=== PATIENT | male | born 1945 | race Caucasian/White ===

== ENCOUNTER 2016-06-18 14:37 | Outpatient (CLI) | payer MEDICARE | END 2016-06-18 14:38 | disposition home or self-care (01) | DX: R53.83 Other fatigue (principal); C85.90 Non-Hodgkin lymphoma, unspecified, unspecified site ==

== ENCOUNTER 2016-08-04 11:46 | Outpatient (CLI) | payer MEDICARE ==
[2016-08-04] MEDS ORDERED: IOPAMIDOL-300 100 ML VIAL IVP ONE (13:13)
[2016-08-04] MEDS ORDERED: IOPAMIDOL-300 50 ML VIAL PO ONE (13:13)
== END 2016-08-04 11:47 | disposition home or self-care (01) ==
DX: C83.30 Diffuse large B-cell lymphoma, unspecified site (principal)
CPT/HCPCS: 36415; 71260; 74177; 82565; Q9967

== ENCOUNTER 2016-09-02 07:02 | Outpatient (CLI) | payer MEDICARE | END 2016-09-02 07:03 | disposition home or self-care (01) | DX: E55.9 Vitamin D deficiency, unspecified (principal); R97.20 Elevated prostate specific antigen [PSA]; E78.9 Disorder of lipoprotein metabolism, unspecified; E11.9 Type 2 diabetes mellitus without complications ==

== ENCOUNTER 2016-09-19 07:58 | Emergency (ER) | payer MEDICARE ==
[2016-09-19] MEDS ORDERED: SODIUM CHLORIDE 0.9% 1,000 ML IV ONE ×2 (09:02→09:59)
--- NOTE | 2016-09-19 09:06 | ED Physician Documentation ---
PD HPI CHEST PAIN - Stated complaint Stated Complaint: CHEST PAIN - Chief complaint Chief Complaint: Cardiac - History obtained from History obtained from: Patient - History of Present Illness Timing - onset: Enter time (1800), Last night Timing - onset during: Rest Timing - duration: Hours Timing - details: Gradual onset, Now resolved Quality: Pressure, Aching, Sharp Location: Substernal, Left chest Radiation: No: Jaw, Neck, Back, Abdominal, Left upper extremity, Right upper extremity Improved by: Rest Associated symptoms: Shortness of air, Nausea, Feeling faint / dizzy, General Weakness. No: Diaphoresis, Vomiting, Palpitations, Cough Similar symptoms before: Diagnosis (atypical chest pain) Recently seen: Clinic (The patient has had a recent recurrenc of his lymphoma.) - Additional information Additional information: 71 y/o male was feeling his usual and was well yesterday when he did his usual work out in the GYM and ran about 2 miles. He had no symptoms while working out. He began to have syptoms at about 6pm last night and he has chest pain dizziness, light headedness and nausea. He has had similar chest pain about every 2 months. Today his symptoms of fatigue and lightheadedness are more pronounced than usual. He does not have any specific hydration regimen. Review of Systems Constitutional: reports: Myalgias, Fatigue. denies: Fever, Chills Eyes: denies: Decreased vision Ears: denies: Ear pain Nose: denies: Rhinorrhea / runny nose, Congestion Throat: denies: Oral lesions / sores, Sore throat Cardiac: reports: Chest pain / pressure. denies: Palpitations, Pedal edema, Calf pain Respiratory: reports: Dyspnea. denies: Cough GI: reports: Nausea. denies: Abdominal Pain, Vomiting, Constipation, Diarrhea : denies: Dysuria, Frequency PD PAST MEDICAL HISTORY - Past Medical History Past Medical History: Yes Cardiovascular: Hypertension Respiratory: None Neuro: None Endocrine/Autoimmune: None GI: Hepatitis : None HEENT: None Psych: None Musculoskeletal: None Derm: None - Past Surgical History Past Surgical History: Yes General: Cholecystectomy, Appendectomy HEENT: Tonsil/Adenoidectomy - Present Medications Home Medications: Ambulatory Orders Medication Instructions Recorded Confirmed Atenolol 25 mg PO DAILY 01/09/13 09/19/16 hydroCHLOROthiazide [Hydrodiuril] 25 mg PO DAILY 01/09/13 09/19/16 - Allergies Allergies/Adverse Reactions: Allergies Allergy/AdvReac Type Severity Reaction Status Date / Time azithromycin [From Zithromax] Allergy Intermediate Rash Verified 11/16/15 22:08 sulfamethoxazole AdvReac Intermediate Emesis Verified 11/16/15 22:08 [From Bactrim] trimethoprim [From Bactrim] AdvReac Intermediate Emesis Verified 11/16/15 22:08 hydrocodone AdvReac Nausea Verified 11/16/15 22:08 - Social History Does the pt smoke?: No Smoking Status: Never smoker Does the pt drink ETOH?: No Does the pt have substance abuse?: No - Immunizations Immunizations are current?: Yes - POLST Patient has POLST: No PD ED PE NORMAL - Vitals Vital signs reviewed: Yes (hypertensive) - General General: Alert and oriented X 3, No acute distress, Well developed/nourished - HEENT HEENT: Atraumatic, PERRL, EOMI - Neck Neck: Supple, no meningeal sign - Cardiac Cardiac: RRR, No murmur - Respiratory Respiratory: No respiratory distress, Clear bilaterally - Abdomen Abdomen: Soft, Non tender - Back Back: No CVA TTP, No spinal TTP - Derm Derm: Normal color, Warm and dry, No rash - Extremities Extremities: No deformity, No edema - Neuro Neuro: No motor deficit, No sensory deficit - Psych Psych: Normal mood, Normal affect Results - Vitals Vitals: Vital Signs - 24 hr 09/19/16 09/19/16 09/19/16 08:02 09:06 10:23 Temperature 36.5 C Heart Rate 67 58 L 51 L Respiratory 18 Rate Blood Pressure 161/99 H 128/80 O2 Saturation 98 99 98 09/19/16 11:49 Temperature 36.6 C Heart Rate 61 Respiratory 16 Rate Blood Pressure 133/63 H O2 Saturation 98 Oxygen O2 Source Room air - EKG (time done) 0805 Rate: Rate (enter#) (68) [place]: LAD Compare to prior EKG: Unchanged from prior EKG (01-15-15) Computer interpretation: Agree with computer - Labs Labs: Laboratory Tests 09/19/16 09/19/16 09/19/16 08:10 08:10 08:10 WBC 5.8 RBC 4.89 Hgb 15.3 Hct 43.5 MCV 89.0 MCH 31.4 H MCHC 35.2 RDW 13.0 Plt Count 197 MPV 8.1 Neut # 3.4 Lymph # 1.6 [place] # 0.5 Eos # 0.2 Baso # 0.0 Absolute Nucleated RBC 0.00 Nucleated RBCs 0.0 Sodium 136 Potassium 3.8 Chloride 99 L Carbon Dioxide 28 Anion Gap 9.0 BUN 11 Creatinine 0.6 Estimated GFR (MDRD) 133 Glucose 147 H Calcium 9.7 Total Bilirubin 1.0 AST 20 ALT 17 Alkaline Phosphatase 41 L Troponin I < 0.04 Total Protein 7.2 Albumin 4.6 Globulin 2.6 Albumin/Globulin Ratio 1.8 Lipase 29 Urine Color Urine Clarity Urine pH Ur Specific [place] Urine Protein Urine Glucose (UA) Urine Ketones Urine Occult Blood Urine Nitrite Urine Bilirubin Urine Urobilinogen Ur Leukocyte Esterase Ur Microscopic Review Urine Culture Comments 09/19/16 09:10 WBC RBC Hgb Hct MCV MCH MCHC RDW Plt Count MPV Neut # Lymph # [place] # Eos # Baso # Absolute Nucleated RBC Nucleated RBCs Sodium Potassium Chloride Carbon Dioxide Anion Gap BUN Creatinine Estimated GFR (MDRD) Glucose Calcium Total Bilirubin AST ALT Alkaline Phosphatase Troponin I Total Protein Albumin Globulin Albumin/Globulin Ratio Lipase Urine Color YELLOW Urine Clarity CLEAR Urine pH 6.5 Ur Specific [place] <=1.005 Urine Protein NEGATIVE Urine Glucose (UA) NEGATIVE Urine Ketones NEGATIVE Urine Occult Blood NEGATIVE Urine Nitrite NEGATIVE Urine Bilirubin NEGATIVE Urine Urobilinogen 0.2 (NORMAL) Ur Leukocyte Esterase NEGATIVE Ur Microscopic Review NOT INDICATED Urine Culture Comments NOT INDICATED - Rads (name of study) two-view chest Radiology: Prelim report reviewed (Impression: 1. No evidence for acute cardiopulmonary process by chest radiograph.), EMP read indepedently, See rad report Procedures - IVC sono (time) 0900 Bedside IVC sono: IVC measures (cm) (0.89), IVC collapsed c insp (cm) (complete) , Dehydration (about 2 liters down.) PD MEDICAL DECISION MAKING - ED course Complexity details: reviewed old records, reviewed results, re-evaluated patient , considered differential, d/w patient ED course: 71 y/o male with episodic chest pain is dizzy, lightheaded and nauseated with this and he is found to be dehydrated on interrogation of the IVC. He is administered saline with marked improvement in symptoms. Departure - Departure Disposition: 01 Home, Self Care Clinical Impression: Dehydration Condition: Stable Instructions: ED Dehydration Follow-Up: Aki Zaidi MD [Primary Care Provider] - Discharge Date/Time: 09/19/16 11:49
[2016-09-19 09:16] LABS: BASOPHILS % (AUTO) 0.6 %; EOSINOPHILS # (AUTO) 0.2 10^3/uL (0.0-0.7); EOSINOPHILS % (AUTO) 2.7 %; HCT - HEMATOCRIT 43.5 % (42.0-52.0); HGB - HEMOGLOBIN 15.3 g/dL (14.0-18.0); LYMPHOCYTES # (AUTO) 1.6 10^3/uL (1.5-3.5); LYMPHOCYTES % (AUTO) 28.6 %; MEAN CORPUSCULAR HEMOGLOBIN 31.4 pg (27.0-31.0); MEAN CORPUSCULAR HGB CONC 35.2 g/dL (32.0-36.0); MEAN PLATELET VOLUME 8.1 fL (7.4-11.4); MONOCYTES # (AUTO) 0.5 10^3/uL (0.0-1.0); MONOCYTES % (AUTO) 8.5 %; NEUTROPHILS # (AUTO) 3.4 10^3/uL (1.5-6.6); NEUTROPHILS % (AUTO) 59.6 %; RED BLOOD COUNT 4.89 10^6/uL (4.70-6.10); UNCORRECTED WHITE BLOOD COUNT 5.8 x10^3/uL; WHITE BLOOD COUNT 5.8 x10^3/uL (4.8-10.8)
[2016-09-19 09:26] LABS: ALBUMIN/GLOBULIN RATIO 1.8 (1.0-2.2); CALCIUM 9.7 mg/dL (8.5-10.3); CREATININE 0.6 mg/dL (0.6-1.2); POTASSIUM 3.8 mmol/L (3.5-5.0); TOTAL PROTEIN 7.2 g/dL (6.7-8.2)
[2016-09-19 09:27] LABS: BILIRUBIN,URINE NEGATIVE (NEGATIVE); PH,URINE 6.5 PH (5.0-7.5)
[2016-09-19 09:28] LABS: UA CHARGE (STRIP ONLY) YES; UR CULTURE IF IND NOT INDICATED
--- NOTE | 2016-09-19 09:43 | XRAY Preliminary Report ---
Exam: XR Chest 2 View PA/LAT IMPRESSION: 1. No evidence for acute cardiopulmonary process by chest radiograph. [facility] SITE ID: [id number]
--- NOTE | 2016-09-19 09:46 | XRAY Report ---
EXAM: CHEST RADIOGRAPHY EXAM DATE: 09/19/2016 09:23 AM. CLINICAL HISTORY: Chest pain. COMPARISON: 11/28/2013. TECHNIQUE: 2 views. FINDINGS: Lungs/Pleura: Linear basilar opacities likely reflect atelectasis. No other consolidation. No evidenc e for pleural effusions or pneumothorax. Mediastinum: Stable heart size and mediastinum. The thoracic aorta is tortuous. Other: Multilevel degenerative disk disease seen in the thoracic spine. IMPRESSION: 1. No evidence for acute cardiopulmonary process by chest radiograph. [facility] Referring Provider Line: [phone] SITE ID: [id number]
[2016-09-19 11:53] VITALS: BP 133/63
== END 2016-09-19 11:49 | disposition home or self-care (01) ==
LOC: ED 07:58
DX: E86.0 Dehydration (principal); R07.89 Other chest pain; I10 Essential (primary) hypertension
CPT/HCPCS: 36415; 71020; 80053; 81001; 81003; 83690; 84484; 85025; 87086; 93005; 93010; 96360; 99284

== ENCOUNTER 2016-10-20 10:36 | Outpatient (CLI) | payer MEDICARE ==
[2016-10-20 18:28] LABS: BASOPHILS % (AUTO) 0.5 %; EOSINOPHILS # (AUTO) 0.1 10^3/uL (0.0-0.7); EOSINOPHILS % (AUTO) 1.3 %; HCT - HEMATOCRIT 45.5 % (42.0-52.0); HGB - HEMOGLOBIN 15.3 g/dL (14.0-18.0); LYMPHOCYTES # (AUTO) 1.5 10^3/uL (1.5-3.5); LYMPHOCYTES % (AUTO) 19.5 %; MEAN CORPUSCULAR HEMOGLOBIN 30.9 pg (27.0-31.0); MEAN CORPUSCULAR HGB CONC 33.7 g/dL (32.0-36.0); MEAN CORPUSCULAR VOLUME 91.7 fL (80.0-94.0); MONOCYTES # (AUTO) 0.7 10^3/uL (0.0-1.0); MONOCYTES % (AUTO) 8.5 %; NEUTROPHILS # (AUTO) 5.4 10^3/uL (1.5-6.6); NEUTROPHILS % (AUTO) 70.2 %; NUCLEATED RED BLOOD CELLS AUTO 0.2 /100WBC; RED BLOOD COUNT 4.96 10^6/uL (4.70-6.10); RED CELL DISTRIBUTION WIDTH 13.1 % (12.0-15.0); UNCORRECTED WHITE BLOOD COUNT 7.7 x10^3/uL; WHITE BLOOD COUNT 7.7 x10^3/uL (4.8-10.8)
[2016-10-20 18:49] LABS: ALBUMIN/GLOBULIN RATIO 1.6 (1.0-2.2); BILIRUBIN,TOTAL 0.8 mg/dL (0.2-1.0); CALCIUM 9.7 mg/dL (8.5-10.3); CREATININE 0.7 mg/dL (0.6-1.2); POTASSIUM 4.6 mmol/L (3.5-5.0); TOTAL PROTEIN 7.1 g/dL (6.7-8.2)
== END 2016-10-20 10:37 | disposition home or self-care (01) ==
LOC: LAB.F 10:36
PROVIDERS: ATTEND Family Medicine
DX: R42 Dizziness and giddiness (principal); R07.9 Chest pain, unspecified; R53.83 Other fatigue
CPT/HCPCS: 36415; 80053; 85025

== ENCOUNTER 2016-11-06 13:42 | Outpatient (CLI) | payer MEDICARE ==
[2016-11-06] MEDS ORDERED: IOPAMIDOL-300 50 ML VIAL PO ONE (15:36)
[2016-11-06] MEDS ORDERED: IOPAMIDOL-300 100 ML VIAL IVP ONE (15:36)
--- NOTE | 2016-11-06 18:31 | CT Report ---
EXAM: CT ABDOMEN AND PELVIS EXAM DATE: 11/06/2016 03:44 p.m. CLINICAL HISTORY: Recurrent diffuse large B-cell lymphoma. COMPARISONS: 08/04/2016. TECHNIQUE: Routine helical CT imaging was performed through the abdomen and pelvis. IV contrast: 100 mL of Isovue-300. Enteric contrast: Yes. Reconstructions: Coronal and sagittal. In accordance with CT protocol optimization, one or more of the following dose reduction techniques w ere utilized for this exam: automated exposure control, adjustment of mA and/or KV based on patient s ize, or use of iterative reconstructive technique. FINDINGS: Lung Bases: Unremarkable. Liver: Normal. No masses. Gallbladder/Bile Ducts: Cholecystectomy. No ductal dilatation. Spleen: Normal. Pancreas: Normal. Adrenal Glands: Normal. Kidneys: Normal. No masses or hydronephrosis. Peritoneal Cavity/Bowel: Mild diverticulosis. No free fluid, free air or adenopathy. No masses or acu te inflammatory process. Nonvisualized appendix. Pelvic Organs: Prostate and bladder are unremarkable. Vasculature: No aortic aneurysm. Mild atherosclerotic calcification. Bones: S-shaped scoliosis with multilevel degenerative disk disease again noted, worst at L2-L3 and L 4-L5. Other: Small fat-containing inguinal hernias, right greater than left. IMPRESSION: No mass or adenopathy, or other acute abnormality of the abdomen and pelvis. [facility] Referring Provider Line: [phone] SITE ID: [id number]
--- NOTE | 2016-11-06 18:31 | CT Report ---
EXAM: CT CHEST EXAM DATE: 11/06/2016 03:44 PM. CLINICAL HISTORY: Recurrent diffuse large B-cell lymphoma. COMPARISONS: 08/04/2016. TECHNIQUE: Routine helical CT imaging was performed through the chest. IV contrast: 100 mL of Isovue- 300. Reconstructions: Coronal and sagittal. In accordance with CT protocol optimization, one or more of the following dose reduction techniques w ere utilized for this exam: automated exposure control, adjustment of mA and/or KV based on patient s ize, or use of iterative reconstructive technique. FINDINGS: Lungs/Pleura: No nodules, bronchial thickening, consolidation, or edema. Pulmonary vasculature is nor mal. No pericardial or pleural effusion. No pneumothorax. Mediastinum: Ectatic ascending aorta noted. No adenopathy or masses. No cardiomegaly. Bones: Unremarkable. Visualized Abdomen: Unremarkable. Other: Interval removal of a superficial right axillary lymph node with a smaller deeper 1.2 cm right axillary lymph node. IMPRESSION: Interval removal of a superficial right axillary lymph node, with deeper right axillary l ymph node smaller in size. No new mass or adenopathy. [facility] Referring Provider Line: [phone] SITE ID: [id number]
== END 2016-11-06 13:43 | disposition home or self-care (01) ==
LOC: DI 13:42
PROVIDERS: ATTEND Internal Medicine Hematology & Oncology
DX: C83.30 Diffuse large B-cell lymphoma, unspecified site (principal)
CPT/HCPCS: 71260; 74177; Q9967

== ENCOUNTER 2016-12-30 10:54 | Outpatient (CLI) | payer MEDICARE ==
[2016-12-30 11:30] LABS: ALBUMIN/GLOBULIN RATIO 1.6 (1.0-2.2); CALCIUM 9.7 mg/dL (8.5-10.3); CREATININE 0.8 mg/dL (0.6-1.2); POTASSIUM 4.5 mmol/L (3.5-5.0); TOTAL PROTEIN 7.5 g/dL (6.7-8.2)
[2016-12-30] MEDS ORDERED: IOPAMIDOL-300 100 ML VIAL IVP ONE (13:50)
--- NOTE | 2016-12-30 16:41 | CT Report ---
CT OF THE CHEST WITH CONTRAST: 12/30/2016 CLINICAL HISTORY: A 71-year-old male, followup lymphoma. TECHNIQUE: Axial images were obtained from the domes of the diaphragms through the pubic symphysis following 80 mL of Isovue and axial and coronal reformations performed. COMPARISON: 11/06/2016. FINDINGS: The lungs are symmetrically aerated and clear. No pulmonary nodules, bronchial wall thickening, consolidation or edema noted. The heart and great vessels are stable. There is no pericardial effusion. The ectatic ascending aorta is again identified. There is no hilar or mediastinal adenopathy. Multilevel degenerative changes are again noted. The pattern is stable when compared to the prior study. No lytic or blastic destructive lesions. The visualized upper abdomen is unchanged. Surgical change is again identified in the right axillary distribution secondary to mark resection. A few shotty level 3 axillary lymph nodes are again identified. These are stable in size and configuration when compared to the prior study. The maximal short axis diameter is 8 mm. A hiatal hernia is again identified. IMPRESSION: 1. STABLE EXAMINATION. NO NEW ADENOPATHY. 2. POSTSURGICAL CHANGES IN THE RIGHT AXILLA. STABLE SHOTTY LEVEL 3 LYMPH NODES. 3. CLEAR LUNGS. NO INFILTRATES. In accordance with CT protocol optimization, one or more of the following dose reduction techniques were utilized for this exam: automated exposure control, adjustment of mA and/or KV based on patient size, or use of iterative reconstructive technique. JOB #: [id number] EXT JOB #: [id number] [facility]
== END 2016-12-30 10:55 | disposition home or self-care (01) ==
LOC: LAB 10:54
PROVIDERS: ATTEND Family Medicine
DX: Z08 Encounter for follow-up examination after completed treatment for malignant neoplasm (principal); Z85.72 Personal history of non-Hodgkin lymphomas
CPT/HCPCS: 36415; 71260; 80053; Q9967

== ENCOUNTER 2017-03-29 16:17 | Outpatient (CLI) | payer MEDICARE ==
[2017-03-30 11:50] LABS: BASOPHILS # (AUTO) 0.1 10^3/uL (0.0-0.1); BASOPHILS % (AUTO) 1.1 %; EOSINOPHILS # (AUTO) 0.1 10^3/uL (0.0-0.7); EOSINOPHILS % (AUTO) 2.1 %; HCT - HEMATOCRIT 44.6 % (42.0-52.0); HGB - HEMOGLOBIN 14.8 g/dL (14.0-18.0); LYMPHOCYTES # (AUTO) 1.9 10^3/uL (1.5-3.5); LYMPHOCYTES % (AUTO) 28.2 %; MEAN CORPUSCULAR HEMOGLOBIN 30.6 pg (27.0-31.0); MEAN CORPUSCULAR HGB CONC 33.2 g/dL (32.0-36.0); MEAN PLATELET VOLUME 8.2 fL (7.4-11.4); MONOCYTES # (AUTO) 0.4 10^3/uL (0.0-1.0); MONOCYTES % (AUTO) 6.6 %; NEUTROPHILS # (AUTO) 4.1 10^3/uL (1.5-6.6); NUCLEATED RED BLOOD CELLS AUTO 0.2 /100WBC; RED BLOOD COUNT 4.85 10^6/uL (4.70-6.10); RED CELL DISTRIBUTION WIDTH 13.3 % (12.0-15.0); UNCORRECTED WHITE BLOOD COUNT 6.7 x10^3/uL; WHITE BLOOD COUNT 6.7 x10^3/uL (4.8-10.8)
[2017-03-30 11:56] LABS: ALBUMIN/GLOBULIN RATIO 1.8 (1.0-2.2); BILIRUBIN,TOTAL 0.5 mg/dL (0.2-1.0); CALCIUM 9.4 mg/dL (8.5-10.3); CREATININE 0.7 mg/dL (0.6-1.2); POTASSIUM 4.3 mmol/L (3.5-5.0); TOTAL PROTEIN 6.9 g/dL (6.7-8.2)
== END 2017-03-29 16:18 | disposition home or self-care (01) ==
LOC: LAB.F 16:17
PROVIDERS: ATTEND Nurse Practitioner Family
DX: R53.81 Other malaise (principal)
CPT/HCPCS: 36415; 80053; 85025

== ENCOUNTER 2017-04-05 12:46 | Outpatient (CLI) | payer MEDICARE ==
[2017-04-05 18:48] LABS: BUN - BLOOD UREA NITROGEN 13 mg/dL (6-20); CALCIUM 9.5 mg/dL (8.5-10.3); CARBON DIOXIDE - CO2 26 mmol/L (21-32); CHLORIDE 103 mmol/L (101-111); CREATININE 0.7 mg/dL (0.6-1.2); GFR - MDRD 111 (>89); GLUCOSE 93 mg/dL (70-100); POTASSIUM 4.2 mmol/L (3.5-5.0); SODIUM 137 mmol/L (135-145)
== END 2017-04-05 12:47 | disposition home or self-care (01) ==
LOC: LAB.S 12:46
PROVIDERS: ATTEND Family Medicine
DX: C85.90 Non-Hodgkin lymphoma, unspecified, unspecified site (principal); R53.81 Other malaise
CPT/HCPCS: 36415; 80048; 84443

== ENCOUNTER 2017-05-27 11:04 | Outpatient (CLI) | payer MEDICARE, OTHER ==
--- NOTE | 2017-05-27 19:59 | Ultrasound Report ---
DATE OF SERVICE: 05/27/2017 ULTRASOUND NECK SOFT TISSUES: 05/27/2017 CLINICAL INDICATION: History of lymphoma, new palpable abnormality. TECHNIQUE: Real-time scanning was performed with sales representative door to door static images obtained. Ultrasound of the neck soft tissues was performed. In the left submandibular space, lymphadenopathy is seen, with the largest node measuring 2.1 x 1.4 x 1.3 cm. In addition, there is left anterior triangle adenopathy, with the largest anterior triangle lymph node measuring 2.2 x 1.4 x 0.8 cm. No right-sided adenopathy is identified. IMPRESSION: Left anterior triangle and submandibular adenopathy, suspicious for recurrence. TD: 05/27/2017 20:57
== END 2017-05-27 11:05 | disposition home or self-care (01) ==
LOC: DI 11:04
PROVIDERS: ATTEND Internal Medicine Hematology & Oncology
DX: C83.30 Diffuse large B-cell lymphoma, unspecified site (principal)
CPT/HCPCS: 76536

== ENCOUNTER 2017-08-03 11:36 | Outpatient (CLI) | payer MEDICARE, OTHER ==
[2017-08-03] MEDS ORDERED: IOPAMIDOL-300 50 ML VIAL ONE (12:12)
[2017-08-03] MEDS ORDERED: IOPAMIDOL-300 100 ML VIAL ONE (12:12)
[2017-08-03 12:26] LABS: CREATININE 0.6 mg/dL (0.6-1.2)
[2017-08-03] MEDS ORDERED: IOPAMIDOL-300 50 ML VIAL PO ONE (13:28)
[2017-08-03] MEDS ORDERED: IOPAMIDOL-300 100 ML VIAL IVP ONE (13:28)
--- NOTE | 2017-08-03 15:08 | CT Report ---
CT CHEST WITH CONTRAST: 08/03/2017 CLINICAL INDICATION: B-cell lymphoma. COMPARISON: 04/27/2017. TECHNIQUE: Axial CT images of the chest were obtained with 100 mL Isovue 300 intravenously. FINDINGS: The heart and great vessels demonstrate mild atherosclerotic calcification. No hilar or mediastinal lymphadenopathy is present. The lungs are clear. No effusion or pneumothorax is present. Osseous structures demonstrate degenerative changes. IMPRESSION: NO EVIDENCE OF ADENOPATHY. NO SIGNIFICANT INTERVAL CHANGE. CT DOSE REDUCTION STATEMENT In accordance with CT protocol optimization, one or more of the following dose reduction techniques were utilized for this exam: automated exposure control, adjustment of mA and/or KV based on patient size, or use of iterative reconstructive technique. TD: 08/03/2017 15:06
--- NOTE | 2017-08-03 15:11 | CT Report ---
CT ABDOMEN AND PELVIS WITH CONTRAST: 08/03/2017 CLINICAL INDICATION: B-cell lymphoma. COMPARISON: 04/27/2017. TECHNIQUE: Axial CT images of the abdomen and pelvis were obtained with 100 mL Isovue 300 intravenously as well as oral contrast. FINDINGS: ABDOMEN: The liver, spleen, pancreas and adrenal glands are unremarkable. The kidneys demonstrate small cortical cysts. No solid renal lesion or hydronephrosis is present. The patient is status post cholecystectomy. No bowel dilatation, free gas, or free fluid is present. No abdominal adenopathy is appreciated. PELVIS: Sigmoid diverticulosis is present, without CT evidence of diverticulitis. No pelvic adenopathy or free fluid is present. Osseous structures demonstrate degenerative changes. IMPRESSION: NO EVIDENCE OF ADENOPATHY. INCIDENTAL RENAL CYSTS. CT DOSE REDUCTION STATEMENT In accordance with CT protocol optimization, one or more of the following dose reduction techniques were utilized for this exam: automated exposure control, adjustment of mA and/or KV based on patient size, or use of iterative reconstructive technique. TD: 08/03/2017 15:10
== END 2017-08-03 11:37 | disposition home or self-care (01) ==
LOC: DI 11:36
PROVIDERS: ATTEND Internal Medicine Hematology & Oncology
DX: C83.30 Diffuse large B-cell lymphoma, unspecified site (principal)
CPT/HCPCS: 36415; 71260; 74177; 82565; Q9967

== ENCOUNTER 2017-08-31 07:28 | Outpatient (CLI) | payer MEDICARE, OTHER ==
[2017-08-31 12:38] LABS: BUN - BLOOD UREA NITROGEN 10 mg/dL (6-20); CALCIUM 9.3 mg/dL (8.5-10.3); CARBON DIOXIDE - CO2 29 mmol/L (21-32); CHLORIDE 102 mmol/L (101-111); CHOL/HDL RATIO 4.2 (<5.0); CHOLESTEROL 121 mg/dL; CREATININE 0.6 mg/dL (0.6-1.2); GFR - MDRD 133 (>89); GLUCOSE 105 mg/dL (70-100); HDL CHOLESTEROL 29 mg/dL; LDL CHOLESTEROL,CALCULATED 68 mg/dL; LDL/HDL RATIO 2.3 (<3.6); SODIUM 137 mmol/L (135-145); VLDL CHOLESTEROL 24 mg/dL
[2017-08-31 12:43] LABS: PSA FREE 0.38 ng/mL (0.16-2.81)
[2017-08-31 12:44] LABS: PSA TOTAL 1.29 ng/mL (0.000-2.000)
[2017-08-31 12:52] LABS: HB2 TOTAL 16.8 g/dL; HEMOGLOBIN A1C 0.7 g/dL
== END 2017-08-31 07:29 | disposition home or self-care (01) ==
LOC: LAB.F 07:28
PROVIDERS: ATTEND Family Medicine
DX: E11.9 Type 2 diabetes mellitus without complications (principal); I10 Essential (primary) hypertension; E78.9 Disorder of lipoprotein metabolism, unspecified; R97.20 Elevated prostate specific antigen [PSA]
CPT/HCPCS: 36415; 80048; 80061; 83036; 83721; 84154

== ENCOUNTER 2017-10-19 09:30 | Outpatient (CLI) | payer MEDICARE, OTHER | END 2017-10-19 09:31 | disposition home or self-care (01) | LOC: LAB.R 09:30 | PROVIDERS: ATTEND Nurse Practitioner Family | DX: B35.1 Tinea unguium (principal) | CPT/HCPCS: 87070; 87077; 87181; 87205 ==

== ENCOUNTER 2017-12-29 11:17 | Outpatient (CLI) | payer MEDICARE, OTHER ==
[2017-12-29 17:59] LABS: BASOPHILS % (AUTO) 0.5 %; EOSINOPHILS # (AUTO) 0.1 10^3/uL (0.0-0.7); EOSINOPHILS % (AUTO) 1.3 %; HGB - HEMOGLOBIN 14.7 g/dL (14.0-18.0); LYMPHOCYTES # (AUTO) 1.3 10^3/uL (1.5-3.5); LYMPHOCYTES % (AUTO) 20.4 %; MEAN CORPUSCULAR HEMOGLOBIN 30.6 pg (27.0-31.0); MEAN CORPUSCULAR HGB CONC 33.6 g/dL (32.0-36.0); MEAN CORPUSCULAR VOLUME 91.1 fL (80.0-94.0); MEAN PLATELET VOLUME 7.8 fL (7.4-11.4); MONOCYTES # (AUTO) 0.7 10^3/uL (0.0-1.0); MONOCYTES % (AUTO) 10.6 %; NEUTROPHILS # (AUTO) 4.4 10^3/uL (1.5-6.6); NEUTROPHILS % (AUTO) 67.2 %; PLT - PLATELET COUNT 253 10^3/uL (130-450); RED CELL DISTRIBUTION WIDTH 13.4 % (12.0-15.0); WHITE BLOOD COUNT 6.6 x10^3/uL (4.8-10.8)
[2017-12-29 18:15] LABS: ALBUMIN 4.3 g/dL (3.2-5.5); ALBUMIN/GLOBULIN RATIO 1.5 (1.0-2.2); BILIRUBIN,TOTAL 0.6 mg/dL (0.2-1.0); CALCIUM 9.5 mg/dL (8.5-10.3); CREATININE 0.8 mg/dL (0.6-1.2); TOTAL PROTEIN 7.2 g/dL (6.7-8.2)
[2017-12-29 18:49] LABS: HB2 TOTAL 15.7 g/dL; HEMOGLOBIN A1C 0.6 g/dL; HEMOGLOBIN A1C % 5.6 % (4.6-6.2)
== END 2017-12-29 11:18 | disposition home or self-care (01) ==
LOC: LAB.F 11:17
PROVIDERS: ATTEND Nurse Practitioner Family
DX: R63.4 Abnormal weight loss (principal); E11.9 Type 2 diabetes mellitus without complications; R10.13 Epigastric pain; Z85.72 Personal history of non-Hodgkin lymphomas
CPT/HCPCS: 36415; 80053; 83036; 85025

== ENCOUNTER 2017-12-31 11:41 | Outpatient (CLI) | payer MEDICARE, OTHER ==
[2017-12-31] MEDS ORDERED: IOPAMIDOL-300 50 ML VIAL ONE (11:57)
[2017-12-31] MEDS ORDERED: IOPAMIDOL-300 100 ML VIAL ONE (11:58)
[2017-12-31] MEDS ORDERED: IOPAMIDOL-300 50 ML VIAL PO ONE (12:41)
[2017-12-31] MEDS ORDERED: IOPAMIDOL-300 100 ML VIAL IVP ONE (13:05)
--- NOTE | 2017-12-31 14:30 | CT Report ---
Procedure Date: 12/31/2017 Accession Number: [id number] / [id number] Procedure: CT - Chest W/ CPT Code: FULL RESULT: EXAM: CT CHEST EXAM DATE: 12/31/2017 01:22 PM. CLINICAL HISTORY: LYMPHOMA, UNINTENTIONAL WEIGHT LOSS, ABD PAIN. COMPARISONS: CHEST W/ 04/27/2017 12:55 AM. TECHNIQUE: Routine helical CT imaging was performed through the chest. IV contrast: 100 cc Isovue-300. Reconstructions: Coronal and sagittal. In accordance with CT protocol optimization, one or more of the following dose reduction techniques were utilized for this exam: automated exposure control, adjustment of mA and/or KV based on patient size, or use of iterative reconstructive technique. FINDINGS: Lungs/Pleura: No nodules, bronchial thickening, consolidation, or edema. Pulmonary vasculature is normal. No pericardial or pleural effusion. No pneumothorax. Mediastinum: There are no enlarged axillary or supraclavicular lymph nodes. There are mildly enlarged mediastinal lymph nodes. Examples include mid right paratracheal 1.2 x 1.1 cm image 23 series 2, low right paratracheal 1.5 x 1.3 cm image 24, and right hilar 1.2 x 0.9 cm image 25. This lymph node enlargement is new since the previous examination. Heart size is within normal limits. There is thoracic aortic tortuosity. There is reflux of contrast into the IVC which may reflect right heart dysfunction. Bones: Unremarkable. Visualized Abdomen: Findings are detailed separately. Other: None. IMPRESSION: 1. Interval development of enlarged mediastinal and right hilar lymph nodes as above. 2. No acute pulmonary process. 3. Normal heart size. There is reflux of contrast into the IVC, which may reflect right heart dysfunction. 4. Findings within the abdomen and pelvis are detailed separately. [facility] ADDENDUM: 12/31/17 14:43 Left paraspinous/periaortic findings at the T10 level are detailed on accompanying abdomen and pelvis CT.
--- NOTE | 2017-12-31 14:43 | CT Report ---
Procedure Date: 12/31/2017 Accession Number: [id number] / [id number] Procedure: CT - Abdomen/Pelvis W/ CPT Code: FULL RESULT: EXAM: CT ABDOMEN AND PELVIS EXAM DATE: 12/31/2017 01:22 PM. CLINICAL HISTORY: LYMPHOMA, UNINTENTIONAL WEIGHT LOSS, ABD PAIN. COMPARISONS: ABDOMEN/PELVIS W/ 08/03/2017. TECHNIQUE: Routine helical CT imaging was performed through the abdomen and pelvis. IV contrast: ISOVUE 300 100mL. Enteric contrast: Positive. Reconstructions: Coronal and sagittal. In accordance with CT protocol optimization, one or more of the following dose reduction techniques were utilized for this exam: automated exposure control, adjustment of mA and/or KV based on patient size, or use of iterative reconstructive technique. FINDINGS: Lung Bases: Findings are detailed separately. Liver: The gallbladder is surgically absent. No significant bile duct dilatation. Gallbladder/Bile Ducts: Unremarkable. Spleen: Normal. Pancreas: Normal. Adrenal Glands: Normal. Kidneys: Normal. No masses or hydronephrosis. Peritoneal Cavity/Bowel: No dilated or thick-walled bowel is seen. No intraperitoneal free air or free fluid. No enlarged mesenteric or retroperitoneal lymph nodes. The appendix is well visualized and normal. Pelvic Organs: Normal. The bladder and visualized pelvic organs are within normal limits. Vasculature: No aneurysms or other significant abnormality. Bones: No significant abnormality. Other: At the left margin of the T10-T11 level, there are soft tissue densities which likely represent enlarged lymph nodes. Index examples include 1.4 x 1.2 cm periaortic image 14 series 4, and 1.9 x 1.1 cm paraspinous image 14. IMPRESSION: 1. There are areas of soft tissue density within the left periaortic/paraspinous region at the T10-T11 level. These are suspicious for mildly enlarged lymph nodes. These are new since the previous examination. 2. Solid abdominal organs demonstrate no acute abnormalities. 3. No acute gastrointestinal tract findings. There are no enlarged mesenteric or retroperitoneal lymph nodes. 4. Findings within the chest are detailed separately. [facility]
== END 2017-12-31 11:42 | disposition home or self-care (01) ==
LOC: DI 11:41
PROVIDERS: ATTEND Nurse Practitioner Family
DX: C85.90 Non-Hodgkin lymphoma, unspecified, unspecified site (principal); R63.4 Abnormal weight loss; R10.13 Epigastric pain; R59.0 Localized enlarged lymph nodes
CPT/HCPCS: 71260; 74177; Q9967

== ENCOUNTER 2018-02-13 10:25 | Emergency (ER) | payer MEDICARE, OTHER ==
[2018-02-13 11:30] LABS: BILIRUBIN,URINE NEGATIVE (NEGATIVE); GLUCOSE, URINE (UA) NEGATIVE (NEGATIVE); KETONES,URINE (UA) NEGATIVE (NEGATIVE); LEUKOCYTE ESTERASE, URINE NEGATIVE (NEGATIVE); NITRITE,URINE NEGATIVE (NEGATIVE); OCCULT BLOOD,URINE NEGATIVE (NEGATIVE); PROTEIN,URINE NEGATIVE (NEGATIVE); UROBILINOGEN,URINE 0.2 (NORMAL) E.U./dL (NORMAL)
[2018-02-13 11:31] LABS: CLARITY,URINE CLEAR (CLEAR)
[2018-02-13 11:51] LABS: BASOPHILS % (AUTO) 0.6 %; EOSINOPHILS # (AUTO) 0.1 10^3/uL (0.0-0.7); EOSINOPHILS % (AUTO) 0.9 %; HGB - HEMOGLOBIN 14.6 g/dL (14.0-18.0); LYMPHOCYTES % (AUTO) 16.8 %; MEAN CORPUSCULAR HEMOGLOBIN 30.6 pg (27.0-31.0); MEAN CORPUSCULAR HGB CONC 34.4 g/dL (32.0-36.0); MEAN CORPUSCULAR VOLUME 88.9 fL (80.0-94.0); MEAN PLATELET VOLUME 6.9 fL (7.4-11.4); MONOCYTES # (AUTO) 0.8 10^3/uL (0.0-1.0); MONOCYTES % (AUTO) 13.6 %; NEUTROPHILS # (AUTO) 4.3 10^3/uL (1.5-6.6); NEUTROPHILS % (AUTO) 68.1 %; PLT - PLATELET COUNT 208 10^3/uL (130-450); RED BLOOD COUNT 4.76 10^6/uL (4.70-6.10); RED CELL DISTRIBUTION WIDTH 13.2 % (12.0-15.0); WHITE BLOOD COUNT 6.2 x10^3/uL (4.8-10.8)
[2018-02-13 12:04] LABS: ALBUMIN 4.2 g/dL (3.2-5.5); ALBUMIN/GLOBULIN RATIO 1.4 (1.0-2.2); BILIRUBIN,TOTAL 1.2 mg/dL (0.2-1.0); CALCIUM 9.4 mg/dL (8.5-10.3); CREATININE 0.7 mg/dL (0.6-1.2); TOTAL PROTEIN 7.2 g/dL (6.7-8.2)
--- NOTE | 2018-02-13 12:25 | ED Physician Documentation ---
PD HPI ABD PAIN - Stated complaint Stated Complaint: FEVER/ABD AND LT FOOT PX - Chief complaint Chief Complaint: Abd Pain - History obtained from History obtained from: Patient - History of Present Illness Timing - onset: Other (This is a 72-year-old gentleman with history of lymphoma, status post remote chemotherapy and being monitored now. Has an upcoming PET scan in a week or 2. For the last couple of days he has had low-grade fevers which was 102 overnight last night associated with fatigue. Very mild productive cough. He complains of abdominal pain but says the abdominal pain is routine for him, he always has migrating abdominal pain related to the lymphoma and there is nothing worse about it. He also noted mild left posterior ankle pain overnight but denies redness swelling or difficulty walking or injury there.) Review of Systems Constitutional: reports: Fever, Chills, Fatigue. denies: Sweats Nose: denies: Rhinorrhea / runny nose, Congestion Throat: denies: Sore throat Respiratory: reports: Cough. denies: Dyspnea GI: reports: Abdominal Pain. denies: Nausea, Vomiting, Constipation, Diarrhea PD PAST MEDICAL HISTORY - Past Medical History Past Medical History: Yes Cardiovascular: Hypertension Respiratory: None Endocrine/Autoimmune: None GI: Hepatitis : None HEENT: None Psych: None Musculoskeletal: None Derm: None Other Past Medical History: non-hodgkins lymphoma, hepatitis in remission - Past Surgical History Past Surgical History: Yes General: Cholecystectomy, Appendectomy HEENT: Tonsil/Adenoidectomy - Present Medications Home Medications: Ambulatory Orders Medication Instructions Recorded Confirmed Atenolol 50 mg PO DAILY 01/09/13 09/19/16 - Allergies Allergies/Adverse Reactions: Allergies Allergy/AdvReac Type Severity Reaction Status Date / Time azithromycin [From Zithromax] Allergy Intermediate Rash Verified 02/13/18 10:44 sulfamethoxazole AdvReac Intermediate Emesis Verified 02/13/18 10:44 [From Bactrim] trimethoprim [From Bactrim] AdvReac Intermediate Emesis Verified 02/13/18 10:44 hydrocodone AdvReac Nausea Verified 02/13/18 10:44 - Social History Does the pt smoke?: No Smoking Status: Never smoker Does the pt drink ETOH?: No Does the pt have substance abuse?: No - Immunizations Immunizations are current?: Yes - POLST Patient has POLST: No PD ED PE NORMAL - Vitals Vital signs reviewed: Yes - General General: Alert and oriented X 3, No acute distress - HEENT HEENT: PERRL, EOMI, Ears normal, Pharynx benign - Neck Neck: Supple, no meningeal sign, No bony TTP - Cardiac Cardiac: RRR, No murmur - Respiratory Respiratory: No respiratory distress, Clear bilaterally - Abdomen Abdomen: Normal bowel sounds, Soft, Non tender - Back Back: No CVA TTP, No spinal TTP - Derm Derm: Normal color, Warm and dry - Extremities Extremities: No edema, No calf tenderness / cord, Other (Left ankle is nontender without cellulitis or limited range of motion) - Neuro Neuro: Alert and oriented X 3, Normal speech Results - Vitals Vitals: Vital Signs - 24 hr 02/13/18 02/13/18 02/13/18 10:39 11:11 12:37 Temperature 36.6 C 36.7 C Heart Rate 73 64 56 L Respiratory 18 14 18 Rate Blood Pressure 138/93 H 145/88 H 131/76 H O2 Saturation 98 97 97 Oxygen O2 Source Room air - Labs Labs: Laboratory Tests 02/13/18 02/13/18 02/13/18 11:15 11:39 11:39 WBC 6.2 RBC 4.76 Hgb 14.6 Hct 42.3 MCV 88.9 MCH 30.6 MCHC 34.4 RDW 13.2 Plt Count 208 MPV 6.9 L Neut # (Auto) 4.3 Lymph # (Auto) 1.0 L [place] # (Auto) 0.8 Eos # (Auto) 0.1 Baso # (Auto) 0.0 Absolute Nucleated RBC 0.01 Nucleated RBC % 0.1 Sodium 135 Potassium 4.6 Chloride 97 L Carbon Dioxide 29 Anion Gap 9.0 BUN 12 Creatinine 0.7 Estimated GFR (MDRD) 111 Glucose 110 H Lactic Acid Calcium 9.4 Total Bilirubin 1.2 H AST 17 ALT 16 Alkaline Phosphatase 54 Total Protein 7.2 Albumin 4.2 Globulin 3.0 Albumin/Globulin Ratio 1.4 Lipase 35 Urine Color YELLOW Urine Clarity CLEAR Urine pH 6.0 Ur Specific [place] 1.015 Urine Protein NEGATIVE Urine Glucose (UA) NEGATIVE Urine Ketones NEGATIVE Urine Occult Blood NEGATIVE Urine Nitrite NEGATIVE Urine Bilirubin NEGATIVE Urine Urobilinogen 0.2 (NORMAL) Ur Leukocyte Esterase NEGATIVE Ur Microscopic Review NOT INDICATED Urine Culture Comments NOT INDICATED 02/13/18 11:39 WBC RBC Hgb Hct MCV MCH MCHC RDW Plt Count MPV Neut # (Auto) Lymph # (Auto) Wallace # (Auto) Eos # (Auto) Baso # (Auto) Absolute Nucleated RBC Nucleated RBC % Sodium Potassium Chloride Carbon Dioxide Anion Gap BUN Creatinine Estimated GFR (MDRD) Glucose Lactic Acid 0.7 Calcium Total Bilirubin AST ALT Alkaline Phosphatase Total Protein Albumin Globulin Albumin/Globulin Ratio Lipase Urine Color Urine Clarity Urine pH Ur Specific [place] Urine Protein Urine Glucose (UA) Urine Ketones Urine Occult Blood Urine Nitrite Urine Bilirubin Urine Urobilinogen Ur Leukocyte Esterase Ur Microscopic Review Urine Culture Comments - Rads (name of study) 2v chest Radiology: EMP read contemporaneously (unremarkable) PD MEDICAL DECISION MAKING - ED course ED course: 72-year-old gentleman with conservatively managed lymphoma presents with fever and nonspecific symptoms at home, also some cough. His labs are reassuring. We discussed potentially a CT scan of his abdomen today, but he feels like his belly pain is no different than any other day and wants watchful waiting on this given the normal white count and lack of fever here. I did want to do a chest x-ray and he agrees with this. - Sepsis Event Vital Signs: Vital Signs - 24 hr 02/13/18 02/13/18 02/13/18 10:39 11:11 12:37 Temperature 36.6 C 36.7 C Heart Rate 73 64 56 L Respiratory 18 14 18 Rate Blood Pressure 138/93 H 145/88 H 131/76 H O2 Saturation 98 97 97 Oxygen O2 Source Room air Departure - Departure Disposition: 01 Home, Self Care Clinical Impression: History of lymphoma, Cough Fever Qualifiers: Fever type: due to other condition Qualified Code(s): R50.81 - Fever presenting with conditions classified elsewhere Condition: Good Record reviewed to determine appropriate education?: Yes Instructions: ED Fever Unconf Cause Comments: Return if any of your symptoms worsen or if new symptoms occur. Follow-up with your doctor as scheduled for PET scan. Your blood pressure was elevated today on check into the emergency department. This does not mean that you have hypertension, it is a common phenomenon to come to the emergency department and have elevated blood pressure. I recommend that you see your primary care physician within the week to have it rechecked when you are feeling better.
--- NOTE | 2018-02-13 13:19 | XRAY Report ---
Reason: cough Procedure Date: 02/13/2018 Accession Number: [id number] / [id number] Procedure: XR - Chest 2 View X-Ray CPT Code: 80281 FULL RESULT: EXAM: CHEST RADIOGRAPHY EXAM DATE: 02/13/2018 12:40 PM. CLINICAL HISTORY: Cough. COMPARISON: CT 12/31/2017. TECHNIQUE: 2 views. FINDINGS: Lungs/Pleura: No focal lung consolidation. No pleural effusion. No pneumothorax. Mediastinum: Cardiac silhouette size appears unremarkable. Mild tortuosity of the thoracic aorta. Other: Surgical clips in the right axillary region. Surgical clips also noted in the upper abdomen. IMPRESSION: No focal lung consolidation or pleural effusions. RADIA
[2018-02-13 13:33] VITALS: BP 123/82
== END 2018-02-13 13:33 | disposition home or self-care (01) ==
LOC: ED 10:25
DX: R50.81 Fever presenting with conditions classified elsewhere (principal); R05 Cough; Z85.72 Personal history of non-Hodgkin lymphomas; I10 Essential (primary) hypertension
CPT/HCPCS: 36415; 71046; 80053; 81001; 81003; 83605; 83690; 85025; 87040; 87086; 99283

== ENCOUNTER 2018-05-29 14:59 | Emergency (ER) | payer MEDICARE, OTHER ==
[2018-05-29] MEDS ORDERED: METOCLOPRAMIDE 10 MG/2 ML VIAL IVP STA (15:35)
[2018-05-29] MEDS ORDERED: SODIUM CHLORIDE 0.9% 1,000 ML IV ONE (15:35)
--- NOTE | 2018-05-29 15:37 | ED Physician Documentation ---
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 He was recently diagnosed with a recurrence and was admitted to [facility] for 5 days and released 2 days ago for initiation of chemotherapy. Since discharge he has been having a lot of problems with nausea and vomiting despite taking Zofran and Compazine. He is having trouble keeping medications down. He also notes that it has been about 6 days since his last bowel movement and feels bloated. He denies fevers, chills, shortness of breath, or chest pain. No pedal edema.) Review of Systems Ten Systems: 10 systems reviewed and negative Constitutional: reports: Fatigue. denies: Fever, Chills Cardiac: denies: Chest pain / pressure, Palpitations Respiratory: denies: Dyspnea, Cough GI: reports: Abdominal Pain, Nausea, Vomiting, Constipation. denies: Diarrhea, Hematemesis, Bloody / black stool PD PAST MEDICAL HISTORY - Past Medical History Cardiovascular: Hypertension Respiratory: None Endocrine/Autoimmune: None GI: Hepatitis : None HEENT: None Psych: None Musculoskeletal: None Derm: None Other Past Medical History: lymphoma - Past Surgical History Past Surgical History: Yes General: Cholecystectomy, Appendectomy HEENT: Tonsil/Adenoidectomy - Present Medications Home Medications: Ambulatory Orders Medication Instructions Recorded Confirmed Atenolol 50 mg PO DAILY 01/09/13 05/11/18 Metoclopramide [Reglan] 10 mg PO Q6H PRN #20 tablet 05/29/18 - Allergies Allergies/Adverse Reactions: Allergies Allergy/AdvReac Type Severity Reaction Status Date / Time azithromycin [From Zithromax] Allergy Intermediate Rash Verified 05/29/18 15:26 sulfamethoxazole AdvReac Intermediate Emesis Verified 05/29/18 15:26 [From Bactrim] trimethoprim [From Bactrim] AdvReac Intermediate Emesis Verified 05/29/18 15:26 hydrocodone AdvReac Nausea Verified 05/29/18 15:26 - Social History Does the pt smoke?: No Smoking Status: Never smoker Does the pt drink ETOH?: No Does the pt have substance abuse?: No - Family History Family history: reports: Non contributory - Immunizations Immunizations are current?: Yes - POLST Patient has POLST: No PD ED PE NORMAL - Vitals Vital signs reviewed: Yes - General General: Alert and oriented X 3, No acute distress - HEENT HEENT: PERRL, EOMI - Neck Neck: Supple, no meningeal sign, No bony TTP - Cardiac Cardiac: RRR, No murmur - Respiratory Respiratory: No respiratory distress, Clear bilaterally - Abdomen Abdomen: Non distended, Other (Soft with absent bowel tones but no significant tenderness.) - Back Back: No CVA TTP, No spinal TTP - Derm Derm: Normal color, Warm and dry - Extremities Extremities: No edema, No calf tenderness / cord - Neuro Neuro: Alert and oriented X 3, Normal speech Results - Vitals Vitals: Vital Signs - 24 hr 05/29/18 15:20 Temperature 36.3 C L Heart Rate 70 Respiratory 16 Rate Blood Pressure 125/73 O2 Saturation 98 Oxygen O2 Source Room air - Labs Labs: Laboratory Tests 05/29/18 05/29/18 05/29/18 16:10 16:10 16:10 WBC 29.8 H RBC 4.45 L Hgb 13.4 L Hct 40.2 L MCV 90.2 MCH 30.0 MCHC 33.2 RDW 13.1 Plt Count 162 MPV 7.7 Neut # (Auto) 28.7 H Lymph # (Auto) 0.9 L [place] # (Auto) 0.2 Eos # (Auto) 0.0 Baso # (Auto) 0.1 Absolute Nucleated RBC 0.01 Band Neuts % (Manual) 5 Abnorm Lymph % (Manual) Not Reportable Nucleated RBC % 0.0 Neutrophils # (Manual) Not Reportable Lymphocytes # (Manual) Not Reportable Monocytes # (Manual) Not Reportable Eosinophils # (Manual) Not Reportable Basophils # (Manual) Not Reportable Differential Comment MANUAL=AUTO DIFF Manual Slide Review Indicated Platelet Estimate NORMAL (130-450,000) Platelet Morphology NORMAL APPEARANCE RBC Morph Micro Appear NORMAL APPEARANCE PT 13.6 H INR 1.2 Sodium 132 L Potassium 3.7 Chloride 99 L Carbon Dioxide 27 Anion Gap 6.0 BUN 21 H Creatinine 0.7 Estimated GFR (MDRD) 111 Glucose 108 H Calcium 9.1 Total Bilirubin 1.6 H AST 74 H ALT 150 H Alkaline Phosphatase 51 Total Protein 6.7 Albumin 3.9 Globulin 2.8 Albumin/Globulin Ratio 1.4 Lipase 36 - Rads (name of study) CT A/P Radiology: EMP read contemporaneously (Diverticulosis, status post cholecystectomy. Scoliosis and a fat-containing right inguinal hernia. No bowel obstruction.) PD MEDICAL DECISION MAKING - ED course ED course: 72-year-old gentleman presents with post chemotherapy nausea and vomiting but some symptoms and signs concerning for bowel obstruction so a CT was done without evidence of same. He was administered IV fluids and antiemetics and passed an oral challenge. Departure - Departure Disposition: 01 Home, Self Care Clinical Impression: Abdominal pain Qualifiers: Abdominal location: generalized Qualified Code(s): R10.84 - Generalized abdominal pain Vomiting Qualifiers: Vomiting type: unspecified Vomiting Intractability: non-intractable Nausea presence: with nausea Qualified Code(s): R11.2 - Nausea with vomiting, unspecified Condition: Good Record reviewed to determine appropriate education?: Yes Instructions: Nausea Vomit Control Prescriptions: Metoclopramide [Reglan] 10 mg PO Q6H PRN #20 tablet PRN Reason: nausea or headache Comments: Call your doctor to arrange a follow-up appointment, make the next available appointment. In the interim, return anytime if worse or if new symptoms develop.
[2018-05-29] MEDS ORDERED: IOVERSOL 320 100 ML VIAL IVP ONE ×2 (15:42→17:36)
[2018-05-29] MEDS ORDERED: IOVERSOL 320 50 ML VIAL ONE (15:43)
[2018-05-29 16:21] LABS: LYMPHOCYTES # (AUTO) 0.9 10^3/uL (1.5-3.5); MONOCYTES # (AUTO) 0.2 10^3/uL (0.0-1.0)
[2018-05-29 16:23] LABS: BASOPHILS # (AUTO) 0.1 10^3/uL (0.0-0.1); BASOPHILS % (AUTO) 0.3 %; EOSINOPHILS % (AUTO) 0.1 %; HGB - HEMOGLOBIN 13.4 g/dL (14.0-18.0); LYMPHOCYTES % (AUTO) 2.9 %; MEAN CORPUSCULAR HGB CONC 33.2 g/dL (32.0-36.0); MEAN CORPUSCULAR VOLUME 90.2 fL (80.0-94.0); MEAN PLATELET VOLUME 7.7 fL (7.4-11.4); MONOCYTES % (AUTO) 0.5 %; NEUTROPHILS # (AUTO) 28.7 10^3/uL (1.5-6.6); NEUTROPHILS % (AUTO) 96.2 %; PLT - PLATELET COUNT 162 10^3/uL (130-450); RED BLOOD COUNT 4.45 10^6/uL (4.70-6.10); RED CELL DISTRIBUTION WIDTH 13.1 % (12.0-15.0); WHITE BLOOD COUNT 29.8 x10^3/uL (4.8-10.8)
[2018-05-29 16:29] LABS: INR 1.2 (0.8-1.2); PT - PROTHROMBIN TIME 13.6 secs (9.9-12.6)
[2018-05-29 16:34] LABS: ALBUMIN 3.9 g/dL (3.2-5.5); ALBUMIN/GLOBULIN RATIO 1.4 (1.0-2.2); BILIRUBIN,TOTAL 1.6 mg/dL (0.2-1.0); CALCIUM 9.1 mg/dL (8.5-10.3); CREATININE 0.7 mg/dL (0.6-1.2); TOTAL PROTEIN 6.7 g/dL (6.7-8.2)
[2018-05-29 16:54] LABS: DIFFERENTIAL COMMENT MANUAL=AUTO DIFF; PLATELET ESTIMATE, MANUAL NORMAL (130-450,000) (NORMAL); PLATELET MORPHOLOGY NORMAL APPEARANCE (NORMAL); RBC MORPHOLOGY (MULTIPLE) NORMAL APPEARANCE (NORMAL)
[2018-05-29 17:04] LABS: BAND NEUTROPHILS % (MANUAL) 5 %
--- NOTE | 2018-05-29 18:27 | CT Report ---
Reason: IV and PO if able, N/V, ?SBO, Known Bcell lymphoma Procedure Date: 05/29/2018 Accession Number: [id number] / [id number] Procedure: CT - Abdomen/Pelvis W/ CPT Code: FULL RESULT: EXAM: CT ABDOMEN AND PELVIS EXAM DATE: 05/29/2018 05:24 PM. CLINICAL HISTORY: Nausea and vomiting. History of B-cell lymphoma. Concern for small bowel obstruction. COMPARISONS: ABDOMEN/PELVIS W/ 12/31/2017 1:05 PM. TECHNIQUE: Routine helical CT imaging was performed through the abdomen and pelvis. IV contrast: 100 cc of Optiray 320. Enteric contrast: Yes. Reconstructions: Coronal and sagittal. In accordance with CT protocol optimization, one or more of the following dose reduction techniques were utilized for this exam: automated exposure control, adjustment of mA and/or KV based on patient size, or use of iterative reconstructive technique. FINDINGS: Lung Bases: Unremarkable. Liver: Normal. No masses. Gallbladder/Bile Ducts: Cholecystectomy. No dilated ducts. Spleen: Normal. Pancreas: Normal. Adrenal Glands: Normal. Kidneys: Normal. No masses or hydronephrosis. Peritoneal Cavity/Bowel: Moderate diverticulosis. No free fluid, free air or adenopathy. No masses or acute inflammatory process. Nonvisualized appendix. Pelvic Organs: Normal. The bladder and visualized pelvic organs are within normal limits. Vasculature: No aortic enlargement. Mild atherosclerotic calcification. Bones: S-shaped scoliosis. Multilevel degenerative disk disease, worst on the left at L2-L3. Other: Fat-containing right inguinal hernia and small umbilical hernia. Previously noted left retrocrural lymph node at the lung base is no longer visible. IMPRESSION: 1. Moderate diverticulosis without diverticulitis or other acute bowel abnormality. 2. Cholecystectomy, with no dilated ducts. 3. S-shaped scoliosis with multilevel degenerative disk disease similar to prior exam. 4. Fat-containing right inguinal hernia and small umbilical hernia. RADIA
[2018-05-29] MEDS ORDERED: ONDANSETRON 4 MG/2 ML VIAL IVP STA (18:37)
[2018-05-29 19:03] VITALS: BP 115/73
== END 2018-05-29 19:09 | disposition home or self-care (01) ==
LOC: ED 14:59
DX: R10.84 Generalized abdominal pain (principal); R11.2 Nausea with vomiting, unspecified; T45.1X5A Adverse effect of antineoplastic and immunosuppressive drugs, initial encounter; K59.00 Constipation, unspecified; C85.10 Unspecified B-cell lymphoma, unspecified site; K40.90 Unilateral inguinal hernia, without obstruction or gangrene, not specified as recurrent; K42.9 Umbilical hernia without obstruction or gangrene; K57.90 Diverticulosis of intestine, part unspecified, without perforation or abscess without bleeding; I10 Essential (primary) hypertension
CPT/HCPCS: 36415; 74177; 80053; 83690; 85025; 85610; 96361; 96374; 96375; 99283; 99284; J2765; Q9967

== ENCOUNTER 2018-06-06 18:49 | Emergency (ER) | payer MEDICARE, OTHER ==
[2018-06-06] MEDS ORDERED: SODIUM CHLORIDE 0.9% 1,000 ML IV ONE ×2 (20:07→21:28)
[2018-06-06] MEDS ORDERED: ACETAMINOPHEN 500 MG TABLET PO STA (20:07)
--- NOTE | 2018-06-06 20:10 | XRAY Report ---
Reason: cp Procedure Date: 06/06/2018 Accession Number: [id number] / [id number] Procedure: XR - Chest 1 View X-Ray CPT Code: 66655 FULL RESULT: EXAM: CHEST RADIOGRAPHY EXAM DATE: 06/06/2018 07:24 PM. CLINICAL HISTORY: Cp. COMPARISON: 02/13/2018. TECHNIQUE: 1 view. FINDINGS: Lungs/Pleura: No focal opacities evident. No pleural effusion. No pneumothorax. Mediastinum: Heart size is normal. Tortuous and mildly dilated aorta, as before. Other: Left PICC terminates in the distal superior vena cava. IMPRESSION: No acute findings. RADIA
[2018-06-06] MEDS ORDERED: IBUPROFEN 600 MG TABLET PO STA (20:15)
[2018-06-06] MEDS ORDERED: PROMETHAZINE INJ 25 MG in SODIUM CHLORIDE 0.9% 50 ML IV STA (20:16)
[2018-06-06] MEDS ORDERED: MORPHINE 2 MG/ML CARPUJECT IVP STA (20:16)
--- NOTE | 2018-06-06 20:17 | ED Physician Documentation ---
History of Present Illness - Stated complaint Stated Complaint: CHEST PX/SOA/FEVER - Chief complaint Chief Complaint: Cardiac - Additonal information Additional information: 72-year-old male who currently is undergoing chemotherapy for lymphoma, the patient last had chemo on May 24. Tonight the patient reports having a fever and was directed to the emergency department. While in route to the emergency department the patient was coughing and developed some chest pain. Presently, the patient denies any chest pain. The patient denies difficulty breathing. The patient denies abdominal pain, dysuria, diarrhea or vomiting. No new skin lesions. Symptoms are described as moderate. No other associated symptoms Review of Systems Constitutional: reports: Fever, Chills Eyes: denies: Decreased vision Ears: denies: Ear pain Nose: denies: Rhinorrhea / runny nose, Congestion Throat: denies: Sore throat Cardiac: reports: Chest pain / pressure Respiratory: reports: Cough GI: denies: Vomiting, Diarrhea : denies: Dysuria Skin: denies: Rash Musculoskeletal: denies: Neck pain Neurologic: denies: Generalized weakness Immunocompromised: reports: Chemotherapy PD PAST MEDICAL HISTORY - Past Medical History Cardiovascular: Hypertension Respiratory: None Endocrine/Autoimmune: None GI: GERD, Hepatitis : None HEENT: None Psych: None Musculoskeletal: None Derm: None Other Past Medical History: non-hodkins lymphoma. - Past Surgical History Past Surgical History: Yes General: Cholecystectomy, Appendectomy HEENT: Tonsil/Adenoidectomy - Present Medications Home Medications: Ambulatory Orders Medication Instructions Recorded Confirmed Atenolol 50 mg PO DAILY 01/09/13 06/01/18 Metoclopramide [Reglan] 10 mg PO Q6H PRN #20 tablet 05/29/18 06/01/18 Acyclovir 800 mg PO DAILY 06/01/18 06/01/18 Aspirin 06/06/18 Cholecalciferol (Vitamin D3) 06/06/18 [Vitamin D3] Cyanocobalamin (Vitamin B-12) 06/06/18 [B-12] LORazepam [Ativan] 06/06/18 Levofloxacin [Levaquin] 06/06/18 Multivitamin [Multiple Vitamins] 06/06/18 Nicotine Polacrilex [Nicotine Gum] 06/06/18 Ondansetron Odt [Zofran Odt] 06/06/18 Polyethylene Glycol 3350 [Miralax] 06/06/18 Prochlorperazine Maleate 06/06/18 Sennosides [Senna] 06/06/18 diphenhydrAMINE [Benadryl] 06/06/18 oxyCODONE [Roxicodone] 06/06/18 - Allergies Allergies/Adverse Reactions: Allergies Allergy/AdvReac Type Severity Reaction Status Date / Time azithromycin [From Zithromax] Allergy Intermediate Rash Verified 06/06/18 19:36 sulfamethoxazole AdvReac Intermediate Emesis Verified 06/06/18 19:36 [From Bactrim] trimethoprim [From Bactrim] AdvReac Intermediate Emesis Verified 06/06/18 19:36 hydrocodone AdvReac Nausea Verified 06/06/18 19:36 - Social History Does the pt smoke?: No Smoking Status: Former smoker Does the pt drink ETOH?: No Does the pt have substance abuse?: No - Immunizations Immunizations are current?: Yes - POLST Patient has POLST: No PD ED PE NORMAL - General General: Alert and oriented X 3, No acute distress - HEENT HEENT: Atraumatic, PERRL, EOMI, Ears normal - Neck Neck: Supple, no meningeal sign - Cardiac Cardiac: RRR, Strong equal pulses - Respiratory Respiratory: No respiratory distress, Clear bilaterally - Abdomen Abdomen: Soft, Non tender, Non distended - Derm Derm: Normal color - Extremities Extremities: No deformity, Normal ROM s pain, No edema - Neuro Neuro: Alert and oriented X 3, Normal speech - Psych Psych: Normal mood Results - Vitals Vitals: Vital Signs - 24 hr 06/06/18 06/06/18 06/06/18 18:51 19:33 19:36 Temperature 38.0 C H 39.1 C H 37.7 C H Heart Rate 90 82 Respiratory 16 22 Rate Blood Pressure 138/79 H 136/72 H O2 Saturation 95 94 06/06/18 06/06/18 06/06/18 21:37 22:43 23:20 Temperature 37.0 C Heart Rate 72 71 75 Respiratory 22 22 16 Rate Blood Pressure 120/73 115/67 109/68 O2 Saturation 5 L 92 96 06/07/18 01:02 Temperature Heart Rate 67 Respiratory 16 Rate Blood Pressure 110/71 O2 Saturation 93 Oxygen O2 Source Room air - Labs Labs: Laboratory Tests 06/06/18 06/06/18 06/06/18 19:20 20:22 20:44 WBC 12.5 H RBC 3.81 L Hgb 11.5 L Hct 34.2 L MCV 89.6 MCH 30.2 MCHC 33.7 RDW 12.9 Plt Count 51 L MPV 7.3 L Neut # (Auto) Not Reportable Lymph # (Auto) Not Reportable [place] # (Auto) Not Reportable Eos # (Auto) Not Reportable Baso # (Auto) Not Reportable Absolute Nucleated RBC Not Reportable Total Counted 100 Band Neuts % (Manual) 16 H Abnorm Lymph % (Manual) 0 Metamyelocytes % 1 H Myelocytes % 3 H Promyelocytes % 1 H Nucleated RBC % Not Reportable Neutrophils # (Manual) 10.6 H Lymphocytes # (Manual) 0.8 L Monocytes # (Manual) 0.5 Eosinophils # (Manual) 0.0 Basophils # (Manual) 0.0 Differential Comment MANUAL DIFFERENTIAL Manual Slide Review Indicated Platelet Estimate DECREASED (<130,000) Platelet Morphology NORMAL APPEARANCE RBC Morph Micro Appear NORMAL APPEARANCE Sodium Potassium Chloride Carbon Dioxide Anion Gap BUN Creatinine Estimated GFR (MDRD) Glucose Lactic Acid Calcium Total Bilirubin AST ALT Alkaline Phosphatase Troponin I Total Protein Albumin Globulin Albumin/Globulin Ratio Lipase Urine Color YELLOW Urine Clarity CLEAR Urine pH 7.0 Ur Specific [place] 1.025 Urine Protein NEGATIVE Urine Glucose (UA) NEGATIVE Urine Ketones TRACE Urine Occult Blood NEGATIVE Urine Nitrite NEGATIVE Urine Bilirubin NEGATIVE Urine Urobilinogen 0.2 (NORMAL) Ur Leukocyte Esterase NEGATIVE Ur Microscopic Review NOT INDICATED Urine Culture Comments NOT INDICATED Influenza A (Rapid) Negative Influenza B (Rapid) Negative 06/06/18 06/06/18 06/06/18 20:44 20:44 20:44 WBC RBC Hgb Hct MCV MCH MCHC RDW Plt Count MPV Neut # (Auto) Lymph # (Auto) [place] # (Auto) Eos # (Auto) Baso # (Auto) Absolute Nucleated RBC Total Counted Band Neuts % (Manual) Abnorm Lymph % (Manual) Metamyelocytes % Myelocytes % Promyelocytes % Nucleated RBC % Neutrophils # (Manual) Lymphocytes # (Manual) Monocytes # (Manual) Eosinophils # (Manual) Basophils # (Manual) Differential Comment Manual Slide Review Platelet Estimate Platelet Morphology RBC Morph Micro Appear Sodium 133 L Potassium 4.0 Chloride 99 L Carbon Dioxide 26 Anion Gap 8.0 BUN 8 Creatinine 0.6 Estimated GFR (MDRD) 133 Glucose 138 H Lactic Acid 1.0 Calcium 8.5 Total Bilirubin 0.3 AST 20 ALT 29 Alkaline Phosphatase 62 Troponin I < 0.04 Total Protein 6.1 L Albumin 3.6 Globulin 2.5 Albumin/Globulin Ratio 1.4 Lipase 27 Urine Color Urine Clarity Urine pH Ur Specific [place] Urine Protein Urine Glucose (UA) Urine Ketones Urine Occult Blood Urine Nitrite Urine Bilirubin Urine Urobilinogen Ur Leukocyte Esterase Ur Microscopic Review Urine Culture Comments Influenza A (Rapid) Influenza B (Rapid) 06/06/18 22:49 WBC RBC Hgb Hct MCV MCH MCHC RDW Plt Count MPV Neut # (Auto) Lymph # (Auto) [place] # (Auto) Eos # (Auto) Baso # (Auto) Absolute Nucleated RBC Total Counted Band Neuts % (Manual) Abnorm Lymph % (Manual) Metamyelocytes % Myelocytes % Promyelocytes % Nucleated RBC % Neutrophils # (Manual) Lymphocytes # (Manual) Monocytes # (Manual) Eosinophils # (Manual) Basophils # (Manual) Differential Comment Manual Slide Review Platelet Estimate Platelet Morphology RBC Morph Micro Appear Sodium Potassium Chloride Carbon Dioxide Anion Gap BUN Creatinine Estimated GFR (MDRD) Glucose Lactic Acid Calcium Total Bilirubin AST ALT Alkaline Phosphatase Troponin I < 0.04 Total Protein Albumin Globulin Albumin/Globulin Ratio Lipase Urine Color Urine Clarity Urine pH Ur Specific [place] Urine Protein Urine Glucose (UA) Urine Ketones Urine Occult Blood Urine Nitrite Urine Bilirubin Urine Urobilinogen Ur Leukocyte Esterase Ur Microscopic Review Urine Culture Comments Influenza A (Rapid) Influenza B (Rapid) - Rads (name of study) CTA chest Radiology: Final report received, See rad report PD MEDICAL DECISION MAKING - ED course ED course: I discussed the case with the on-call oncologist at the [facility] who is on-call for the patient's primary oncologist Dr. Arshad. The patient's presentation and lab work were discussed. Since there is no evidence of neutropenia and there is no identifiable source of infection he does not recommend admission to the hospital at this point. Also, since the patient is already on acyclovir and Levaquin he does not recommend adding adding any new antibiotics. He recommends follow-up in clinic. On reevaluation the patient is resting comfortably, the patient's symptoms are under much better improvement. Currently, the patient appears appropriate for discharge and ongoing outpatient management. I discussed with him the findings and plan and he understands and agrees. I discussed warning signs and recommended returning for any worsening or any concerns Departure - Departure Disposition: 01 Home, Self Care Clinical Impression: Febrile illness, acute Chest pain Qualifiers: Chest pain type: unspecified Qualified Code(s): R07.9 - Chest pain, unspecified Condition: Good Instructions: ED Fever Unconf Cause, ED Fever Control Ch, ED Fever Control, ED Chest Pain [facility] Follow-Up: Mansi Randall ARNP [Primary Care Provider] - Within 1 week Comments: Please call your oncologist office tomorrow so they can follow-up on you and arrange for an urgent follow-up visit Please return to the emergency department immediately for any worsening or any concerns Discharge Date/Time: 06/07/18 01:06
[2018-06-06 20:37] LABS: BILIRUBIN,URINE NEGATIVE (NEGATIVE); GLUCOSE, URINE (UA) NEGATIVE (NEGATIVE); KETONES,URINE (UA) TRACE mg/dL (NEGATIVE); LEUKOCYTE ESTERASE, URINE NEGATIVE (NEGATIVE); NITRITE,URINE NEGATIVE (NEGATIVE); OCCULT BLOOD,URINE NEGATIVE (NEGATIVE); PROTEIN,URINE NEGATIVE (NEGATIVE); UROBILINOGEN,URINE 0.2 (NORMAL) E.U./dL (NORMAL)
[2018-06-06 20:40] LABS: CLARITY,URINE CLEAR (CLEAR)
[2018-06-06 20:50] LABS: BASOPHILS % (AUTO) 0.4 %; EOSINOPHILS % (AUTO) 0.2 %; HGB - HEMOGLOBIN 11.5 g/dL (14.0-18.0); LYMPHOCYTES % (AUTO) 7.1 %; MEAN CORPUSCULAR HEMOGLOBIN 30.2 pg (27.0-31.0); MEAN CORPUSCULAR HGB CONC 33.7 g/dL (32.0-36.0); MEAN CORPUSCULAR VOLUME 89.6 fL (80.0-94.0); MEAN PLATELET VOLUME 7.3 fL (7.4-11.4); MONOCYTES % (AUTO) 6.1 %; NEUTROPHILS % (AUTO) 86.2 %; PLT - PLATELET COUNT 51 10^3/uL (130-450); RED BLOOD COUNT 3.81 10^6/uL (4.70-6.10); RED CELL DISTRIBUTION WIDTH 12.9 % (12.0-15.0); WHITE BLOOD COUNT 12.5 x10^3/uL (4.8-10.8)
[2018-06-06 20:59] LABS: ABNORMAL LYMPHS % (MANUAL) 0 %
[2018-06-06 21:09] LABS: ALBUMIN 3.6 g/dL (3.2-5.5); ALBUMIN/GLOBULIN RATIO 1.4 (1.0-2.2); BILIRUBIN,TOTAL 0.3 mg/dL (0.2-1.0); CALCIUM 8.5 mg/dL (8.5-10.3); CREATININE 0.6 mg/dL (0.6-1.2); TOTAL PROTEIN 6.1 g/dL (6.7-8.2)
[2018-06-06 21:29] LABS: BAND NEUTROPHILS % (MANUAL) 16 %; LYMPHOCYTES # (MANUAL) 0.8 10^3/uL (1.5-3.5); LYMPHOCYTES % (MANUAL) 6 %; METAMYELOCYTES % (MANUAL) 1 %; MONOCYTES # (MANUAL) 0.5 10^3/uL (0.0-1.0); MYELOCYTES % (MANUAL) 3 %; NEUTROPHILS # (MANUAL) 10.6 10^3/uL (1.5-6.6); NEUTROPHILS % (MANUAL) 69 %; PROMYELOCYTES % (MANUAL) 1 %
[2018-06-06] MEDS ORDERED: IOVERSOL 320 100 ML VIAL IVP ONE ×2 (21:37→22:19)
[2018-06-06 21:48] LABS: DIFFERENTIAL COMMENT MANUAL DIFFERENTIAL; PLATELET ESTIMATE, MANUAL DECREASED (<130,000) (NORMAL); PLATELET MORPHOLOGY NORMAL APPEARANCE (NORMAL); RBC MORPHOLOGY (MULTIPLE) NORMAL APPEARANCE (NORMAL)
--- NOTE | 2018-06-06 22:55 | CT Report ---
Reason: chest pain, active cancer Procedure Date: 06/06/2018 Accession Number: [id number] / [id number] Procedure: CT - Chest Angio (PE) CPT Code: FULL RESULT: EXAM: CT ANGIOGRAM CHEST EXAM DATE: 06/06/2018 10:22 PM. CLINICAL HISTORY: Chest pain, active cancer. COMPARISON: CHEST W/ 12/31/2017 1:05 PM. TECHNIQUE: Routine helical imaging was performed through the chest in the pulmonary arterial phase. IV Contrast: 80ml optiray 320. Reconstructions: Coronal 3-D MIP reconstructions.Sagittal and coronal. In accordance with CT protocol optimization, one or more of the following dose reduction techniques were utilized for this exam: automated exposure control, adjustment of mA and/or KV based on patient size, or use of iterative reconstructive technique. FINDINGS: Pulmonary Arteries: Diagnostic quality: Adequate through the segmental arteries. No evidence for acute or chronic pulmonary emboli. No evidence of right heart strain. Lungs/Pleura: Mild bibasilar atelectasis. No yolanda alveolar consolidation seen. No pleural effusion. No pneumothorax. Mediastinum: Heart size is normal. Mild coronary artery calcifications. Mediastinal adenopathy is improved compared with the prior exam, possibly representing response to treatment. Thoracic Aorta: Mild aortic atherosclerosis. Ascending aorta measures 4.2 cm. No aortic dissection seen. Upper Abdomen: Unremarkable. Other: Scoliosis and degenerative changes in the spine. IMPRESSION: 1. No pulmonary emboli seen. 2. Improved mediastinal adenopathy. 3. Ectatic ascending aorta. No aortic dissection seen. RADIA
[2018-06-06] MEDS ORDERED: cefTRIAXone 1 GM in SODIUM CHLORIDE 0.9% MINIBAG 100 ML IV STA (23:32)
[2018-06-07 01:02] VITALS: BP 110/71
== END 2018-06-07 01:06 | disposition home or self-care (01) ==
LOC: ED 18:49
DX: R50.9 Fever, unspecified (principal); R07.9 Chest pain, unspecified; I44.60 Unspecified fascicular block; I10 Essential (primary) hypertension; C85.90 Non-Hodgkin lymphoma, unspecified, unspecified site; Z79.82 Long term (current) use of aspirin; Z87.891 Personal history of nicotine dependence
CPT/HCPCS: 36415; 71045; 71275; 80053; 81003; 83605; 83690; 84484; 85025; 87040; 87086; 87275; 87276; 93005; 96361; 96365; 96375; 99283; 99284; Q9967; 81001

== ENCOUNTER 2018-06-09 10:28 | Outpatient (CLI) | payer MEDICARE, OTHER ==
--- NOTE | 2018-06-09 14:54 | XRAY Report ---
Reason: PAIN IN LEFT FOOT Procedure Date: 06/09/2018 Accession Number: [id number] / [id number] Procedure: XR - Foot 3 View LT CPT Code: FULL RESULT: EXAM: LEFT FOOT RADIOGRAPHY EXAM DATE: 06/09/2018 10:50 AM. CLINICAL HISTORY: Pain in left foot. COMPARISON: X-ray foot complete minimum 3 views 03/01/2007 8:50 AM. TECHNIQUE: 3 views. FINDINGS: Bones: There are fractures of the base of the second, third and likely the fourth metatarsals with questionable widening of the interval between the first and second metatarsal concerning for Lisfranc injury. Joints: For Lisfranc complex, see above. No other subluxations. Soft Tissues: Normal. No soft tissue swelling. IMPRESSION: Base metatarsal fractures with possible Lisfranc injury. RADIA The call report notification system was initiated by Dr. Walker Gross at 02:34 PM hrs on 06/09/2018. ADDENDUM: 06/09/18 14:57 The above findings of fractures with possible Lisfranc injury were discussed with Gretta Byrd MA to Daniela Fly by Dr. Walker Gross at 02:57 PM hrs on 06/09/2018.
== END 2018-06-09 10:29 | disposition home or self-care (01) ==
LOC: DI 10:28
PROVIDERS: ATTEND Nurse Practitioner Family
DX: S92.322A Displaced fracture of second metatarsal bone, left foot, initial encounter for closed fracture (principal); S92.332A Displaced fracture of third metatarsal bone, left foot, initial encounter for closed fracture

== ENCOUNTER 2018-06-09 11:21 | Emergency (ER) | payer MEDICARE, OTHER ==
--- NOTE | 2018-06-09 12:20 | ED Physician Documentation ---
PD HPI ABD PAIN - Stated complaint Stated Complaint: FEVER/AB PX - Chief complaint Chief Complaint: Fever - History obtained from History obtained from: Patient - History of Present Illness Timing - onset: How many days ago (2) Timing - details: Gradual onset, Still present (he had had some soft stool and mucous after chemo, general malaise. He noted onset of some mid abd cramping pains yesterday and this persisted to today and has fever to 101 associated with it. He talked with the [facility], who directed him to get evaluated.) Quality: Cramping, Aching Location: Periumbilical Radiation: No: Lower back, Left flank, Right flank Improved by: Laying still. No: Eating Worsened by: Moving, Palpation. No: Eating, Breathing Associated symptoms: Fever, Nausea, Diarrhea (loose without blood. Some mucous at times.). No: Vomiting, Constipation Similar symptoms before: Has not had sx before Recently seen: Clinic (had chemo for nonhodkings lymphoma 2 weeks ago and was doing okay, with some malaise, weakness, some nausea and soft stool.) Review of Systems Constitutional: reports: Fever, Chills, Myalgias Nose: denies: Rhinorrhea / runny nose, Congestion Throat: denies: Sore throat Cardiac: denies: Chest pain / pressure Respiratory: denies: Cough GI: reports: Abdominal Pain, Diarrhea (some mucous and soft stool several days after the chemo.). denies: Nausea, Vomiting : denies: Dysuria, Frequency Skin: denies: Rash, Lesions PD PAST MEDICAL HISTORY - Past Medical History Past Medical History: Yes Cardiovascular: Hypertension Respiratory: None Neuro: None Endocrine/Autoimmune: None GI: GERD, Hepatitis : None HEENT: None Psych: None Musculoskeletal: None Derm: None Other Past Medical History: non hodgkins lymphoma - Past Surgical History Past Surgical History: Yes General: Cholecystectomy, Appendectomy HEENT: Tonsil/Adenoidectomy - Present Medications Home Medications: Ambulatory Orders Medication Instructions Recorded Confirmed Atenolol 50 mg PO DAILY 01/09/13 06/09/18 Metoclopramide [Reglan] 10 mg PO Q6H PRN #20 tablet 05/29/18 06/09/18 Acyclovir 800 mg PO DAILY 06/01/18 06/09/18 Aspirin 81 mg PO DAILY 06/06/18 06/09/18 Cholecalciferol (Vitamin D3) 1 tab PO DAILY 06/06/18 06/09/18 [Vitamin D3] Cyanocobalamin (Vitamin B-12) 1 drops PO DAILY 06/06/18 06/09/18 [B-12] LORazepam [Ativan] 1 mg PO DAILY 06/06/18 06/09/18 Multivitamin [Multiple Vitamins] 1 tab PO DAILY 06/06/18 06/09/18 Nicotine Polacrilex [Nicotine Gum] 2 mg PO DAILY 06/06/18 06/09/18 Ondansetron Odt [Zofran Odt] 4 mg PO PRN PRN 06/06/18 06/09/18 diphenhydrAMINE [Benadryl] 25 mg pe PO DAILY 06/06/18 06/09/18 oxyCODONE [Roxicodone] 5 mg PO PRN PRN 06/06/18 06/09/18 Cephalexin [Keflex] 500 mg PO TID #21 capsule 06/09/18 Docusate Sodium 100 mg PO DAILY #15 capsule 06/09/18 Metronidazole [Flagyl] 500 mg PO BID #14 tablet 06/09/18 Naproxen 375 mg PO BID #20 tablet 06/09/18 - Allergies Allergies/Adverse Reactions: Allergies Allergy/AdvReac Type Severity Reaction Status Date / Time azithromycin [From Zithromax] Allergy Intermediate Rash Verified 06/06/18 19:36 sulfamethoxazole AdvReac Intermediate Emesis Verified 06/06/18 19:36 [From Bactrim] trimethoprim [From Bactrim] AdvReac Intermediate Emesis Verified 06/06/18 19:36 hydrocodone AdvReac Nausea Verified 06/09/18 11:26 - Social History Does the pt smoke?: No Smoking Status: Never smoker Does the pt drink ETOH?: Yes ETOH Use: Wine, Beer Does the pt have substance abuse?: No - Immunizations Immunizations are current?: Yes - POLST Patient has POLST: No PD ED PE NORMAL - Vitals Vital signs reviewed: Yes - General General: Alert and oriented X 3, No acute distress, Well developed/nourished - HEENT HEENT: Moist mucous membranes, Pharynx benign - Neck Neck: Supple, no meningeal sign, No adenopathy - Cardiac Cardiac: RRR, No murmur - Respiratory Respiratory: Clear bilaterally - Abdomen Abdomen: Normal bowel sounds, Soft, Non distended, No organomegaly, Other (tender mid abdomen without percussion nor rebound tenderness. No distension. ) - Male Male : Deferred - Rectal Rectal: Deferred - Back Back: No CVA TTP - Derm Derm: Normal color - Extremities Extremities: No deformity, No tenderness to palpate, Normal ROM s pain, No edema, No calf tenderness / cord, Other (left PICC line site without redness, tenderness nor drainage. ) - Neuro Neuro: Alert and oriented X 3, No motor deficit, Normal speech Results - Vitals Vitals: Vital Signs - 24 hr 06/09/18 06/09/18 06/09/18 11:24 14:32 14:55 Temperature 37.4 C 37.1 C 36.7 C Heart Rate 73 60 62 Respiratory 14 16 16 Rate Blood Pressure 140/91 H 130/80 126/81 H O2 Saturation 99 100 99 06/09/18 16:28 Temperature 36.4 C L Heart Rate 63 Respiratory 14 Rate Blood Pressure 128/87 H O2 Saturation 98 Oxygen O2 Source Room air - Labs Labs: Laboratory Tests 06/09/18 06/09/18 06/09/18 12:46 12:46 12:46 WBC 11.3 H RBC 3.86 L Hgb 11.7 L Hct 33.5 L MCV 86.8 MCH 30.3 MCHC 34.9 RDW 13.0 Plt Count 121 L MPV 7.3 L Neut # (Auto) Not Reportable Lymph # (Auto) Not Reportable [place] # (Auto) Not Reportable Eos # (Auto) Not Reportable Baso # (Auto) Not Reportable Absolute Nucleated RBC Not Reportable Total Counted 100 Band Neuts % (Manual) 7 Reactive Lymphs % (Man) 1 Abnorm Lymph % (Manual) 0 Metamyelocytes % 1 H Nucleated RBC % Not Reportable Neutrophils # (Manual) 9.0 H Lymphocytes # (Manual) 1.1 L Monocytes # (Manual) 1.0 Eosinophils # (Manual) 0.0 Basophils # (Manual) 0.0 Differential Comment MANUAL DIFFERENTIAL WBC Morphology 1+ TOXIC GRANULATION Sodium 135 Potassium 3.9 Chloride 101 Carbon Dioxide 26 Anion Gap 8.0 BUN 8 Creatinine 0.7 Estimated GFR (MDRD) 111 Glucose 111 H Lactic Acid 0.8 Calcium 8.7 Total Bilirubin 0.3 AST 19 ALT 23 Alkaline Phosphatase 64 Total Protein 6.3 L Albumin 3.5 Globulin 2.8 Albumin/Globulin Ratio 1.3 Lipase 31 Urine Color Urine Clarity Urine pH Ur Specific [place] Urine Protein Urine Glucose (UA) Urine Ketones Urine Occult Blood Urine Nitrite Urine Bilirubin Urine Urobilinogen Ur Leukocyte Esterase Ur Microscopic Review Urine Culture Comments 06/09/18 13:16 WBC RBC Hgb Hct MCV MCH MCHC RDW Plt Count MPV Neut # (Auto) Lymph # (Auto) [place] # (Auto) Eos # (Auto) Baso # (Auto) Absolute Nucleated RBC Total Counted Band Neuts % (Manual) Reactive Lymphs % (Man) Abnorm Lymph % (Manual) Metamyelocytes % Nucleated RBC % Neutrophils # (Manual) Lymphocytes # (Manual) Monocytes # (Manual) Eosinophils # (Manual) Basophils # (Manual) Differential Comment WBC Morphology Sodium Potassium Chloride Carbon Dioxide Anion Gap BUN Creatinine Estimated GFR (MDRD) Glucose Lactic Acid Calcium Total Bilirubin AST ALT Alkaline Phosphatase Total Protein Albumin Globulin Albumin/Globulin Ratio Lipase Urine Color YELLOW Urine Clarity CLEAR Urine pH 6.0 Ur Specific [place] 1.020 Urine Protein NEGATIVE Urine Glucose (UA) NEGATIVE Urine Ketones NEGATIVE Urine Occult Blood NEGATIVE Urine Nitrite NEGATIVE Urine Bilirubin NEGATIVE Urine Urobilinogen 0.2 (NORMAL) Ur Leukocyte Esterase NEGATIVE Ur Microscopic Review NOT INDICATED Urine Culture Comments NOT INDICATED - Rads (name of study) abd CT Radiology: Prelim report reviewed (segment of inflammed intestine c/w enteritis. No perforation nor abscess. Smaller localized area, so did not feel that it was ischemic distribution. ), EMP read contemporaneously, See rad report PD MEDICAL DECISION MAKING - ED course Complexity details: reviewed results, re-evaluated patient ([email or web address] okay with meds. ), considered differential (WBC is good, and has nonperitoneal abd exam, CT showing enteritis without abscess/perforation. I talked with his Oncologist at [facility], [facility], who felt he could be treated outpatient with abx for presumed now infectious enteritis, given the fever and some abd pain. ), d/w patient Departure - Departure Disposition: 01 Home, Self Care Clinical Impression: Enteritis, Status post chemotherapy Abdominal pain Qualifiers: Abdominal location: generalized Qualified Code(s): R10.84 - Generalized abdominal pain Condition: Stable Record reviewed to determine appropriate education?: Yes Follow-Up: Mansi Randall ARNP [Primary Care Provider] - Prescriptions: Cephalexin [Keflex] 500 mg PO TID #21 capsule Docusate Sodium 100 mg PO DAILY #15 capsule Metronidazole [Flagyl] 500 mg PO BID #14 tablet Naproxen 375 mg PO BID #20 tablet Comments: Drink lots of fluids and stay well-hydrated. I talked with the oncologist at [facility] and he would like us to prescribe you some antibiotics for the intestinal wall infection along with some anti-inflammatories and pain medicine if needed. Be sure to have soft stool bowel movements and use a stool softener if needed. Recheck with them next week and return sooner if worsening. Discharge Date/Time: 06/09/18 16:30
[2018-06-09] MEDS ORDERED: SODIUM CHLORIDE 0.9% 1,000 ML IV ONE (12:59)
[2018-06-09 13:03] LABS: BASOPHILS % (AUTO) 0.5 %; EOSINOPHILS % (AUTO) 0.2 %; HGB - HEMOGLOBIN 11.7 g/dL (14.0-18.0); LYMPHOCYTES % (AUTO) 9.7 %; MEAN CORPUSCULAR HEMOGLOBIN 30.3 pg (27.0-31.0); MEAN CORPUSCULAR HGB CONC 34.9 g/dL (32.0-36.0); MEAN CORPUSCULAR VOLUME 86.8 fL (80.0-94.0); MEAN PLATELET VOLUME 7.3 fL (7.4-11.4); MONOCYTES % (AUTO) 9.9 %; NEUTROPHILS % (AUTO) 79.7 %; PLT - PLATELET COUNT 121 10^3/uL (130-450); RED BLOOD COUNT 3.86 10^6/uL (4.70-6.10); WHITE BLOOD COUNT 11.3 x10^3/uL (4.8-10.8)
[2018-06-09 13:04] LABS: ABNORMAL LYMPHS % (MANUAL) 0 %
[2018-06-09 13:26] LABS: BAND NEUTROPHILS % (MANUAL) 7 %; LYMPHOCYTES # (MANUAL) 1.1 10^3/uL (1.5-3.5); LYMPHOCYTES % (MANUAL) 9 %; METAMYELOCYTES % (MANUAL) 1 %; NEUTROPHILS % (MANUAL) 73 %
[2018-06-09 13:28] LABS: DIFFERENTIAL COMMENT MANUAL DIFFERENTIAL
[2018-06-09] MEDS ORDERED: IOVERSOL 320 100 ML VIAL IVP ONE ×2 (13:28→13:42)
[2018-06-09 13:33] LABS: BILIRUBIN,URINE NEGATIVE (NEGATIVE); GLUCOSE, URINE (UA) NEGATIVE (NEGATIVE); KETONES,URINE (UA) NEGATIVE (NEGATIVE); LEUKOCYTE ESTERASE, URINE NEGATIVE (NEGATIVE); NITRITE,URINE NEGATIVE (NEGATIVE); OCCULT BLOOD,URINE NEGATIVE (NEGATIVE); PROTEIN,URINE NEGATIVE (NEGATIVE); UROBILINOGEN,URINE 0.2 (NORMAL) E.U./dL (NORMAL)
[2018-06-09 13:42] LABS: CLARITY,URINE CLEAR (CLEAR)
--- NOTE | 2018-06-09 14:11 | CT Report ---
Reason: diffuse abd pain and fevers for 2-3 days Procedure Date: 06/09/2018 Accession Number: [id number] / [id number] Procedure: CT - Abdomen/Pelvis W/ CPT Code: FULL RESULT: EXAM: CT ABDOMEN AND PELVIS EXAM DATE: 06/09/2018 01:41 PM. CLINICAL HISTORY: Diffuse abdominal pain and fevers for 2-3 days. COMPARISONS: Abdomen/pelvis with 05/29/2018 5:24 PM. TECHNIQUE: Routine helical CT imaging was performed through the abdomen and pelvis. IV contrast: Optiray-320 90 mL. Enteric contrast: No. Reconstructions: Coronal and sagittal. In accordance with CT protocol optimization, one or more of the following dose reduction techniques were utilized for this exam: automated exposure control, adjustment of mA and/or KV based on patient size, or use of iterative reconstructive technique. FINDINGS: Lung Bases: Unremarkable. Liver: Normal. No masses. Gallbladder/Bile Ducts: Status post cholecystectomy. Spleen: Normal. Pancreas: Normal. Adrenal Glands: Normal. Kidneys: Left renal hypodensity is too small to characterize. No obstruction or calculi. Peritoneal Cavity/Bowel: There is sigmoid colon diverticulosis without diverticulitis. In the left lower quadrant is a loop of small bowel which demonstrates surrounding fat stranding and engorgement of the mesentery with mucosal hyperenhancement and wall thickening. No free air or abscess. No small bowel obstruction. Pelvic Organs: Normal. The bladder and visualized pelvic organs are within normal limits. Vasculature: No aneurysms or other significant abnormality. Bones: No significant abnormality. Other: None. IMPRESSION: Focal inflammation and wall thickening of a small bowel loop in the left lower quadrant. These findings are most compatible with enteritis. RADIA The call report notification system was initiated by Dr. Walker Gross at 02:09 PM hrs on 06/09/2018. The above findings of likely enteritis were discussed with Vinayak Delgado by Dr. Walker Gross at 02:11 PM hrs on 06/09/2018.
[2018-06-09 14:24] LABS: ALBUMIN 3.5 g/dL (3.2-5.5); ALBUMIN/GLOBULIN RATIO 1.3 (1.0-2.2); BILIRUBIN,TOTAL 0.3 mg/dL (0.2-1.0); CREATININE 0.7 mg/dL (0.6-1.2); TOTAL PROTEIN 6.3 g/dL (6.7-8.2)
[2018-06-09] MEDS ORDERED: AMPICILLIN/SULBACTAM 1.5 GM in SODIUM CHLORIDE 0.9% MINIBAG 100 ML IV STA (14:28)
[2018-06-09 14:54] LABS: CALCIUM 8.7 mg/dL (8.5-10.3)
[2018-06-09] MEDS ORDERED: metroNIDAZOLE 250 MG TABLET PO STA (15:26)
[2018-06-09 16:30] VITALS: BP 128/87
== END 2018-06-09 16:30 | disposition home or self-care (01) ==
LOC: ED 11:21
DX: K52.9 Noninfective gastroenteritis and colitis, unspecified (principal); R10.84 Generalized abdominal pain; I10 Essential (primary) hypertension; C85.90 Non-Hodgkin lymphoma, unspecified, unspecified site; Z92.21 Personal history of antineoplastic chemotherapy
CPT/HCPCS: 36415; 74177; 80053; 81003; 83605; 83690; 85025; 87040; 96361; 96365; 99283; A9270; Q9967; 81001; 87086

== ENCOUNTER 2018-06-11 12:26 | Emergency (ER) | payer MEDICARE, OTHER ==
[2018-06-11] MEDS ORDERED: SODIUM CHLORIDE 0.9% 1,000 ML IV ONE (13:03)
[2018-06-11] MEDS ORDERED: cefTRIAXone 1 GM in SODIUM CHLORIDE 0.9% MINIBAG 100 ML IV STA (13:03)
--- NOTE | 2018-06-11 13:05 | ED Physician Documentation ---
PD HPI URI - Stated complaint Stated Complaint: FEVER - Chief complaint Chief Complaint: Fever - History obtained from History obtained from: Patient - History of Present Illness Timing - onset: Yesterday Timing duration: Days (1) Timing details: Gradual onset, Still present Associated symptoms: Fever, Nasal congestion, Dry cough Improves by: Rest, Medication Worsened by: Activity Similar symptoms before: Diagnosis (pneumonia) Recently seen: Emergency Dept, Admitted - Additional information Additional information: 72-year-old male who is recently undergone induction for B-cell lymphoma he is about 2 weeks out from his last chemo and he has developed fever and he has been placed onto 2 different antibiotics. He was seen in the emergency department for enteritis and started on Flagyl and is also been started on some Keflex. Despite this last night he seemed to get a worsening of his cough and today has a fever up to 102 and he was asked by his oncologist to come back to the emergency department for evaluation. He notes that the largest change overnight has been a worsening of his cough. Review of Systems Constitutional: reports: Fever, Chills, Myalgias, Fatigue Eyes: denies: Decreased vision Ears: denies: Ear pain Nose: reports: Rhinorrhea / runny nose, Congestion Throat: denies: Sore throat Cardiac: denies: Chest pain / pressure, Palpitations Respiratory: reports: Dyspnea, Cough, Wheezing GI: reports: Nausea. denies: Abdominal Pain, Vomiting : denies: Dysuria, Frequency Skin: denies: Rash Musculoskeletal: denies: Neck pain, Back pain, Extremity pain Neurologic: denies: Generalized weakness, Focal weakness, Numbness PD PAST MEDICAL HISTORY - Past Medical History Past Medical History: Yes Cardiovascular: Hypertension Respiratory: None Neuro: None Endocrine/Autoimmune: None GI: GERD, Hepatitis : None HEENT: None Psych: None Musculoskeletal: None Derm: None - Past Surgical History Past Surgical History: Yes General: Cholecystectomy, Appendectomy HEENT: Tonsil/Adenoidectomy - Present Medications Home Medications: Ambulatory Orders Medication Instructions Recorded Confirmed Atenolol 50 mg PO DAILY 01/09/13 06/11/18 Metoclopramide [Reglan] 10 mg PO Q6H PRN #20 tablet 05/29/18 06/11/18 Acyclovir 800 mg PO DAILY 06/01/18 06/11/18 Aspirin 81 mg PO DAILY 06/06/18 06/11/18 Cholecalciferol (Vitamin D3) 1 tab PO DAILY 06/06/18 06/11/18 [Vitamin D3] Cyanocobalamin (Vitamin B-12) 1 drops PO DAILY 06/06/18 06/11/18 [B-12] LORazepam [Ativan] 1 mg PO DAILY 06/06/18 06/11/18 Multivitamin [Multiple Vitamins] 1 tab PO DAILY 06/06/18 06/11/18 Nicotine Polacrilex [Nicotine Gum] 2 mg PO DAILY 06/06/18 06/11/18 Ondansetron Odt [Zofran Odt] 4 mg PO PRN PRN 06/06/18 06/11/18 diphenhydrAMINE [Benadryl] 25 mg pe PO DAILY 06/06/18 06/11/18 oxyCODONE [Roxicodone] 5 mg PO PRN PRN 06/06/18 06/11/18 Cephalexin [Keflex] 500 mg PO TID #21 capsule 06/09/18 06/11/18 Docusate Sodium 100 mg PO DAILY #15 capsule 06/09/18 06/11/18 Metronidazole [Flagyl] 500 mg PO BID #14 tablet 06/09/18 06/11/18 Naproxen 375 mg PO BID #20 tablet 06/09/18 06/11/18 Cefdinir 300 mg PO BID #14 capsule 06/11/18 - Allergies Allergies/Adverse Reactions: Allergies Allergy/AdvReac Type Severity Reaction Status Date / Time azithromycin [From Zithromax] Allergy Intermediate Rash Verified 06/11/18 12:39 sulfamethoxazole AdvReac Intermediate Emesis Verified 06/11/18 12:39 [From Bactrim] trimethoprim [From Bactrim] AdvReac Intermediate Emesis Verified 06/11/18 12:39 hydrocodone AdvReac Nausea Verified 06/11/18 12:39 - Social History Does the pt smoke?: No Smoking Status: Never smoker Does the pt drink ETOH?: Yes Does the pt have substance abuse?: No - Immunizations Immunizations are current?: Yes - POLST Patient has POLST: No PD ED PE NORMAL - Vitals Vital signs reviewed: Yes (febrile mild ) - General General: Alert and oriented X 3, No acute distress, Well developed/nourished - HEENT HEENT: Atraumatic, PERRL, EOMI, Other (The right TM is mildly inflamed along the umbo the left is much more involved with erythema and distortion of the landmarks. Mucous membranes are dry. ) - Neck Neck: Supple, no meningeal sign, No bony TTP - Cardiac Cardiac: RRR, No murmur - Respiratory Respiratory: No respiratory distress, Clear bilaterally - Abdomen Abdomen: Soft, Non tender - Back Back: No CVA TTP, No spinal TTP - Derm Derm: Normal color, Warm and dry, No rash - Extremities Extremities: No deformity, No edema - Neuro Neuro: Alert and oriented X 3, mail messenger 2-12 intact, No motor deficit, No sensory deficit, Normal speech Eye Opening: Spontaneous Motor: Obeys Commands Verbal: Oriented GCS Score: 15 - Psych Psych: Normal mood, Normal affect Results - Vitals Vitals: Vital Signs - 24 hr 06/11/18 06/11/18 06/11/18 12:35 12:39 13:00 Temperature 37.7 C H 38.1 C H Heart Rate 89 88 98 Respiratory 16 16 20 Rate Blood Pressure 120/68 127/72 127/72 O2 Saturation 97 94 99 06/11/18 13:43 Temperature Heart Rate 79 Respiratory 18 Rate Blood Pressure 115/64 O2 Saturation 93 Oxygen O2 Source Room air - Labs Labs: Laboratory Tests 06/11/18 06/11/18 06/11/18 13:10 13:10 13:10 WBC 13.4 H RBC 3.57 L Hgb 10.9 L Hct 31.2 L MCV 87.2 MCH 30.5 MCHC 35.0 RDW 12.6 Plt Count 272 MPV 7.2 L Neut # (Auto) 12.2 H Lymph # (Auto) 0.3 L [place] # (Auto) 0.9 Eos # (Auto) 0.0 Baso # (Auto) 0.0 Absolute Nucleated RBC 0.01 Nucleated RBC % 0.1 Manual Slide Review Indicated Platelet Estimate NORMAL (130-450,000) Platelet Morphology NORMAL APPEARANCE RBC Morph Micro Appear NORMAL APPEARANCE Sodium 134 L Potassium 4.0 Chloride 101 Carbon Dioxide 24 Anion Gap 9.0 BUN 8 Creatinine 0.7 Estimated GFR (MDRD) 111 Glucose 118 H Lactic Acid Calcium 8.6 Total Bilirubin 0.3 AST 23 ALT 22 Alkaline Phosphatase 55 Troponin I 0.06 Total Protein 6.4 L Albumin 3.6 Globulin 2.8 Albumin/Globulin Ratio 1.3 Lipase 35 Urine Color Urine Clarity Urine pH Ur Specific [place] Urine Protein Urine Glucose (UA) Urine Ketones Urine Occult Blood Urine Nitrite Urine Bilirubin Urine Urobilinogen Ur Leukocyte Esterase Urine RBC Urine WBC Ur Squamous Epith Cells Urine Bacteria Urine Mucus Ur Microscopic Review Urine Culture Comments 06/11/18 06/11/18 13:10 14:10 WBC RBC Hgb Hct MCV MCH MCHC RDW Plt Count MPV Neut # (Auto) Lymph # (Auto) [place] # (Auto) Eos # (Auto) Baso # (Auto) Absolute Nucleated RBC Nucleated RBC % Manual Slide Review Platelet Estimate Platelet Morphology RBC Morph Micro Appear Sodium Potassium Chloride Carbon Dioxide Anion Gap BUN Creatinine Estimated GFR (MDRD) Glucose Lactic Acid 1.5 Calcium Total Bilirubin AST ALT Alkaline Phosphatase Troponin I Total Protein Albumin Globulin Albumin/Globulin Ratio Lipase Urine Color DARK YELLOW Urine Clarity CLEAR Urine pH 6.5 Ur Specific [place] 1.020 Urine Protein TRACE Urine Glucose (UA) NEGATIVE Urine Ketones NEGATIVE Urine Occult Blood NEGATIVE Urine Nitrite NEGATIVE Urine Bilirubin NEGATIVE Urine Urobilinogen 0.2 (NORMAL) Ur Leukocyte Esterase Urine RBC None Seen Urine WBC 4-5 Ur Squamous Epith Cells NONE SEEN Urine Bacteria Rare Urine Mucus Few Strands Ur Microscopic Review INDICATED Urine Culture Comments NOT INDICATED PD MEDICAL DECISION MAKING - ED course Complexity details: reviewed old records, reviewed results, re-evaluated patient, considered differential, d/w patient ED course: 72-year-old male undergoing treatment for B-cell lymphoma and worsening cough and on examination has bilateral otitis. He is administered intravenous Rocephin as well as a liter of saline and routine blood work is obtained. He is also given dexamethasone 10 mg IV. Patient has marked improvement in his overall symptoms and we will substitute Cefinidir for the Keflex. Departure - Departure Disposition: Home, Self Care Clinical Impression: Dehydration Otitis media Qualifiers: Otitis media type: suppurative Chronicity: acute Laterality: bilateral Recurrence: not specified as recurrent Spontaneous tympanic membrane rupture: without spontaneous rupture Qualified Code(s): H66.003 - Acute suppurative otitis media without spontaneous rupture of ear drum, bilateral Condition: Stable Instructions: ED Otitis Media Acute Adult Follow-Up: Mansi Randall ARNP [Primary Care Provider] - Prescriptions: Cefdinir 300 mg PO BID #14 capsule Comments: Today we found middle ear infection in both ears on examination. You are given a injection of Rocephin today and this should be good for 24 hours. You will need to start another antibiotic tomorrow. Stop taking the cephalexin and start taking the Cefdinir.
[2018-06-11] MEDS ORDERED: DEXAMETHASONE 10 MG/ML VIAL IVP STA (13:07)
[2018-06-11] MEDS ORDERED: ACETAMINOPHEN 325 MG TABLET PO STA (13:15)
[2018-06-11 13:46] LABS: BASOPHILS % (AUTO) 0.2 %; EOSINOPHILS % (AUTO) 0.1 %; HGB - HEMOGLOBIN 10.9 g/dL (14.0-18.0); LYMPHOCYTES # (AUTO) 0.3 10^3/uL (1.5-3.5); LYMPHOCYTES % (AUTO) 2.5 %; MEAN CORPUSCULAR HEMOGLOBIN 30.5 pg (27.0-31.0); MEAN CORPUSCULAR VOLUME 87.2 fL (80.0-94.0); MEAN PLATELET VOLUME 7.2 fL (7.4-11.4); MONOCYTES # (AUTO) 0.9 10^3/uL (0.0-1.0); MONOCYTES % (AUTO) 6.6 %; NEUTROPHILS # (AUTO) 12.2 10^3/uL (1.5-6.6); NEUTROPHILS % (AUTO) 90.6 %; PLT - PLATELET COUNT 272 10^3/uL (130-450); RED BLOOD COUNT 3.57 10^6/uL (4.70-6.10); RED CELL DISTRIBUTION WIDTH 12.6 % (12.0-15.0); WHITE BLOOD COUNT 13.4 x10^3/uL (4.8-10.8)
[2018-06-11 13:52] LABS: ALBUMIN 3.6 g/dL (3.2-5.5); ALBUMIN/GLOBULIN RATIO 1.3 (1.0-2.2); BILIRUBIN,TOTAL 0.3 mg/dL (0.2-1.0); CALCIUM 8.6 mg/dL (8.5-10.3); CREATININE 0.7 mg/dL (0.6-1.2); TOTAL PROTEIN 6.4 g/dL (6.7-8.2)
[2018-06-11 14:07] LABS: PLATELET ESTIMATE, MANUAL NORMAL (130-450,000) (NORMAL); PLATELET MORPHOLOGY NORMAL APPEARANCE (NORMAL); RBC MORPHOLOGY (MULTIPLE) NORMAL APPEARANCE (NORMAL)
--- NOTE | 2018-06-11 14:19 | XRAY Report ---
Reason: chest pain Procedure Date: 06/11/2018 Accession Number: [id number] / [id number] Procedure: XR - Chest 1 View X-Ray CPT Code: 74664 FULL RESULT: EXAM: CHEST RADIOGRAPHY EXAM DATE: 06/11/2018 01:41 PM. CLINICAL HISTORY: Chest pain. COMPARISON: CHEST 1 VIEW 06/06/2018 7:14 PM. TECHNIQUE: 1 view. FINDINGS: The heart is not enlarged. There is a PICC again noted. The position is similar to the previous study with the tip overlying the superior vena cava right atrial junction. There is no focal infiltrate, pleural effusion or pneumothorax seen. Surgical clips are noted in the right axilla. There is atherosclerosis of the aorta. IMPRESSION: No significant change when compared to the previous study. [facility]
[2018-06-11 14:31] LABS: GLUCOSE, URINE (UA) NEGATIVE (NEGATIVE); KETONES,URINE (UA) NEGATIVE (NEGATIVE); NITRITE,URINE NEGATIVE (NEGATIVE); OCCULT BLOOD,URINE NEGATIVE (NEGATIVE); PH,URINE 6.5 PH (5.0-7.5); PROTEIN,URINE TRACE mg/dL (NEGATIVE); UROBILINOGEN,URINE 0.2 (NORMAL) E.U./dL (NORMAL)
[2018-06-11 14:33] LABS: BILIRUBIN,URINE NEGATIVE (NEGATIVE); CLARITY,URINE CLEAR (CLEAR); ICTOTEST,URINE NEGATIVE
[2018-06-11 14:39] LABS: BACTERIA,URINE Rare /HPF (None Seen); MUCUS,URINE Few Strands; RBC,URINE None Seen /HPF (0-5); SQUAMOUS EPITHELIAL CELL,UR NONE SEEN (<= Few)
[2018-06-11 14:54] VITALS: BP 112/59
== END 2018-06-11 15:03 | disposition home or self-care (01) ==
LOC: ED 12:26
DX: E86.0 Dehydration (principal); H66.003 Acute suppurative otitis media without spontaneous rupture of ear drum, bilateral; C85.10 Unspecified B-cell lymphoma, unspecified site; I10 Essential (primary) hypertension; Z92.21 Personal history of antineoplastic chemotherapy
CPT/HCPCS: 36415; 71045; 80053; 81001; 83605; 83690; 84484; 85025; 87040; 96365; 96375; 99283; A9270; 81003; 87086

== ENCOUNTER 2018-07-03 08:58 | Emergency (ER) | payer MEDICARE, OTHER ==
--- NOTE | 2018-07-03 09:55 | ED Physician Documentation ---
History of Present Illness - Stated complaint Stated Complaint: MALE - Chief complaint Chief Complaint: Abd Pain - History obtained from History obtained from: Patient - History of Present Illness Timing: How many days ago (5) - Additonal information Additional information: 73-year-old male who is undergoing treatment for non-Hodgkin's lymphoma has developed a painful hemorrhoid and he is developed back pain. He feels the pain is in the right flank area and he is concerned about the possibility of a kidney infection. He is wondering if the back pain is associated with the hemorrhoid. Review of Systems Constitutional: reports: Fever Eyes: denies: Decreased vision Ears: denies: Ear pain Nose: denies: Rhinorrhea / runny nose, Congestion Throat: denies: Sore throat Cardiac: denies: Chest pain / pressure, Palpitations Respiratory: denies: Dyspnea, Cough GI: reports: Other (hemorrhoid). denies: Abdominal Pain, Nausea, Vomiting, Constipation, Diarrhea : denies: Dysuria, Frequency Skin: denies: Rash Musculoskeletal: reports: Back pain. denies: Neck pain, Extremity pain Neurologic: denies: Generalized weakness, Focal weakness, Numbness PD PAST MEDICAL HISTORY - Past Medical History Cardiovascular: Hypertension Respiratory: None Neuro: None Endocrine/Autoimmune: None GI: GERD, Hepatitis : None HEENT: None Psych: None Musculoskeletal: None Derm: None - Past Surgical History Past Surgical History: Yes General: Cholecystectomy, Appendectomy HEENT: Tonsil/Adenoidectomy - Present Medications Home Medications: Ambulatory Orders Medication Instructions Recorded Confirmed Atenolol 50 mg PO DAILY 01/09/13 06/11/18 Metoclopramide [Reglan] 10 mg PO Q6H PRN #20 tablet 05/29/18 06/11/18 Acyclovir 800 mg PO DAILY 06/01/18 06/11/18 Aspirin 81 mg PO DAILY 06/06/18 06/11/18 Cholecalciferol (Vitamin D3) 1 tab PO DAILY 06/06/18 06/11/18 [Vitamin D3] Cyanocobalamin (Vitamin B-12) 1 drops PO DAILY 06/06/18 06/11/18 [B-12] LORazepam [Ativan] 1 mg PO DAILY 06/06/18 06/11/18 Multivitamin [Multiple Vitamins] 1 tab PO DAILY 06/06/18 06/11/18 Nicotine Polacrilex [Nicotine Gum] 2 mg PO DAILY 06/06/18 06/11/18 Ondansetron Odt [Zofran Odt] 4 mg PO PRN PRN 06/06/18 06/11/18 diphenhydrAMINE [Benadryl] 25 mg pe PO DAILY 06/06/18 06/11/18 oxyCODONE [Roxicodone] 5 mg PO PRN PRN 06/06/18 06/11/18 Cephalexin [Keflex] 500 mg PO TID #21 capsule 06/09/18 06/11/18 Docusate Sodium 100 mg PO DAILY #15 capsule 06/09/18 06/11/18 Metronidazole [Flagyl] 500 mg PO BID #14 tablet 06/09/18 06/11/18 Naproxen 375 mg PO BID #20 tablet 06/09/18 06/11/18 Cefdinir 300 mg PO BID #14 capsule 06/11/18 - Allergies Allergies/Adverse Reactions: Allergies Allergy/AdvReac Type Severity Reaction Status Date / Time azithromycin [From Zithromax] Allergy Intermediate Rash Verified 07/03/18 09:12 sulfamethoxazole AdvReac Intermediate Emesis Verified 07/03/18 09:12 [From Bactrim] trimethoprim [From Bactrim] AdvReac Intermediate Emesis Verified 07/03/18 09:12 hydrocodone AdvReac Nausea Verified 07/03/18 09:12 - Social History Does the pt smoke?: No Smoking Status: Never smoker Does the pt drink ETOH?: Yes Does the pt have substance abuse?: No - Immunizations Immunizations are current?: Yes - POLST Patient has POLST: No PD ED PE NORMAL - Vitals Vital signs reviewed: Yes (febrile low grade and hypertensive ) - General General: Alert and oriented X 3, No acute distress, Well developed/nourished - HEENT HEENT: Atraumatic, PERRL, EOMI - Neck Neck: Supple, no meningeal sign - Respiratory Respiratory: No respiratory distress - Rectal Rectal: Other (There is a thrombosed hemorrhoid at 8 o'clock that is firm and tender and does not reduce. He indicates it has been present about one week. ) - Back Back: No CVA TTP, No spinal TTP, Other (There is tenderness to the lower lumbar paraspinous muscles on the right side. There is tenderness near the kidney on the right side. ) - Derm Derm: Normal color, Warm and dry, No rash - Extremities Extremities: No deformity, No edema - Neuro Neuro: Alert and oriented X 3, No motor deficit, No sensory deficit, Normal speech Eye Opening: Spontaneous Motor: Obeys Commands Verbal: Oriented GCS Score: 15 - Psych Psych: Normal mood, Normal affect Results - Vitals Vitals: Vital Signs - 24 hr 07/03/18 07/03/18 07/03/18 09:10 10:09 12:05 Temperature 38.1 C H 37.9 C H 37.1 C Heart Rate 82 72 67 Respiratory 18 18 16 Rate Blood Pressure 143/87 H 141/83 H 135/79 H O2 Saturation 96 96 98 Oxygen O2 Source Room air - Labs Labs: Laboratory Tests 07/03/18 07/03/18 07/03/18 10:00 10:41 10:41 WBC 28.1 H RBC 3.79 L Hgb 11.7 L Hct 34.0 L MCV 89.7 MCH 30.8 MCHC 34.3 RDW 14.9 Plt Count 128 L MPV 7.1 L Neut # (Auto) 24.0 H Lymph # (Auto) 1.2 L [place] # (Auto) 2.5 H Eos # (Auto) 0.3 Baso # (Auto) 0.1 Absolute Nucleated RBC 0.01 Nucleated RBC % 0.0 Manual Slide Review Indicated Platelet Estimate NORMAL (130-450,000) Platelet Morphology NORMAL APPEARANCE RBC Morph Micro Appear NORMAL APPEARANCE Sodium 133 L Potassium 4.1 Chloride 99 L Carbon Dioxide 27 Anion Gap 7.0 BUN 7 Creatinine 0.5 L Estimated GFR (MDRD) 163 Glucose 110 H Lactic Acid Calcium 9.1 Total Bilirubin 0.6 AST 27 ALT 28 Alkaline Phosphatase 108 Total Protein 6.5 L Albumin 3.8 Globulin 2.7 Albumin/Globulin Ratio 1.4 Lipase 41 Urine Color YELLOW Urine Clarity CLEAR Urine pH 6.5 Ur Specific [place] 1.020 Urine Protein NEGATIVE Urine Glucose (UA) NEGATIVE Urine Ketones NEGATIVE Urine Occult Blood NEGATIVE Urine Nitrite NEGATIVE Urine Bilirubin NEGATIVE Urine Urobilinogen 0.2 (NORMAL) Ur Leukocyte Esterase NEGATIVE Ur Microscopic Review NOT INDICATED Urine Culture Comments NOT INDICATED 07/03/18 13:13 WBC RBC Hgb Hct MCV MCH MCHC RDW Plt Count MPV Neut # (Auto) Lymph # (Auto) [place] # (Auto) Eos # (Auto) Baso # (Auto) Absolute Nucleated RBC Nucleated RBC % Manual Slide Review Platelet Estimate Platelet Morphology RBC Morph Micro Appear Sodium Potassium Chloride Carbon Dioxide Anion Gap BUN Creatinine Estimated GFR (MDRD) Glucose Lactic Acid 0.7 Calcium Total Bilirubin AST ALT Alkaline Phosphatase Total Protein Albumin Globulin Albumin/Globulin Ratio Lipase Urine Color Urine Clarity Urine pH Ur Specific [place] Urine Protein Urine Glucose (UA) Urine Ketones Urine Occult Blood Urine Nitrite Urine Bilirubin Urine Urobilinogen Ur Leukocyte Esterase Ur Microscopic Review Urine Culture Comments - Rads (name of study) 2 veiw chest Radiology: Prelim report reviewed (Impression: 1. No acute pulmonary process), EMP read indepedently, See rad report Procedures - IVC sono (time) 3236 Bedside IVC sono: IVC measures (cm) (0.87), Dehydration (est 1 liter deficit) PD MEDICAL DECISION MAKING - ED course Complexity details: reviewed results, re-evaluated patient, considered d ifferential, d/w patient, d/w information security consultant (The information systems specialist PA at [facility] is consulted in the case by telephone and she reviews his care noting that his white blood cell count was elevated at 34,000 when he was seen last Wednesday. She recommends conservative treatment and allowing the patient to return home.) ED course: 73-year-old male undergoing treatment for non-Hodgkin's lymphoma has 2 problems today one is a thrombosed hemorrhoid and this thrombosed hemorrhoid has been present for 1 week. I discussed with the patient incision and drainage of this being a futile effort at this time and of instructed him to use hydrocortisone and manual reduction for treatment. I did evaluate the patient's right kidney with bedside ultrasound and found that it appeared the tenderness is from the paraspinous lumbar muscles and a urine is processed.The urine is unremarkable the blood work however demonstrates a markedly elevated white blood cell count. Chest x-ray is without evidence of infiltrate or effusion. The patient does not appear ill and does not feel ill. He does have some muscle spasm, he is dehydrated, and we have provided hydration. His fever has defervesced. I am concerned with his markedly elevated white blood cell count and I consulted the [facility] who have recommended conservative treatment. He has had similar counts recently and today's is actually lower than his most recent count. The patient is relived to find this and requests a copy of his labs [facility]. Departure - Departure Disposition: 01 Home, Self Care Clinical Impression: Dehydration, Hemorrhoids, external, thrombosed, Lumbar paraspinal muscle spasm Condition: Stable Instructions: ED Spasm Back No Trauma, ED Dehydration, ED Hemorrhoids Follow-Up: Mansi Randall ARNP [Primary Care Provider] -
[2018-07-03 10:07] LABS: BILIRUBIN,URINE NEGATIVE (NEGATIVE); GLUCOSE, URINE (UA) NEGATIVE (NEGATIVE); KETONES,URINE (UA) NEGATIVE (NEGATIVE); LEUKOCYTE ESTERASE, URINE NEGATIVE (NEGATIVE); NITRITE,URINE NEGATIVE (NEGATIVE); OCCULT BLOOD,URINE NEGATIVE (NEGATIVE); PH,URINE 6.5 PH (5.0-7.5); PROTEIN,URINE NEGATIVE (NEGATIVE); UROBILINOGEN,URINE 0.2 (NORMAL) E.U./dL (NORMAL)
[2018-07-03 10:11] LABS: CLARITY,URINE CLEAR (CLEAR)
[2018-07-03] MEDS ORDERED: DEXAMETHASONE 10 MG/ML VIAL IVP STA (10:33)
[2018-07-03] MEDS ORDERED: SODIUM CHLORIDE 0.9% 1,000 ML IV ONE (10:33)
[2018-07-03 10:45] LABS: BASOPHILS # (AUTO) 0.1 10^3/uL (0.0-0.1); BASOPHILS % (AUTO) 0.2 %; EOSINOPHILS # (AUTO) 0.3 10^3/uL (0.0-0.7); HGB - HEMOGLOBIN 11.7 g/dL (14.0-18.0); LYMPHOCYTES # (AUTO) 1.2 10^3/uL (1.5-3.5); LYMPHOCYTES % (AUTO) 4.4 %; MEAN CORPUSCULAR HEMOGLOBIN 30.8 pg (27.0-31.0); MEAN CORPUSCULAR HGB CONC 34.3 g/dL (32.0-36.0); MEAN CORPUSCULAR VOLUME 89.7 fL (80.0-94.0); MEAN PLATELET VOLUME 7.1 fL (7.4-11.4); MONOCYTES # (AUTO) 2.5 10^3/uL (0.0-1.0); NEUTROPHILS % (AUTO) 85.4 %; PLT - PLATELET COUNT 128 10^3/uL (130-450); RED BLOOD COUNT 3.79 10^6/uL (4.70-6.10); RED CELL DISTRIBUTION WIDTH 14.9 % (12.0-15.0); WHITE BLOOD COUNT 28.1 x10^3/uL (4.8-10.8)
[2018-07-03 11:07] LABS: ALBUMIN 3.8 g/dL (3.2-5.5); ALBUMIN/GLOBULIN RATIO 1.4 (1.0-2.2); BILIRUBIN,TOTAL 0.6 mg/dL (0.2-1.0); CALCIUM 9.1 mg/dL (8.5-10.3); CREATININE 0.5 mg/dL (0.6-1.2); TOTAL PROTEIN 6.5 g/dL (6.7-8.2)
[2018-07-03 11:13] LABS: PLATELET ESTIMATE, MANUAL NORMAL (130-450,000) (NORMAL); PLATELET MORPHOLOGY NORMAL APPEARANCE (NORMAL); RBC MORPHOLOGY (MULTIPLE) NORMAL APPEARANCE (NORMAL)
--- NOTE | 2018-07-03 11:55 | XRAY Report ---
Reason: fever elevated WBC Procedure Date: 07/03/2018 Accession Number: [id number] / [id number] Procedure: XR - Chest 2 View X-Ray CPT Code: 97593 FULL RESULT: EXAM: CHEST RADIOGRAPHY EXAM DATE: 07/03/2018 11:33 AM. CLINICAL HISTORY: Fever elevated WBC. COMPARISON: CHEST 1 VIEW 06/11/2018 1:28 PM. TECHNIQUE: 2 views. FINDINGS: Lungs/Pleura: Lungs are clear. No effusions or pneumothorax. Mediastinum: Stable cardiomediastinal silhouette. Other: Clips are noted in the right upper quadrant of the abdomen. Left-sided PICC terminates in the lower SVC. Right axillary surgical clips are noted. IMPRESSION: 1. No acute pulmonary process. [facility]
[2018-07-03 13:58] VITALS: BP 128/84
== END 2018-07-03 14:01 | disposition home or self-care (01) ==
LOC: ED 08:58
DX: K64.5 Perianal venous thrombosis (principal); M62.830 Muscle spasm of back; D72.829 Elevated white blood cell count, unspecified; E86.0 Dehydration; C85.90 Non-Hodgkin lymphoma, unspecified, unspecified site; I10 Essential (primary) hypertension; Z79.82 Long term (current) use of aspirin
CPT/HCPCS: 36415; 71046; 80053; 81001; 81003; 83605; 83690; 85025; 87040; 87086; 96361; 96374; 99283; 99284

== ENCOUNTER 2018-07-06 10:04 | Outpatient (CLI) | payer MEDICARE, OTHER ==
[2018-07-06 18:14] LABS: BASOPHILS % (AUTO) 0.3 %; EOSINOPHILS # (AUTO) 0.1 10^3/uL (0.0-0.7); EOSINOPHILS % (AUTO) 0.8 %; HGB - HEMOGLOBIN 12.4 g/dL (14.0-18.0); MEAN CORPUSCULAR HEMOGLOBIN 30.8 pg (27.0-31.0); MEAN CORPUSCULAR HGB CONC 32.9 g/dL (32.0-36.0); MEAN CORPUSCULAR VOLUME 93.8 fL (80.0-94.0); MEAN PLATELET VOLUME 7.9 fL (7.4-11.4); MONOCYTES # (AUTO) 1.1 10^3/uL (0.0-1.0); MONOCYTES % (AUTO) 7.6 %; NEUTROPHILS % (AUTO) 84.3 %; PLT - PLATELET COUNT 120 10^3/uL (130-450); RED BLOOD COUNT 4.04 10^6/uL (4.70-6.10); RED CELL DISTRIBUTION WIDTH 16.2 % (12.0-15.0); WHITE BLOOD COUNT 14.2 x10^3/uL (4.8-10.8)
[2018-07-06 18:51] LABS: ALBUMIN 3.9 g/dL (3.2-5.5); BILIRUBIN,DIRECT 0.1 mg/dL (0.1-0.5); BILIRUBIN,TOTAL 0.5 mg/dL (0.2-1.0); TOTAL PROTEIN 6.8 g/dL (6.7-8.2)
[2018-07-07 12:13] LABS: ALBUMIN 3.8 g/dL (3.2-5.5); ALBUMIN/GLOBULIN RATIO 1.2 (1.0-2.2); BILIRUBIN,TOTAL 0.7 mg/dL (0.2-1.0); CALCIUM 9.4 mg/dL (8.5-10.3); CREATININE 0.5 mg/dL (0.6-1.2); PHOSPHORUS 3.3 mg/dL (2.5-4.6)
[2018-07-07 13:19] LABS: MAGNESIUM 2.3 mg/dL (1.7-2.8)
== END 2018-07-06 10:05 | disposition home or self-care (01) ==
LOC: LAB.F 10:04
PROVIDERS: ATTEND Physician Assistant Medical
DX: C83.30 Diffuse large B-cell lymphoma, unspecified site (principal)
CPT/HCPCS: 36415; 80053; 80069; 80076; 83735; 84100; 85025

== ENCOUNTER 2018-07-27 12:10 | Outpatient (CLI) | payer MEDICARE, OTHER ==
[2018-07-27] MEDS ORDERED: GADOBUTROL 10 MMOL/10 ML VIAL ONE (12:20)
[2018-07-27] MEDS ORDERED: GADOBUTROL 10 MMOL/10 ML VIAL IVP ONE (12:57)
--- NOTE | 2018-07-28 11:18 | MRI Report ---
Reason: PAIN IN LEFT FOOT Procedure Date: 07/27/2018 Accession Number: [id number] / [id number] Procedure: MRI - Foot LT W/WO CPT Code: FULL RESULT: EXAM: LEFT MIDFOOT MRI WITHOUT AND WITH CONTRAST EXAM DATE: 07/27/2018 01:32 PM. CLINICAL HISTORY: pain in left foot. COMPARISON: Radiographs 07/07/2018 and 06/09/2018. TECHNIQUE: Multiplanar, multisequence T1-weighted and fluid-sensitive sequences of the midfoot before and after administration of intravenous contrast. IV contrast: . Other: None. FINDINGS: Bones: Moderate to severe bone marrow edema and cystic changes with enhancement at the tarsometatarsal joints, most prominent at the second, likely degenerative. No gross fracture or bone lesion visualized. Articular Cartilage: Full-thickness cartilage loss and mechanical wear at the second tarsometatarsal joint. Deep partial thickness loss at the remaining tarsometatarsal joints. Shallow partial thickness loss first metatarsophalangeal joint. Ligaments: Mild edema in the intact interosseous and plantar bands of the Lisfranc ligament. Dorsal band normal in morphology. Mild edema also present at the intertarsal and intermetatarsal ligaments at the medial to central aspects tarsometatarsal joints, likely reactive. The visualized collateral ligaments are intact. Tendons: The flexor and extensor tendons are unremarkable. Musculature: Mild fatty atrophy throughout the musculature. No gross edema or enhancement. Other: No large joint effusion. Small ganglia partially visualized in the sinus tarsi and plantar medial aspect anterior facet subtalar joint. Visualized portion of the tarsal tunnel unremarkable. Minimal bursitis in the first, second, and third metatarsal interspaces. Subcutaneous soft tissues unremarkable. IMPRESSION: 1. Moderate to severe degenerative changes at the tarsometatarsal joints, most prominent at the second. 2. Mild reactive edema versus sprains at the ligamentous structures at the tarsometatarsal joints including the interosseous and plantar bands Lisfranc ligament. 3. Mild fatty atrophy in the musculature. A component of this may be neurogenic. 4. Small ganglion in the sinus tarsi. [facility] MUSCULOSKELETAL RADIOLOGY SECTION
== END 2018-07-27 12:11 | disposition home or self-care (01) ==
LOC: DI 12:10
PROVIDERS: ATTEND Orthopaedic Surgery
DX: M19.072 Primary osteoarthritis, left ankle and foot (principal); M62.572 Muscle wasting and atrophy, not elsewhere classified, left ankle and foot; M67.472 Ganglion, left ankle and foot; R93.7 Abnormal findings on diagnostic imaging of other parts of musculoskeletal system

== ENCOUNTER 2018-08-11 12:00 | Emergency (ER) | payer MEDICARE, OTHER ==
--- NOTE | 2018-08-11 13:38 | ED Physician Documentation ---
PD HPI SKIN - Stated complaint Stated Complaint: RIGH SIDE HEAD SPOTS - Chief complaint Chief Complaint: Wound - History obtained from History obtained from: Patient - History of Present Illness Timing - onset: How many weeks ago (1) Timing - duration: Weeks (1) Timing - details: Gradual onset Location: Scalp (Initially had a few small red spots on his scalp on the right side. These decreased after slight bit of clear fluid came out. Other ones then developed on both sides of the scalp and a couple on his face. There was one on the neck. He denies any fever or chills.), Face, Neck Quality / character: Painful. No: Itchy Associated symptoms: No: Fever, N/V/D Similar symptoms before: Has not had sx before Review of Systems Constitutional: denies: Fever, Chills, Myalgias Nose: denies: Rhinorrhea / runny nose, Congestion Throat: denies: Sore throat Respiratory: denies: Cough GI: denies: Nausea, Vomiting PD PAST MEDICAL HISTORY - Past Medical History Cardiovascular: Hypertension Respiratory: None Neuro: None Endocrine/Autoimmune: None GI: GERD, Hepatitis : None HEENT: None Psych: None Musculoskeletal: None Derm: None - Past Surgical History Past Surgical History: Yes General: Cholecystectomy, Appendectomy HEENT: Tonsil/Adenoidectomy - Present Medications Home Medications: Ambulatory Orders Medication Instructions Recorded Confirmed Atenolol 50 mg PO DAILY 01/09/13 06/11/18 Metoclopramide [Reglan] 10 mg PO Q6H PRN #20 tablet 05/29/18 06/11/18 Acyclovir 800 mg PO DAILY 06/01/18 06/11/18 Aspirin 81 mg PO DAILY 06/06/18 06/11/18 Cholecalciferol (Vitamin D3) 1 tab PO DAILY 06/06/18 06/11/18 [Vitamin D3] Cyanocobalamin (Vitamin B-12) 1 drops PO DAILY 06/06/18 06/11/18 [B-12] LORazepam [Ativan] 1 mg PO DAILY 06/06/18 06/11/18 Multivitamin [Multiple Vitamins] 1 tab PO DAILY 06/06/18 06/11/18 Nicotine Polacrilex [Nicotine Gum] 2 mg PO DAILY 06/06/18 06/11/18 Ondansetron Odt [Zofran Odt] 4 mg PO PRN PRN 06/06/18 06/11/18 diphenhydrAMINE [Benadryl] 25 mg pe PO DAILY 06/06/18 06/11/18 oxyCODONE [Roxicodone] 5 mg PO PRN PRN 06/06/18 06/11/18 Cephalexin [Keflex] 500 mg PO TID #21 capsule 06/09/18 06/11/18 Docusate Sodium 100 mg PO DAILY #15 capsule 06/09/18 06/11/18 Metronidazole [Flagyl] 500 mg PO BID #14 tablet 06/09/18 06/11/18 Naproxen 375 mg PO BID #20 tablet 06/09/18 06/11/18 Cefdinir 300 mg PO BID #14 capsule 06/11/18 Chlorhexidine Gluconate [Hibiclens] 15 ml TP DAILY #236 ml 08/11/18 Doxycycline Hyclate 100 mg PO BID #20 capsule 08/11/18 Mupirocin 1 applic TP TID #15 g 08/11/18 - Allergies Allergies/Adverse Reactions: Allergies Allergy/AdvReac Type Severity Reaction Status Date / Time azithromycin [From Zithromax] Allergy Intermediate Rash Verified 08/11/18 12:08 sulfamethoxazole AdvReac Intermediate Emesis Verified 08/11/18 12:08 [From Bactrim] trimethoprim [From Bactrim] AdvReac Intermediate Emesis Verified 08/11/18 12:08 hydrocodone AdvReac Nausea Verified 08/11/18 12:08 - Social History Does the pt smoke?: No Smoking Status: Never smoker Does the pt drink ETOH?: Yes Does the pt have substance abuse?: No - Immunizations Immunizations are current?: Yes - POLST Patient has POLST: No PD ED PE NORMAL - Vitals Vital signs reviewed: Yes - General General: Alert and oriented X 3, No acute distress, Well developed/nourished - HEENT HEENT: Ears normal, Moist mucous membranes, Pharynx benign - Neck Neck: Supple, no meningeal sign, No adenopathy - Cardiac Cardiac: RRR, No murmur - Respiratory Respiratory: Clear bilaterally, Other (chestwall with IV broviac type. No redness nor discharge around that site. ) - Derm Derm: Normal color, Warm and dry, Other (scalp (has brushcut hair) with discrete, slightly tender, red bumps without vesicle appearance on both sides, more to the right. Couple of spots left cheek of face. Small one on left neck. No clustering. ) Results - Vitals Vitals: Vital Signs - 24 hr 08/11/18 08/11/18 12:05 14:28 Temperature 36.5 C 36.6 C Heart Rate 64 62 Respiratory 18 16 Rate Blood Pressure 156/88 H 148/88 H O2 Saturation 100 100 Oxygen O2 Source Room air PD MEDICAL DECISION MAKING - ED course Complexity details: considered differential (They are not obvious pustules but are small local tender red bumps. The distribution in the scalp and some on the face and neck on both sides does not suggest shingles and it does not have that appearance. He would not be a correct distribution for scabies or other infestations. I will presume a folliculitis and presumably staph.), d/w patient Departure - Departure Disposition: 01 Home, Self Care Clinical Impression: Erythematous papules of skin Condition: Stable Record reviewed to determine appropriate education?: Yes Instructions: ED Staph Infec Abx Tx Only Follow-Up: Mansi Randall ARNP [Primary Care Provider] - Prescriptions: Chlorhexidine Gluconate [Hibiclens] 15 ml TP DAILY #236 ml Doxycycline Hyclate 100 mg PO BID #20 capsule Mupirocin 1 applic TP TID #15 g Comments: Regular showers and cleansing. Use mupirocin topical antibiotic for the existing sores. Doxycycline oral antibiotic as directed for presumed staph folliculitis. Use the chlorhexidine antiseptic wash head to toe in the shower daily for the next week or so. Recheck if not improving over the next several days. Discharge Date/Time: 08/11/18 14:28
[2018-08-11] MEDS ORDERED: MUPIROCIN 2% OINT 1 GM TOP STA (14:13)
[2018-08-11] MEDS ORDERED: DOXYCYCLINE 100 MG TABLET PO STA (14:13)
[2018-08-11 14:29] VITALS: BP 148/88
== END 2018-08-11 14:28 | disposition home or self-care (01) ==
LOC: ED 12:00
DX: R23.8 Other skin changes (principal); I10 Essential (primary) hypertension
CPT/HCPCS: 99283

== ENCOUNTER 2018-09-17 01:13 | Emergency (ER) | payer MEDICARE, OTHER ==
[2018-09-17] MEDS ORDERED: KETOROLAC 30 MG/ML VIAL IVP STA (01:45)
[2018-09-17] MEDS ORDERED: cefTRIAXone 1 GM in SODIUM CHLORIDE 0.9% MINIBAG 100 ML IV STA (01:45)
--- NOTE | 2018-09-17 01:48 | ED Physician Documentation ---
History of Present Illness - Stated complaint Stated Complaint: L WRIST/ARM PX - Chief complaint Chief Complaint: Ext Problem - History obtained from History obtained from: Patient - History of Present Illness Timing: How many days ago (2) - Additonal information Additional information: 73-year-old male who is undergoing treatment for non-Hodgkin's lymphoma has recently had a stem cell harvest done and he has had extensive chemotherapy. He is now developed some redness and tenderness and swelling to the left wrist and forearm. He has had cellulitis in this area previously and he is concerned about infection. He is not running a fever. He does know that his uric acid has recently been elevated and he has been told that the gout is not usually a side effect of the treatment he is undergoing. Review of Systems Constitutional: reports: Fatigue. denies: Fever, Chills Eyes: denies: Decreased vision Ears: denies: Ear pain Nose: denies: Rhinorrhea / runny nose, Congestion Throat: denies: Sore throat Cardiac: denies: Chest pain / pressure, Palpitations Respiratory: denies: Dyspnea, Cough GI: denies: Abdominal Pain, Nausea, Vomiting : denies: Dysuria Musculoskeletal: reports: Extremity pain, Joint pain, Extremity swelling. 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 - Past Surgical History Past Surgical History: Yes General: Cholecystectomy, Appendectomy HEENT: Tonsil/Adenoidectomy - Present Medications Home Medications: Ambulatory Orders Medication Instructions Recorded Confirmed Atenolol 50 mg PO DAILY 01/09/13 06/11/18 Metoclopramide [Reglan] 10 mg PO Q6H PRN #20 tablet 05/29/18 06/11/18 Acyclovir 800 mg PO DAILY 06/01/18 06/11/18 Aspirin 81 mg PO DAILY 06/06/18 06/11/18 Cholecalciferol (Vitamin D3) 1 tab PO DAILY 06/06/18 06/11/18 [Vitamin D3] Cyanocobalamin (Vitamin B-12) 1 drops PO DAILY 06/06/18 06/11/18 [B-12] LORazepam [Ativan] 1 mg PO DAILY 06/06/18 06/11/18 Multivitamin [Multiple Vitamins] 1 tab PO DAILY 06/06/18 06/11/18 Nicotine Polacrilex [Nicotine Gum] 2 mg PO DAILY 06/06/18 06/11/18 Ondansetron Odt [Zofran Odt] 4 mg PO PRN PRN 06/06/18 06/11/18 diphenhydrAMINE [Benadryl] 25 mg pe PO DAILY 06/06/18 06/11/18 oxyCODONE [Roxicodone] 5 mg PO PRN PRN 06/06/18 06/11/18 Cephalexin [Keflex] 500 mg PO TID #21 capsule 06/09/18 06/11/18 Docusate Sodium 100 mg PO DAILY #15 capsule 06/09/18 06/11/18 Metronidazole [Flagyl] 500 mg PO BID #14 tablet 06/09/18 06/11/18 Naproxen 375 mg PO BID #20 tablet 06/09/18 06/11/18 Cefdinir 300 mg PO BID #14 capsule 06/11/18 Chlorhexidine Gluconate [Hibiclens] 15 ml TP DAILY #236 ml 08/11/18 Doxycycline Hyclate 100 mg PO BID #20 capsule 08/11/18 Mupirocin 1 applic TP TID #15 g 08/11/18 Cefdinir 300 mg PO BID #20 capsule 09/17/18 Oxycodone HCl/Acetaminophen 1 - 2 each PO Q6H PRN #14 tablet 09/17/18 [Percocet 5-325 mg Tablet] - Allergies Allergies/Adverse Reactions: Allergies Allergy/AdvReac Type Severity Reaction Status Date / Time azithromycin [From Zithromax] Allergy Intermediate Rash Verified 09/17/18 01:24 sulfamethoxazole AdvReac Intermediate Emesis Verified 09/17/18 01:24 [From Bactrim] trimethoprim [From Bactrim] AdvReac Intermediate Emesis Verified 09/17/18 01:24 hydrocodone AdvReac Nausea Verified 09/17/18 01:24 - Social History Does the pt smoke?: No Smoking Status: Never smoker Does the pt drink ETOH?: Yes Does the pt have substance abuse?: No - Immunizations Immunizations are current?: Yes - POLST Patient has POLST: No PD ED PE NORMAL - Vitals Vital signs reviewed: Yes (hyertensive ) - General General: Alert and oriented X 3, No acute distress, Well developed/nourished - HEENT HEENT: Atraumatic, PERRL, EOMI - Respiratory Respiratory: No respiratory distress - Derm Derm: Normal color, Warm and dry, No rash - Extremities Extremities: No deformity, Other (There is swelling and point tenderness to the left wrist over the distal radius with blanching erythema. 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, No motor deficit, No sensory deficit, Normal speech Eye Opening: Spontaneous Motor: Obeys Commands Verbal: Oriented GCS Score: 15 - Psych Psych: Normal mood, Normal affect Results - Vitals Vitals: Vital Signs - 24 hr 09/17/18 09/17/18 09/17/18 01:21 02:15 02:58 Temperature 36.7 C Heart Rate 88 72 73 Respiratory 18 17 17 Rate Blood Pressure 147/92 H 142/86 H O2 Saturation 95 95 97 Oxygen O2 Source Room air - Labs Labs: Laboratory Tests 09/17/18 09/17/18 09/17/18 02:00 02:00 02:00 WBC 32.9 H RBC 3.95 L Hgb 12.4 L Hct 37.9 L MCV 96.0 H MCH 31.4 H MCHC 32.7 RDW 14.4 Plt Count 52 L MPV 6.8 L Neut # (Auto) 30.8 H Lymph # (Auto) 0.5 L [place] # (Auto) 1.4 H Eos # (Auto) 0.1 Baso # (Auto) 0.2 H Absolute Nucleated RBC 0.02 Band Neuts % (Manual) Not Reportable Abnorm Lymph % (Manual) Not Reportable Nucleated RBC % 0.1 Neutrophils # (Manual) Not Reportable Lymphocytes # (Manual) Not Reportable Monocytes # (Manual) Not Reportable Eosinophils # (Manual) Not Reportable Basophils # (Manual) Not Reportable Platelet Estimate DECREASED (<130,000) RBC Morph Micro Appear NORMAL APPEARANCE Sodium 138 Potassium 3.4 L Chloride 100 L Carbon Dioxide 29 Anion Gap 9.0 BUN 10 Creatinine 0.6 Estimated GFR (MDRD) 132 Glucose 136 H Lactic Acid 0.9 Calcium 9.1 Total Bilirubin 0.6 AST 25 ALT 16 Alkaline Phosphatase 205 H Total Protein 6.2 L Albumin 3.7 Globulin 2.5 Albumin/Globulin Ratio 1.5 Lipase 37 PD MEDICAL DECISION MAKING - ED course Complexity details: reviewed old records, reviewed results, re-evaluated patient, considered differential, d/w patient ED course: 73-year-old male undergoing treatment for non-Hodgkin's lymphoma has developed pain and swelling in the left hand which looks like cellulitis and may be gout. He is treated for cellulitis with intravenous Rocephin his lactate is 0.9 he does have a markedly elevated white blood cell count and he indicates that his blood counts have been high and "all over the place "in the past week with treatment administered at [facility]. He will need some pain control and has follow- up at [facility]. Departure - Departure Disposition: 01 Home, Self Care Clinical Impression: Cellulitis Qualifiers: Site of cellulitis: extremity Site of cellulitis of extremity: upper extremity Laterality: left Qualified Code(s): L03.114 - Cellulitis of left upper limb Condition: Stable Instructions: ED Infec Skin Cellulitis, Access [facility] Follow-Up: Mansi Randall ARNP [Primary Care Provider] - Prescriptions: Cefdinir 300 mg PO BID #20 capsule Oxycodone HCl/Acetaminophen [Percocet 5-325 mg Tablet] 1 - 2 each PO Q6H PRN #14 tablet PRN Reason: pain
[2018-09-17 02:18] LABS: ALBUMIN 3.7 g/dL (3.2-5.5); ALBUMIN/GLOBULIN RATIO 1.5 (1.0-2.2); BILIRUBIN,TOTAL 0.6 mg/dL (0.2-1.0); CALCIUM 9.1 mg/dL (8.5-10.3); CREATININE 0.6 mg/dL (0.6-1.2); TOTAL PROTEIN 6.2 g/dL (6.7-8.2)
[2018-09-17 02:25] LABS: BASOPHILS # (AUTO) 0.2 10^3/uL (0.0-0.1); BASOPHILS % (AUTO) 0.5 %; EOSINOPHILS # (AUTO) 0.1 10^3/uL (0.0-0.7); EOSINOPHILS % (AUTO) 0.2 %; HGB - HEMOGLOBIN 12.4 g/dL (14.0-18.0); LYMPHOCYTES # (AUTO) 0.5 10^3/uL (1.5-3.5); LYMPHOCYTES % (AUTO) 1.5 %; MEAN CORPUSCULAR HEMOGLOBIN 31.4 pg (27.0-31.0); MEAN CORPUSCULAR HGB CONC 32.7 g/dL (32.0-36.0); MEAN PLATELET VOLUME 6.8 fL (7.4-11.4); MONOCYTES # (AUTO) 1.4 10^3/uL (0.0-1.0); MONOCYTES % (AUTO) 4.2 %; NEUTROPHILS % (AUTO) 93.6 %; PLT - PLATELET COUNT 52 10^3/uL (130-450); RED BLOOD COUNT 3.95 10^6/uL (4.70-6.10); RED CELL DISTRIBUTION WIDTH 14.4 % (12.0-15.0); WHITE BLOOD COUNT 32.9 x10^3/uL (4.8-10.8)
[2018-09-17] MEDS ORDERED: oxyCODONE/ACET 5/325 Prepack 4 PO STA (02:53)
[2018-09-17 02:55] LABS: PLATELET ESTIMATE, MANUAL DECREASED (<130,000) (NORMAL); RBC MORPHOLOGY (MULTIPLE) NORMAL APPEARANCE (NORMAL)
[2018-09-17 02:56] LABS: NEUTROPHILS # (AUTO) 30.8 10^3/uL (1.5-6.6)
[2018-09-17 03:34] VITALS: BP 135/85
== END 2018-09-17 03:41 | disposition home or self-care (01) ==
LOC: ED 01:13
DX: L03.114 Cellulitis of left upper limb (principal); C85.90 Non-Hodgkin lymphoma, unspecified, unspecified site; D89.9 Disorder involving the immune mechanism, unspecified; I10 Essential (primary) hypertension; Z79.899 Other long term (current) drug therapy
CPT/HCPCS: 36415; 80053; 83605; 83690; 85025; 87040; 96365; 96375; 99283; 99284

== ENCOUNTER 2018-11-15 10:00 | Outpatient (CLI) | payer MEDICARE, OTHER ==
[2018-11-15 18:11] LABS: BASOPHILS % (AUTO) 0.6 %; EOSINOPHILS # (AUTO) 0.1 10^3/uL (0.0-0.7); EOSINOPHILS % (AUTO) 1.8 %; HGB - HEMOGLOBIN 12.5 g/dL (14.0-18.0); LYMPHOCYTES % (AUTO) 28.2 %; MEAN CORPUSCULAR HEMOGLOBIN 32.6 pg (27.0-31.0); MEAN CORPUSCULAR HGB CONC 32.7 g/dL (32.0-36.0); MEAN CORPUSCULAR VOLUME 99.5 fL (80.0-94.0); MEAN PLATELET VOLUME 9.7 fL (7.4-11.4); MONOCYTES # (AUTO) 1.2 10^3/uL (0.0-1.0); MONOCYTES % (AUTO) 16.4 %; NEUTROPHILS # (AUTO) 3.7 10^3/uL (1.5-6.6); NEUTROPHILS % (AUTO) 52.7 %; PLT - PLATELET COUNT 184 10^3/uL (130-450); RED BLOOD COUNT 3.84 10^6/uL (4.70-6.10); RED CELL DISTRIBUTION WIDTH 17.4 % (12.0-15.0)
[2018-11-15 18:27] LABS: ALBUMIN 4.1 g/dL (3.2-5.5); ALBUMIN/GLOBULIN RATIO 1.5 (1.0-2.2); BILIRUBIN,TOTAL 0.5 mg/dL (0.2-1.0); CALCIUM 9.6 mg/dL (8.5-10.3); CREATININE 0.6 mg/dL (0.6-1.2); MAGNESIUM 2.1 mg/dL (1.7-2.8); TOTAL PROTEIN 6.9 g/dL (6.7-8.2)
[2018-11-18 04:42] LABS: CMV DNA QN RT PCR <200 IU/mL; SOURCE SERUM
== END 2018-11-15 10:01 | disposition home or self-care (01) ==
LOC: LAB.S 10:00
PROVIDERS: ATTEND Internal Medicine Hematology & Oncology
DX: C83.30 Diffuse large B-cell lymphoma, unspecified site (principal)
CPT/HCPCS: 36415; 80053; 83615; 83735; 84100; 85025; 87497

== ENCOUNTER 2018-11-22 10:40 | Emergency (ER) | payer MEDICARE, OTHER ==
[2018-11-22] MEDS ORDERED: fentaNYL 100 MCG/2 ML VIAL IVP STA (11:33)
--- NOTE | 2018-11-22 11:35 | ED Physician Documentation ---
PD HPI ABD PAIN - Stated complaint Stated Complaint: ABD PX - Chief complaint Chief Complaint: Abd Pain - History obtained from History obtained from: Patient - History of Present Illness Timing - onset: How many days ago (5) Timing - duration: Days (5) Timing - details: Gradual onset, Still present Quality: Aching, Pain Location: RLQ Radiation: Other (none) Improved by: Other (nothing) Worsened by: Palpation Associated symptoms: No: Fever, Nausea, Vomiting, Hematemesis, Diarrhea, Constipation, Melena, Hematochezia, Dysuria, Hematuria, Chest pain, Dizzy, Near syncope / syncope, Testicular pain Similar symptoms before: Has not had sx before Recently seen: Other (Patient with hx of Non hodgkin's lymphoma, finished chemo 2 months ago and had a bone marrow transplant.) - Treatment prior to arrival Treatment prior to arrival: none - Additional information Additional information: Pt has hx of Nonhodgkin's lymphoma, just finished chemo a couple of months ago and is s/p bone marrow transplant a few months ago. Review of Systems Ten Systems: 10 systems reviewed and negative Constitutional: denies: Fever, Chills Throat: reports: Reviewed and negative Cardiac: reports: Reviewed and negative Respiratory: reports: Reviewed and negative GI: reports: Abdominal Pain. denies: Abdominal Swelling, Nausea, Vomiting, Constipation, Diarrhea, Hematemesis, Bloody / black stool : reports: Reviewed and negative Skin: reports: Reviewed and negative Musculoskeletal: reports: Reviewed and negative Neurologic: reports: Reviewed and negative Immunocompromised: reports: Transplant (hx of bone marrow transplant) PD PAST MEDICAL HISTORY - Past Medical History Cardiovascular: Hypertension Respiratory: None Neuro: None Endocrine/Autoimmune: Other GI: GERD, Hepatitis : None HEENT: None Psych: None Musculoskeletal: None Derm: None - Past Surgical History Past Surgical History: Yes General: Cholecystectomy, Appendectomy HEENT: Tonsil/Adenoidectomy - Present Medications Home Medications: Ambulatory Orders Medication Instructions Recorded Confirmed RX: Atenolol 50 mg PO DAILY 01/09/13 06/11/18 Metoclopramide [Reglan] 10 mg PO Q6H PRN #20 tablet 05/29/18 06/11/18 RX: Acyclovir 800 mg PO DAILY 06/01/18 06/11/18 Nicotine Polacrilex [Nicotine Gum] 2 mg PO DAILY 06/06/18 06/11/18 RX: Aspirin 81 mg PO DAILY 06/06/18 06/11/18 RX: Cholecalciferol (Vitamin D3) 1 tab PO DAILY 06/06/18 06/11/18 [Vitamin D3] RX: Cyanocobalamin (Vitamin B-12) 1 drops PO DAILY 06/06/18 06/11/18 [B-12] RX: LORazepam [Ativan] 1 mg PO DAILY 06/06/18 06/11/18 RX: Multivitamin [Multiple 1 tab PO DAILY 06/06/18 06/11/18 Vitamins] RX: Ondansetron Odt [Zofran Odt] 4 mg PO PRN PRN 06/06/18 06/11/18 RX: oxyCODONE [Roxicodone] 5 mg PO PRN PRN 06/06/18 06/11/18 diphenhydrAMINE [Benadryl] 25 mg pe PO DAILY 06/06/18 06/11/18 Cephalexin [Keflex] 500 mg PO TID #21 capsule 06/09/18 06/11/18 Metronidazole [Flagyl] 500 mg PO BID #14 tablet 06/09/18 06/11/18 RX: Docusate Sodium 100 mg PO DAILY #15 capsule 06/09/18 06/11/18 RX: Naproxen 375 mg PO BID #20 tablet 06/09/18 06/11/18 RX: Cefdinir 300 mg PO BID #14 capsule 06/11/18 Chlorhexidine Gluconate [Hibiclens] 15 ml TP DAILY #236 ml 08/11/18 RX: Doxycycline Hyclate 100 mg PO BID #20 capsule 08/11/18 RX: Mupirocin 1 applic TP TID #15 g 08/11/18 Oxycodone HCl/Acetaminophen 1 - 2 each PO Q6H PRN #14 tablet 09/17/18 [Percocet 5-325 mg Tablet] RX: Cefdinir 300 mg PO BID #20 capsule 09/17/18 Ondansetron Odt [Zofran] 4 mg TL Q6H PRN #10 tablet 11/22/18 Oxycodone HCl/Acetaminophen 1 each PO Q4HR PRN #14 tablet 11/22/18 [Oxycodone-Acetaminophen 5-325] - Allergies Allergies/Adverse Reactions: Allergies Allergy/AdvReac Type Severity Reaction Status Date / Time azithromycin [From Zithromax] AdvReac Rash Verified 11/22/18 10:57 hydrocodone AdvReac Nausea Verified 11/22/18 10:57 - Social History Does the pt smoke?: No Smoking Status: Never smoker Does the pt drink ETOH?: Yes Does the pt have substance abuse?: No - Immunizations Immunizations are current?: Yes - POLST Patient has POLST: No PD ED PE NORMAL - General General: Alert and oriented X 3, No acute distress, Well developed/nourished - HEENT HEENT: Atraumatic, Moist mucous membranes, Pharynx benign - Neck Neck: Supple, no meningeal sign, No JVD - Cardiac Cardiac: RRR - Respiratory Respiratory: No respiratory distress - Abdomen Abdomen: Soft, Non distended, Other (mild diffuse tenderness, no guarding or rebound ) - Male Male : Deferred - Rectal Rectal: Deferred - Derm Derm: Normal color, Warm and dry, No rash, Other (no pallor ) - Extremities Extremities: No deformity, No edema - Neuro Neuro: Alert and oriented X 3 Eye Opening: Spontaneous Motor: Obeys Commands Verbal: Oriented GCS Score: 15 - Psych Psych: Normal mood, Normal affect Results - Vitals Vitals: Vital Signs - 24 hr 11/22/18 11/22/18 11/22/18 10:52 11:00 11:30 Temperature 37.1 C Heart Rate 91 87 81 Respiratory 14 17 14 Rate Blood Pressure 123/83 H 139/87 H 135/89 H O2 Saturation 98 98 98 11/22/18 11/22/18 11/22/18 12:00 12:40 14:35 Temperature Heart Rate 76 68 70 Respiratory 13 12 25 H Rate Blood Pressure 143/87 H 128/80 121/74 O2 Saturation 98 99 97 Oxygen O2 Source Room air stable vitals - Labs Labs: Laboratory Tests 11/22/18 11/22/18 11/22/18 11:30 11:30 11:30 WBC 6.8 RBC 3.75 L Hgb 12.4 L Hct 35.8 L MCV 95.5 H MCH 33.1 H MCHC 34.6 RDW 16.2 H Plt Count 160 MPV 8.7 Neut # (Auto) 3.9 Lymph # (Auto) 1.7 [place] # (Auto) 1.0 Eos # (Auto) 0.1 Baso # (Auto) 0.0 Absolute Nucleated RBC 0.00 Nucleated RBC % 0.0 Sodium 137 Potassium 4.3 Chloride 104 Carbon Dioxide 23 Anion Gap 10.0 BUN 12 Creatinine 0.6 Estimated GFR (MDRD) 132 Glucose 134 H Lactic Acid Calcium 9.1 Total Bilirubin 0.5 AST 24 ALT 22 Alkaline Phosphatase 47 Troponin I < 0.04 Total Protein 6.7 Albumin 4.0 Globulin 2.7 Albumin/Globulin Ratio 1.5 Lipase 36 Urine Color Urine Clarity Urine pH Ur Specific [place] Urine Protein Urine Glucose (UA) Urine Ketones Urine Occult Blood Urine Nitrite Urine Bilirubin Urine Urobilinogen Ur Leukocyte Esterase Ur Microscopic Review Urine Culture Comments 11/22/18 11/22/18 11:30 11:30 WBC RBC Hgb Hct MCV MCH MCHC RDW Plt Count MPV Neut # (Auto) Lymph # (Auto) [place] # (Auto) Eos # (Auto) Baso # (Auto) Absolute Nucleated RBC Nucleated RBC % Sodium Potassium Chloride Carbon Dioxide Anion Gap BUN Creatinine Estimated GFR (MDRD) Glucose Lactic Acid 1.5 Calcium Total Bilirubin AST ALT Alkaline Phosphatase Troponin I Total Protein Albumin Globulin Albumin/Globulin Ratio Lipase Urine Color YELLOW Urine Clarity CLEAR Urine pH 6.0 Ur Specific [place] <=1.005 Urine Protein NEGATIVE Urine Glucose (UA) NEGATIVE Urine Ketones NEGATIVE Urine Occult Blood NEGATIVE Urine Nitrite NEGATIVE Urine Bilirubin NEGATIVE Urine Urobilinogen 0.2 (NORMAL) Ur Leukocyte Esterase NEGATIVE Ur Microscopic Review NOT INDICATED Urine Culture Comments NOT INDICATED no leukocytosis or neutropenia. normal UA, normal electrolytes and renal function, normal lfts, neg troponin - Rads (name of study) CT abd/pelvis Radiology: Final report received (ascending colitis without abscess or complication ) PD MEDICAL DECISION MAKING - ED course Complexity details: reviewed results, re-evaluated patient, considered different ial, d/w patient ED course: ddx- pancreatitis, hepatitis, gastritis, colitis, diverticulitis, UTI, mass 73 y/o M w/hx of Non hodgkin's lymphoma s/p bone marrow transplant and chemo now with abdominal pain, mainly upper abdominal pain for a few days, no fever, mild nausea, no diarrhea. Pt with normal labs here but given hx of immunocompromise obtained CT abd/pelvis which shows ascending colitis. Pt has had this once before. He denies hx of IBD though I discussed with him that he should follow up and discuss a future colonoscopy given that he has a hx of recurrence. Do not feel antibiotics are indicated given no fever, no signs of bacterial infection. Also discussed his care with his Oncologist, Ernie Arshad who agrees with plan to discharge with analgesics prn and outpt f/u Pt given return precautions if fever, worsening pain or new concerning symptoms. Departure - Departure Disposition: 01 Home, Self Care Clinical Impression: Colitis Condition: Stable Record reviewed to determine appropriate education?: Yes Follow-Up: Laura Baig PA-C [Primary Care Provider] - Prescriptions: Oxycodone HCl/Acetaminophen [Oxycodone-Acetaminophen 5-325] 1 each PO Q4HR PRN #14 tablet PRN Reason: Pain Ondansetron Odt [Zofran] 4 mg TL Q6H PRN #10 tablet PRN Reason: Nausea / Vomiting Comments: Your CT scan result show colitis (inflammation of your colon). You should manage this with pain medications, nausea medicine as needed and follow up with your regular doctor. Return to the ED as needed if worsening pain, vomiting or fever. Discharge Date/Time: 11/22/18 15:10
[2018-11-22 11:41] LABS: BASOPHILS % (AUTO) 0.4 %; EOSINOPHILS # (AUTO) 0.1 10^3/uL (0.0-0.7); EOSINOPHILS % (AUTO) 2.1 %; HGB - HEMOGLOBIN 12.4 g/dL (14.0-18.0); LYMPHOCYTES # (AUTO) 1.7 10^3/uL (1.5-3.5); LYMPHOCYTES % (AUTO) 25.3 %; MEAN CORPUSCULAR HEMOGLOBIN 33.1 pg (27.0-31.0); MEAN CORPUSCULAR HGB CONC 34.6 g/dL (32.0-36.0); MEAN CORPUSCULAR VOLUME 95.5 fL (80.0-94.0); MEAN PLATELET VOLUME 8.7 fL (7.4-11.4); MONOCYTES % (AUTO) 14.7 %; NEUTROPHILS # (AUTO) 3.9 10^3/uL (1.5-6.6); NEUTROPHILS % (AUTO) 57.1 %; PLT - PLATELET COUNT 160 10^3/uL (130-450); RED BLOOD COUNT 3.75 10^6/uL (4.70-6.10); RED CELL DISTRIBUTION WIDTH 16.2 % (12.0-15.0); WHITE BLOOD COUNT 6.8 x10^3/uL (4.8-10.8)
[2018-11-22 11:54] LABS: ALBUMIN/GLOBULIN RATIO 1.5 (1.0-2.2); BILIRUBIN,TOTAL 0.5 mg/dL (0.2-1.0); CALCIUM 9.1 mg/dL (8.5-10.3); CREATININE 0.6 mg/dL (0.6-1.2); TOTAL PROTEIN 6.7 g/dL (6.7-8.2)
[2018-11-22 11:57] LABS: BILIRUBIN,URINE NEGATIVE (NEGATIVE); CLARITY,URINE CLEAR (CLEAR); GLUCOSE, URINE (UA) NEGATIVE (NEGATIVE); KETONES,URINE (UA) NEGATIVE (NEGATIVE); LEUKOCYTE ESTERASE, URINE NEGATIVE (NEGATIVE); NITRITE,URINE NEGATIVE (NEGATIVE); OCCULT BLOOD,URINE NEGATIVE (NEGATIVE); PROTEIN,URINE NEGATIVE (NEGATIVE); UROBILINOGEN,URINE 0.2 (NORMAL) E.U./dL (NORMAL)
[2018-11-22] MEDS ORDERED: IOVERSOL 320 100 ML VIAL IVP ONE ×2 (12:53→16:12)
[2018-11-22 14:35] VITALS: BP 121/74
--- NOTE | 2018-11-22 14:38 | CT Report ---
Reason: RLQ pain, hx of appendectomy Procedure Date: 11/22/2018 Accession Number: [id number] / [id number] Procedure: CT - Abdomen/Pelvis W CPT Code: FULL RESULT: EXAM: CT ABDOMEN AND PELVIS WITH CONTRAST. EXAM DATE: 11/22/2018 01:10 PM. CLINICAL HISTORY: Right lower quadrant pain, history of appendectomy. COMPARISONS: ABDOMEN/PELVIS W/ 06/09/2018 1:35 PM. TECHNIQUE: Routine helical CT imaging was performed through the abdomen and pelvis. IV contrast: OPTI-320 100 mL. Enteric contrast: No. Reconstructions: Coronal and sagittal. In accordance with CT protocol optimization, one or more of the following dose reduction techniques were utilized for this exam: automated exposure control, adjustment of mA and/or KV based on patient size, or use of iterative reconstructive technique. FINDINGS: Lung Bases: Dependent changes, evaluation limited by motion. Liver: Normal. No masses. Gallbladder/Bile Ducts: Patient status post cholecystectomy. Spleen: Normal. Pancreas: Normal. Adrenal Glands: Normal. Kidneys: Normal. No masses or hydronephrosis. Peritoneal Cavity/Bowel: The ascending colon beginning at the cecum demonstrates wall thickening, mucosal hyperenhancement and pericolonic fat stranding in segmental fashion. There is no bowel obstruction. There is no lymphadenopathy by size criteria. There is no free fluid or free air. Pelvic Organs: Normal. The bladder and visualized pelvic organs are within normal limits. Vasculature: No aneurysms or other significant abnormality. Bones: Dextroconvex scoliosis with no aggressive osseous lesions detected. Other: None. IMPRESSION: Ascending colitis. Given recent presentation of inflamed left upper quadrant small bowel loops, consider inflammatory bowel disease. [facility]
== END 2018-11-22 15:10 | disposition home or self-care (01) ==
LOC: ED 10:40
DX: K52.89 Other specified noninfective gastroenteritis and colitis (principal); I10 Essential (primary) hypertension; Z85.72 Personal history of non-Hodgkin lymphomas; Z94.81 Bone marrow transplant status; Z79.82 Long term (current) use of aspirin
CPT/HCPCS: 36415; 74177; 80053; 81003; 83605; 83690; 84484; 85025; 96374; 99283; 99285; Q9967; 81001; 87086

== ENCOUNTER 2018-11-29 10:01 | Outpatient (CLI) | payer MEDICARE, OTHER ==
[2018-11-29 17:37] LABS: BASOPHILS % (AUTO) 0.5 %; EOSINOPHILS # (AUTO) 0.1 10^3/uL (0.0-0.7); EOSINOPHILS % (AUTO) 1.5 %; HGB - HEMOGLOBIN 12.6 g/dL (14.0-18.0); LYMPHOCYTES # (AUTO) 1.9 10^3/uL (1.5-3.5); LYMPHOCYTES % (AUTO) 24.3 %; MEAN CORPUSCULAR HEMOGLOBIN 32.7 pg (27.0-31.0); MEAN CORPUSCULAR HGB CONC 32.6 g/dL (32.0-36.0); MEAN CORPUSCULAR VOLUME 100.5 fL (80.0-94.0); MEAN PLATELET VOLUME 8.9 fL (7.4-11.4); NEUTROPHILS # (AUTO) 4.9 10^3/uL (1.5-6.6); NEUTROPHILS % (AUTO) 61.4 %; PLT - PLATELET COUNT 164 10^3/uL (130-450); RED BLOOD COUNT 3.85 10^6/uL (4.70-6.10); RED CELL DISTRIBUTION WIDTH 17.5 % (12.0-15.0)
[2018-11-29 18:00] LABS: ALBUMIN 4.3 g/dL (3.2-5.5); ALBUMIN/GLOBULIN RATIO 1.7 (1.0-2.2); BILIRUBIN,TOTAL 0.5 mg/dL (0.2-1.0); CALCIUM 9.4 mg/dL (8.5-10.3); CREATININE 0.6 mg/dL (0.6-1.2); PHOSPHORUS 2.5 mg/dL (2.5-4.6); TOTAL PROTEIN 6.9 g/dL (6.7-8.2)
[2018-12-01 17:32] LABS: CMV DNA QN RT PCR <200 IU/mL; SOURCE PLASMA
== END 2018-11-29 10:02 | disposition home or self-care (01) ==
LOC: LAB.S 10:01
PROVIDERS: ATTEND Internal Medicine Hematology & Oncology
DX: C83.30 Diffuse large B-cell lymphoma, unspecified site (principal)
CPT/HCPCS: 36415; 80053; 83615; 83735; 84100; 85025; 87497

== ENCOUNTER 2018-12-02 06:56 | Outpatient (CLI) | payer MEDICARE, OTHER ==
[2018-12-02 10:45] LABS: CHOL/HDL RATIO 4.6 (<5.0); CHOLESTEROL 130 mg/dL; HDL CHOLESTEROL 28 mg/dL; LDL CHOLESTEROL,CALCULATED 58 mg/dL; LDL/HDL RATIO 2.1 (<3.6); VLDL CHOLESTEROL 44 mg/dL
== END 2018-12-02 06:57 | disposition home or self-care (01) ==
LOC: LAB.S 06:56
PROVIDERS: ATTEND Physician Assistant Medical
DX: E78.5 Hyperlipidemia, unspecified (principal)
CPT/HCPCS: 36415; 80061; 83721

== ENCOUNTER 2018-12-31 08:26 | Emergency (ER) | payer MEDICARE, OTHER ==
[2018-12-31 08:36] VITALS: BP 110/72
--- NOTE | 2018-12-31 09:00 | ED Physician Documentation ---
PD HPI ABD PAIN - Stated complaint Stated Complaint: STOMACH PAIN, FEVER - Chief complaint Chief Complaint: Abd Pain - History obtained from History obtained from: Patient - History of Present Illness Timing - onset: Today Timing - duration: Hours (2) Timing - details: Abrupt onset Pain level max: 5 Pain level now: 2 Quality: Cramping, Aching Location: All over / everywhere Radiation: No: Chest, , Lower back, Left flank, Left shoulder, Right flank, Right shoulder, Upper back Improved by: Other (nothing) Worsened by: Other (nothing) Associated symptoms: Fever (100.7), Nausea. No: Vomiting, Hematemesis, Diarrhea, Constipation, Melena, Hematochezia, Dysuria, Hematuria, Chest pain Recently seen: Not recently seen - Additional information Additional information: states feels like enteritis he has had in the past. 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 Patient has a history of non-Hodgkin's lymphoma. Treated at [facility] with Dr. Ernie Arshad Review of Systems Ten Systems: 10 systems reviewed and negative Constitutional: denies: Chills Ears: denies: Ear pain Nose: denies: Rhinorrhea / runny nose, Congestion Throat: denies: Sore throat Respiratory: denies: Cough GI: denies: Nausea, Vomiting, Diarrhea : denies: Dysuria Skin: denies: Rash Musculoskeletal: denies: Neck pain, Back pain Neurologic: denies: Headache PD PAST MEDICAL HISTORY - Past Medical History Cardiovascular: Hypertension Respiratory: None Neuro: None Endocrine/Autoimmune: Other GI: GERD, Hepatitis : None HEENT: None Psych: None Musculoskeletal: None Derm: None - Past Surgical History Past Surgical History: Yes General: Cholecystectomy, Appendectomy HEENT: Tonsil/Adenoidectomy - Present Medications Home Medications: Ambulatory Orders Medication Instructions Recorded Confirmed Atenolol 50 mg PO DAILY 01/09/13 06/11/18 Metoclopramide [Reglan] 10 mg PO Q6H PRN #20 tablet 05/29/18 06/11/18 Acyclovir 800 mg PO DAILY 06/01/18 06/11/18 Aspirin 81 mg PO DAILY 06/06/18 06/11/18 Cholecalciferol (Vitamin D3) 1 tab PO DAILY 06/06/18 06/11/18 [Vitamin D3] Cyanocobalamin (Vitamin B-12) 1 drops PO DAILY 06/06/18 06/11/18 [B-12] LORazepam [Ativan] 1 mg PO DAILY 06/06/18 06/11/18 Multivitamin [Multiple Vitamins] 1 tab PO DAILY 06/06/18 06/11/18 Nicotine Polacrilex [Nicotine Gum] 2 mg PO DAILY 06/06/18 06/11/18 Ondansetron Odt [Zofran Odt] 4 mg PO PRN PRN 06/06/18 06/11/18 diphenhydrAMINE [Benadryl] 25 mg pe PO DAILY 06/06/18 06/11/18 oxyCODONE [Roxicodone] 5 mg PO PRN PRN 06/06/18 06/11/18 Cephalexin [Keflex] 500 mg PO TID #21 capsule 06/09/18 06/11/18 Docusate Sodium 100 mg PO DAILY #15 capsule 06/09/18 06/11/18 Metronidazole [Flagyl] 500 mg PO BID #14 tablet 06/09/18 06/11/18 Naproxen 375 mg PO BID #20 tablet 06/09/18 06/11/18 Cefdinir 300 mg PO BID #14 capsule 06/11/18 Chlorhexidine Gluconate [Hibiclens] 15 ml TP DAILY #236 ml 08/11/18 Doxycycline Hyclate 100 mg PO BID #20 capsule 08/11/18 Mupirocin 1 applic TP TID #15 g 08/11/18 Cefdinir 300 mg PO BID #20 capsule 09/17/18 Oxycodone HCl/Acetaminophen 1 - 2 each PO Q6H PRN #14 tablet 09/17/18 [Percocet 5-325 mg Tablet] Ondansetron Odt [Zofran] 4 mg TL Q6H PRN #10 tablet 11/22/18 Oxycodone HCl/Acetaminophen 1 each PO Q4HR PRN #14 tablet 11/22/18 [Oxycodone-Acetaminophen 5-325] - Allergies Allergies/Adverse Reactions: Allergies Allergy/AdvReac Type Severity Reaction Status Date / Time azithromycin [From Zithromax] AdvReac Rash Verified 12/31/18 08:36 hydrocodone AdvReac Nausea Verified 12/31/18 08:36 - Social History Does the pt smoke?: No Smoking Status: Never smoker Does the pt drink ETOH?: Yes Does the pt have substance abuse?: No - Immunizations Immunizations are current?: Yes - POLST Patient has POLST: No PD ED PE NORMAL - Vitals Vital signs reviewed: Yes - General General: Alert and oriented X 3, No acute distress - HEENT HEENT: PERRL, Ears normal, Moist mucous membranes, Pharynx benign - Neck Neck: Supple, no meningeal sign - Cardiac Cardiac: RRR - Respiratory Respiratory: No respiratory distress, Clear bilaterally - Abdomen Abdomen: Soft, Non tender, Non distended - Back Back: No CVA TTP, No spinal TTP - Derm Derm: Warm and dry - Extremities Extremities: No edema, No calf tenderness / cord - Neuro Neuro: Alert and oriented X 3 - Psych Psych: Normal mood, Normal affect Results - Vitals Vitals: Vital Signs - 24 hr 12/31/18 08:33 Temperature 37.1 C Heart Rate 97 Respiratory 16 Rate Blood Pressure 110/72 O2 Saturation 98 Oxygen O2 Source Room air - Labs Labs: Laboratory Tests 12/31/18 12/31/18 12/31/18 08:56 08:56 08:56 WBC 8.3 RBC 3.83 L Hgb 12.5 L Hct 37.8 L MCV 98.7 H MCH 32.6 H MCHC 33.1 RDW 13.7 Plt Count 149 MPV 8.2 Neut # (Auto) 5.9 Lymph # (Auto) 1.4 L [place] # (Auto) 0.9 Eos # (Auto) 0.0 Baso # (Auto) 0.0 Absolute Nucleated RBC 0.00 Nucleated RBC % 0.0 Sodium 137 Potassium 4.3 Chloride 102 Carbon Dioxide 25 Anion Gap 10.0 BUN 11 Creatinine 0.7 Estimated GFR (MDRD) 111 Glucose 118 H Lactic Acid 1.0 Calcium 9.0 Total Bilirubin 0.8 AST 20 ALT 19 Alkaline Phosphatase 50 Total Protein 6.8 Albumin 4.1 Globulin 2.7 Albumin/Globulin Ratio 1.5 Lipase 28 Urine Color Urine Clarity Urine pH Ur Specific [place] Urine Protein Urine Glucose (UA) Urine Ketones Urine Occult Blood Urine Nitrite Urine Bilirubin Urine Urobilinogen Ur Leukocyte Esterase Ur Microscopic Review Urine Culture Comments 12/31/18 09:47 WBC RBC Hgb Hct MCV MCH MCHC RDW Plt Count MPV Neut # (Auto) Lymph # (Auto) [place] # (Auto) Eos # (Auto) Baso # (Auto) Absolute Nucleated RBC Nucleated RBC % Sodium Potassium Chloride Carbon Dioxide Anion Gap BUN Creatinine Estimated GFR (MDRD) Glucose Lactic Acid Calcium Total Bilirubin AST ALT Alkaline Phosphatase Total Protein Albumin Globulin Albumin/Globulin Ratio Lipase Urine Color YELLOW Urine Clarity CLEAR Urine pH 6.0 Ur Specific [place] <=1.005 Urine Protein NEGATIVE Urine Glucose (UA) NEGATIVE Urine Ketones NEGATIVE Urine Occult Blood NEGATIVE Urine Nitrite NEGATIVE Urine Bilirubin NEGATIVE Urine Urobilinogen 0.2 (NORMAL) Ur Leukocyte Esterase NEGATIVE Ur Microscopic Review NOT INDICATED Urine Culture Comments NOT INDICATED - Rads (name of study) cxr Radiology: Prelim report reviewed, EMP read contemporaneously, See rad report (No acute disease) PD MEDICAL DECISION MAKING - ED course Complexity details: reviewed results, re-evaluated patient, considered differential, d/w patient, d/w travel service consultant ED course: 73-year-old male presents to the emergency department with a fever this morning as well as abdominal pain. This resolved prior to arrival. Normal blood work here. Abdomen is soft, nontender nondistended on serial exam. Tolerating p.o. without difficulty. Patient states that he "feels normal". Discussed the case with [facility] and they will follow-up with him this week. Patient counseled regarding signs and symptoms for which I believe and urgent re-evaluation would be necessary. Patient with good understanding of and agreement to plan and is comfortable going home at this time This document was made in part using voice recognition software. While efforts are made to proofread this document, sound alike and grammatical errors may occur. Departure - Departure Disposition: 01 Home, Self Care Clinical Impression: Abdominal pain Qualifiers: Abdominal location: unspecified location Qualified Code(s): R10.9 - Unspecified abdominal pain Condition: Good Instructions: ED Abdominal Pain Unkn Cause Follow-Up: Ernie Arshad MD [Physician No Access] - Laura Baig PA-C [Primary Care Provider] - Within 1 week Comments: The cause of your symptoms is unclear today. Return if you worsen. Follow-up with your doctor for further care. I did speak with [facility] today regarding your care. Discharge Date/Time: 12/31/18 10:54
[2018-12-31 09:10] LABS: BASOPHILS % (AUTO) 0.2 %; EOSINOPHILS % (AUTO) 0.2 %; HGB - HEMOGLOBIN 12.5 g/dL (14.0-18.0); LYMPHOCYTES # (AUTO) 1.4 10^3/uL (1.5-3.5); MEAN CORPUSCULAR HEMOGLOBIN 32.6 pg (27.0-31.0); MEAN CORPUSCULAR HGB CONC 33.1 g/dL (32.0-36.0); MEAN CORPUSCULAR VOLUME 98.7 fL (80.0-94.0); MEAN PLATELET VOLUME 8.2 fL (7.4-11.4); MONOCYTES # (AUTO) 0.9 10^3/uL (0.0-1.0); MONOCYTES % (AUTO) 10.3 %; NEUTROPHILS # (AUTO) 5.9 10^3/uL (1.5-6.6); NEUTROPHILS % (AUTO) 71.1 %; PLT - PLATELET COUNT 149 10^3/uL (130-450); RED BLOOD COUNT 3.83 10^6/uL (4.70-6.10); RED CELL DISTRIBUTION WIDTH 13.7 % (12.0-15.0); WHITE BLOOD COUNT 8.3 x10^3/uL (4.8-10.8)
[2018-12-31 09:24] LABS: ALBUMIN 4.1 g/dL (3.2-5.5); ALBUMIN/GLOBULIN RATIO 1.5 (1.0-2.2); BILIRUBIN,TOTAL 0.8 mg/dL (0.2-1.0); CREATININE 0.7 mg/dL (0.6-1.2); TOTAL PROTEIN 6.8 g/dL (6.7-8.2)
--- NOTE | 2018-12-31 09:41 | XRAY Report ---
Reason: fever Procedure Date: 12/31/2018 Accession Number: [id number] / [id number] Procedure: XR - Chest 2 View X-Ray CPT Code: 19470 FULL RESULT: EXAM: CHEST RADIOGRAPHY, 2 VIEWS EXAM DATE: 12/31/2018 09:21 AM. CLINICAL HISTORY: 73-year-old male with low-grade fever. Finished chemotherapy 11 weeks ago. COMPARISON: CHEST 2 VIEW 07/03/2018 11:26 AM. CHEST 2 VIEW 02/13/2018 12:35 PM. TECHNIQUE: Upright PA and lateral views. FINDINGS: Lungs/Pleura: No focal opacities evident. No pleural effusion. No pneumothorax. Normal volumes. Mediastinum: Heart size normal with mild aortic tortuosity, as previous. No adenopathy or vascular congestion. Other: Trachea is midline. Osseous structures are unremarkable. Surgical clips right axilla, as previously. IMPRESSION: Stable chest. No pneumonia, CHF or other demonstrated cause for low-grade fever. RADIA
[2018-12-31 10:04] LABS: BILIRUBIN,URINE NEGATIVE (NEGATIVE); GLUCOSE, URINE (UA) NEGATIVE (NEGATIVE); KETONES,URINE (UA) NEGATIVE (NEGATIVE); LEUKOCYTE ESTERASE, URINE NEGATIVE (NEGATIVE); NITRITE,URINE NEGATIVE (NEGATIVE); OCCULT BLOOD,URINE NEGATIVE (NEGATIVE); PROTEIN,URINE NEGATIVE (NEGATIVE); UROBILINOGEN,URINE 0.2 (NORMAL) E.U./dL (NORMAL)
[2018-12-31 10:05] LABS: CLARITY,URINE CLEAR (CLEAR)
== END 2018-12-31 10:54 | disposition home or self-care (01) ==
LOC: ED 08:26
DX: R10.9 Unspecified abdominal pain (principal); I10 Essential (primary) hypertension; Z85.72 Personal history of non-Hodgkin lymphomas
CPT/HCPCS: 36415; 71046; 80053; 81001; 81003; 83605; 83690; 85025; 87040; 87086; 99283; 99284

== ENCOUNTER 2019-04-12 10:52 | Emergency (ER) | payer MEDICARE, OTHER ==
[2019-04-12 11:21] LABS: BASOPHILS % (AUTO) 0.3 %; EOSINOPHILS % (AUTO) 0.7 %; HGB - HEMOGLOBIN 13.9 g/dL (14.0-18.0); LYMPHOCYTES # (AUTO) 1.9 10^3/uL (1.5-3.5); LYMPHOCYTES % (AUTO) 31.8 %; MEAN CORPUSCULAR HEMOGLOBIN 32.1 pg (27.0-31.0); MEAN CORPUSCULAR HGB CONC 33.8 g/dL (32.0-36.0); MEAN CORPUSCULAR VOLUME 94.9 fL (80.0-94.0); MEAN PLATELET VOLUME 8.5 fL (7.4-11.4); MONOCYTES # (AUTO) 0.6 10^3/uL (0.0-1.0); MONOCYTES % (AUTO) 9.7 %; NEUTROPHILS # (AUTO) 3.3 10^3/uL (1.5-6.6); PLT - PLATELET COUNT 167 10^3/uL (130-450); RED BLOOD COUNT 4.33 10^6/uL (4.70-6.10); RED CELL DISTRIBUTION WIDTH 13.9 % (12.0-15.0); WHITE BLOOD COUNT 5.9 x10^3/uL (4.8-10.8)
[2019-04-12 11:43] LABS: ALBUMIN 4.6 g/dL (3.2-5.5); ALBUMIN/GLOBULIN RATIO 1.8 (1.0-2.2); BILIRUBIN,TOTAL 0.8 mg/dL (0.2-1.0); CALCIUM 9.6 mg/dL (8.5-10.3); CREATININE 0.7 mg/dL (0.6-1.2); TOTAL PROTEIN 7.1 g/dL (6.7-8.2)
--- NOTE | 2019-04-12 11:57 | XRAY Report ---
Reason: chest pain Procedure Date: 04/12/2019 Accession Number: [id number] / [id number] Procedure: XR - Chest 1 View X-Ray CPT Code: 70181 Final Report FULL RESULT: EXAM: CHEST RADIOGRAPHY EXAM DATE: 04/12/2019 11:33 AM. CLINICAL HISTORY: Chest pain. COMPARISON: CHEST 2 VIEW 12/31/2018 9:03 AM. TECHNIQUE: 1 view. FINDINGS: Lungs/Pleura: No focal opacities evident. No pleural effusion. No pneumothorax. Mediastinum: Within exam limitations, the cardiomediastinal contour is normal. Other: Surgical clips right axilla. IMPRESSION: No acute consolidations identified. RADIA
--- NOTE | 2019-04-12 12:52 | ED Physician Documentation ---
PD HPI CHEST PAIN - Stated complaint Stated Complaint: CHEST PX - Chief complaint Chief Complaint: Cardiac - History obtained from History obtained from: Patient - History of Present Illness Timing - onset: Last night Timing - onset during: Rest Timing - duration: Days (1) Timing - details: Gradual onset, Now resolved, Constant Pain level max: 3 Pain level now: 1 Quality: Aching Location: Substernal Radiation: No: Jaw, Neck, Back, Abdominal, Left upper extremity, Right upper extremity Improved by: Other (drinking water) Worsened by: Eating (pizza last nigth) Associated symptoms: No: Shortness of air, Diaphoresis, Nausea, Vomiting, Feeling faint / dizzy, General Weakness, Palpitations, Cough Similar symptoms before: Has not had sx before Recently seen: Not recently seen Review of Systems Constitutional: denies: Fever, Chills Cardiac: denies: Chest pain / pressure Respiratory: denies: Cough GI: denies: Vomiting, Diarrhea Skin: denies: Rash Musculoskeletal: denies: Neck pain, Back pain Neurologic: denies: Headache PD PAST MEDICAL HISTORY - Past Medical History Past Medical History: Yes Cardiovascular: Hypertension Respiratory: None Neuro: None Endocrine/Autoimmune: Other GI: GERD, Hepatitis : None HEENT: None Psych: None Musculoskeletal: None Derm: None - Past Surgical History Past Surgical History: Yes General: Cholecystectomy, Appendectomy, EGD HEENT: Tonsil/Adenoidectomy - Present Medications Home Medications: Ambulatory Orders Medication Instructions Recorded Confirmed Atenolol 50 mg PO DAILY 01/09/13 06/11/18 Metoclopramide [Reglan] 10 mg PO Q6H PRN #20 tablet 05/29/18 06/11/18 Acyclovir 800 mg PO DAILY 06/01/18 06/11/18 Aspirin 81 mg PO DAILY 06/06/18 06/11/18 Cholecalciferol (Vitamin D3) 1 tab PO DAILY 06/06/18 06/11/18 [Vitamin D3] Cyanocobalamin (Vitamin B-12) 1 drops PO DAILY 06/06/18 06/11/18 [B-12] LORazepam [Ativan] 1 mg PO DAILY 06/06/18 06/11/18 Multivitamin [Multiple Vitamins] 1 tab PO DAILY 06/06/18 06/11/18 Nicotine Polacrilex [Nicotine Gum] 2 mg PO DAILY 06/06/18 06/11/18 Ondansetron Odt [Zofran Odt] 4 mg PO PRN PRN 06/06/18 06/11/18 diphenhydrAMINE [Benadryl] 25 mg pe PO DAILY 06/06/18 06/11/18 oxyCODONE [Roxicodone] 5 mg PO PRN PRN 06/06/18 06/11/18 Cephalexin [Keflex] 500 mg PO TID #21 capsule 06/09/18 06/11/18 Docusate Sodium 100 mg PO DAILY #15 capsule 06/09/18 06/11/18 Metronidazole [Flagyl] 500 mg PO BID #14 tablet 06/09/18 06/11/18 Naproxen 375 mg PO BID #20 tablet 06/09/18 06/11/18 Cefdinir 300 mg PO BID #14 capsule 06/11/18 Chlorhexidine Gluconate [Hibiclens] 15 ml TP DAILY #236 ml 08/11/18 Doxycycline Hyclate 100 mg PO BID #20 capsule 08/11/18 Mupirocin 1 applic TP TID #15 g 08/11/18 Cefdinir 300 mg PO BID #20 capsule 09/17/18 Oxycodone HCl/Acetaminophen 1 - 2 each PO Q6H PRN #14 tablet 09/17/18 [Percocet 5-325 mg Tablet] Ondansetron Odt [Zofran] 4 mg TL Q6H PRN #10 tablet 11/22/18 Oxycodone HCl/Acetaminophen 1 each PO Q4HR PRN #14 tablet 11/22/18 [Oxycodone-Acetaminophen 5-325] - Allergies Allergies/Adverse Reactions: Allergies Allergy/AdvReac Type Severity Reaction Status Date / Time azithromycin [From Zithromax] AdvReac Rash Verified 04/12/19 10:58 hydrocodone AdvReac Nausea Verified 04/12/19 10:58 - Social History Does the pt smoke?: No Smoking Status: Never smoker Does the pt drink ETOH?: Yes Does the pt have substance abuse?: No - Immunizations Immunizations are current?: Yes - POLST Patient has POLST: No PD ED PE NORMAL - Vitals Vital signs reviewed: Yes - General General: Alert and oriented X 3, No acute distress, Well developed/nourished - HEENT HEENT: PERRL, Moist mucous membranes - Neck Neck: Supple, no meningeal sign - Cardiac Cardiac: RRR, Strong equal pulses - Respiratory Respiratory: No respiratory distress, Clear bilaterally - Abdomen Abdomen: Soft, Non tender, Non distended - Derm Derm: Warm and dry - Extremities Extremities: No edema - Neuro Neuro: Alert and oriented X 3 - Psych Psych: Normal mood, Normal affect Results - Vitals Vitals: Vital Signs - 24 hr 04/12/19 04/12/19 10:56 12:00 Temperature 36.6 C Heart Rate 90 63 Respiratory 18 18 Rate Blood Pressure 142/90 H 121/84 H O2 Saturation 99 93 Oxygen O2 Source Room air - EKG (time done) 1059 Rate: Rate (enter#) (90) Rhythm: NSR [place]: Anterior hemiblock (LAFB) Intervals: Normal LA QRS: Normal Ischemia: Normal ST segments - Labs Labs: Laboratory Tests 04/12/19 04/12/19 04/12/19 11:13 11:13 11:38 WBC 5.9 RBC 4.33 L Hgb 13.9 L Hct 41.1 L MCV 94.9 H MCH 32.1 H MCHC 33.8 RDW 13.9 Plt Count 167 MPV 8.5 Neut # (Auto) 3.3 Lymph # (Auto) 1.9 [place] # (Auto) 0.6 Eos # (Auto) 0.0 Baso # (Auto) 0.0 Absolute Nucleated RBC 0.00 Nucleated RBC % 0.0 Sodium 140 Potassium 4.0 Chloride 102 Carbon Dioxide 29 Anion Gap 9.0 BUN 14 Creatinine 0.7 Estimated GFR (MDRD) 111 Glucose 133 H Calcium 9.6 Total Bilirubin 0.8 AST 23 ALT 21 Alkaline Phosphatase 53 Troponin I High Sens 2.4 Total Protein 7.1 Albumin 4.6 Globulin 2.5 Albumin/Globulin Ratio 1.8 Lipase 35 - Rads (name of study) cxr Radiology: Prelim report reviewed, EMP read contemporaneously, See rad report (no acute disease) PD MEDICAL DECISION MAKING - ED course Complexity details: reviewed results, re-evaluated patient, considered differential (No ST elevation MT, no aortic dissection, no PE, no tension pneumothorax, no aortic aneurysm), d/w patient ED course: 73-year-old male with atypical chest pain. He is very well-appearing, nontoxic. No history of acute coronary syndrome. Symptoms are more consistent with gastroesophageal reflux disease. Negative high-sensitivity troponin. Asymptomatic here. Possibly related to the pizza he ate last night? Patient counseled regarding signs and symptoms for which I believe and urgent re- evaluation would be necessary. Patient with good understanding of and agreement to plan and is comfortable going home at this time This document was made in part using voice recognition software. While efforts are made to proofread this document, sound alike and grammatical errors may occur. Departure - Departure Disposition: 01 Home, Self Care Clinical Impression: Chest pain Qualifiers: Chest pain type: unspecified Qualified Code(s): R07.9 - Chest pain, unspecified Condition: Good Instructions: ED Chest Pain Atypical Unkn Cause Follow-Up: your,doctor in 1 week [Other] Comments: The cause of your symptoms is unclear, but may be related to gastroesophageal reflux disease. Follow-up with your doctor next week for further care including a cardiac stress test. Return if you worsen.
[2019-04-12 12:54] VITALS: BP 116/79
== END 2019-04-12 12:59 | disposition home or self-care (01) ==
LOC: ED 10:52
DX: R07.89 Other chest pain (principal); K21.9 Gastro-esophageal reflux disease without esophagitis; I44.4 Left anterior fascicular block; I10 Essential (primary) hypertension; Z79.82 Long term (current) use of aspirin
CPT/HCPCS: 36415; 71045; 80053; 83690; 84484; 85025; 93005; 99284

== ENCOUNTER 2019-04-30 09:02 | Emergency (ER) | payer MEDICARE, OTHER ==
[2019-04-30 09:31] VITALS: BP 132/87
--- NOTE | 2019-04-30 10:00 | ED Physician Documentation ---
PD HPI OPHTHO - Stated complaint Stated Complaint: LT EYE SWOLLEN - Chief complaint Chief Complaint: Heent - History obtained from History obtained from: Patient - History of Present Illness Timing - onset: Yesterday Timing - duration: Days (1) Timing - details: Gradual onset, Still present Location: Left Quality / character: Burning Associated symptoms: Redness, Swelling. No: Matting, FB sensation, Loss of vision Similar symptoms before: Diagnosis (mariangel-orbital cellulitis) Recently seen: Not recently seen - Additional information Additional information: 73-year-old male with with a history of B cell lymphoma has swelling to the left eyelid beginning yesterday evening has increased swelling today and he has come to the emergency department for evaluation. He has previously had periorbital cellulitis requiring hospitalization. He is not having any trouble with his vision and he is not feeling otherwise ill. Review of Systems Constitutional: denies: Fever Eyes: reports: Irritation. denies: Loss of vision, Decreased vision, Photophobia Ears: denies: Ear pain Nose: denies: Rhinorrhea / runny nose, Congestion Respiratory: denies: Cough GI: denies: Vomiting PD PAST MEDICAL HISTORY - Past Medical History Cardiovascular: Hypertension Respiratory: None Neuro: None Endocrine/Autoimmune: Other GI: GERD, Hepatitis : None HEENT: None Psych: None Musculoskeletal: None Derm: None - Past Surgical History Past Surgical History: Yes General: Cholecystectomy, Appendectomy, EGD HEENT: Tonsil/Adenoidectomy - Present Medications Home Medications: Ambulatory Orders Medication Instructions Recorded Confirmed Atenolol 50 mg PO DAILY 01/09/13 06/11/18 Metoclopramide [Reglan] 10 mg PO Q6H PRN #20 tablet 05/29/18 06/11/18 Acyclovir 800 mg PO DAILY 06/01/18 06/11/18 Aspirin 81 mg PO DAILY 06/06/18 06/11/18 Cholecalciferol (Vitamin D3) 1 tab PO DAILY 06/06/18 06/11/18 [Vitamin D3] Cyanocobalamin (Vitamin B-12) 1 drops PO DAILY 06/06/18 06/11/18 [B-12] LORazepam [Ativan] 1 mg PO DAILY 06/06/18 06/11/18 Multivitamin [Multiple Vitamins] 1 tab PO DAILY 06/06/18 06/11/18 Nicotine Polacrilex [Nicotine Gum] 2 mg PO DAILY 06/06/18 06/11/18 Ondansetron Odt [Zofran Odt] 4 mg PO PRN PRN 06/06/18 06/11/18 diphenhydrAMINE [Benadryl] 25 mg pe PO DAILY 06/06/18 06/11/18 oxyCODONE [Roxicodone] 5 mg PO PRN PRN 06/06/18 06/11/18 Cephalexin [Keflex] 500 mg PO TID #21 capsule 06/09/18 06/11/18 Docusate Sodium 100 mg PO DAILY #15 capsule 06/09/18 06/11/18 Metronidazole [Flagyl] 500 mg PO BID #14 tablet 06/09/18 06/11/18 Naproxen 375 mg PO BID #20 tablet 06/09/18 06/11/18 Cefdinir 300 mg PO BID #14 capsule 06/11/18 Chlorhexidine Gluconate [Hibiclens] 15 ml TP DAILY #236 ml 08/11/18 Doxycycline Hyclate 100 mg PO BID #20 capsule 08/11/18 Mupirocin 1 applic TP TID #15 g 08/11/18 Cefdinir 300 mg PO BID #20 capsule 09/17/18 Oxycodone HCl/Acetaminophen 1 - 2 each PO Q6H PRN #14 tablet 09/17/18 [Percocet 5-325 mg Tablet] Ondansetron Odt [Zofran] 4 mg TL Q6H PRN #10 tablet 11/22/18 Oxycodone HCl/Acetaminophen 1 each PO Q4HR PRN #14 tablet 11/22/18 [Oxycodone-Acetaminophen 5-325] Neomycin/Poly/Dex Ophth Drops 1 drops LEFTEYE QID #1 bottle 04/30/19 [Maxitrol Ophth Drops] - Allergies Allergies/Adverse Reactions: Allergies Allergy/AdvReac Type Severity Reaction Status Date / Time azithromycin [From Zithromax] AdvReac Rash Verified 04/30/19 09:29 hydrocodone AdvReac Nausea Verified 04/30/19 09:29 - Social History Does the pt smoke?: No Smoking Status: Never smoker Does the pt drink ETOH?: Yes Does the pt have substance abuse?: No - Immunizations Immunizations are current?: Yes - POLST Patient has POLST: No PD ED PE NORMAL - Vitals Vital signs reviewed: Yes - General General: Alert and oriented X 3, No acute distress, Well developed/nourished - HEENT HEENT: Atraumatic, PERRL, EOMI, Other (There is swelling and erythema to the right upper lid with presents of a stye in the upper lid laterally. There is minimal swelling and erythema to the lower lid. The eye is without significant scleral injection and there is no distortion to the globe or FB in the conjunctiva. 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 Departure - Departure Disposition: 01 Home, Self Care Clinical Impression: Stye external Qualifiers: Laterality: left Eyelid: upper Qualified Code(s): H00.014 - Hordeolum externum left upper eyelid Condition: Stable Instructions: ED Hordeolum Follow-Up: River Corral MD [Provider Admit Priv/Credential] - Prescriptions: Neomycin/Poly/Dex Ophth Drops [Maxitrol Ophth Drops] 1 drops LEFTEYE QID #1 bottle
== END 2019-04-30 10:20 | disposition home or self-care (01) ==
LOC: ED 09:02
DX: H00.014 Hordeolum externum left upper eyelid (principal); I10 Essential (primary) hypertension; Z79.82 Long term (current) use of aspirin; Z85.72 Personal history of non-Hodgkin lymphomas
CPT/HCPCS: 99282; 99284

== ENCOUNTER 2019-07-16 10:15 | Emergency (ER) | payer MEDICARE, OTHER ==
--- NOTE | 2019-07-16 11:25 | XRAY Report ---
Reason: pleuritic chest pain Procedure Date: 07/16/2019 Accession Number: [id number] / [id number] Procedure: XR - Chest 2 View X-Ray CPT Code: 46398 Final Report FULL RESULT: EXAM: CHEST RADIOGRAPHY EXAM DATE: 07/16/2019 10:56 AM. CLINICAL HISTORY: Pleuritic chest pain. Shortness of breath. COMPARISON: CHEST 1 VIEW 04/12/2019 11:16 AM CHEST 2 VIEW 12/31/2018 9:03 AM CHEST 2 VIEW 07/03/2018 11:26 AM CHEST 1 VIEW 06/11/2018 1:28 PM CHEST ANGIO 06/06/2018 9:59 PM. TECHNIQUE: 2 views. FINDINGS: Lungs/Pleura: Normal volumes. Mild linear scarring in the left lower lung. No focal infiltrate or bronchial wall thickening. No evidence of edema. No pleural effusion or pneumothorax. Mediastinum: Heart size is normal. The aorta is tortuous and contains atherosclerotic calcifications, as before. Other: Surgical clips in the right axilla and right upper quadrant. IMPRESSION: No acute cardiopulmonary abnormality. RADIA
[2019-07-16] MEDS ORDERED: DEXAMETHASONE 10 MG/ML VIAL PO STA (11:26)
[2019-07-16] MEDS ORDERED: CHERRY SYRUP 10 ML UDC PO ONE (11:26)
--- NOTE | 2019-07-16 11:29 | ED Physician Documentation ---
PD HPI URI - Stated complaint Stated Complaint: SOA - Chief complaint Chief Complaint: Cardiac - History obtained from History obtained from: Patient - History of Present Illness Timing - onset: How many days ago (3) Timing duration: Days (3) Timing details: Gradual onset, Still present Associated symptoms: Chest pain. No: Fever, Chills, Sweats, Nasal congestion, Rhinorrhea, Dyspnea Contributing factors: No: Sick contact Improves by: Rest Worsened by: Breathing Similar symptoms before: Has not had sx before Recently seen: Not recently seen - Additional information Additional information: 74-year-old male with a history of B-cell lymphoma has developed pain in the left chest that is worse with inspiration and there is a specific area on his chest that he can push on which will reproduce the pain the patient is having. He denies any specific injury to his chest other than possibly, working out at the gym. Patient has not had diaphoresis or dyspnea associated with this pain. His but otherwise feeling well. Review of Systems Constitutional: denies: Fever, Chills, Myalgias Eyes: denies: Decreased vision Ears: denies: Ear pain Nose: denies: Congestion Throat: denies: Sore throat Cardiac: reports: Chest pain / pressure. denies: Palpitations, Pedal edema, Calf pain Respiratory: denies: Dyspnea, Cough, Wheezing GI: denies: Abdominal Pain, Nausea, Vomiting : denies: Dysuria PD PAST MEDICAL HISTORY - Past Medical History Past Medical History: Yes Cardiovascular: Hypertension Respiratory: None Neuro: None Endocrine/Autoimmune: Other GI: GERD, Hepatitis : None HEENT: None Psych: None Musculoskeletal: None Derm: None Other Past Medical History: Bcell lymphoma - Past Surgical History Past Surgical History: Yes General: Cholecystectomy, Appendectomy, EGD HEENT: Tonsil/Adenoidectomy - Present Medications Home Medications: Ambulatory Orders Medication Instructions Recorded Confirmed atenoloL [Atenolol] 50 mg PO DAILY 01/09/13 06/11/18 Metoclopramide [Reglan] 10 mg PO Q6H PRN #20 tablet 05/29/18 06/11/18 Acyclovir 800 mg PO DAILY 06/01/18 06/11/18 Aspirin 81 mg PO DAILY 06/06/18 06/11/18 Cholecalciferol (Vitamin D3) 1 tab PO DAILY 06/06/18 06/11/18 [Vitamin D3] Cyanocobalamin (Vitamin B-12) 1 drops PO DAILY 06/06/18 06/11/18 [B-12] LORazepam [Ativan] 1 mg PO DAILY 06/06/18 06/11/18 Multivitamin [Multiple Vitamins] 1 tab PO DAILY 06/06/18 06/11/18 Nicotine Polacrilex [Nicotine Gum] 2 mg PO DAILY 06/06/18 06/11/18 Ondansetron Odt [Zofran Odt] 4 mg PO PRN PRN 06/06/18 06/11/18 diphenhydrAMINE [Benadryl] 25 mg pe PO DAILY 06/06/18 06/11/18 oxyCODONE [Roxicodone] 5 mg PO PRN PRN 06/06/18 06/11/18 Cephalexin [Keflex] 500 mg PO TID #21 capsule 06/09/18 06/11/18 Docusate Sodium 100 mg PO DAILY #15 capsule 06/09/18 06/11/18 Metronidazole [Flagyl] 500 mg PO BID #14 tablet 06/09/18 06/11/18 Naproxen 375 mg PO BID #20 tablet 06/09/18 06/11/18 Cefdinir 300 mg PO BID #14 capsule 06/11/18 Chlorhexidine Gluconate [Hibiclens] 15 ml TP DAILY #236 ml 08/11/18 Doxycycline Hyclate 100 mg PO BID #20 capsule 08/11/18 Mupirocin 1 applic TP TID #15 g 08/11/18 Cefdinir 300 mg PO BID #20 capsule 09/17/18 Oxycodone HCl/Acetaminophen 1 - 2 each PO Q6H PRN #14 tablet 09/17/18 [Percocet 5-325 mg Tablet] Ondansetron Odt [Zofran] 4 mg TL Q6H PRN #10 tablet 11/22/18 Oxycodone HCl/Acetaminophen 1 each PO Q4HR PRN #14 tablet 11/22/18 [Oxycodone-Acetaminophen 5-325] Neomycin/Poly/Dex Ophth Drops 1 drops LEFTEYE QID #1 bottle 04/30/19 [Maxitrol Ophth Drops] - Allergies Allergies/Adverse Reactions: Allergies Allergy/AdvReac Type Severity Reaction Status Date / Time azithromycin [From Zithromax] AdvReac Rash Verified 07/16/19 10:24 hydrocodone AdvReac Nausea Verified 07/16/19 10:24 - Social History Does the pt smoke?: No Smoking Status: Never smoker Does the pt drink ETOH?: Yes Does the pt have substance abuse?: No - Immunizations Immunizations are current?: Yes - POLST Patient has POLST: No PD ED PE NORMAL - Vitals Vital signs reviewed: Yes (hypertensive mild) - General General: Alert and oriented X 3, No acute distress, Well developed/nourished - HEENT HEENT: Atraumatic, PERRL, EOMI - Neck Neck: Supple, no meningeal sign - Cardiac Cardiac: RRR, No murmur - Respiratory Respiratory: No respiratory distress, Clear bilaterally, Other (There is a specific area to the left chest wall where palpation will reproduce the pain the patient is experiencing. ) - Abdomen Abdomen: Soft, Non tender - Back Back: No CVA TTP, No spinal TTP - Derm Derm: Normal color, Warm and dry, No rash - Extremities Extremities: No deformity, No edema - Neuro Neuro: Alert and oriented X 3, director of promotions 2-12 intact, No motor deficit, No sensory deficit, Normal speech Eye Opening: Spontaneous Motor: Obeys Commands Verbal: Oriented GCS Score: 15 - Psych Psych: Normal mood, Normal affect Results - Vitals Vitals: Vital Signs - 24 hr 07/16/19 07/16/19 10:24 12:01 Temperature 37.2 C 36.9 C Heart Rate 87 58 L Respiratory 15 16 Rate Blood Pressure 133/85 H 125/81 H O2 Saturation 98 96 Oxygen O2 Source Room air - Labs Labs: Laboratory Tests 07/16/19 07/16/19 07/16/19 11:32 11:32 11:32 WBC 6.2 RBC 4.12 L Hgb 13.5 L Hct 39.3 L MCV 95.4 H MCH 32.8 H MCHC 34.4 RDW 12.6 Plt Count 176 MPV 8.2 Neut # (Auto) 3.8 Lymph # (Auto) 1.4 L Eddy # (Auto) 0.8 Eos # (Auto) 0.2 Baso # (Auto) 0.0 Absolute Nucleated RBC 0.00 Nucleated RBC % 0.0 D-Dimer < 200.0 L Sodium 139 Potassium 4.4 Chloride 102 Carbon Dioxide 27 Anion Gap 10.0 BUN 11 Creatinine 0.7 Estimated GFR (MDRD) 111 Glucose 123 H Calcium 9.3 Total Bilirubin 0.8 AST 19 ALT 15 Alkaline Phosphatase 47 Troponin I High Sens Total Protein 6.6 L Albumin 4.0 Globulin 2.6 Albumin/Globulin Ratio 1.5 Lipase 31 07/16/19 11:32 WBC RBC Hgb Hct MCV MCH MCHC RDW Plt Count MPV Neut # (Auto) Lymph # (Auto) Eddy # (Auto) Eos # (Auto) Baso # (Auto) Absolute Nucleated RBC Nucleated RBC % D-Dimer Sodium Potassium Chloride Carbon Dioxide Anion Gap BUN Creatinine Estimated GFR (MDRD) Glucose Calcium Total Bilirubin AST ALT Alkaline Phosphatase Troponin I High Sens 3.4 Total Protein Albumin Globulin Albumin/Globulin Ratio Lipase - Rads (name of study) chest Radiology: Prelim report reviewed (Impression: No acute cardiopulmonary abnormality.), EMP read indepedently, See rad report PD MEDICAL DECISION MAKING - ED course Complexity details: reviewed old records, reviewed results, re-evaluated patient, considered differential, d/w patient ED course: 74-year-old male with pleuritic chest pain has a negative chest x-ray electrocardiogram and troponin and he is administered dexamethasone 10 mg orally. Departure - Departure Disposition: 01 Home, Self Care Clinical Impression: Pleurisy Condition: Stable Instructions: ED Chest Pain Pleurisy Follow-Up: Your, doctor [Other] Discharge Date/Time: 07/16/19 13:07
[2019-07-16 11:49] LABS: BASOPHILS % (AUTO) 0.6 %; EOSINOPHILS # (AUTO) 0.2 10^3/uL (0.0-0.7); EOSINOPHILS % (AUTO) 2.7 %; HGB - HEMOGLOBIN 13.5 g/dL (14.0-18.0); LYMPHOCYTES # (AUTO) 1.4 10^3/uL (1.5-3.5); LYMPHOCYTES % (AUTO) 21.8 %; MEAN CORPUSCULAR HEMOGLOBIN 32.8 pg (27.0-31.0); MEAN CORPUSCULAR HGB CONC 34.4 g/dL (32.0-36.0); MEAN CORPUSCULAR VOLUME 95.4 fL (80.0-94.0); MEAN PLATELET VOLUME 8.2 fL (7.4-11.4); MONOCYTES # (AUTO) 0.8 10^3/uL (0.0-1.0); MONOCYTES % (AUTO) 13.3 %; NEUTROPHILS # (AUTO) 3.8 10^3/uL (1.5-6.6); NEUTROPHILS % (AUTO) 61.4 %; PLT - PLATELET COUNT 176 10^3/uL (130-450); RED BLOOD COUNT 4.12 10^6/uL (4.70-6.10); RED CELL DISTRIBUTION WIDTH 12.6 % (12.0-15.0); WHITE BLOOD COUNT 6.2 x10^3/uL (4.8-10.8)
[2019-07-16 12:01] LABS: ALBUMIN/GLOBULIN RATIO 1.5 (1.0-2.2); BILIRUBIN,TOTAL 0.8 mg/dL (0.2-1.0); CALCIUM 9.3 mg/dL (8.5-10.3); CREATININE 0.7 mg/dL (0.6-1.2); TOTAL PROTEIN 6.6 g/dL (6.7-8.2)
[2019-07-16 12:02] VITALS: BP 125/81
== END 2019-07-16 13:07 | disposition home or self-care (01) ==
LOC: ED 10:15
DX: R09.1 Pleurisy (principal); I10 Essential (primary) hypertension
CPT/HCPCS: 36415; 71046; 80053; 83690; 84484; 85025; 85379; 99284; A9270

== ENCOUNTER 2019-09-19 07:54 | Outpatient (CLI) | payer MEDICARE, OTHER ==
[2019-09-19] MEDS ORDERED: IOVERSOL 320 50 ML VIAL ONE (08:03)
[2019-09-19] MEDS ORDERED: IOVERSOL 320 100 ML VIAL IVP ONE ×2 (08:03→10:53)
[2019-09-19 08:23] LABS: BASOPHILS % (AUTO) 0.5 %; EOSINOPHILS # (AUTO) 0.1 10^3/uL (0.0-0.7); EOSINOPHILS % (AUTO) 1.4 %; HGB - HEMOGLOBIN 14.5 g/dL (14.0-18.0); LYMPHOCYTES # (AUTO) 2.1 10^3/uL (1.5-3.5); MEAN CORPUSCULAR HEMOGLOBIN 33.1 pg (27.0-31.0); MEAN CORPUSCULAR HGB CONC 34.7 g/dL (32.0-36.0); MEAN CORPUSCULAR VOLUME 95.4 fL (80.0-94.0); MEAN PLATELET VOLUME 8.4 fL (7.4-11.4); MONOCYTES # (AUTO) 0.7 10^3/uL (0.0-1.0); MONOCYTES % (AUTO) 10.9 %; NEUTROPHILS # (AUTO) 3.5 10^3/uL (1.5-6.6); NEUTROPHILS % (AUTO) 54.9 %; PLT - PLATELET COUNT 149 10^3/uL (130-450); RED BLOOD COUNT 4.38 10^6/uL (4.70-6.10); RED CELL DISTRIBUTION WIDTH 13.4 % (12.0-15.0); WHITE BLOOD COUNT 6.4 x10^3/uL (4.8-10.8)
[2019-09-19 08:41] LABS: ALBUMIN 4.5 g/dL (3.2-5.5); ALBUMIN/GLOBULIN RATIO 1.6 (1.0-2.2); ALKALINE PHOSPHATASE 60 IU/L (42-121); ALT ALANINE AMINOTRANSFERASE 20 IU/L (10-60); AST ASPARTATE AMINOTRANSFERASE 20 IU/L (10-42); BILIRUBIN,TOTAL 0.8 mg/dL (0.2-1.0); BUN - BLOOD UREA NITROGEN 11 mg/dL (6-20); CALCIUM 9.4 mg/dL (8.5-10.3); CARBON DIOXIDE - CO2 30 mmol/L (21-32); CHLORIDE 102 mmol/L (101-111); CHOL/HDL RATIO 4.5 (<5.0); CHOLESTEROL 134 mg/dL; CREATININE 0.7 mg/dL (0.6-1.2); GLUCOSE 124 mg/dL (70-100); HDL CHOLESTEROL 30 mg/dL; LDL CHOLESTEROL,CALCULATED 68 mg/dL; LDL/HDL RATIO 2.3 (<3.6); SODIUM 137 mmol/L (135-145); TOTAL PROTEIN 7.4 g/dL (6.7-8.2); VLDL CHOLESTEROL 36 mg/dL
[2019-09-19 08:42] LABS: CRP - C-REACTIVE PROTEIN < 1.0 mg/dL (0-1.0)
--- NOTE | 2019-09-19 10:38 | CT Report ---
Reason: DIFFUSE LARGE B-CELL LYMPHOMA Procedure Date: 09/19/2019 Accession Number: [id number] / [id number] Procedure: CT - SOFT TISSUE NECK W CPT Code: Final Report FULL RESULT: EXAM: CT SOFT TISSUE NECK WITH CONTRAST. EXAM DATE: 09/19/2019 09:15 AM. HISTORY: DIFFUSE LARGE B-CELL LYMPHOMA. COMPARISONS: CHEST ANGIO 06/06/2018 9:59 PM NECK SOFT TISSUE W/ 10/10/2015 1:00 PM NECK SOFT TISSUE W/ 12/29/2013 11:17 AM. TECHNIQUE: Routine soft tissue neck CT protocol with contrast. Reconstructions: Coronal and sagittal. IV contrast: 100 mL OPTIRAY 320. In accordance with CT protocol optimization, one or more of the following dose reduction techniques were utilized for this exam: automated exposure control, adjustment of mA and/or KV based on patient size, or use of iterative reconstructive technique. FINDINGS: Visualized Intracranial Contents: Unremarkable. Orbits: Visualized portions of orbits unremarkable. Sinuses: Visualized paranasal sinuses and mastoid air cells are clear. Oral cavity: The visualized oral cavity is unremarkable. The floor of the mouth is symmetric. Pharynx: Pharyngeal mucosa is unremarkable. The infratemporal fossa, parapharyngeal spaces, and retropharyngeal space are unremarkable. The base of the tongue is symmetric and unremarkable. The airway is patent. Larynx: Larynx and supraglottic airway are patent without mass lesion. Vocal cords are symmetric. The visualized trachea is unremarkable. Parotid and Submandibular Glands: Parotid glands unremarkable. Status post prior resection of left submandibular gland. Right submandibular gland unremarkable. Lymph Nodes: No enlarged lymph nodes are identified in the cervical, supraclavicular, and visualized superior mediastinal regions. Soft tissues: Soft tissues are unremarkable. No mass lesion or abnormal enhancement. Vascular Structures: Retropharyngeal course of right ICA. Otherwise unremarkable. Thyroid Gland: Normal. Lung: The visualized lung apices are clear. Bones: No evidence of acute fracture or malalignment. There are moderate degenerative changes. Other: None. IMPRESSION: 1. No evidence of cervical adenopathy. 2. Status post prior resection of left submandibular gland. RADIA
[2019-09-19] MEDS ORDERED: IOVERSOL 320 50 ML VIAL PO ONE (10:53)
--- NOTE | 2019-09-19 13:43 | CT Report ---
Reason: DIFFUSE LARGE B-CELL LYMPHOMA Procedure Date: 09/19/2019 Accession Number: [id number] / [id number] Procedure: CT - Abdomen/Pelvis W CPT Code: Final Report FULL RESULT: EXAM: CT CHEST, ABDOMEN AND PELVIS EXAM DATE: 09/19/2019 09:15 AM. CLINICAL HISTORY: Diffuse large B-cell lymphoma. COMPARISONS: CHEST ANGIO 06/06/2018 9:59 PM. ABDOMEN/PELVIS W/ 11/22/2018 12:58 PM. ABDOMEN/PELVIS W/ 06/09/2018 1:35 PM. ABDOMEN/PELVIS W/ 05/29/2018 5:24 PM. CHEST W/ 12/31/2017 1:05 PM. CHEST W 09/19/2019 8:58 AM. TECHNIQUE: Routine helical CT imaging was performed through the chest, abdomen, and pelvis. IV contrast: 100 mL of Optiray 320. Enteric contrast: Positive. Reconstructions: Coronal and sagittal. In accordance with CT protocol optimization, one or more of the following dose reduction techniques were utilized for this exam: automated exposure control, adjustment of mA and/or KV based on patient size, or use of iterative reconstructive technique. FINDINGS: Lungs/Pleura: No endobronchial obstruction. Over largely linear confluent opacity in the inferior left upper lobe. Bibasilar scar/atelectasis in both lower lobes. Mild bronchial dilatation. No endobronchial obstruction. No pneumothorax. Mediastinum: Heart size normal. Mild coronary artery calcified plaque. Visualized thyroid gland is unremarkable. No enlarged inferior cervical, axillary, mediastinal or hilar adenopathy. The right paratracheal, subcarinal, and right hilar adenopathy as significantly decreased. Status post right axillary lymph node dissection again seen. Small hiatal hernia. Trace pericardial effusion. No mediastinal hematoma or mediastinal fluid collections. Liver: No hepatic lesions. Patent portal vein. Gallbladder/Bile Ducts: Status post cholecystectomy. No biliary ductal dilatation. Spleen: Normal. Pancreas: Normal. Adrenal Glands: Normal. Kidneys: Lower pole exophytic left renal low attenuation lesion, stable measuring 11 mm. No hydronephrosis. No nephrolithiasis. Peritoneal Cavity/Bowel: Stomach is moderately distended and unremarkable. No small bowel obstruction or small bowel wall thickening. Fatty umbilical hernia. No free air. Small to moderate volume of stool in the colon. Diverticula are seen in the distal colon. No diverticulitis. Thickening of the ascending colon described previously is no longer evident. Appendix is not seen. No pericecal inflammatory changes. No enlarged retroperitoneal or mesenteric lymph nodes. Pelvic Organs: Urinary bladder is mildly distended and unremarkable. Prostate gland is mildly enlarged. Fatty right inguinal hernia. No pelvic adenopathy. No pelvic free fluid. Vasculature: Vascular calcifications. No aneurysm. Bones: Degenerative changes of the thoracic and lumbar spine, degenerative changes of visualized cervical spine. No acute osseous abnormalities. Other: None. IMPRESSION: CT chest: 1. Improved largely resolved paratracheal, subcarinal and right hilar adenopathy compared to 06/06/2018. No new axillary, inferior cervical, mediastinal or hilar lymphadenopathy. 2. New largely linear anterior inferior left upper lobe opacity, focal inflammatory changes versus atelectasis. No dense consolidation. No new parenchymal lesions. 3. No osseous lesions. CT abdomen: 1. No evidence of metastatic disease to the abdomen or pelvis. 2. Colonic diverticulosis. Diverticula. 3. Mild prostate gland enlargement. 4. Resolved thickening ascending colon compared to the CT from 11/22/2018. No new focal abnormality. RADIA
== END 2019-09-19 07:55 | disposition home or self-care (01) ==
LOC: DI 07:54
PROVIDERS: ATTEND Internal Medicine Hematology & Oncology
DX: C83.30 Diffuse large B-cell lymphoma, unspecified site (principal); R91.8 Other nonspecific abnormal finding of lung field; K57.30 Diverticulosis of large intestine without perforation or abscess without bleeding; N40.0 Benign prostatic hyperplasia without lower urinary tract symptoms
CPT/HCPCS: 36415; 70491; 71260; 74177; 80053; 80061; 83615; 85025; 86140; Q9967; 83721

== ENCOUNTER 2019-11-03 09:56 | Outpatient (CLI) | payer MEDICARE, OTHER ==
[2019-11-03 15:02] LABS: BASOPHILS % (AUTO) 0.2 %; EOSINOPHILS % (AUTO) 0.3 %; HGB - HEMOGLOBIN 14.1 g/dL (14.0-18.0); MEAN CORPUSCULAR HGB CONC 34.1 g/dL (32.0-36.0); MEAN CORPUSCULAR VOLUME 96.7 fL (80.0-94.0); MEAN PLATELET VOLUME 9.3 fL (7.4-11.4); MONOCYTES # (AUTO) 0.7 10^3/uL (0.0-1.0); MONOCYTES % (AUTO) 7.9 %; NEUTROPHILS # (AUTO) 6.1 10^3/uL (1.5-6.6); NEUTROPHILS % (AUTO) 69.2 %; PLT - PLATELET COUNT 164 10^3/uL (130-450); RED BLOOD COUNT 4.27 10^6/uL (4.70-6.10); RED CELL DISTRIBUTION WIDTH 12.8 % (12.0-15.0); WHITE BLOOD COUNT 8.9 x10^3/uL (4.8-10.8)
[2019-11-03 15:08] LABS: ALBUMIN 4.3 g/dL (3.2-5.5); ALBUMIN/GLOBULIN RATIO 1.8 (1.0-2.2); CALCIUM 9.1 mg/dL (8.5-10.3); CREATININE 0.7 mg/dL (0.6-1.2); TOTAL PROTEIN 6.7 g/dL (6.7-8.2)
== END 2019-11-03 23:59 | disposition home or self-care (01) ==
LOC: LAB.S 09:56
PROVIDERS: ATTEND Emergency Medicine
DX: R11.2 Nausea with vomiting, unspecified (principal)
CPT/HCPCS: 36415; 80053; 83690; 85025

== ENCOUNTER 2019-11-23 10:42 | Emergency (ER) | payer MEDICARE, OTHER ==
--- NOTE | 2019-11-23 11:48 | XRAY Report ---
PROCEDURE: Knee 4 View RT INDICATIONS: pain/injury TECHNIQUE: 4 views of the right knee(s) were acquired. COMPARISON: None. FINDINGS: Bones: Patient is status post prior fixation of patella with old healed patellar waist fracture. No g ross hardware loosening or failure is seen. Moderate tricompartmental osteoarthritis is seen on the c urrent study. Acute minimally depressed fracture involving lateral tibial plateau is seen with up to 2 mm depression at fracture site. No dislocation. Soft tissues: Large suprapatellar joint effusion is noted suggestive of lipohemarthrosis. Mild anteri or right knee soft tissue swelling is also seen. There is chondrocalcinosis seen in medial and latera l femoral tibial compartment. IMPRESSION: 1. Acute minimally depressed lateral tibial plateau fracture as above. Moderate to large lipohemarthr osis. 2. Old healed patella fracture. Moderate tricompartmental osteoarthritis. Chondrocalcinosis in medial and lateral femoral tibial compartments. Reviewed by: Lemuel Barnes MD on 11/23/2019 11:47 AM PDT Approved by: Lemuel Barnes MD on 11/23/2019 11:47 AM PDT Station ID: [id number]
[2019-11-23] MEDS ORDERED: KETOROLAC 60 MG/2 ML VIAL IM STA (12:03)
[2019-11-23] MEDS ORDERED: HYDROmorphone 1 MG/ML CARPUJECT IM STA (12:03)
--- NOTE | 2019-11-23 12:07 | ED Physician Documentation ---
PD HPI LOWER EXT INJURY - Stated complaint Stated Complaint: RT KNEE INJ - Chief complaint Chief Complaint: Trauma Ext - History obtained from History obtained from: Patient - Additional information Additional information: Patient comes emergency department complaining of right knee pain after going down the steps yesterday and accidentally missing a couple of steps. He states he came down very hard on his right lower extremity, and though he did step down on his foot, he has been having right knee pain ever since. Patient states initially, it was not too bad and he could at least walk on it, but when he woke up today, he relates that his knee was swollen and too painful to bear weight. Patient denies any pain anywhere else. No history of injury to that knee. Review of Systems Ten Systems: 10 systems reviewed and negative Constitutional: reports: Reviewed and negative Eyes: reports: Reviewed and negative Ears: reports: Reviewed and negative Nose: reports: Reviewed and negative Throat: reports: Reviewed and negative Cardiac: reports: Reviewed and negative Respiratory: reports: Reviewed and negative GI: reports: Reviewed and negative : reports: Reviewed and negative Skin: reports: Reviewed and negative Musculoskeletal: reports: Joint pain, Joint swelling Neurologic: reports: Reviewed and negative Psychiatric: reports: Reviewed and negative Endocrine: reports: Reviewed and negative Immunocompromised: reports: Reviewed and negative PD PAST MEDICAL HISTORY - Past Medical History Past Medical History: Yes Cardiovascular: Hypertension Respiratory: None Neuro: None Endocrine/Autoimmune: Other GI: GERD, Hepatitis : None HEENT: None Psych: None Musculoskeletal: None Derm: None - Past Surgical History Past Surgical History: Yes General: Cholecystectomy, Appendectomy, EGD HEENT: Tonsil/Adenoidectomy - Present Medications Home Medications: Ambulatory Orders Medication Instructions Recorded Confirmed atenoloL [Atenolol] 50 mg PO DAILY 01/09/13 06/11/18 Metoclopramide [Reglan] 10 mg PO Q6H PRN #20 tablet 05/29/18 06/11/18 Acyclovir 800 mg PO DAILY 06/01/18 06/11/18 Aspirin 81 mg PO DAILY 06/06/18 06/11/18 Cholecalciferol (Vitamin D3) 1 tab PO DAILY 06/06/18 06/11/18 [Vitamin D3] Cyanocobalamin (Vitamin B-12) 1 drops PO DAILY 06/06/18 06/11/18 [B-12] LORazepam [Ativan] 1 mg PO DAILY 06/06/18 06/11/18 Multivitamin [Multiple Vitamins] 1 tab PO DAILY 06/06/18 06/11/18 Nicotine Polacrilex [Nicotine Gum] 2 mg PO DAILY 06/06/18 06/11/18 Ondansetron Odt [Zofran Odt] 4 mg PO PRN PRN 06/06/18 06/11/18 diphenhydrAMINE [Benadryl] 25 mg pe PO DAILY 06/06/18 06/11/18 oxyCODONE [Roxicodone] 5 mg PO PRN PRN 06/06/18 06/11/18 Cephalexin [Keflex] 500 mg PO TID #21 capsule 06/09/18 06/11/18 Docusate Sodium 100 mg PO DAILY #15 capsule 06/09/18 06/11/18 Naproxen 375 mg PO BID #20 tablet 06/09/18 06/11/18 metroNIDAZOLE [Flagyl] 500 mg PO BID #14 tablet 06/09/18 06/11/18 Cefdinir 300 mg PO BID #14 capsule 06/11/18 Chlorhexidine Gluconate [Hibiclens] 15 ml TP DAILY #236 ml 08/11/18 Doxycycline Hyclate 100 mg PO BID #20 capsule 08/11/18 Mupirocin 1 applic TP TID #15 g 08/11/18 Cefdinir 300 mg PO BID #20 capsule 09/17/18 Oxycodone HCl/Acetaminophen 1 - 2 each PO Q6H PRN #14 tablet 09/17/18 [Percocet 5-325 mg Tablet] Ondansetron Odt [Zofran] 4 mg TL Q6H PRN #10 tablet 11/22/18 Oxycodone HCl/Acetaminophen 1 each PO Q4HR PRN #14 tablet 11/22/18 [Oxycodone-Acetaminophen 5-325] Neomycin/Poly/Dex Ophth Drops 1 drops LEFTEYE QID #1 bottle 04/30/19 [Maxitrol Ophth Drops] Ondansetron Odt [Zofran] 4 mg TL Q6H PRN #10 tablet 11/23/19 Oxycodone HCl/Acetaminophen 1 - 2 each PO Q6H PRN #20 tablet 11/23/19 [Percocet 5-325 mg Tablet] - Allergies Allergies/Adverse Reactions: Allergies Allergy/AdvReac Type Severity Reaction Status Date / Time azithromycin [From Zithromax] AdvReac Rash Verified 11/25/19 10:49 hydrocodone AdvReac Nausea Verified 11/25/19 10:49 - Social History Does the pt smoke?: No Smoking Status: Never smoker Does the pt drink ETOH?: Yes Does the pt have substance abuse?: No - Immunizations Immunizations are current?: Yes - POLST Patient has POLST: No PD ED PE NORMAL - Vitals Vital signs reviewed: Yes - General General: Alert and oriented X 3, No acute distress, Well developed/nourished - HEENT HEENT: Atraumatic, PERRL, EOMI, Moist mucous membranes - Neck Neck: Supple, no meningeal sign - Cardiac Cardiac: RRR, No murmur, Strong equal pulses - Respiratory Respiratory: No respiratory distress, Clear bilaterally - Back Back: No spinal TTP - Derm Derm: Normal color, Warm and dry, No rash - Extremities Extremities: No deformity, Other (Moderate edema and tenderness of the right knee globally. Moderately limited range of motion secondary to swelling and pain.) - Neuro Neuro: Alert and oriented X 3 - Psych Psych: Normal mood, Normal affect Results - Vitals Vitals: Oxygen O2 Source Room air - Rads (name of study) R knee xr Radiology: Final report received, EMP read indepedently, See rad report (Final radiologist impression: Acute minimally depressed lateral tibial plateau fracture; Moderate to large lipohemarthrosis; old healed patellar fracture; osteoarthritis) CT RLE Radiology: Final report received, EMP read indepedently, See rad report (Final radiologist interpretation: Minimally depressed lateral tibial plateau fracture with large lipohemarthrosis. No other acute findings.) Procedures - Splint (location) RLE Splint applied by: Physician, Nurse, Tech Type of splint: Fiberglass, Long leg, Posterior Other: Patient tolerated well, No complications, Neurovascular intact, Crutches provided PD MEDICAL DECISION MAKING - ED course Complexity details: reviewed results, re-evaluated patient, considered differential, d/w patient, d/w securities consultant ED course: The patient was worked up with x-ray series of the knee, followed by a CT scan for further detail on the patient's tibial plateau fracture. After this, I did speak with Dr. Moran, who is on-call for orthopedics. He stated that the patient did not need to have surgery today, but that he would recommend a long posterior mold splint and crutches. He also stated he would like the patient to follow-up in his clinic on Wednesday, as this is . I discussed all this with the patient. The splint was placed. Patient had received pain control in the emergency department already, and was significantly more comfortable. Patient was agreeable to the follow-up plan. We have discussed the usual indications for return. Departure - Departure Disposition: Home, Self Care Clinical Impression: Tibial plateau fracture, right Qualifiers: Encounter type: initial encounter Fracture type: closed Qualified Code(s): S82.141A - Displaced bicondylar fracture of right tibia, initial encounter for closed fracture Condition: Stable Follow-Up: Pelon Moran MD [Provider Admit Priv/Credential] - Prescriptions: Oxycodone HCl/Acetaminophen [Percocet 5-325 mg Tablet] 1 - 2 each PO Q6H PRN #20 tablet PRN Reason: pain Ondansetron Odt [Zofran] 4 mg TL Q6H PRN #10 tablet PRN Reason: Nausea / Vomiting Comments: Your x-ray showed a tibial plateau fracture, and CT scan shows this in greater detail. Your case has been discussed with Dr. good, the on-call orthopedist, and he feels that your tibia will actually heal quite well without surgery. However, he is requested that we put you in a splint to keep the bone from moving out of place. He would like to see you in his clinic on Wednesday to follow-up. Please call their office first thing after you are discharged from the emergency department to set up this appointment, and be sure to tell them that the emergency physician discussed the case with Dr. good, and that he wanted you to be seen on Wednesday. Please take the pain medication as needed and if you have the side effect of nausea, please take the nausea med ication. You should also elevate the leg as much as possible and use ice to help with swelling. Discharge Date/Time: 11/23/19 14:55
--- NOTE | 2019-11-23 13:21 | CT Report ---
PROCEDURE: LOWER EXTREMITY WO - RT INDICATIONS: tibial plateau fx TECHNIQUE: Noncontrast 3 mm axial sections acquired of the right knee, with coronal and sagittal reformats. COMPARISON: Right knee radiograph from the same day. FINDINGS: Image quality: Excellent. Bones: Again noted is oblique fracture through lateral tibial plateau with up to 2 mm depression at fracture site. Old healed fracture involving patella is seen with fixation hardware in place. Moderat e tricompartmental osteoarthritis is seen more prominent in lateral femoral tibial compartment. No ot her fracture or dislocation. No suspicious intraosseous lesion. Soft tissues: There is moderate to large suprapatellar joint effusion with fat fluid level consisten t with lipohemarthrosis. Chondrocalcinosis in medial and lateral femoral tibial compartments are seen . Distal quadriceps tendon and patellar tendon are grossly intact. IMPRESSION: 1. Minimally depressed lateral tibial plateau fracture as described above with large lipohemarthrosis . 2. Old healed patella fracture with wire fixation. 3. No other fracture or dislocation. Moderate tricompartmental osteoarthritis most prominent in the l ateral femoral tibial compartment. Chondrocalcinosis in medial and lateral femoral tibial compartment s. Reviewed by: Lemuel Barnes MD on 11/23/2019 1:20 PM PDT Approved by: Lemuel Barnes MD on 11/23/2019 1:20 PM PDT Station ID: [id number]
[2019-11-23 15:14] VITALS: BP 132/76
== END 2019-11-23 14:55 | disposition home or self-care (01) ==
LOC: ED 10:42
DX: S82.141A Displaced bicondylar fracture of right tibia, initial encounter for closed fracture (principal); W10.9XXA Fall (on) (from) unspecified stairs and steps, initial encounter; M17.11 Unilateral primary osteoarthritis, right knee; M11.261 Other chondrocalcinosis, right knee; I10 Essential (primary) hypertension; Z79.82 Long term (current) use of aspirin
CPT/HCPCS: 29505; 73564; 73700; 96372; 99283; 99284; J1170

== ENCOUNTER 2019-11-25 10:40 | Emergency (ER) | payer MEDICARE, OTHER ==
--- NOTE | 2019-11-25 13:02 | XRAY Report ---
PROCEDURE: Chest 2 View X-Ray INDICATIONS: fever TECHNIQUE: 2 view(s) of the chest. COMPARISON: CT chest with contrast, September 19, 2019. Chest x-ray 2 view, September 15, 2019. FINDINGS: Surgical changes and devices: None. Lungs and pleura: No pleural effusions or pneumothorax. Lingular scars and atelectasis. Lungs are o therwise clear. Mediastinum: Mediastinal contours are normal. Heart size is normal. Bones and chest wall: No suspicious bony abnormalities. Soft tissues appear unremarkable. IMPRESSION: No acute cardiopulmonary disease. Reviewed by: Patrick Chand MD on 11/25/2019 1:00 PM PDT Approved by: Patrick Chand MD on 11/25/2019 1:00 PM PDT Station ID: [id number]
[2019-11-25] MEDS ORDERED: HYDROmorphone 1 MG/ML CARPUJECT IVP STA (13:35)
[2019-11-25] MEDS ORDERED: ONDANSETRON 4 MG/2 ML VIAL IVP STA (13:35)
[2019-11-25] MEDS ORDERED: SODIUM CHLORIDE 0.9% 1,000 ML IV STA (13:35)
--- NOTE | 2019-11-25 13:38 | ED Physician Documentation ---
History of Present Illness - Stated complaint Stated Complaint: FEVER/R LEG INJ - Chief complaint Chief Complaint: General - History obtained from History obtained from: Patient - History of Present Illness Timing: How many days ago (2) Pain level max: 8 Pain level now: 8 - Additonal information Additional information: fever x 2 days. 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 mild nausea. Pain to the R leg from fracture. Did not fill any of his medications. Has had no cough. No congestion. No sore throat. No ear pain. No abdominal pain. No vomiting. No diarrhea. Nothing makes it better or worse. Review of Systems Ten Systems: 10 systems reviewed and negative Constitutional: reports: Fever (102). denies: Chills Ears: denies: Ear pain Nose: denies: Rhinorrhea / runny nose, Congestion Throat: denies: Sore throat Cardiac: denies: Chest pain / pressure Respiratory: denies: Dyspnea, Cough, Wheezing GI: reports: Nausea. denies: Abdominal Pain, Vomiting, Diarrhea : denies: Dysuria Skin: denies: Rash Musculoskeletal: denies: Neck pain, Back pain Neurologic: denies: Headache PD PAST MEDICAL HISTORY - Past Medical History Cardiovascular: Hypertension Respiratory: None Neuro: None Endocrine/Autoimmune: Other GI: GERD, Hepatitis : None HEENT: None Psych: None Musculoskeletal: None Derm: None - Past Surgical History Past Surgical History: Yes General: Cholecystectomy, Appendectomy, EGD HEENT: Tonsil/Adenoidectomy - Present Medications Home Medications: Ambulatory Orders Medication Instructions Recorded Confirmed atenoloL [Atenolol] 50 mg PO DAILY 01/09/13 06/11/18 Metoclopramide [Reglan] 10 mg PO Q6H PRN #20 tablet 05/29/18 06/11/18 Acyclovir 800 mg PO DAILY 06/01/18 06/11/18 Aspirin 81 mg PO DAILY 06/06/18 06/11/18 Cholecalciferol (Vitamin D3) 1 tab PO DAILY 06/06/18 06/11/18 [Vitamin D3] Cyanocobalamin (Vitamin B-12) 1 drops PO DAILY 06/06/18 06/11/18 [B-12] LORazepam [Ativan] 1 mg PO DAILY 06/06/18 06/11/18 Multivitamin [Multiple Vitamins] 1 tab PO DAILY 06/06/18 06/11/18 Nicotine Polacrilex [Nicotine Gum] 2 mg PO DAILY 06/06/18 06/11/18 Ondansetron Odt [Zofran Odt] 4 mg PO PRN PRN 06/06/18 06/11/18 diphenhydrAMINE [Benadryl] 25 mg pe PO DAILY 06/06/18 06/11/18 oxyCODONE [Roxicodone] 5 mg PO PRN PRN 06/06/18 06/11/18 Cephalexin [Keflex] 500 mg PO TID #21 capsule 06/09/18 06/11/18 Docusate Sodium 100 mg PO DAILY #15 capsule 06/09/18 06/11/18 Naproxen 375 mg PO BID #20 tablet 06/09/18 06/11/18 metroNIDAZOLE [Flagyl] 500 mg PO BID #14 tablet 06/09/18 06/11/18 Cefdinir 300 mg PO BID #14 capsule 06/11/18 Chlorhexidine Gluconate [Hibiclens] 15 ml TP DAILY #236 ml 08/11/18 Doxycycline Hyclate 100 mg PO BID #20 capsule 08/11/18 Mupirocin 1 applic TP TID #15 g 08/11/18 Cefdinir 300 mg PO BID #20 capsule 09/17/18 Oxycodone HCl/Acetaminophen 1 - 2 each PO Q6H PRN #14 tablet 09/17/18 [Percocet 5-325 mg Tablet] Ondansetron Odt [Zofran] 4 mg TL Q6H PRN #10 tablet 11/22/18 Oxycodone HCl/Acetaminophen 1 each PO Q4HR PRN #14 tablet 11/22/18 [Oxycodone-Acetaminophen 5-325] Neomycin/Poly/Dex Ophth Drops 1 drops LEFTEYE QID #1 bottle 04/30/19 [Maxitrol Ophth Drops] Ondansetron Odt [Zofran] 4 mg TL Q6H PRN #10 tablet 11/23/19 Oxycodone HCl/Acetaminophen 1 - 2 each PO Q6H PRN #20 tablet 11/23/19 [Percocet 5-325 mg Tablet] - Allergies Allergies/Adverse Reactions: Allergies Allergy/AdvReac Type Severity Reaction Status Date / Time azithromycin [From Zithromax] AdvReac Rash Verified 11/25/19 10:49 hydrocodone AdvReac Nausea Verified 11/25/19 10:49 - Social History Does the pt smoke?: No Smoking Status: Never smoker Does the pt drink ETOH?: Yes Does the pt have substance abuse?: No - Immunizations Immunizations are current?: Yes - POLST Patient has POLST: No PD ED PE NORMAL - Vitals Vital signs reviewed: Yes - General General: Alert and oriented X 3, No acute distress - HEENT HEENT: PERRL, Ears normal, Moist mucous membranes, Pharynx benign - Neck Neck: Supple, no meningeal sign - Cardiac Cardiac: RRR, Strong equal pulses - Respiratory Respiratory: No respiratory distress, Clear bilaterally - Abdomen Abdomen: Soft, Non tender, Non distended - Back Back: No CVA TTP, No spinal TTP - Derm Derm: Warm and dry - Extremities Extremities: Other (R LE in splint. NVI.) - Neuro Neuro: Alert and oriented X 3 - Psych Psych: Normal mood, Normal affect Results - Vitals Vitals: Vital Signs - 24 hr 11/25/19 11/25/19 11/25/19 10:49 14:00 15:38 Temperature 37.3 C 37.3 C 37.3 C Heart Rate 88 79 75 Respiratory 16 14 14 Rate Blood Pressure 126/68 130/93 H 130/89 H O2 Saturation 98 97 100 Oxygen O2 Source Room air - Labs Labs: Laboratory Tests 11/25/19 11/25/19 11/25/19 13:24 13:36 13:36 WBC 12.6 H RBC 4.22 L Hgb 13.9 L Hct 40.1 L MCV 95.0 H MCH 32.9 H MCHC 34.7 RDW 12.2 Plt Count 140 MPV 8.7 Neut # (Auto) 9.5 H Lymph # (Auto) 1.4 L [place] # (Auto) 1.6 H Eos # (Auto) 0.0 Baso # (Auto) 0.0 Absolute Nucleated RBC 0.00 Nucleated RBC % 0.0 Manual Slide Review Indicated WBC Morphology Platelet Estimate NORMAL (130-450,000) Platelet Morphology NORMAL APPEARANCE RBC Morph Micro Appear NORMAL APPEARANCE Sodium 133 L Potassium 4.1 Chloride 95 L Carbon Dioxide 26 Anion Gap 12.0 BUN 18 Creatinine 0.8 Estimated GFR (MDRD) 95 Glucose 113 H Lactic Acid 1.4 Calcium 9.0 Total Bilirubin 1.7 H AST 18 ALT 14 Alkaline Phosphatase 45 Total Protein 6.6 L Albumin 4.3 Globulin 2.3 Albumin/Globulin Ratio 1.9 Lipase 26 Urine Color Urine Clarity Urine pH Ur Specific [place] Urine Protein Urine Glucose (UA) Urine Ketones Urine Occult Blood Urine Nitrite Urine Bilirubin Urine Urobilinogen Ur Leukocyte Esterase Urine RBC Urine WBC Ur Squamous Epith Cells Urine Bacteria Urine Mucus Ur Microscopic Review Urine Culture Comments 11/25/19 14:23 WBC RBC Hgb Hct MCV MCH MCHC RDW Plt Count MPV Neut # (Auto) Lymph # (Auto) [place] # (Auto) Eos # (Auto) Baso # (Auto) Absolute Nucleated RBC Nucleated RBC % Manual Slide Review WBC Morphology Platelet Estimate Platelet Morphology RBC Morph Micro Appear Sodium Potassium Chloride Carbon Dioxide Anion Gap BUN Creatinine Estimated GFR (MDRD) Glucose Lactic Acid Calcium Total Bilirubin AST ALT Alkaline Phosphatase Total Protein Albumin Globulin Albumin/Globulin Ratio Lipase Urine Color DARK YELLOW Urine Clarity CLEAR Urine pH 6.0 Ur Specific [place] 1.025 Urine Protein 30 H Urine Glucose (UA) NEGATIVE Urine Ketones >=80 H Urine Occult Blood TRACE-INTA Urine Nitrite NEGATIVE Urine Bilirubin NEGATIVE Urine Urobilinogen 0.2 (NORMAL) Ur Leukocyte Esterase NEGATIVE Urine RBC 0-5 Urine WBC 0-3 Ur Squamous Epith Cells FEW Squamous Urine Bacteria Rare Urine Mucus Few Strands Ur Microscopic Review INDICATED Urine Culture Comments NOT INDICATED PD MEDICAL DECISION MAKING - ED course Complexity details: reviewed results, re-evaluated patient, eula cline, d/w patient, d/w family ED course: Unclear etiology of the patient's fevers at home. No fevers here. Feels better after IV fluids and Zofran. We will hold antibiotics at this time. Recommend that he fill his pain medication and antinausea medication from and the tibial plateau fracture a few days ago. This could be contributing to the nausea as well. Patient counseled regarding signs and symptoms for which I believe and urgent re-evaluation would be necessary. Patient with good understanding of and agreement to plan and is comfortable going home at this time This document was made in part using voice recognition software. While efforts are made to proofread this document, sound alike and grammatical errors may occur. Departure - Departure Disposition: 01 Home, Self Care Clinical Impression: Dehydration Fever Qualifiers: Fever type: unspecified Qualified Code(s): R50.9 - Fever, unspecified Condition: Good Instructions: ED Fever Unconf Cause Follow-Up: Sweetie Ruth ARNP [Primary Care Provider] - Within 3 Days Comments: Fill the prescriptions as previously given to you. Return if you worsen. Follow-up with your doctor for further care. Discharge Date/Time: 11/25/19 15:38
[2019-11-25 13:54] LABS: BASOPHILS % (AUTO) 0.2 %; HGB - HEMOGLOBIN 13.9 g/dL (14.0-18.0); LYMPHOCYTES # (AUTO) 1.4 10^3/uL (1.5-3.5); MEAN CORPUSCULAR HEMOGLOBIN 32.9 pg (27.0-31.0); MEAN CORPUSCULAR HGB CONC 34.7 g/dL (32.0-36.0); MEAN PLATELET VOLUME 8.7 fL (7.4-11.4); MONOCYTES # (AUTO) 1.6 10^3/uL (0.0-1.0); MONOCYTES % (AUTO) 12.5 %; NEUTROPHILS # (AUTO) 9.5 10^3/uL (1.5-6.6); NEUTROPHILS % (AUTO) 75.7 %; PLT - PLATELET COUNT 140 10^3/uL (130-450); RED BLOOD COUNT 4.22 10^6/uL (4.70-6.10); RED CELL DISTRIBUTION WIDTH 12.2 % (12.0-15.0); WHITE BLOOD COUNT 12.6 x10^3/uL (4.8-10.8)
[2019-11-25 14:06] LABS: ALBUMIN 4.3 g/dL (3.2-5.5); ALBUMIN/GLOBULIN RATIO 1.9 (1.0-2.2); BILIRUBIN,TOTAL 1.7 mg/dL (0.2-1.0); CREATININE 0.8 mg/dL (0.6-1.2); TOTAL PROTEIN 6.6 g/dL (6.7-8.2)
[2019-11-25 14:22] LABS: PLATELET ESTIMATE, MANUAL NORMAL (130-450,000) (NORMAL); PLATELET MORPHOLOGY NORMAL APPEARANCE (NORMAL); RBC MORPHOLOGY (MULTIPLE) NORMAL APPEARANCE (NORMAL)
[2019-11-25 14:34] LABS: GLUCOSE, URINE (UA) NEGATIVE (NEGATIVE); KETONES,URINE (UA) >=80 mg/dL (NEGATIVE); LEUKOCYTE ESTERASE, URINE NEGATIVE (NEGATIVE); NITRITE,URINE NEGATIVE (NEGATIVE); OCCULT BLOOD,URINE TRACE-INTA (NEGATIVE); PROTEIN,URINE 30 mg/dL (NEGATIVE); UROBILINOGEN,URINE 0.2 (NORMAL) E.U./dL (NORMAL)
[2019-11-25 14:37] LABS: CLARITY,URINE CLEAR (CLEAR)
[2019-11-25 14:38] LABS: BILIRUBIN,URINE NEGATIVE (NEGATIVE); ICTOTEST,URINE NEGATIVE
[2019-11-25 14:52] LABS: BACTERIA,URINE Rare /HPF (None Seen); MUCUS,URINE Few Strands; RBC,URINE 0-5 /HPF (0-5); SQUAMOUS EPITHELIAL CELL,UR FEW Squamous (<= Few)
[2019-11-25 15:45] VITALS: BP 130/89
== END 2019-11-25 15:38 | disposition home or self-care (01) ==
LOC: ED 10:40
DX: R50.9 Fever, unspecified (principal); E86.0 Dehydration; R11.0 Nausea; Z20.828 Contact with and (suspected) exposure to other viral communicable diseases; S82.141A Displaced bicondylar fracture of right tibia, initial encounter for closed fracture; X58.XXXA Exposure to other specified factors, initial encounter; I10 Essential (primary) hypertension; Z79.82 Long term (current) use of aspirin; Z94.84 Stem cells transplant status
CPT/HCPCS: 36415; 71046; 80053; 81001; 83605; 83690; 85025; 87040; 96361; 96374; 99284; 99285; J1170; U0004; 81003; 87086

== ENCOUNTER 2019-12-19 08:00 | Outpatient (CLI) | payer MEDICARE, OTHER ==
--- NOTE | 2019-12-19 13:10 | XRAY Report ---
PROCEDURE: Ankle 3 View RT INDICATIONS: RIGHT ANKLE PAIN TECHNIQUE: 3 views of the ankle were acquired. COMPARISON: None available FINDINGS: Bones: No fractures or dislocations.Mild chondrocalcinosis at the talofibular articulation. Dystroph ic linear ossifications around the plantar calcaneal spur. Trace calcification at the Achilles tendon insertion. Ankle mortise is normally aligned. No suspicious bony lesions. Soft tissues: No tibiotalar joint effusion. Achilles tendon appears normal. IMPRESSION: 1. No fractures. 2. Dystrophic calcifications at the plantar and dorsal aspects of the calcaneus may reflect enthesopa thy, or potentially erosive changes if there is an underlying inflammatory arthritis. Relate with alysha l pain. 3. There is chondrocalcinosis at the talofibular articulation, likely degenerative. Reviewed by: Yaritza Ríos MD on 12/19/2019 12:09 PM [place] Approved by: Yaritza Ríos MD on 12/19/2019 12:09 PM [place]ORE[place] Station ID: [id number]
--- NOTE | 2019-12-19 13:22 | XRAY Report ---
PROCEDURE: Foot 3 View RT INDICATIONS: RIGHT FOOT PAIN TECHNIQUE: 3 views of the foot were acquired. COMPARISON: None FINDINGS: Bones: No fractures or dislocations. There are subcortical lucencies in the tarsometatarsal articul ations as well as intertarsal articulations. Wispy calcification surrounding the plantar calcaneal sp ur and along the plantar aspect of the calcaneus more posteriorly. No suspicious bony lesions. Soft tissues: No tibiotalar joint effusion. Achilles tendon appears normal. Trace wispy calcificati ons at its insertion site. There are also linear dystrophic calcifications adjacent to the cuboid whi ch may be tendinous. IMPRESSION: 1. No fractures. 2. There are changes raising possibility of an inflammatory arthropathy. 3. Possible tendinitis in the ankle and foot. Correlate clinically. Reviewed by: Yaritza Ríos MD on 12/19/2019 12:21 PM [facility] Approved by: Yaritza Ríos MD on 12/19/2019 12:21 PM [place]ORE[place] Station ID: [id number]
[2019-12-19 15:08] LABS: BASOPHILS % (AUTO) 0.6 %; EOSINOPHILS # (AUTO) 0.1 10^3/uL (0.0-0.7); EOSINOPHILS % (AUTO) 1.2 %; MEAN CORPUSCULAR HEMOGLOBIN 32.3 pg (27.0-31.0); MEAN CORPUSCULAR VOLUME 94.9 fL (80.0-94.0); MEAN PLATELET VOLUME 8.9 fL (7.4-11.4); MONOCYTES # (AUTO) 0.7 10^3/uL (0.0-1.0); MONOCYTES % (AUTO) 10.3 %; NEUTROPHILS % (AUTO) 58.5 %; PLT - PLATELET COUNT 173 10^3/uL (130-450); RED BLOOD COUNT 4.34 10^6/uL (4.70-6.10); RED CELL DISTRIBUTION WIDTH 12.9 % (12.0-15.0); WHITE BLOOD COUNT 6.9 x10^3/uL (4.8-10.8)
[2019-12-19 15:12] LABS: CALCIUM 9.8 mg/dL (8.5-10.3); CREATININE 0.6 mg/dL (0.6-1.2)
== END 2019-12-19 23:59 | disposition home or self-care (01) ==
LOC: DI.S 08:00
PROVIDERS: ATTEND Physician Assistant
DX: M11.271 Other chondrocalcinosis, right ankle and foot (principal); M25.871 Other specified joint disorders, right ankle and foot; R53.83 Other fatigue
CPT/HCPCS: 36415; 80048; 84443; 85025

== ENCOUNTER 2020-01-15 10:15 | Outpatient (CLI) | payer MEDICARE, OTHER ==
--- NOTE | 2020-01-15 12:44 | XRAY Report ---
PROCEDURE: Foot 3 View RT INDICATIONS: UNSPECIF FRACTURE OF SHAFT OF RT TIBIA, RT FT PX TECHNIQUE: 3 views of the foot were acquired. COMPARISON: X-ray foot 12/19/2019 FINDINGS: Bones: No fractures or dislocations. No suspicious bony lesions. Scattered IP degenerative changes. There is mild loss of height within the midfoot, consistent with progressive degenerative change, st able. Calcaneal spur is noted. Soft tissues: No tibiotalar joint effusion. Achilles tendon appears normal. IMPRESSION: Stable interval exam. No visualized fracture. If clinical concern persists, CT is recommended. Reviewed by: Chiara Ayala MD on 01/15/2020 12:43 PM PDT Approved by: Chiara Ayala MD on 01/15/2020 12:43 PM PDT Station ID: [id number]
--- NOTE | 2020-01-15 12:48 | XRAY Report ---
PROCEDURE: Knee 3 View RT INDICATIONS: UNSPECIF FRACTURE OF SHAFT OF RT TIBIA, RT FT PX TECHNIQUE: 3 views of the right knee(s) were acquired. COMPARISON: X-ray knee 11/23/2019, CT knee 11/23/2019 FINDINGS: Bones: There is a comminuted lateral tibial plateau fracture with approximately 2 cm depression. Frac ture lucencies appear slightly more prominent on current exam. There has been no interval change in d epression. Questionable lucency within the tibial spine is noted, not well seen on prior exam. Degene rative changes as well as chondrocalcinosis are present. Old patellar fracture is present. No suspici ous bony lesions. Soft tissues: No joint effusion. No suspicious soft tissue calcifications. IMPRESSION: Lateral tibial plateau fracture with slight increased prominence of fracture lucencies i ncluding within the tibial spine as above. While this could be secondary to technique, reinjury or sl ight alterations in fracture fragments should be considered. Reviewed by: Chiara Ayala MD on 01/15/2020 12:47 PM PDT Approved by: Chiara Ayala MD on 01/15/2020 12:47 PM PDT Station ID: [id number]
== END 2020-01-15 10:16 | disposition home or self-care (01) ==
LOC: DI 10:15
PROVIDERS: ATTEND Physician Assistant
DX: S82.201A Unspecified fracture of shaft of right tibia, initial encounter for closed fracture (principal); M79.671 Pain in right foot

== ENCOUNTER 2020-02-12 08:00 | Outpatient (CLI) | payer MEDICARE, OTHER ==
[2020-02-12 15:25] LABS: BASOPHILS % (AUTO) 0.5 %; EOSINOPHILS # (AUTO) 0.1 10^3/uL (0.0-0.7); EOSINOPHILS % (AUTO) 0.8 %; HGB - HEMOGLOBIN 14.2 g/dL (14.0-18.0); LYMPHOCYTES # (AUTO) 1.8 10^3/uL (1.5-3.5); LYMPHOCYTES % (AUTO) 28.7 %; MEAN CORPUSCULAR HEMOGLOBIN 32.3 pg (27.0-31.0); MEAN CORPUSCULAR HGB CONC 33.9 g/dL (32.0-36.0); MEAN CORPUSCULAR VOLUME 95.4 fL (80.0-94.0); MEAN PLATELET VOLUME 8.9 fL (7.4-11.4); MONOCYTES # (AUTO) 0.6 10^3/uL (0.0-1.0); MONOCYTES % (AUTO) 9.7 %; NEUTROPHILS # (AUTO) 3.9 10^3/uL (1.5-6.6); PLT - PLATELET COUNT 205 10^3/uL (130-450); RED BLOOD COUNT 4.39 10^6/uL (4.70-6.10); RED CELL DISTRIBUTION WIDTH 13.4 % (12.0-15.0); WHITE BLOOD COUNT 6.4 x10^3/uL (4.8-10.8)
[2020-02-12 15:39] LABS: CALCIUM 9.5 mg/dL (8.5-10.3); CREATININE 0.7 mg/dL (0.6-1.2); URIC ACID 5.4 mg/dL (2.6-7.2)
== END 2020-02-12 23:59 | disposition home or self-care (01) ==
LOC: LAB.S 08:00
PROVIDERS: ATTEND Emergency Medicine
DX: M25.531 Pain in right wrist (principal)
CPT/HCPCS: 36415; 80048; 84550; 85025; 85651; 86140

== ENCOUNTER 2020-02-14 09:19 | Emergency (ER) | payer MEDICARE, OTHER ==
[2020-02-14] MEDS ORDERED: LIDOCAINE 1%-EPI 1:100000 20 ML MDV SUBQ STA (09:40)
--- NOTE | 2020-02-14 09:42 | ED Physician Documentation ---
PD HPI UPPER EXT INJURY - Stated complaint Stated Complaint: R WRIST PX/SWELLING - Chief complaint Chief Complaint: Ext Problem - History obtained from History obtained from: Patient - History of Present Illness Location: Right - Additonal information Additional information: 74-year-old gentleman with history of autologous bone marrow transplants, for lymphoma, on no medication currently presents with atraumatic right wrist pain starting 2 days ago. He was seen at an urgent care and blood was drawn with normal white count, CRP, sed rate. Over the last couple of days the pain and swelling has continued to worsen. Review of Systems Ten Systems: 10 systems reviewed and negative Constitutional: reports: Reviewed and negative Throat: reports: Reviewed and negative Cardiac: reports: Reviewed and negative Respiratory: reports: Reviewed and negative PD PAST MEDICAL HISTORY - Past Medical History Cardiovascular: Hypertension Respiratory: None Neuro: None Endocrine/Autoimmune: Other GI: GERD, Hepatitis : None HEENT: None Psych: None Musculoskeletal: None Derm: None - Past Surgical History Past Surgical History: Yes General: Cholecystectomy, Appendectomy, EGD HEENT: Tonsil/Adenoidectomy - Present Medications Home Medications: Ambulatory Orders Medication Instructions Recorded Confirmed atenoloL [Atenolol] 50 mg PO DAILY 01/09/13 06/11/18 Metoclopramide [Reglan] 10 mg PO Q6H PRN #20 tablet 05/29/18 06/11/18 Acyclovir 800 mg PO DAILY 06/01/18 06/11/18 Aspirin 81 mg PO DAILY 06/06/18 06/11/18 Cholecalciferol (Vitamin D3) 1 tab PO DAILY 06/06/18 06/11/18 [Vitamin D3] Cyanocobalamin (Vitamin B-12) 1 drops PO DAILY 06/06/18 06/11/18 [B-12] LORazepam [Ativan] 1 mg PO DAILY 06/06/18 06/11/18 Multivitamin [Multiple Vitamins] 1 tab PO DAILY 06/06/18 06/11/18 Nicotine Polacrilex [Nicotine Gum] 2 mg PO DAILY 06/06/18 06/11/18 Ondansetron Odt [Zofran Odt] 4 mg PO PRN PRN 06/06/18 06/11/18 diphenhydrAMINE [Benadryl] 25 mg pe PO DAILY 06/06/18 06/11/18 oxyCODONE [Roxicodone] 5 mg PO PRN PRN 06/06/18 06/11/18 Cephalexin [Keflex] 500 mg PO TID #21 capsule 06/09/18 06/11/18 Docusate Sodium 100 mg PO DAILY #15 capsule 06/09/18 06/11/18 Naproxen 375 mg PO BID #20 tablet 06/09/18 06/11/18 metroNIDAZOLE [Flagyl] 500 mg PO BID #14 tablet 06/09/18 06/11/18 Cefdinir 300 mg PO BID #14 capsule 06/11/18 Chlorhexidine Gluconate [Hibiclens] 15 ml TP DAILY #236 ml 08/11/18 Doxycycline Hyclate 100 mg PO BID #20 capsule 08/11/18 Mupirocin 1 applic TP TID #15 g 08/11/18 Cefdinir 300 mg PO BID #20 capsule 09/17/18 Oxycodone HCl/Acetaminophen 1 - 2 each PO Q6H PRN #14 tablet 09/17/18 [Percocet 5-325 mg Tablet] Ondansetron Odt [Zofran] 4 mg TL Q6H PRN #10 tablet 11/22/18 Oxycodone HCl/Acetaminophen 1 each PO Q4HR PRN #14 tablet 11/22/18 [Oxycodone-Acetaminophen 5-325] Neomycin/Poly/Dex Ophth Drops 1 drops LEFTEYE QID #1 bottle 04/30/19 [Maxitrol Ophth Drops] Ondansetron Odt [Zofran] 4 mg TL Q6H PRN #10 tablet 11/23/19 Oxycodone HCl/Acetaminophen 1 - 2 each PO Q6H PRN #20 tablet 11/23/19 [Percocet 5-325 mg Tablet] Colchicine [Colcrys] 0.6 mg PO BID #3 tablet 02/14/20 Oxycodone HCl/Acetaminophen 1 - 2 each PO Q6H PRN #14 tablet 02/14/20 [Percocet 5-325 mg Tablet] predniSONE [Deltasone] 20 mg PO [id number] #21 tab 02/14/20 - Allergies Allergies/Adverse Reactions: Allergies Allergy/AdvReac Type Severity Reaction Status Date / Time azithromycin [From Zithromax] AdvReac Rash Verified 02/14/20 09:27 hydrocodone AdvReac Nausea Verified 02/14/20 09:27 - Social History Does the pt smoke?: No Smoking Status: Never smoker Does the pt drink ETOH?: Yes Does the pt have substance abuse?: No - Immunizations Immunizations are current?: Yes - POLST Patient has POLST: No PD ED PE NORMAL - Vitals Vital signs reviewed: Yes - General General: Alert and oriented X 3, No acute distress - HEENT HEENT: PERRL, EOMI - Neck Neck: Supple, no meningeal sign, No bony TTP - Cardiac Cardiac: RRR, No murmur - Respiratory Respiratory: No respiratory distress, Clear bilaterally - Abdomen Abdomen: Soft, Non tender - Back Back: No CVA TTP, No spinal TTP - Derm Derm: No rash - Extremities Extremities: Other (There is warmth and swelling over the lateral dorsal radiocarpal joint that is warm but not cellulitic. He has severely diminished range of motion in flexion and extension at the wrist.) - Neuro Neuro: Alert and oriented X 3, Normal speech Results - Vitals Vitals: Vital Signs - 24 hr 02/14/20 02/14/20 09:27 10:53 Temperature 36.8 C 36.8 C Heart Rate 84 85 Respiratory 18 16 Rate Blood Pressure 139/88 H 135/65 H O2 Saturation 99 99 Oxygen O2 Source Room air - Labs Labs: Laboratory Tests 02/14/20 02/14/20 02/14/20 09:48 09:48 09:48 WBC 10.8 RBC 4.26 L Hgb 13.5 L Hct 40.2 L MCV 94.4 H MCH 31.7 H MCHC 33.6 RDW 13.4 Plt Count 171 MPV 7.9 Neut # (Auto) 8.2 H Lymph # (Auto) 1.5 [place] # (Auto) 1.0 Eos # (Auto) 0.0 Baso # (Auto) 0.0 Absolute Nucleated RBC 0.00 Nucleated RBC % 0.0 ESR 4 Sodium 138 Potassium 3.9 Chloride 101 Carbon Dioxide 28 Anion Gap 9.0 BUN 12 Creatinine 0.7 Estimated GFR (MDRD) 111 Glucose 128 H Calcium 9.3 Total Bilirubin 0.7 AST 15 ALT 14 Alkaline Phosphatase 58 C-Reactive Protein 1.4 H Total Protein 6.7 Albumin 4.3 Globulin 2.4 Albumin/Globulin Ratio 1.8 Lipase 31 - Rads (name of study) R wrist 3v Radiology: EMP read contemporaneously (Severe degenerative changes) Procedures - Arthrocentesis Joint: Wrist, Right Preparation: Consent obtained, Sterile prep and drape Anesthesia: Lidocaine 1% Fluid: Other (There is definitely fluid in the radiocarpal joint, however is very thick. I was able to get less than a milliliter out and there was a suggestion of tophaceous quality to it) PD MEDICAL DECISION MAKING - ED course ED course: 74-year-old gentleman with what looks like a joint effusion to the right radiocarpal joints with some warmth but no redness. Differential diagnosis includes septic joint, gout, or other inflammatory process. He was seen in the office 2 days ago, his inflammatory markers have worsened just slightly since then, his white blood cell count went from 6 to 10, his ESR is stable at 4, his CRP went from 1.0 to 1.4. These numbers are really not consistent with a septic joint. I was able to access the joint with arthrocentesis, the fluid and there was quite thick and not amenable to needle aspiration but what was removed was suggestive of tophaceous material, only enough was removed to send for culture. I.e. it was quantity not sufficient for cell count or crystal exam. He is started on steroids, colchicine and some painkillers pending culture. He understands the need to return if not improving or if he runs a fever. Departure - Departure Disposition: 01 Home, Self Care Clinical Impression: Wrist arthritis Wrist joint effusion Qualifiers: Laterality: right Qualified Code(s): M25.431 - Effusion, right wrist Condition: Good Record reviewed to determine appropriate education?: Yes Instructions: ED Arthritis Gout Prescriptions: Colchicine [Colcrys] 0.6 mg PO BID #3 tablet predniSONE [Deltasone] 20 mg PO [id number] #21 tab Oxycodone HCl/Acetaminophen [Percocet 5-325 mg Tablet] 1 - 2 each PO Q6H PRN #14 tablet PRN Reason: pain Comments: Prescriptions were sent electronically to [facility] in [place]. As discussed based on the appearance of the fluid that came out, this could be an inflammatory or gouty issue. We are performing a culture and we will call you if it is positive. I did not get enough fluid to perform other tests on the fluid. Return if worsening or in 36 to 48 hours if not improving. X-rays were concerning for an inflammatory arthritis, your physician may want to order testing to rule out things like rheumatism. Discharge Date/Time: 02/14/20 10:55
--- NOTE | 2020-02-14 10:03 | XRAY Report ---
PROCEDURE: Wrist 3 View RT INDICATIONS: wrist pain no inj TECHNIQUE: 3 views of the wrist were acquired. COMPARISON: No previous study is available for comparison. FINDINGS: Bones: No acute fracture or dislocation. Severe degenerative changes are seen throughout the wrist i ncluding at the radiocarpal joint, the first carpometacarpal joint, the triscaphe the joint, and at t he capitolunate and hamatolunate articulations. Multiple subchondral lucencies are seen that are nons pecific and may represent degenerative cystic changes or possibly chronic erosions. Chronic remodelin g of the articular surfaces is noted. There is chondrocalcinosis, which is nonspecific but may indica te calcium pyrophosphate deposition disease. Soft tissues: No suspicious soft tissue calcifications. IMPRESSION: Severe degenerative changes throughout the wrist with joint space narrowing and remodeling of the art icular surfaces. Findings may be secondary to primary osteoarthrosis or an underlying inflammatory ar thritis with secondary degenerative changes, and correlation with clinical findings and serologies is recommended. No acute osseous abnormality is seen. An MRI or CT may be obtained for further evaluation if indicate d. Reviewed by: Blaise Carlin MD on 02/14/2020 10:02 AM PDT Approved by: Blaise Carlin MD on 02/14/2020 10:02 AM PDT Station ID: [id number]
[2020-02-14 10:04] LABS: BASOPHILS % (AUTO) 0.4 %; EOSINOPHILS % (AUTO) 0.4 %; HGB - HEMOGLOBIN 13.5 g/dL (14.0-18.0); LYMPHOCYTES # (AUTO) 1.5 10^3/uL (1.5-3.5); LYMPHOCYTES % (AUTO) 13.9 %; MEAN CORPUSCULAR HEMOGLOBIN 31.7 pg (27.0-31.0); MEAN CORPUSCULAR HGB CONC 33.6 g/dL (32.0-36.0); MEAN CORPUSCULAR VOLUME 94.4 fL (80.0-94.0); MEAN PLATELET VOLUME 7.9 fL (7.4-11.4); MONOCYTES % (AUTO) 9.1 %; NEUTROPHILS # (AUTO) 8.2 10^3/uL (1.5-6.6); NEUTROPHILS % (AUTO) 75.7 %; PLT - PLATELET COUNT 171 10^3/uL (130-450); RED BLOOD COUNT 4.26 10^6/uL (4.70-6.10); RED CELL DISTRIBUTION WIDTH 13.4 % (12.0-15.0); WHITE BLOOD COUNT 10.8 x10^3/uL (4.8-10.8)
[2020-02-14 10:19] LABS: ALBUMIN 4.3 g/dL (3.2-5.5); ALBUMIN/GLOBULIN RATIO 1.8 (1.0-2.2); BILIRUBIN,TOTAL 0.7 mg/dL (0.2-1.0); CALCIUM 9.3 mg/dL (8.5-10.3); CREATININE 0.7 mg/dL (0.6-1.2); CRP - C-REACTIVE PROTEIN 1.4 mg/dL (0-1.0); TOTAL PROTEIN 6.7 g/dL (6.7-8.2)
[2020-02-14 10:55] VITALS: BP 135/65
--- NOTE | 2020-02-14 20:29 | ED Physician Documentation ---
ED Addendum - Addendum Addendum: 02/14/20 20:28 Noted gram stain from R wrist fluid positive for GPCs. I was off shift, but called [employer] to call pt- pt needs to return to ED as now confirmed septic joint.
== END 2020-02-14 10:55 | disposition home or self-care (01) ==
LOC: ED 09:19
DX: M19.031 Primary osteoarthritis, right wrist (principal); M25.431 Effusion, right wrist
CPT/HCPCS: 20600; 36415; 80053; 83690; 85025; 85651; 86140; 87070; 87205

== ENCOUNTER 2020-02-14 21:27 | Inpatient (IN) | payer MEDICARE, OTHER ==
[2020-02-14] MEDS ORDERED: cefTRIAXone 1 GM in SODIUM CHLORIDE 0.9% MINIBAG 100 ML IV STA (21:58)
[2020-02-14] MEDS ORDERED: VANCOMYCIN INJ 1.25 GM in SODIUM CHLORIDE 0.9% 500 ML IV STA (21:59)
[2020-02-14] MEDS ORDERED: ACETAMINOPHEN 325 MG TABLET PO PRN (22:04)
[2020-02-14] MEDS ORDERED: ONDANSETRON ODT 4 MG TABLET TL PRN (22:04)
[2020-02-14] MEDS ORDERED: SODIUM CHLORIDE FLUSH 0.9% 10 ML SYRINGE IVP PRN (22:04)
[2020-02-14] MEDS ORDERED: ONDANSETRON 4 MG/2 ML VIAL IVP PRN (22:04)
[2020-02-14] MEDS ORDERED: oxyCODONE 5 MG TABLET PO PRN (22:04)
[2020-02-14] MEDS ORDERED: MORPHINE 2 MG/ML CARPUJECT IVP PRN (22:04)
--- NOTE | 2020-02-14 22:13 | ED Physician Documentation ---
History of Present Illness - Stated complaint Stated Complaint: SORE WRIST - Chief complaint Chief Complaint: Ext Problem - Additonal information Additional information: 74-year-old male presents to the emergency department for continued evaluation and concerns for possible septic arthritis in his right wrist. This gentleman was seen by my colleague Dr. Aj earlier today. He had reported that he had 2-3 days of atraumatic right wrist pain. He had been seen by an urgent care and had unremarkable labs, sed rate as well as CRP but the pain persisted. Patient presented to our ER this morning. Dr. Aj did a x-ray of the wrist which showed degenerative disc disease but given the swelling and erythema heat performed an arthrocentesis. The Gram stain became positive for gram-positive cocci in pairs. Patient was called to return from home for further evaluation of possible septic joint. His labs from earlier were also reviewed. He had no leukocytosis or elevated sed rate. His CRP was mildly elevated today at 1.4 This gentleman denies any recent fevers, chest pain shortness of breath abdominal pain nausea or vomiting. 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 He denies that he is on any chemotherapy or immune suppressants at this time. meds: atenelol soc: denies tobacco, etoh Review of Systems Constitutional: denies: Fever, Chills Eyes: reports: Reviewed and negative Ears: reports: Reviewed and negative Nose: reports: Reviewed and negative Throat: reports: Reviewed and negative Cardiac: reports: Reviewed and negative Respiratory: reports: Reviewed and negative GI: reports: Reviewed and negative : reports: Reviewed and negative Skin: reports: Other (erythema dorsum right wrist ulnar side) Musculoskeletal: reports: Joint pain, Joint swelling (ulnar side right wrist) Neurologic: reports: Reviewed and negative Psychiatric: reports: Reviewed and negative PD PAST MEDICAL HISTORY - Past Medical History Past Medical History: Yes Cardiovascular: Hypertension Respiratory: None Neuro: None Endocrine/Autoimmune: Other GI: GERD, Hepatitis : None HEENT: None Psych: None Musculoskeletal: None Derm: None - Past Surgical History Past Surgical History: Yes General: Cholecystectomy, Appendectomy, EGD HEENT: Tonsil/Adenoidectomy - Present Medications Home Medications: Ambulatory Orders Medication Instructions Recorded Confirmed atenoloL [Atenolol] 50 mg PO DAILY 01/09/13 06/11/18 Metoclopramide [Reglan] 10 mg PO Q6H PRN #20 tablet 05/29/18 06/11/18 Acyclovir 800 mg PO DAILY 06/01/18 06/11/18 Aspirin 81 mg PO DAILY 06/06/18 06/11/18 Cholecalciferol (Vitamin D3) 1 tab PO DAILY 06/06/18 06/11/18 [Vitamin D3] Cyanocobalamin (Vitamin B-12) 1 drops PO DAILY 06/06/18 06/11/18 [B-12] LORazepam [Ativan] 1 mg PO DAILY 06/06/18 06/11/18 Multivitamin [Multiple Vitamins] 1 tab PO DAILY 06/06/18 06/11/18 Nicotine Polacrilex [Nicotine Gum] 2 mg PO DAILY 06/06/18 06/11/18 Ondansetron Odt [Zofran Odt] 4 mg PO PRN PRN 06/06/18 06/11/18 diphenhydrAMINE [Benadryl] 25 mg pe PO DAILY 06/06/18 06/11/18 oxyCODONE [Roxicodone] 5 mg PO PRN PRN 06/06/18 06/11/18 Cephalexin [Keflex] 500 mg PO TID #21 capsule 06/09/18 06/11/18 Docusate Sodium 100 mg PO DAILY #15 capsule 06/09/18 06/11/18 Naproxen 375 mg PO BID #20 tablet 06/09/18 06/11/18 metroNIDAZOLE [Flagyl] 500 mg PO BID #14 tablet 06/09/18 06/11/18 Cefdinir 300 mg PO BID #14 capsule 06/11/18 Chlorhexidine Gluconate [Hibiclens] 15 ml TP DAILY #236 ml 08/11/18 Doxycycline Hyclate 100 mg PO BID #20 capsule 08/11/18 Mupirocin 1 applic TP TID #15 g 08/11/18 Cefdinir 300 mg PO BID #20 capsule 09/17/18 Oxycodone HCl/Acetaminophen 1 - 2 each PO Q6H PRN #14 tablet 09/17/18 [Percocet 5-325 mg Tablet] Ondansetron Odt [Zofran] 4 mg TL Q6H PRN #10 tablet 11/22/18 Oxycodone HCl/Acetaminophen 1 each PO Q4HR PRN #14 tablet 11/22/18 [Oxycodone-Acetaminophen 5-325] Neomycin/Poly/Dex Ophth Drops 1 drops LEFTEYE QID #1 bottle 04/30/19 [Maxitrol Ophth Drops] Ondansetron Odt [Zofran] 4 mg TL Q6H PRN #10 tablet 11/23/19 Oxycodone HCl/Acetaminophen 1 - 2 each PO Q6H PRN #20 tablet 11/23/19 [Percocet 5-325 mg Tablet] Colchicine [Colcrys] 0.6 mg PO BID #3 tablet 02/14/20 Oxycodone HCl/Acetaminophen 1 - 2 each PO Q6H PRN #14 tablet 02/14/20 [Percocet 5-325 mg Tablet] predniSONE [Deltasone] 20 mg PO [id number] #21 tab 02/14/20 - Allergies Allergies/Adverse Reactions: Allergies Allergy/AdvReac Type Severity Reaction Status Date / Time azithromycin [From Zithromax] AdvReac Rash Verified 02/14/20 21:36 hydrocodone AdvReac Nausea Verified 02/14/20 21:36 - Social History Does the pt smoke?: No Smoking Status: Never smoker Does the pt drink ETOH?: Yes Does the pt have substance abuse?: No - Immunizations Immunizations are current?: Yes - POLST Patient has POLST: No PD ED PE NORMAL - General General: Alert and oriented X 3, No acute distress - HEENT HEENT: Atraumatic - Neck Neck: Supple, no meningeal sign, No adenopathy - Cardiac Cardiac: RRR, No murmur - Respiratory Respiratory: No respiratory distress, Clear bilaterally - Abdomen Abdomen: Normal bowel sounds, Soft, Non tender, Non distended - Derm Derm: Normal color, Warm and dry - Extremities Extremities: No deformity. No: No tenderness to palpate (3 x 3 area of erythema without induration on dorsum right wrist ulnar side. Tenderness to palpation over snuffbox.) - Neuro Neuro: Alert and oriented X 3, call person 2-12 intact Eye Opening: Spontaneous Motor: Obeys Commands Verbal: Oriented GCS Score: 15 Results - Vitals Vitals: Vital Signs - 24 hr 02/14/20 21:30 Temperature 37.0 C Heart Rate 83 Respiratory 18 Rate Blood Pressure 133/81 H O2 Saturation 99 Oxygen O2 Source Room air PD MEDICAL DECISION MAKING - ED course Complexity details: reviewed old records, reviewed results, re-evaluated patient, considered differential, d/w patient, d/w sap pp consultant (Dr. Land) ED course: 74-year-old male returns to the emergency department for further evaluation of right wrist pain swelling and erythema. He underwent an arthrocentesis by my colleague earlier in the day. Unfortunately a gram stain later returned positive for gram-positive cocci in pairs. I have discussed this case with orthopedic surgeon on-call Dr. Land. Though there is a possibility that this represents a contamination the bigger concern is that this may represent acute septic arthritis. Dr. Land recommends admitting to the patient overnight to the hospitalist service with appropriate antibiotics ( I have initiated ceftriaxone and vancomycin.) Dr. Land will see the patient in consult tomorrow and determine at that time if a washout in the OR is indicated. I have also spoken with the nocturnal hospitalist Dr. Summer Fisher who has agreed to see and admit patient. Full routine labs were ordered earlier today and fully evaluated and were therefore deferred at the time of second presentation Departure - Departure Disposition: 66 [facility] DC/Xfer Clinical Impression: Septic arthritis Qualifiers: Septic arthritis location: wrist Septic arthritis organism: due to unspecified organism Laterality: right Qualified Code(s): M00.9 - Pyogenic arthritis, unspecified
--- NOTE | 2020-02-14 22:17 | HISTORY & PHYSICAL EXAMINATION ---
Chief Complaint - Chief Complaint Chief Complaint: right wrist pain History of Present Illness - Admitted From Admitted From:: Home/ER - History Obtained From Records Reviewed: [facility] History obtained from: Patient and RYANNE Rueda Exam Limitations: none - History of Present Illness HPI Comment/Other: 74-year-old white male who has a history of B-cell lymphoma that is in remission after bone marrow transplant, also has hepatitis C with successful treatment, the presents with right wrist pain. His last chemotherapy was May 2018. On and off melena for 2 to 3 weeks resulted in the hospitalization in June 2011. It was accompanied by left mid/lower quadrant abdominal pain. He was admitted to [facility]. 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 Went home. Return to the emergency room with generalized weakness, malaise and shortness of breath. Was found to have Peptostreptococcus bacteremia of unclear source, presumed lower GI source. After antibiotic treatment, repeat blood cultures negative. He then had an episode of possible septic arthritis in 2015. He presented with a 2-day history of increasing painful erythema of the right wrist. It improved and empiric antibiotic therapy and Toradol. He was placed on Cleocin IV and then discharged on clindamycin and Florastor. At that time he was not seen by orthopedics. He also had an episode of pseudogout of both wrists with his bone marrow transplant induction 09/2018. He now returns with recurrence of increasing right wrist pain. Started 2 days prior to admission. No trauma. No open wounds. He was seen in an urgent care clinic and blood was drawn with a normal white cell count, C-reactive protein, and sed rate. However the pain was worse and he came to our emergency room. He was seen by Dr. Nye this morning. The patient was afebrile. White cell count was 10.8. C-reactive protein 1.4. There was warmth and swelling over the lateral dorsal radiocarpal joint. Arthrocentesis was done of a thick sludgy fluid. Gram stain was positive for gram-positive cocci's. This was a late result called in. The patient had already gone home with oral antibiotics. He was asked to return. Orthopedics was consulted. Orthopedics now wants the patient admitted for IV antibiotics and he will be seen in the morning. History - Past Medical History Cardiovascular: reports: Hypertension, High cholesterol, Angina (Was seen with observation status July 2011 for atypical chest pain. Nuclear medicine stress test was normal. Seen by cardiology again April 2012 with continued palpitations. Reassured. Seen again 07/2017. ), Arrhythmia (Palpitations while working out at the gym in December 2010. Seen by Dr. Naylor, [facility] December 2010 and felt to have benign ectopy.) Respiratory: reports: None Neuro: reports: None Endocrine/Autoimmune: reports: Other (Thyroid nodules, normal TSH. Biopsies negative in 1999. Re-seen April 2011 and no further work-up other than surveillance.) GI: reports: GERD, GI bleed (Upper GI with melanotic stool June 2011. 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 MRI April 2009 showed moderate to severe bony stenosis at the left L2- L3 neural foramina with some bony approximations of the exiting left L2 nerve root and possible slight nerve root impingement.) Derm: reports: None MRSA Hx?: No Other Past Medical History: Left hamstring sprain February 2009. He presented as testicular discomfort, perineal discomfort, pelvic discomfort in July 2009. For 2 to 3 months he would respond to antibiotics to treat empiric infection. Elevated liver function studies were seen. But urology, on consultation, felt that he did not have true pelvic infection such as prostatitis or epididymitis. CT of the abdomen September 2009 showed diverticulosis without diverticulitis. Gastroenterology did not felt that it was activation of his hepatitis C. He was referred for fever of unknown origin to Dr. Vinayak Anderson at [facility].Nothing was ever found. He then proceeded to have episodes of abdominal pain. Again nothing was found with very CTs. 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 Diagnosis NOT confirmed by [facility] or [facility] and again, expectant managment. Follow-up EGD done and polypectomy during EGD had pathology showing diffuse large B-cell lymphoma. Underwent 6 cycles of R-CHOP 01/29-04/30. recurrent right axilla 10/2016. 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 - Past Surgical History General: reports: Cholecystectomy, Appendectomy (April 2004), Colonoscopy (July 2007 with diverticulosis), EGD (01/2010 with hiatal hernia, grade B esophagitis, benign-appearing esophageal stricture. Normal stomach and duodenum.June 2011 with AVM that was cauterized.) Ortho: reports: Arthroscopic surgery (Bilateral knee surgery) HEENT: reports: Tonsil/Adenoidectomy - Family & Social History Family History Comment/Other: Mother 92 without heart disease but did have breast cancer, Kidney cancer. Father 87 after pneumonia complications of series of strokes. 1 sibling, Sister with breast cancer. 1 child, without cancer/thryoid/DM/HTN Living arrangement: At home Living Situation: With friend(s) (his ex ) Social History Notes: Quit smoking 2002 after 35 years. Rarely drinks. At most 1 glass of wine per day. Last IV drug use 1960s as teen. Did a lot when he was a teenager. 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 His ex- moved in with him about 4 to 5 years ago. He lives alone for a long time. They get along much better now that they are . She is a good friend. - Substance History Use: Uses substance without health or social issues: NONE Abuse: Recurrent use of substance despite neg consequences: NONE Dependence: Experiences withdrawal or developed tolerances: NONE - POLST Patient has POLST: No POLST Status: DNR (He states that he has advanced directives that he is brought into this hospital 2 or 3 times. We will have to pull the old hardcopy charts to see if they are there. Either his ex- or daughter are DURABLE POWER OF LEAD SHOP OPERATOR he cannot remember which.) Meds/Allgy - Home Medications Home Medications: Ambulatory Orders Medication Instructions Recorded Confirmed atenoloL [Atenolol] 50 mg PO DAILY 01/09/13 06/11/18 Metoclopramide [Reglan] 10 mg PO Q6H PRN #20 tablet 05/29/18 06/11/18 Acyclovir 800 mg PO DAILY 06/01/18 06/11/18 Aspirin 81 mg PO DAILY 06/06/18 06/11/18 Cholecalciferol (Vitamin D3) 1 tab PO DAILY 06/06/18 06/11/18 [Vitamin D3] Cyanocobalamin (Vitamin B-12) 1 drops PO DAILY 06/06/18 06/11/18 [B-12] LORazepam [Ativan] 1 mg PO DAILY 06/06/18 06/11/18 Multivitamin [Multiple Vitamins] 1 tab PO DAILY 06/06/18 06/11/18 Nicotine Polacrilex [Nicotine Gum] 2 mg PO DAILY 06/06/18 06/11/18 Ondansetron Odt [Zofran Odt] 4 mg PO PRN PRN 06/06/18 06/11/18 diphenhydrAMINE [Benadryl] 25 mg pe PO DAILY 06/06/18 06/11/18 oxyCODONE [Roxicodone] 5 mg PO PRN PRN 06/06/18 06/11/18 Cephalexin [Keflex] 500 mg PO TID #21 capsule 06/09/18 06/11/18 Docusate Sodium 100 mg PO DAILY #15 capsule 06/09/18 06/11/18 Naproxen 375 mg PO BID #20 tablet 06/09/18 06/11/18 metroNIDAZOLE [Flagyl] 500 mg PO BID #14 tablet 06/09/18 06/11/18 Cefdinir 300 mg PO BID #14 capsule 06/11/18 Chlorhexidine Gluconate [Hibiclens] 15 ml TP DAILY #236 ml 08/11/18 Doxycycline Hyclate 100 mg PO BID #20 capsule 08/11/18 Mupirocin 1 applic TP TID #15 g 08/11/18 Cefdinir 300 mg PO BID #20 capsule 09/17/18 Oxycodone HCl/Acetaminophen 1 - 2 each PO Q6H PRN #14 tablet 09/17/18 [Percocet 5-325 mg Tablet] Ondansetron Odt [Zofran] 4 mg TL Q6H PRN #10 tablet 11/22/18 Oxycodone HCl/Acetaminophen 1 each PO Q4HR PRN #14 tablet 11/22/18 [Oxycodone-Acetaminophen 5-325] Neomycin/Poly/Dex Ophth Drops 1 drops LEFTEYE QID #1 bottle 04/30/19 [Maxitrol Ophth Drops] Ondansetron Odt [Zofran] 4 mg TL Q6H PRN #10 tablet 11/23/19 Oxycodone HCl/Acetaminophen 1 - 2 each PO Q6H PRN #20 tablet 11/23/19 [Percocet 5-325 mg Tablet] Colchicine [Colcrys] 0.6 mg PO BID #3 tablet 02/14/20 Oxycodone HCl/Acetaminophen 1 - 2 each PO Q6H PRN #14 tablet 02/14/20 [Percocet 5-325 mg Tablet] predniSONE [Deltasone] 20 mg PO [id number] #21 tab 02/14/20 - Allergies Allergies/Adverse Reactions: Allergies Allergy/AdvReac Type Severity Reaction Status Date / Time azithromycin [From Zithromax] AdvReac Rash Verified 02/14/20 21:36 hydrocodone AdvReac Nausea Verified 02/14/20 21:36 Review of Systems - Constitutional Constitutional: reports: Other (Ever since the bone marrow transplant, he has done really well he states). denies: Fatigue, Fever, Chills, Malaise, Poor appetite, Diaphoresis, Night sweats - Eyes Eyes: reports: Corrective lenses. denies: Pain, Irritation, Amaurosis, Blurred vision - Ears, Nose & Throat Ears, Nose & Throat: denies: Ear pain, Hearing loss, Hearing aids, Tinnitus, Vertigo, Nasal congestion, Postnasal drainage, Sore throat - Cardiovascular Cariovascular: reports: Palpitations, Chest pain (In the past, off and on. Has had 2 work-ups. None recent.). denies: Irregular heart rate, Edema, Syncope, Exertional dyspnea, Decr. 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 All of his complaints are chronic, nothing new. The only thing new is the new right wrist discomfort for the last 2 days). denies: Muscle pain, Muscle aches - Integumentary Integumentary: reports: Rash (With his bone marrow transplant that was felt to be folliculitis and candidiasis and resolved after treatment). denies: Pruritis, Lesions, Dryness - Neurological Neurological: denies: General weakness, Focal weakness, Headache, Dizziness - Psychiatric Psychiatric: reports: Anxiety, Other (Insomnia). denies: Depression, Suicidal - Endocrine Endocrine: denies: Polyuria, Polydypsia, Polyphagia - Hematologic/Lymphatic Hematologic/Lymphatic: denies: Anemia, Bruising, Petechiae Prior Level of Functionality: Completely independent with activities of daily living. Drives a car. Pays bills. Does household work. Does not use any durable medical equipment. 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 Exam - Vital Signs Reviewed Vital Signs: Yes Vital Signs: Vital Signs x48h Temp Pulse Resp BP Pulse Ox 02/14/20 21:30 37.0 C 83 18 133/81 H 99 - Physical Exam General Appearance: positive: No acute distress, Alert, Other (mildly anxious about recovery from this) Eyes Bilateral: positive: PERRL, EOMI ENT: positive: Pharynx nml Neck: positive: No JVD. negative: Lymphadenopathy (R), Lymphadenopathy (L) Respiratory: positive: Chest non-tender. negative: Wheezes, Rales, Rhonchi Cardiovascular: positive: Regular rate & rhythm. negative: Gallop/S4, Friction rub Peripheral Pulses: positive: 1+ Abdomen: positive: Non-tender, No organomegaly, Nml bowel sounds, No distention Skin: positive: No rash, Warm, Dry Extremities: positive: Full ROM, No pedal edema, Joint swelling (base of right thumb and into wrist. Red, swollen, hot. tender. no surrounding cellulitis) Neurologic/Psychiatric: positive: Oriented x3, CN's nml (2-12), Motor nml, Mood/affect nml Conclusion/Plan - Problem List (1) Acute joint pain Conclusion/Plan: Although the patient had a low C-reactive protein, normal white cell count, no fever, the gram-positive cocci were alarming enough that it is felt that he should be brought into him treated for septic arthritis. Orthopedic surgery will see him in the morning. He is at low risk for sexually transmitted disease. May have pseudogout. Plan: Inpatient status Orthopedic Consult in the morning. Continue vancomycin and Rocephin per up-to-date and Clifford antibiotic guide recommendations (2) HTN (hypertension) Conclusion/Plan: resume atenolol. Qualifiers: Hypertension type: essential hypertension Qualified Code(s): I10 - Essential (primary) hypertension (3) Anxiety Conclusion/Plan: wants to make sure he gets his lorazepam and benadryl tonight. will order. - Lab Results Lab results reviewed: Yes Core Measures - Anticipated LOS I expect patient to be DC'd or transferred within 96 hours.: Yes - DVT/VTE - Prophylaxis VTE/DVT Device ordered at admit?: Yes
[2020-02-14] MEDS ORDERED: VANCOMYCIN 1 GM VIAL ONE (22:36)
[2020-02-14] MEDS ORDERED: cefTRIAXone 1 GM VIAL ONE (22:36)
[2020-02-14] MEDS: SODIUM CHLORIDE FLUSH 0.9% 10 ML SYRINGE IVP SCH (23:54)
[2020-02-15] MEDS: LORazepam 0.5 MG TABLET PO PRN ×2 (01:26→22:20)
[2020-02-15] MEDS: diphenhydrAMINE 25 MG CAPSULE PO PRN ×2 (01:26→22:20)
[2020-02-15] MEDS: SODIUM CHLORIDE 0.9% 1,000 ML IV SCH ×2 (01:27→12:16)
[2020-02-15 05:26] LABS: BASOPHILS % (AUTO) 0.3 %; EOSINOPHILS # (AUTO) 0.1 10^3/uL (0.0-0.7); EOSINOPHILS % (AUTO) 1.6 %; HGB - HEMOGLOBIN 12.6 g/dL (14.0-18.0); LYMPHOCYTES # (AUTO) 1.3 10^3/uL (1.5-3.5); LYMPHOCYTES % (AUTO) 21.2 %; MEAN CORPUSCULAR HEMOGLOBIN 31.7 pg (27.0-31.0); MEAN CORPUSCULAR HGB CONC 33.8 g/dL (32.0-36.0); MEAN PLATELET VOLUME 8.6 fL (7.4-11.4); MONOCYTES # (AUTO) 0.8 10^3/uL (0.0-1.0); MONOCYTES % (AUTO) 12.8 %; NEUTROPHILS % (AUTO) 63.8 %; PLT - PLATELET COUNT 168 10^3/uL (130-450); RED BLOOD COUNT 3.97 10^6/uL (4.70-6.10); RED CELL DISTRIBUTION WIDTH 13.2 % (12.0-15.0); WHITE BLOOD COUNT 6.3 x10^3/uL (4.8-10.8)
[2020-02-15 05:46] LABS: CALCIUM 8.9 mg/dL (8.5-10.3); CREATININE 0.5 mg/dL (0.6-1.2); CRP - C-REACTIVE PROTEIN 1.7 mg/dL (0-1.0)
[2020-02-15] MEDS: cefTRIAXone 1 GM in SODIUM CHLORIDE 0.9% MINIBAG 100 ML IV SCH (08:26)
--- NOTE | 2020-02-15 08:43 | ANESTHESIA ---
Pre-Anesthesia VS, & Labs - Diagnosis Right Wrist Pain/Septic Arthritis - Procedure I&D Right Wrist Vital Signs: Temp Pulse Resp BP Pulse Ox 37.1 C 59 L 18 127/71 100 02/15/20 00:15 02/15/20 00:15 02/15/20 00:15 02/15/20 00:15 02/15/20 00:15 Height: 5 ft 9 in Weight (kg): 80 kg Body Mass Index: 26.0 BMI Classification: Overweight - Lab Results Current Lab Results: Laboratory Tests 02/15/20 04:45: Sodium 138, Potassium 3.6, Chloride 105, Carbon Dioxide 26, Anion Gap 7.0, BUN 10, Creatinine 0.5 L, Estimated GFR (MDRD) 163, Glucose 101 H , Calcium 8.9, C-Reactive Protein 1.7 H 02/15/20 04:45: WBC 6.3, RBC 3.97 L, Hgb 12.6 L, Hct 37.3 L, MCV 94.0, MCH 31.7 H, MCHC 33.8, RDW 13.2, Plt Count 168, MPV 8.6, Neut # (Auto) 4.0, Lymph # (Auto) 1.3 L, Dixon # (Auto) 0.8, Eos # (Auto) 0.1, Baso # (Auto) 0.0, Absolute Nucleated RBC 0.00, Nucleated RBC % 0.0 Fish Bones: 02/15/20 04:45 02/15/20 04:45 Home Medications and Allergies Active Medications Acetaminophen (Tylenol) 650 mg PO Q4HR PRN PRN Reason: Pain 1 to 4 Atenolol (Tenormin) 50 mg PO DAILY [facility] Last Admin: 02/15/20 08:25 Dose: 50 mg Documented by: Diphenhydramine HCl (Benadryl) 25 mg PO QPM PRN PRN Reason: Insomnia Last Admin: 02/15/20 01:26 Dose: 25 mg Documented by: Sodium Chloride (Normal Saline 0.9%) 1,000 mls @ 100 mls/hr IV .Q10H [facility] Last Admin: 02/15/20 01:27 Dose: 100 mls/hr Documented by: Ceftriaxone Sodium 1 gm/ (Sodium Chloride) 100 mls @ 200 mls/hr IV DAILY [facility] Last Admin: 02/15/20 08:26 Dose: 200 mls/hr Documented by: Vancomycin HCl 1.25 gm/ Sodium (Chloride) 250 mls @ 167 mls/hr IV Q12H [facility] Lorazepam (Ativan) 1 mg PO QPM PRN PRN Reason: Insomnia Last Admin: 02/15/20 01:26 Dose: 1 mg Documented by: Morphine Sulfate (Morphine (Carpuject)) 2 mg IVP Q2HR PRN PRN Reason: Pain 8 to 10 Ondansetron HCl (Zofran Odt) 4 mg TL Q6HR PRN PRN Reason: Nausea / Vomiting Ondansetron HCl (Zofran Inj) 4 mg IVP Q6HR PRN PRN Reason: Nausea / Vomiting Oxycodone HCl (Roxicodone) 5 mg PO Q4HR PRN PRN Reason: Pain 5 to 7 Last Admin: 02/14/20 23:54 Dose: 5 mg Documented by: Sodium Chloride (Normal Saline Flush 0.9%) 10 ml IVP PRN PRN PRN Reason: NEEDED PER PROVIDER ORDERS Sodium Chloride (Normal Saline Flush 0.9%) 10 ml IVP 0100,0900,1700 [facility] Last Admin: 02/14/20 23:54 Dose: 10 ml Documented by: Vancomycin HCl (Vancomycin-Pharmacy To Dose) 1 each MC ONCE PRN PRN Reason: PER PHARMACY atenoloL [Atenolol] 50 mg PO DAILY 01/09/13 Acyclovir 800 mg PO DAILY 06/01/18 Aspirin 81 mg PO DAILY 06/06/18 Cholecalciferol (Vitamin D3) [Vitamin D3] 1 tab PO DAILY 06/06/18 Cyanocobalamin (Vitamin B-12) [B-12] 1 drops PO DAILY 06/06/18 LORazepam [Ativan] 1 mg PO DAILY 06/06/18 Multivitamin [Multiple Vitamins] 1 tab PO DAILY 06/06/18 Nicotine Polacrilex [Nicotine Gum] 2 mg PO DAILY 06/06/18 Ondansetron Odt [Zofran Odt] 4 mg PO PRN PRN 06/06/18 diphenhydrAMINE [Benadryl] 25 mg pe PO DAILY 06/06/18 oxyCODONE [Roxicodone] 5 mg PO PRN PRN 06/06/18 Allergies/Adverse Reactions: Allergies Allergy/AdvReac Type Severity Reaction Status Date / Time azithromycin [From Zithromax] AdvReac Rash Verified 02/14/20 21:36 hydrocodone AdvReac Nausea Verified 02/14/20 21:36 Anes History & Medical History - Anesthetic History Anesthesia Complications: reports: Other-see comment (States had sore throat for over a month after intubation.) Family history of Anesthesia Complications: Denies Family history of Malignant Hyperthermia: Denies - Medical History Cardiovascular: reports: Hypertension, High cholesterol, Angina (Atypical chest pain. Stress test negative. 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 In remission.) Blood Disorders: reports: None Skin: reports: None Smoking Status: Former smoker Psychosocial: reports: Anxiety History of Cancer?: Yes (B Cell Lymphoma-remission) Other Past Medical History: Left hamstring sprain February 2009. He presented as testicular discomfort, perineal discomfort, pelvic discomfort in July 2009. For 2 to 3 months he would respond to antibiotics to treat empiric infection. Elevated liver function studies were seen. But urology, on consultation, felt that he did not have true pelvic infection such as prostatitis or epididymitis. CT of the abdomen September 2009 showed diverticulosis without diverticulitis. Gastroenterology did not felt that it was activation of his hepatitis C. He was referred for fever of unknown origin to Dr. Vinayak Anderson at [facility].Nothing was ever found. He then proceeded to have episodes of abdominal pain. Again nothing was found with very CTs. 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 Diagnosis NOT confirmed by [facility] or [facility] and again, expectant managment. Follow-up EGD done and polypectomy during EGD had pathology showing diffuse large B-cell lymphoma. Underwent 6 cycles of R-CHOP 01/29-04/30. recurrent right axilla 10/2016. 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 - Surgical History General: Cholecystectomy, Appendectomy, Colonoscopy, EGD Eyes Ears Nose Throat (EENT): Tonsil/Adenoidectomy Orthopedic: Arthroscopic surgery Exam General: Alert, Oriented x3, Cooperative, No acute distress, Mild distress Dental: Other (Very large and protruding teeth. Small chip upper front. Possible difficult airway.) Neck Mobility: Reduced Mallampati classification: II Thyromental Distance: 4-6 cm Respiratory: Lungs clear Cardiovascular: Regular rate Mental/Cognitive Status: Alert/Oriented X3 Cognitive Status: Within normal limits Plan Anesthesia Type: General Consent for Procedure(s) Verified and Reviewed: Yes Code Status: Attempt Resuscitation ASA classification: 2-Mild systemic disease Is this case an emergency?: Yes (Plan discussed.Questions answered.Concern with sore throat.)
[2020-02-15] MEDS ORDERED: fentaNYL 100 MCG/2 ML VIAL IVP PRN (08:51)
[2020-02-15] MEDS ORDERED: ONDANSETRON 4 MG/2 ML VIAL IVP PRN ×2 (08:51→10:14)
[2020-02-15] MEDS ORDERED: NALOXONE 0.4 MG/ML VIAL IVP PRN (08:51)
[2020-02-15] MEDS ORDERED: ePHEDrine 50 MG/ML VIAL IVP PRN (08:51)
[2020-02-15] MEDS ORDERED: hydrALAZINE INJ 20 MG/ML VIAL IVP PRN (08:51)
[2020-02-15] MEDS ORDERED: ATROPINE ABBOJECT 1 MG/10 ML SYRINGE IVP PRN (08:51)
[2020-02-15] MEDS ORDERED: MORPHINE 2 MG/ML CARPUJECT IVP PRN (08:51)
[2020-02-15] MEDS ORDERED: METOCLOPRAMIDE 10 MG/2 ML VIAL IVP PRN (08:51)
[2020-02-15] MEDS ORDERED: HYDROmorphone 0.5 MG/0.5 ML SYRINGE IVP PRN (08:51)
[2020-02-15] MEDS ORDERED: atenoloL 25 MG TABLET PO SCH (09:00)
[2020-02-15] MEDS ORDERED: LACTATED RINGERS 1,000 ML IV SCH (09:00)
[2020-02-15] MEDS ORDERED: BUPIVACAINE 0.25%-EPI 1:200000 PF 30 ML VIAL SUBQ ONE (09:49)
[2020-02-15] MEDS ORDERED: BUPIVACAINE 0.25%-EPI 1:200000 PF 30 ML VIAL ONE (09:54)
[2020-02-15] MEDS ORDERED: VANCOMYCIN INJ 1 GM in SODIUM CHLORIDE 0.9% 250 ML IV SCH (10:00)
[2020-02-15] MEDS ORDERED: LACTATED RINGERS 500 ML IV ONE (10:00)
[2020-02-15] MEDS ORDERED: SODIUM CHLORIDE FLUSH 0.9% 10 ML SYRINGE IVP PRN (10:14)
[2020-02-15] MEDS ORDERED: DOCUSATE SODIUM 100 MG CAPSULE PO PRN (10:14)
[2020-02-15] MEDS ORDERED: SENNA 8.6 MG TABLET PO PRN (10:14)
[2020-02-15] MEDS ORDERED: ACETAMINOPHEN 325 MG TABLET PO PRN (10:14)
--- NOTE | 2020-02-15 10:14 | OPERATIVE REPORT ---
Operative Report - General Admit Date: 02/14/20 Procedure Date: 02/15/20 Planned Procedure: Irrigation and debridement of septic right wrist Pre-Op Diagnosis: Septic right wrist, S/P B-cell lymphoma Procedure Performed: Irrigation and debridement of right wrist Post Op Diagnosis: Same - Procedure Note Primary Surgeon: Jared Land MD Anesthesia Provider: Emily Ga CRNA Anesthesia Technique: General ET tube IV Fluids (mL): 400 Estimated Blood Loss (mL): 15 Complications: None
[2020-02-15] MEDS ORDERED: LACTATED RINGERS 1,000 ML IV ONE (10:19)
--- NOTE | 2020-02-15 11:39 | ANESTHESIA POST OP EVALUATION ---
Anesthesia Post Eval - Post Anesthesia Eval Vitals: Last Vital Signs Temp 36.4 C L 02/15/20 10:38 Pulse 57 L 02/15/20 10:38 Resp 15 02/15/20 10:38 BP 115/73 02/15/20 10:38 Pulse Ox 98 02/15/20 10:38 CV Function Including HR & BP: positive: Stable Pain Control: positive: Satisfactory Nausea & Vomiting: positive: Negative Mental Status: positive: Baseline Respiratory Status: Airway Patent Hydration Status: Satisfactory (Awake, alert and returned to damon.) Anesthesia Complications: positive: None
--- NOTE | 2020-02-15 11:57 | CONSULTATION NOTE ---
DATE OF SERVICE: 02/15/2020 Physician: Keenan Land MD REFERRING PROVIDER: Flakita Rueda, nurse practitioner in the emergency department. CHIEF COMPLAINT: "My right wrist hurts." HISTORY OF PRESENT ILLNESS: Patient is a 74-year-old, [id number], male who has had a history of B-cell lymphoma, currently in remission and status post marrow transplant in 2019, who apparently has had about a 3-4 day history of acute onset of swelling, redness, and pain to the right wrist. No preceding trauma noted. No other signs of ongoing infection, such as fevers or chills. Since his symptoms did not improve over the last several days, he sought medical attention here in the emergency room at [facility]. His evaluation included an arthrocentesis of his wrist, which later showed on gram smear to have gram-positive cocci. Subsequently was returned to the emergency room after discharge for admission for presumed septic right wrist. EXAMINATION: Patient's right wrist did show 1 to 2+ swelling as well as redness and warmth. The puncture site of his prior arthrocentesis was within normal limits. Patient had some discomfort with range of motion of his wrist noted. Neurovascularly appears to be intact distally in his digits. No evidence of any lymphangitis noted. 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 ASSESSMENT 1. Probable septic right wrist - confirmed with a positive arthrocentesis in the emergency room. 2. History of B-cell lymphoma - currently in remission - has had a history of bone marrow transplant in 2019. PLAN: Patient has been n.p.o. since last midnight. We will plan on taking him to the operating room this morning to do an open irrigation and debridement of his right wrist for presumed septic joint. The risks and benefits of surgery were explained to the patient including, anesthesia risks, persistent infection, blood loss, nerve damage, joint destruction, etc. Patient appears to understand these risks and benefits. All of his questions were answered today. Consent signed. Extremity marked. TD: 02/15/2020 08:40 JULIA
[2020-02-15] MEDS ORDERED: VANCOMYCIN INJ 1 GM, VANCOMYCIN INJ 500 MG in SODIUM CHLORIDE 0.9% 500 ML IV SCH (12:00)
[2020-02-15] MEDS ORDERED: VANCOMYCIN INJ 1.25 GM in SODIUM CHLORIDE 0.9% 250 ML IV SCH (12:00)
--- NOTE | 2020-02-15 12:03 | OPERATIVE REPORT ---
DATE OF SERVICE: 02/15/2020 Physician: Keenan Land MD PREOPERATIVE DIAGNOSIS: Septic right wrist; status post B-cell lymphoma; status post marrow transplant in 2019. POSTOPERATIVE DIAGNOSIS: Septic right wrist; status post B-cell lymphoma; status post marrow transplant in 2019. PROCEDURE PERFORMED: Irrigation and debridement of right wrist. SURGEON: Keenan Land MD ANESTHESIA: General. DESCRIPTION OF PROCEDURE: Patient was taken to the operating room on the morning of 02/15/2020, where he was placed under general anesthetic in the supine position. We then prepped and draped the hand free in the usual fashion for the procedure. A dorsal wrist longitudinal skin incision was then made overlying the affected joint. We dissected down to the capsule. A small capsular incision was made. Approximately 0.25 to 0.5 mL of yellowish, bland- colored viscous fluid was then expressed from our capsulotomy incision. Specimen was taken and sent to Microbiology for aerobic and anaerobic cultures. A syringe was used to aspirate some of the fluid, and it was sent to the laboratory for cell count and crystal analysis. We then copiously irrigated the joint with a total of 2 liters of normal saline irrigation solution. At the end of the procedure, we then loosely closed the skin incision with 3-0 nylon suture. We then dressed the incision with Xeroform gauze, 4 x 4's, and a 4-inch Jono wrap. Patient was then taken to the recovery room in satisfactory condition. ESTIMATED BLOOD LOSS: 15 mL REPLACEMENT: 400 mL of crystalloid. INTRAOPERATIVE COMPLICATIONS: None. PLAN: Patient will be observed while on antibiotics. TD: 02/15/2020 10:22 JULIA
[2020-02-15] MEDS: SODIUM CHLORIDE FLUSH 0.9% 10 ML SYRINGE IVP SCH ×2 (12:06→20:28)
--- NOTE | 2020-02-15 12:18 | PHARMACY PROGRESS NOTE ---
- Best Possible Medication History Admit Date and Time: 02/14/202203 Processed by: Pharmacy Medication History completed: Yes Patient Interview: Completed Secondary Source(s): Physician records (PATIENT INTERVIEWED BY PHARMACY. PATIENT ABLE TO CONFIRM HOME MEDICATIONS ), Pharmacy records, Insurance records As the person ultimately responsible for medication therapy, providers are able to order a medication from an existing home medication list in [facility] via the "Reconcile Routine" prior to Confirmation of that medication by support specialist. Such practice is discouraged except when the physician, in their clinical judgment, deems that a medical need exists for a medication without regard to previous use.
[2020-02-15] MEDS ORDERED: SODIUM CHLORIDE FLUSH 0.9% 10 ML SYRINGE IVP SCH (17:00)
--- NOTE | 2020-02-15 17:02 | PROVIDER PROGRESS NOTE ---
Assessment/Plan - Problem List (1) Acute joint pain Assessment/Plan: Today patient reported he feels much better. He can move right hand fully without pain. Orthopedic surgeon had Irrigation and debridement of septic right wrist. fluid crystals is negative. Preliminary wound culture has no organism seen. but it is preliminary culture and wait for finally culture. Continue antibiotics. (2) HTN (hypertension) Conclusion/Plan: stable,continue atenolol. (3) Anxiety Conclusion/Plan: wants to make sure he gets his lorazepam and benadryl tonight. will order. (4)hx of B-cell lymphoma. Patient reported he is in remission, advised patient follow with his oncologist - Current Meds Current Meds: Current Medications Generic Name Dose Route Start Last Admin Trade Name Freq PRN Reason Stop Dose Admin Diphenhydramine HCl 25 mg 02/15/20 00:09 02/15/20 01:26 Benadryl PO 25 mg QPM PRN Administration Insomnia Sodium Chloride 1,000 mls @ 100 mls/hr 02/14/20 23:00 02/15/20 12:16 Normal Saline 0.9% IV 100 mls/hr .Q10H [facility] Administration Ceftriaxone Sodium 1 gm/ 100 mls @ 200 mls/hr 02/15/20 09:00 02/15/20 09:00 Sodium Chloride IV Infused DAILY [facility] Infusion Lorazepam 1 mg 02/15/20 00:09 02/15/20 01:26 Ativan PO 1 mg QPM PRN Administration Insomnia Morphine Sulfate 2 mg 02/14/20 22:04 02/15/20 13:55 Morphine (Carpuject) IVP 2 mg Q2HR PRN Administration Pain 8 to 10 Oxycodone HCl 5 mg 02/14/20 22:04 02/14/20 23:54 Roxicodone PO 5 mg Q4HR PRN Administration Pain 5 to 7 Sodium Chloride 10 ml 02/15/20 01:00 02/15/20 12:06 Normal Saline Flush 0.9% IVP Not Given 0100,0900,1700 [facility] - Lab Result Fish Bone Diagrams: 02/15/20 04:45 02/15/20 04:45 Subjective - Subjective Patient Reports: Feeling Better Objective Vital Signs: Vital Signs - 24 hr 02/14/20 02/14/20 02/14/20 21:30 22:45 23:55 Temperature 37.0 C 37.4 C 37.4 C Heart Rate 83 62 Heart Rate [ 68 Brachial] Respiratory 18 18 18 Rate Blood Pressure 133/81 H Blood Pressure 147/74 H [Right Brachial artery] O2 Saturation 99 97 98 02/15/20 02/15/20 02/15/20 00:15 08:00 10:12 Temperature 37.1 C 36.8 C 36.3 C L Heart Rate 59 L Heart Rate [ 59 L 69 Brachial] Respiratory 18 16 10 L Rate Blood Pressure 103/64 Blood Pressure 127/71 115/64 [Right Brachial artery] O2 Saturation 100 95 100 02/15/20 02/15/20 02/15/20 10:17 10:22 10:27 Temperature 36.3 C L 36.4 C L 36.4 C L Heart Rate 56 L 56 L 58 L Heart Rate [ Brachial] Respiratory 13 13 19 Rate Blood Pressure 109/64 109/70 110/67 Blood Pressure [Right Brachial artery] O2 Saturation 100 100 100 02/15/20 02/15/20 02/15/20 10:38 11:00 11:30 Temperature 36.4 C L 36.7 C 36.6 C Heart Rate 57 L Heart Rate [ 67 69 Brachial] Respiratory 15 16 16 Rate Blood Pressure 115/73 Blood Pressure 112/64 120/60 [Right Brachial artery] O2 Saturation 98 96 95 02/15/20 02/15/20 12:59 16:00 Temperature 36.6 C 37 C Heart Rate Heart Rate [ 65 74 Brachial] Respiratory 18 18 Rate Blood Pressure Blood Pressure 113/63 122/72 [Right Brachial artery] O2 Saturation 98 94 Oxygen O2 Source Room air I&O (Last 24 Hrs): Intake and Output Totals x24h 02/13/20 02/14/20 02/15/20 23:59 23:59 23:59 Intake Total 100 2220 Output Total 1850 Balance 100 370 General: Alert, Oriented x3, No acute distress HEENT: Atraumatic Neck: Supple Lymphatic: no adenopathy Neuro: Alert, Non Focal, Oriented Times 3 Cardiovascular: Regular rate, Normal S1, Normal S2 Respiratory: Chest non-tender, No respiratory distress, Breath sounds nml Abdomen: Normal bowel sounds, Soft, No tenderness Extremities: Normal pulses - Results Results: Laboratory Results WBC 6.3 x10^3/uL (4.8-10.8) 02/15/20 04:45 RBC 3.97 10^6/uL (4.70-6.10) L 02/15/20 04:45 Hgb 12.6 g/dL (14.0-18.0) L 02/15/20 04:45 Hct 37.3 % (42.0-52.0) L 02/15/20 04:45 MCV 94.0 fL (80.0-94.0) 02/15/20 04:45 MCH 31.7 pg (27.0-31.0) H 02/15/20 04:45 MCHC 33.8 g/dL (32.0-36.0) 02/15/20 04:45 RDW 13.2 % (12.0-15.0) 02/15/20 04:45 Plt Count 168 10^3/uL (130-450) 02/15/20 04:45 MPV 8.6 fL (7.4-11.4) 02/15/20 04:45 Neut # (Auto) 4.0 10^3/uL (1.5-6.6) 02/15/20 04:45 Lymph # (Auto) 1.3 10^3/uL (1.5-3.5) L 02/15/20 04:45 Park # (Auto) 0.8 10^3/uL (0.0-1.0) 02/15/20 04:45 Eos # (Auto) 0.1 10^3/uL (0.0-0.7) 02/15/20 04:45 Baso # (Auto) 0.0 10^3/uL (0.0-0.1) 02/15/20 04:45 Absolute Nucleated RBC 0.00 x10^3/uL 02/15/20 04:45 Nucleated RBC % 0.0 /100WBC 02/15/20 04:45 Sodium 138 mmol/L (135-145) 02/15/20 04:45 Potassium 3.6 mmol/L (3.5-5.0) 02/15/20 04:45 Chloride 105 mmol/L (101-111) 02/15/20 04:45 Carbon Dioxide 26 mmol/L (21-32) 02/15/20 04:45 Anion Gap 7.0 (6-13) 02/15/20 04:45 BUN 10 mg/dL (6-20) 02/15/20 04:45 Creatinine 0.5 mg/dL (0.6-1.2) L 02/15/20 04:45 Estimated GFR (MDRD) 163 (>89) 02/15/20 04:45 Glucose 101 mg/dL (70-100) H 02/15/20 04:45 Calcium 8.9 mg/dL (8.5-10.3) 02/15/20 04:45 C-Reactive Protein 1.7 mg/dL (0-1.0) H 02/15/20 04:45 Fluid Crystals NONE SEEN (N) 02/15/20 10:06 ABX Reporting Has patient been on IV antibiotics over the past 48 hours?: Yes Current Medications - Current Medications Current Medications: Active Medications Acetaminophen (Tylenol) 650 mg PO Q4HR PRN PRN Reason: Pain 1 to 4 Aspirin ([facility] [place] Aspirin) 81 mg PO DAILY [facility] Atenolol (Tenormin) 25 mg PO DAILY [facility] Diphenhydramine HCl (Benadryl) 25 mg PO QPM PRN PRN Reason: Insomnia Last Admin: 02/15/20 01:26 Dose: 25 mg Documented by: Docusate Sodium (Colace 100mg Capsule) 100 mg PO BID PRN PRN Reason: Constipation Enoxaparin Sodium (Lovenox) 40 mg SUBQ DAILY [facility] Sodium Chloride (Normal Saline 0.9%) 1,000 mls @ 100 mls/hr IV .Q10H [facility] Last Admin: 02/15/20 12:16 Dose: 100 mls/hr Documented by: Ceftriaxone Sodium 1 gm/ (Sodium Chloride) 100 mls @ 200 mls/hr IV DAILY [facility] Last Infusion: 02/15/20 09:00 Dose: Infused Documented by: Vancomycin HCl 1 gm/Vancomycin HCl 250 mg/ Sodium Chloride 250 mls @ 167 mls/hr IV Q8H [facility] Lorazepam (Ativan) 1 mg PO QPM PRN PRN Reason: Insomnia Last Admin: 02/15/20 01:26 Dose: 1 mg Documented by: Morphine Sulfate (Morphine (Carpuject)) 2 mg IVP Q2HR PRN PRN Reason: Pain 8 to 10 Last Admin: 02/15/20 13:55 Dose: 2 mg Documented by: Non-Formulary Medication (Nicotine Polacrilex [Nicotine Gum]) 2 mg PO DAILY [facility] Non-Formulary Medication (Lactobacillus Acidophilus [Probiotic Acidophilus]) 1 tab PO DAILY [facility] Ondansetron HCl (Zofran Odt) 4 mg TL Q6HR PRN PRN Reason: Nausea / Vomiting Ondansetron HCl (Zofran Inj) 4 mg IVP Q6HR PRN PRN Reason: Nausea / Vomiting Oxycodone HCl (Roxicodone) 5 mg PO Q4HR PRN PRN Reason: Pain 5 to 7 Last Admin: 02/14/20 23:54 Dose: 5 mg Documented by: Senna (Senokot) 17.2 mg PO Q12H PRN PRN Reason: Constipation Sodium Chloride (Normal Saline Flush 0.9%) 10 ml IVP PRN PRN PRN Reason: NEEDED PER PROVIDER ORDERS Sodium Chloride (Normal Saline Flush 0.9%) 10 ml IVP 0100,0900,1700 [facility] Last Admin: 02/15/20 12:06 Dose: Not Given Documented by: atenoloL [Atenolol] 25 mg PO DAILY 01/09/13 Aspirin 81 mg PO DAILY 06/06/18 Cyanocobalamin (Vitamin B-12) [B-12] 1 drops PO DAILY 06/06/18 LORazepam [Ativan] 1 mg PO DAILY PRN 06/06/18 Multivitamin [Multiple Vitamins] 1 tab PO DAILY 06/06/18 Nicotine Polacrilex [Nicotine Gum] 2 mg PO DAILY 06/06/18 Cholecalciferol (Vitamin D3) [Vitamin D3] 1 cap PO DAILY 02/15/20 Docusate Sodium 100 mg PO DAILY PRN 02/15/20 Lactobacillus Acidophilus [Probiotic Acidophilus] 1 tab PO DAILY 02/15/20
[2020-02-15] MEDS: VANCOMYCIN INJ 1 GM, VANCOMYCIN INJ 250 MG in SODIUM CHLORIDE 0.9% 250 ML IV SCH (21:08)
[2020-02-16] MEDS: VANCOMYCIN INJ 1 GM, VANCOMYCIN INJ 250 MG in SODIUM CHLORIDE 0.9% 250 ML IV SCH (04:56)
[2020-02-16] MEDS: SODIUM CHLORIDE FLUSH 0.9% 10 ML SYRINGE IVP SCH ×2 (04:57→14:51)
[2020-02-16] MEDS: SODIUM CHLORIDE 0.9% 1,000 ML IV SCH (04:57)
[2020-02-16 05:45] LABS: BASOPHILS % (AUTO) 0.3 %; EOSINOPHILS # (AUTO) 0.1 10^3/uL (0.0-0.7); EOSINOPHILS % (AUTO) 0.5 %; HGB - HEMOGLOBIN 11.5 g/dL (14.0-18.0); LYMPHOCYTES # (AUTO) 1.4 10^3/uL (1.5-3.5); LYMPHOCYTES % (AUTO) 14.9 %; MEAN CORPUSCULAR HEMOGLOBIN 31.9 pg (27.0-31.0); MEAN CORPUSCULAR HGB CONC 33.7 g/dL (32.0-36.0); MEAN CORPUSCULAR VOLUME 94.7 fL (80.0-94.0); MEAN PLATELET VOLUME 8.9 fL (7.4-11.4); MONOCYTES # (AUTO) 0.8 10^3/uL (0.0-1.0); MONOCYTES % (AUTO) 8.1 %; NEUTROPHILS # (AUTO) 7.1 10^3/uL (1.5-6.6); NEUTROPHILS % (AUTO) 75.9 %; PLT - PLATELET COUNT 160 10^3/uL (130-450); RED CELL DISTRIBUTION WIDTH 13.1 % (12.0-15.0); WHITE BLOOD COUNT 9.3 x10^3/uL (4.8-10.8)
[2020-02-16 06:02] LABS: CALCIUM 8.9 mg/dL (8.5-10.3); CREATININE 0.5 mg/dL (0.6-1.2)
[2020-02-16] MEDS ORDERED: SACCHAROMYCES BOULARDII 250 MG CAPSULE PO SCH (08:00)
[2020-02-16 08:30] VITALS: BP 117/70
[2020-02-16] MEDS: ENOXAPARIN 40 MG/0.4 ML SYRINGE SUBQ SCH ×2 (08:31→12:07)
[2020-02-16] MEDS: cefTRIAXone 1 GM in SODIUM CHLORIDE 0.9% MINIBAG 100 ML IV SCH (08:33)
[2020-02-16] MEDS ORDERED: ASPIRIN CHEW 81 MG TABLET PO SCH (09:00)
[2020-02-16] MEDS ORDERED: atenoloL 25 MG TABLET PO SCH (09:00)
[2020-02-16] MEDS ORDERED: NICOTINE 7 MG PATCH TOP PRN (09:00)
[2020-02-16 11:41] LABS: VANCOMYCIN,TROUGH 23.7 ug/mL (10.0-20.0)
[2020-02-16] MEDS ORDERED: VANCOMYCIN INJ 1 GM in SODIUM CHLORIDE 0.9% 250 ML IV SCH (12:00)
--- NOTE | 2020-02-16 14:53 | Discharge Plan ---
Discharge Plan Problem Reviewed?: Yes Disposition: Home, Self Care Condition: Stable Prescriptions: oxyCODONE [Roxicodone] 5 mg PO Q4HR PRN #20 tablet PRN Reason: Pain 5 to 7 Cephalexin [Keflex] 500 mg PO Q6H #40 capsule Diet: Regular Activity Restrictions: Activity as Tolerated Shower Restrictions: No (fall precaution) Instruction Topics: Cephalexin tablets or capsules, Oxycodone tablets or capsules Health Concerns: septic right wrist Plan of Treatment: After you had antibiotics treatment, and Irrigation and debridement of septic right wrist, your right wrist condition had great improvement. Your right wrist work as your left side normally. Antibiotics is prescribed for you to continue the treatment course. According to orthopedics instruction, nurse will change dress for you. advise to followup with your orthopedics instructions and followup with an appointment on next week . Care Goals: stabilization and improvement of your medical conditions Assessment: discussed the care plan with you, you understood and agreed. Additional Instructions or Follow Up instructions: You may followup with your PCP in 1-2 weeks, followup with orthopedics office in next week . Should your symptoms return or worsen, you may present ER or call 911 for help. Follow-Up Care: Outpatient Rehab - OT No Smoking: If you smoke, Please STOP! Call for help. Follow-up with: Sweetie Ruth ARNP [Primary Care Provider] -
--- NOTE | 2020-02-16 15:46 | DISCHARGE SUMMARY ---
"Discharge Summary Admit Date: 02/14/20 Discharge Date: 02/16/20 Discharging Provider: Kirk Mccullough Primary Care Provider: Sweetie Ocampo Condition at Discharge: Stable Discharge Disposition: 01 Home, Self Care Discharge Facility Name: home - DIAGNOSES Discharge Diagnoses with Status of Each Condition: (1) Acute joint pain He can move right hand fully without pain. Per orthopedics assessed, pt's Color, motion and sensation to fingers the right hand are completely intact, There is very mild swelling to right wrist, Incision is clean and dry. Nurse did new dress change for pt before pt was d/c per orthopedics surgeon's instruction. In hospital, Orthopedic surgeon had Irrigation and debridement for pt's septic right wrist. fluid crystals is negative. Preliminary wound culture has no organism seen. In 02/13 fluid culture from aspiration of right wrist showed gram positive cocci but there was no growth in continuing culture. Orthopedics agreed pt had antibiotics Keflex now until he will assess pt in his clinic on next week to determine if continue to use antibiotics. orthopedics surgeon discharged pt as well. (2) HTN (hypertension) stable (3) Anxiety stable (4)hx of B-cell lymphoma. in remission, advised patient follow with his oncologist closely - HPI History of Present Illness: refer from Dr. 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 His last chemotherapy was May 2018. On and off melena for 2 to 3 weeks resulted in the hospitalization in June 2011. It was accompanied by left mid/lower quadrant abdominal pain. He was admitted to [facility]. 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 Went home. Return to the emergency room with generalized weakness, malaise and shortness of breath. Was found to have Peptostreptococcus bacteremia of unclear source, presumed lower GI source. After antibiotic treatment, repeat blood cultures negative. He then had an episode of possible septic arthritis in 2015. He presented with a 2-day history of increasing painful erythema of the right wrist. It improved and empiric antibiotic therapy and Toradol. He was placed on Cleocin IV and then discharged on clindamycin and Florastor. At that time he was not seen by orthopedics. He also had an episode of pseudogout of both wrists with his bone marrow transplant induction 09/2018. He now returns with recurrence of increasing right wrist pain. Started 2 days prior to admission. No trauma. No open wounds. He was seen in an urgent care clinic and blood was drawn with a normal white cell count, C-reactive protein, and sed rate. However the pain was worse and he came to our emergency room. He was seen by Dr. Nye this morning. The patient was afebrile. White cell cou nt was 10.8. C-reactive protein 1.4. There was warmth and swelling over the lateral dorsal radiocarpal joint. Arthrocentesis was done of a thick sludgy fluid. Gram stain was positive for gram-positive cocci's. This was a late result called in. The patient had already gone home with oral antibiotics. He was asked to return. Orthopedics was consulted. Orthopedics now wants the patient admitted for IV antibiotics and he will be seen in the morning. - CONSULTS | PROCEDURES Consultations: Dr. Land and Dr. Moran Procedures: Irrigation and debridement of right wrist - HOSPITAL COURSE Hospital Course: Patient was admitted for recurrence of increasing right wrist pain, erythema and warmth. Patient visited to the ER and had an aspiration of his right wrist and culture and staining show gram-positive cocci. Patient was called to return hospital for further evaluation and treatment. Orthopedic surgeon was consulted and patient had Irrigation and debridement for pt's septic right wrist. New culture and staining is negative for organism growth in preliminary study. Patient was given antibiotics intravenously. After treatment, patient clinically has great improved. pt's Color, motion and sensation to fingers the right hand are completely intact, There is very mild swelling to right wrist, Incision is clean and dry. Nurse did new dress change for pt before pt was d/c per [facility] surgeon's instruction. Patient was prescribed antibiotics and pain medication for discharge. Patient was informed he will have an appointment with his surgeon on next , patient stated he will follow-up. - ALLERGIES Allergies/Adverse Reactions: Allergies Allergy/AdvReac Type Severity Reaction Status Date / Time azithromycin [From Zithromax] AdvReac Rash Verified 02/14/20 21:36 hydrocodone AdvReac Nausea Verified 02/14/20 21:36 - MEDICATIONS Home Medications: Ambulatory Orders Medication Instructions Recorded Confirmed atenoloL [Atenolol] 25 mg PO DAILY 01/09/13 02/15/20 Aspirin 81 mg PO DAILY 06/06/18 02/15/20 Cyanocobalamin (Vitamin B-12) 1 drops PO DAILY 06/06/18 02/15/20 [B-12] LORazepam [Ativan] 1 mg PO DAILY PRN 06/06/18 02/15/20 Multivitamin [Multiple Vitamins] 1 tab PO DAILY 06/06/18 02/15/20 Nicotine Polacrilex [Nicotine Gum] 2 mg PO DAILY 06/06/18 02/15/20 Cholecalciferol (Vitamin D3) 1 cap PO DAILY 02/15/20 02/15/20 [Vitamin D3] Docusate Sodium 100 mg PO DAILY PRN 02/15/20 02/15/20 Lactobacillus Acidophilus 1 tab PO DAILY 02/15/20 02/15/20 [Probiotic Acidophilus] Cephalexin [Keflex] 500 mg PO Q6H #40 capsule 02/16/20 oxyCODONE [Roxicodone] 5 mg PO Q4HR PRN #20 tablet 02/16/20 - PHYSICAL EXAM AT DISCHARGE General Appearance: positive: No acute distress, Alert. negative: Lethargic Eyes Bilateral: positive: Normal inspection, PERRL, No lid inflammation ENT: positive: ENT inspection nml, No signs of dehydration. negative: Purulent nasal drainage, Dry mucous membranes Neck: positive: Nml inspection, Thyroid nml, Trachea midline. negative: Thyromegaly, Stiff neck, Tracheal deviation Respiratory: positive: Chest non-tender, No respiratory distress, Breath sounds nml. negative: Wheezes, Rales, Rhonchi Cardiovascular: positive: Regular rate & rhythm, No murmur. negative: Irregularly irregular, Tachycardia, Bradycardia, Systolic murmur, Diastolic murmur Peripheral Pulses: positive: 2+ Abdomen: positive: Non-tender, Nml bowel sounds, No distention. negative: Tenderness, Guarding, Rebound Back: positive: Nml inspection. negative: CVA tenderness (R), CVA tenderness (L) Skin: positive: Color nml, No rash, Warm, Dry. negative: Cyanosis, Diaphoresis, Pallor Extremities: positive: Non-tender, Full ROM, Other (Color, motion and sensation to fingers the right hand are completely intact, There is very mild swelling to right wrist, Incision is clean and dry.). negative: Calf tenderness Neurologic/Psychiatric: positive: Oriented x3, Motor nml, Sensation nml, Mood/affect nml. negative: Weakness, Sensory loss, Facial droop, Slurred/abnml speech, Depressed mood/affect - LABS Result Diagrams: 02/16/20 04:30 02/16/20 04:30 - FOLLOW UP Follow Up: After you had antibiotics treatment, and Irrigation and debridement of septic right wrist, your right wrist condition had great improvement. Your right wrist work as your left side normally. Antibiotics is prescribed for you to continue the treatment course. According to orthopedics instruction, nurse will change dress for you. advise to followup with your orthopedics instructions and followup with an appointment on next week . You may followup with your PCP in 1-2 weeks, followup with orthopedics office in next week . Should your symptoms return or worsen, you may present ER or call 911 for help. - TIME SPENT Time Spent in Discharge (Minutes): 30"
--- NOTE | 2020-02-16 17:15 | PROVIDER PROGRESS NOTE ---
Subjective - General Admit Date: 02/14/20 Procedure Date: 02/15/20 Post Op Days: 1 - Review of Systems Wound/Incisions: positive: Healing well, Dressing dry and intact, No drainage General: positive: No symptoms Musculoskeletal: negative: Other (Pain is markedly improved to right wrist and hand. He is postop day 1. He had arthrotomy with irrigation and drainage, done by Dr. Land. Color, motion and sensation to fingers the right hand are completely intact. There is very mild swelling to right wrist. Incision is clean and dry. There is n) - Other Other Information/Narrative: There is no fluctuance, skin necrosis, cellulitis or lymphangitis to right hand or wrist. The incision is healing very well.The incision is a dorsal radioc arpal incision right wrist Objective - Patient Data Weight: Weight 02/14/20 02/15/20 02/16/20 23:59 23:59 23:59 Weight (kg) 76.204 kg 80 kg Intake & Output: Intake and Output Totals x24h 02/14/20 02/15/20 02/16/20 23:59 23:59 23:59 Intake Total 100 3790 2000 Output Total 2100 1805 Balance 100 1690 195 - Lab Results Lab Results: 02/16/20 04:30 02/16/20 04:30 Other Lab Results: Lab Results x24hrs 02/16/20 02/16/20 02/16/20 Range/Units 10:59 04:30 04:30 WBC 9.3 (4.8-10.8) x10^3/uL RBC 3.60 L (4.70-6.10) 10^6/uL Hgb 11.5 L (14.0-18.0) g/dL Hct 34.1 L (42.0-52.0) % MCV 94.7 H (80.0-94.0) fL MCH 31.9 H (27.0-31.0) pg MCHC 33.7 (32.0-36.0) g/dL RDW 13.1 (12.0-15.0) % Plt Count 160 (130-450) 10^3/uL MPV 8.9 (7.4-11.4) fL Neut # (Auto) 7.1 H (1.5-6.6) 10^3/uL Lymph # (Auto) 1.4 L (1.5-3.5) 10^3/uL [place] # (Auto) 0.8 (0.0-1.0) 10^3/uL Eos # (Auto) 0.1 (0.0-0.7) 10^3/uL Baso # (Auto) 0.0 (0.0-0.1) 10^3/uL Absolute Nucleated RBC 0.00 x10^3/uL Nucleated RBC % 0.0 /100WBC Sodium 138 (135-145) mmol/L Potassium 3.9 (3.5-5.0) mmol/L Chloride 105 (101-111) mmol/L Carbon Dioxide 25 (21-32) mmol/L Anion Gap 8.0 (6-13) BUN 12 (6-20) mg/dL Creatinine 0.5 L (0.6-1.2) mg/dL Estimated GFR (MDRD) 163 (>89) Glucose 133 H (70-100) mg/dL Calcium 8.9 (8.5-10.3) mg/dL C-Reactive Protein 2.0 H (0-1.0) mg/dL Nasal Screen MRSA (PCR) (NEGATIVE) Last Dose Date 02/16/20 Last Dose Time 0630 Vancomycin Trough 23.7 H (10.0-20.0) ug/mL 02/15/20 Range/Units 15:05 WBC (4.8-10.8) x10^3/uL RBC (4.70-6.10) 10^6/uL Hgb (14.0-18.0) g/dL Hct (42.0-52.0) % MCV (80.0-94.0) fL MCH (27.0-31.0) pg MCHC (32.0-36.0) g/dL RDW (12.0-15.0) % Plt Count (130-450) 10^3/uL MPV (7.4-11.4) fL Neut # (Auto) (1.5-6.6) 10^3/uL Lymph # (Auto) (1.5-3.5) 10^3/uL [place] # (Auto) (0.0-1.0) 10^3/uL Eos # (Auto) (0.0-0.7) 10^3/uL Baso # (Auto) (0.0-0.1) 10^3/uL Absolute Nucleated RBC x10^3/uL Nucleated RBC % /100WBC Sodium (135-145) mmol/L Potassium (3.5-5.0) mmol/L Chloride (101-111) mmol/L Carbon Dioxide (21-32) mmol/L Anion Gap (6-13) BUN (6-20) mg/dL Creatinine (0.6-1.2) mg/dL Estimated GFR (MDRD) (>89) Glucose (70-100) mg/dL Calcium (8.5-10.3) mg/dL C-Reactive Protein (0-1.0) mg/dL Nasal Screen MRSA (PCR) NEGATIVE (NEGATIVE) Last Dose Date Last Dose Time Vancomycin Trough (10.0-20.0) ug/mL - Current Medications Current Medications: Current Medications Generic Name Dose Route Start Last Admin Trade Name Freq PRN Reason Stop Dose Admin Aspirin 81 mg 02/16/20 09:00 02/16/20 08:32 [place] Aspirin PO 81 mg DAILY MARIA VICTORIA Administration Atenolol 25 mg 02/16/20 09:00 02/16/20 08:32 Tenormin PO 25 mg DAILY MARIA VICTORIA Administration Diphenhydramine HCl 25 mg 02/15/20 00:09 02/15/20 22:20 Benadryl PO 25 mg QPM PRN Administration Insomnia Enoxaparin Sodium 40 mg 02/16/20 09:00 02/16/20 12:07 Lovenox SUBQ 40 mg DAILY MARIA VICTORIA Administration Sodium Chloride 1,000 mls @ 100 mls/hr 02/14/20 23:00 02/16/20 16:29 Normal Saline 0.9% IV 100 mls/hr .Q10H MARIA VICTORIA Infusion Ceftriaxone Sodium 1 gm/ 100 mls @ 200 mls/hr 02/15/20 09:00 02/16/20 09:05 Sodium Chloride IV Infused DAILY MARIA VICTORIA Infusion Vancomycin HCl 1 gm/ Sodium 250 mls @ 167 mls/hr 02/16/20 12:00 02/16/20 13:40 Chloride IV Infused Q8H MARIA VICTORIA Infusion Lorazepam 1 mg 02/15/20 00:09 02/15/20 22:20 Ativan PO 1 mg QPM PRN Administration Insomnia Morphine Sulfate 2 mg 02/14/20 22:04 02/15/20 13:55 Morphine (Carpuject) IVP 2 mg Q2HR PRN Administration Pain 8 to 10 Oxycodone HCl 5 mg 02/14/20 22:04 02/14/20 23:54 Roxicodone PO 5 mg Q4HR PRN Administration Pain 5 to 7 Saccharomyces Boulardii 250 mg 02/16/20 08:00 02/16/20 08:32 Florastor PO 250 mg BIDWM MARIA VICTORIA Administration Senna 17.2 mg 02/15/20 10:14 02/15/20 21:08 Senokot PO 17.2 mg Q12H PRN Administration Constipation Sodium Chloride 10 ml 02/15/20 01:00 02/16/20 14:51 Normal Saline Flush 0.9% IVP Not Given 0100,0900,1700 [facility] - Physical Exam Wound/Incisions: positive: Healing well, Dressing dry and intact, No drainage General Appearance: positive: No acute distress, Alert Extremities: negative: Other (Color, motion and sensation intact fingers right hand) Neurologic/Psychiatric: positive: Oriented x3 Impression/Plan - Problem List Problem List: Presumed septic arthritis of the right wrist Patient is made excellent response to surgery and antibiotics. I am following the patient in Dr. Land's absence. A silver impregnated dressing, occlusive, has been applied. He will continue on oral antibiotics provided by medicine, Keflex 500 mg every 6 hours. He will return to orthopedic clinic in approximately 6 days for follow-up. Patient will be discharged today as he is doing very well
[2020-02-16] MEDS ORDERED: MIDAZOLAM 2 MG/2 ML VIAL IVP ONE (18:36)
[2020-02-16] MEDS ORDERED: DEXAMETHASONE 4 MG/ML VIAL IVP ONE (18:36)
[2020-02-16] MEDS ORDERED: PROPOFOL 200 MG/20 ML VIAL IVP ONE (18:36)
[2020-02-16] MEDS ORDERED: fentaNYL 100 MCG/2 ML VIAL IVP ONE (18:36)
[2020-02-16] MEDS ORDERED: ePHEDrine 50 MG/ML VIAL IVP ONE (18:36)
[2020-02-16] MEDS ORDERED: ONDANSETRON 4 MG/2 ML VIAL IVP ONE (18:36)
== END 2020-02-16 18:37 | disposition home or self-care (01) | DRG 506 ==
LOC: ED 21:27 → MS3 22:04
PROVIDERS: ADMIT Specialist; ATTEND Nurse Practitioner Gerontology
PROC: 0R9N0ZZ Drainage of Right Wrist Joint, Open Approach (ICD-10-PCS; principal; 2020-02-15 08:30)
DX: M13.831 Other specified arthritis, right wrist (principal); M00.9 Pyogenic arthritis, unspecified; C85.90 Non-Hodgkin lymphoma, unspecified, unspecified site; C85.11 Unspecified B-cell lymphoma, lymph nodes of head, face, and neck; Z94.81 Bone marrow transplant status; I10 Essential (primary) hypertension; F41.9 Anxiety disorder, unspecified; K21.9 Gastro-esophageal reflux disease without esophagitis; E78.00 Pure hypercholesterolemia, unspecified; H54.7 Unspecified visual loss; H91.90 Unspecified hearing loss, unspecified ear; Z79.82 Long term (current) use of aspirin; Z79.01 Long term (current) use of anticoagulants; Z79.899 Other long term (current) drug therapy; Z87.891 Personal history of nicotine dependence; Z86.19 Personal history of other infectious and parasitic diseases
CPT/HCPCS: 36415 ×2; 80048 ×2; 80202 ×2; 85025 ×2; 86140 ×2; 87070 ×2; 87205 ×2; 87640 ×2; 89051; 89060 ×2; A9270; J1650; J3370; J7120

== ENCOUNTER 2020-04-02 11:56 | Emergency (ER) | payer MEDICARE, OTHER ==
--- NOTE | 2020-04-02 12:12 | ED Physician Documentation ---
PD HPI NVD - Stated complaint Stated Complaint: WEAK,FATIGUE,CANT EAT - Chief complaint Chief Complaint: General - History obtained from History obtained from: Patient - History of Present Illness Timing - onset: How many days ago (4-5) Timing - duration: Days (4-5) Timing - details: Gradual onset, Still present Associated symptoms: Abdominal pain (intermittent crampy). No: Fever, Chest pain Contributing factors: Recent antibiotics (couple months ago for wrist infection; has been off abx for 1 1/2 months and wrist is doing okay.). No: Sick contact, Bad food, Travel Recently seen: Admitted (wrist infection 2 months ago and improved with abx. history of NHlymphma with stem cell transplant over a year ago, with normal follow up over the summer.) Review of Systems Constitutional: reports: Myalgias, Fatigue. denies: Fever, Chills, Weight Loss Nose: denies: Rhinorrhea / runny nose, Congestion Throat: denies: Sore throat Cardiac: denies: Chest pain / pressure Respiratory: denies: Dyspnea, Cough GI: reports: Abdominal Pain, Nausea. denies: Abdominal Swelling, Vomiting, Diarrhea (not diarrhea but states few days of loose stools but still somewhat formed.), Bloody / black stool : denies: Dysuria, Frequency Musculoskeletal: denies: Neck pain, Extremity pain Neurologic: reports: Generalized weakness. denies: Near syncope, Altered mental status, Headache PD PAST MEDICAL HISTORY - Past Medical History Cardiovascular: Hypertension, High cholesterol, Angina (Atypical chest pain. Stress test negative. Active 10 mets-works out at gym, weight lifting.), Arrhy thmia Respiratory: None Neuro: None Endocrine/Autoimmune: Other (B Cell Lymphoma-last chemo May 2018, Bone marrow transplant. 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) Derm: None - Past Surgical History Past Surgical History: Yes General: Cholecystectomy, Appendectomy, Colonoscopy, EGD Ortho: Arthroscopic surgery HEENT: Tonsil/Adenoidectomy - Present Medications Home Medications: Ambulatory Orders Medication Instructions Recorded Confirmed atenoloL [Atenolol] 25 mg PO DAILY 01/09/13 02/15/20 Aspirin 81 mg PO DAILY 06/06/18 02/15/20 Cyanocobalamin (Vitamin B-12) 1 drops PO DAILY 06/06/18 02/15/20 [B-12] LORazepam [Ativan] 1 mg PO DAILY PRN 06/06/18 02/15/20 Multivitamin [Multiple Vitamins] 1 tab PO DAILY 06/06/18 02/15/20 Nicotine Polacrilex [Nicotine Gum] 2 mg PO DAILY 06/06/18 02/15/20 Cholecalciferol (Vitamin D3) 1 cap PO DAILY 02/15/20 02/15/20 [Vitamin D3] Docusate Sodium 100 mg PO DAILY PRN 02/15/20 02/15/20 Lactobacillus Acidophilus 1 tab PO DAILY 02/15/20 02/15/20 [Probiotic Acidophilus] Cephalexin [Keflex] 500 mg PO Q6H #40 capsule 02/16/20 oxyCODONE [Roxicodone] 5 mg PO Q4HR PRN #20 tablet 02/16/20 Ondansetron Odt [Zofran] 4 mg TL Q6H PRN #10 tablet 04/02/20 - Allergies Allergies/Adverse Reactions: Allergies Allergy/AdvReac Type Severity Reaction Status Date / Time azithromycin [From Zithromax] AdvReac Rash Verified 04/02/20 12:05 hydrocodone AdvReac Nausea Verified 04/02/20 12:05 - Social History Does the pt smoke?: No Smoking Status: Former smoker Does the pt drink ETOH?: Yes Does the pt have substance abuse?: No - Immunizations Immunizations are current?: Yes - POLST Patient has POLST: No POLST Status: DNR (He states that he has advanced directives that he is brought into this hospital 2 or 3 times. We will have to pull the old hardcopy charts to see if they are there. Either his ex- or daughter are DURABLE POWER OF DERMATOLOGY TEACHER he cannot remember which.) PD ED PE NORMAL - Vitals Vital signs reviewed: Yes - General General: Alert and oriented X 3, No acute distress, Well developed/nourished - HEENT HEENT: Ears normal, Moist mucous membranes, Pharynx benign - Neck Neck: Supple, no meningeal sign, No adenopathy - Cardiac Cardiac: RRR, No murmur - Respiratory Respiratory: Clear bilaterally - Abdomen Abdomen: Normal bowel sounds, Soft, Non tender, Non distended, No organomegaly - Back Back: No CVA TTP - Derm Derm: Normal color, Warm and dry - Extremities Extremities: No tenderness to palpate, No edema, No calf tenderness / cord, Other (knee brace on right knee. No effusion nor tenderness of the knee. ) - Neuro Neuro: Alert and oriented X 3, No motor deficit, Normal speech Results - Vitals Vitals: Vital Signs - 24 hr 04/02/20 04/02/20 12:05 14:10 Temperature 36.6 C Heart Rate 66 52 L Respiratory 16 19 Rate Blood Pressure 142/77 H 116/75 O2 Saturation 96 99 Oxygen O2 Source Room air - Labs Labs: Laboratory Tests 04/02/20 04/02/20 04/02/20 12:34 13:07 13:07 WBC 6.7 RBC 4.55 L Hgb 14.2 Hct 42.3 MCV 93.0 MCH 31.2 H MCHC 33.6 RDW 12.9 Plt Count 154 MPV 8.1 Neut # (Auto) 4.2 Lymph # (Auto) 1.8 [place] # (Auto) 0.6 Eos # (Auto) 0.1 Baso # (Auto) 0.0 Absolute Nucleated RBC 0.00 Nucleated RBC % 0.0 Sodium 138 Potassium 4.2 Chloride 102 Carbon Dioxide 29 Anion Gap 7.0 BUN 12 Creatinine 0.7 Estimated GFR (MDRD) 111 Glucose 119 H Calcium 9.4 Magnesium 2.1 Total Bilirubin 0.9 AST 18 ALT 18 Alkaline Phosphatase 52 C-Reactive Protein < 1.0 Total Protein 6.7 Albumin 4.1 Globulin 2.6 Albumin/Globulin Ratio 1.6 Urine Color YELLOW Urine Clarity CLEAR Urine pH 7.0 Ur Specific [place] 1.020 Urine Protein NEGATIVE Urine Glucose (UA) NEGATIVE Urine Ketones NEGATIVE Urine Occult Blood NEGATIVE Urine Nitrite NEGATIVE Urine Bilirubin NEGATIVE Urine Urobilinogen 0.2 (NORMAL) Ur Leukocyte Esterase NEGATIVE Ur Microscopic Review NOT INDICATED Urine Culture Comments NOT INDICATED PD MEDICAL DECISION MAKING - ED course Complexity details: reviewed results (His labs are normal and he does not have any focal tenderness so seems less likely for diverticulitis or appendix or gallbladder. He is okay watching to see how his symptoms evolve.), re-evaluated patient (Feeling some better with IV fluids.), considered differential (Consider possible viral illness. He has not had any exposure to Covid illness and he does not believe that his is problem. He had antibiotics 2 months ago for wrist infection but only now has loose stools. He is having some cramping 2. Consider early C. difficile or other intestinal infection. ), d/w patient Departure - Departure Disposition: 01 Home, Self Care Clinical Impression: Decreased appetite, Abdominal cramping, General weakness Condition: Stable Record reviewed to determine appropriate education?: Yes Follow-Up: Sweetie Ruth ARNP [Primary Care Provider] - Prescriptions: Ondansetron Odt [Zofran] 4 mg TL Q6H PRN #10 tablet PRN Reason: Nausea / Vomiting Comments: At this point your blood count and chemistry panel and urine test all appear n ormal. Your inflammatory marker called the CRP is normal as well. I would try to encourage more fluids. You may have a little bit of an intestinal illness with the cramps and loose stool. Add ondansetron if needed for nausea. Small frequent fluids and bland diet for couple of days. Recheck if not improved over the next 2 to 3 days and return if increasing pains, overt diarrhea, bloody stool, fevers or other concerns.
[2020-04-02] MEDS ORDERED: SODIUM CHLORIDE 0.9% 1,000 ML IV STA ×2 (12:50→12:51)
[2020-04-02] MEDS ORDERED: ONDANSETRON 4 MG/2 ML VIAL IVP STA (12:50)
[2020-04-02 12:59] LABS: BILIRUBIN,URINE NEGATIVE (NEGATIVE); CLARITY,URINE CLEAR (CLEAR); GLUCOSE, URINE (UA) NEGATIVE (NEGATIVE); KETONES,URINE (UA) NEGATIVE (NEGATIVE); LEUKOCYTE ESTERASE, URINE NEGATIVE (NEGATIVE); NITRITE,URINE NEGATIVE (NEGATIVE); OCCULT BLOOD,URINE NEGATIVE (NEGATIVE); PROTEIN,URINE NEGATIVE (NEGATIVE); UROBILINOGEN,URINE 0.2 (NORMAL) E.U./dL (NORMAL)
[2020-04-02 13:22] LABS: BASOPHILS % (AUTO) 0.5 %; EOSINOPHILS # (AUTO) 0.1 10^3/uL (0.0-0.7); EOSINOPHILS % (AUTO) 0.8 %; HGB - HEMOGLOBIN 14.2 g/dL (14.0-18.0); LYMPHOCYTES # (AUTO) 1.8 10^3/uL (1.5-3.5); LYMPHOCYTES % (AUTO) 26.5 %; MEAN CORPUSCULAR HEMOGLOBIN 31.2 pg (27.0-31.0); MEAN CORPUSCULAR HGB CONC 33.6 g/dL (32.0-36.0); MEAN PLATELET VOLUME 8.1 fL (7.4-11.4); MONOCYTES # (AUTO) 0.6 10^3/uL (0.0-1.0); NEUTROPHILS # (AUTO) 4.2 10^3/uL (1.5-6.6); NEUTROPHILS % (AUTO) 62.9 %; PLT - PLATELET COUNT 154 10^3/uL (130-450); RED BLOOD COUNT 4.55 10^6/uL (4.70-6.10); RED CELL DISTRIBUTION WIDTH 12.9 % (12.0-15.0); WHITE BLOOD COUNT 6.7 x10^3/uL (4.8-10.8)
[2020-04-02 13:42] LABS: ALBUMIN 4.1 g/dL (3.2-5.5); ALBUMIN/GLOBULIN RATIO 1.6 (1.0-2.2); ALKALINE PHOSPHATASE 52 IU/L (42-121); ALT ALANINE AMINOTRANSFERASE 18 IU/L (10-60); AST ASPARTATE AMINOTRANSFERASE 18 IU/L (10-42); BILIRUBIN,TOTAL 0.9 mg/dL (0.2-1.0); BUN - BLOOD UREA NITROGEN 12 mg/dL (6-20); CALCIUM 9.4 mg/dL (8.5-10.3); CARBON DIOXIDE - CO2 29 mmol/L (21-32); CHLORIDE 102 mmol/L (101-111); CREATININE 0.7 mg/dL (0.6-1.2); GLUCOSE 119 mg/dL (70-100); MAGNESIUM 2.1 mg/dL (1.7-2.8); SODIUM 138 mmol/L (135-145); TOTAL PROTEIN 6.7 g/dL (6.7-8.2)
[2020-04-02 13:45] LABS: CRP - C-REACTIVE PROTEIN < 1.0 mg/dL (0-1.0)
[2020-04-02 14:10] VITALS: BP 116/75
== END 2020-04-02 14:38 | disposition home or self-care (01) ==
LOC: ED 11:56
DX: R10.9 Unspecified abdominal pain (principal); R63.0 Anorexia; R53.1 Weakness; R11.0 Nausea; I10 Essential (primary) hypertension; Z85.72 Personal history of non-Hodgkin lymphomas; Z94.81 Bone marrow transplant status; Z79.82 Long term (current) use of aspirin; Z87.891 Personal history of nicotine dependence; Z66 Do not resuscitate
CPT/HCPCS: 36415; 80053; 81001; 81003; 83735; 85025; 86140; 87086; 96360; 99284

== ENCOUNTER 2020-06-07 07:11 | Outpatient (CLI) | payer MEDICARE, OTHER ==
[2020-06-07 14:27] LABS: BASOPHILS % (AUTO) 0.7 %; EOSINOPHILS # (AUTO) 0.1 10^3/uL (0.0-0.7); EOSINOPHILS % (AUTO) 1.9 %; HGB - HEMOGLOBIN 14.8 g/dL (14.0-18.0); LYMPHOCYTES # (AUTO) 2.3 10^3/uL (1.5-3.5); LYMPHOCYTES % (AUTO) 39.5 %; MEAN CORPUSCULAR HEMOGLOBIN 31.8 pg (27.0-31.0); MEAN CORPUSCULAR HGB CONC 33.5 g/dL (32.0-36.0); MEAN CORPUSCULAR VOLUME 94.8 fL (80.0-94.0); MEAN PLATELET VOLUME 8.8 fL (7.4-11.4); MONOCYTES # (AUTO) 0.5 10^3/uL (0.0-1.0); MONOCYTES % (AUTO) 8.9 %; NEUTROPHILS # (AUTO) 2.8 10^3/uL (1.5-6.6); NEUTROPHILS % (AUTO) 48.8 %; PLT - PLATELET COUNT 174 10^3/uL (130-450); RED BLOOD COUNT 4.66 10^6/uL (4.70-6.10); RED CELL DISTRIBUTION WIDTH 13.3 % (12.0-15.0); WHITE BLOOD COUNT 5.7 x10^3/uL (4.8-10.8)
[2020-06-07 15:47] LABS: ALBUMIN 4.3 g/dL (3.2-5.5); ALBUMIN/GLOBULIN RATIO 1.7 (1.0-2.2); ALKALINE PHOSPHATASE 50 IU/L (42-121); ALT ALANINE AMINOTRANSFERASE 17 IU/L (10-60); AST ASPARTATE AMINOTRANSFERASE 18 IU/L (10-42); BILIRUBIN,TOTAL 0.7 mg/dL (0.2-1.0); BUN - BLOOD UREA NITROGEN 11 mg/dL (6-20); CALCIUM 9.5 mg/dL (8.5-10.3); CARBON DIOXIDE - CO2 28 mmol/L (21-32); CHLORIDE 101 mmol/L (101-111); CHOL/HDL RATIO 3.6 (<5.0); CHOLESTEROL 124 mg/dL; CREATININE 0.8 mg/dL (0.6-1.2); GLUCOSE 110 mg/dL (70-100); HDL CHOLESTEROL 34 mg/dL; LDL CHOLESTEROL,CALCULATED 61 mg/dL; LDL/HDL RATIO 1.8 (<3.6); TOTAL PROTEIN 6.8 g/dL (6.7-8.2); VLDL CHOLESTEROL 29 mg/dL
== END 2020-06-07 07:12 | disposition home or self-care (01) ==
LOC: LAB.S 07:11
PROVIDERS: ATTEND Registered Nurse
DX: K21.9 Gastro-esophageal reflux disease without esophagitis (principal); E78.5 Hyperlipidemia, unspecified; I10 Essential (primary) hypertension; C82.91 Follicular lymphoma, unspecified, lymph nodes of head, face, and neck
CPT/HCPCS: 36415; 80053; 80061; 83721; 84153; 84443; 85025

== ENCOUNTER 2020-07-25 08:00 | Outpatient (CLI) | payer MEDICARE, OTHER ==
--- NOTE | 2020-07-25 10:40 | XRAY Report ---
PROCEDURE: Chest 2 View X-Ray INDICATIONS: Chest pain TECHNIQUE: 2 view(s) of the chest. COMPARISON: None. FINDINGS: Surgical changes and devices: None. Lungs and pleura: No pleural effusions or pneumothorax. Lungs are clear. Mediastinum: Mediastinal contours are normal. Heart size is normal. Bones and chest wall: No suspicious bony abnormalities. Soft tissues appear unremarkable. IMPRESSION: No acute cardiopulmonary process demonstrated radiographically. Reviewed by: Richard Toney MD on 07/25/2020 10:38 AM [facility] Approved by: Richard Toney MD on 07/25/2020 10:38 AM [facility] Station ID: [id number]
== END 2020-07-25 23:59 | disposition home or self-care (01) ==
LOC: DI.S 08:00
PROVIDERS: ATTEND Physician Assistant
DX: R07.9 Chest pain, unspecified (principal)

== ENCOUNTER 2020-09-17 10:31 | Outpatient (CLI) | payer MEDICARE, OTHER ==
[2020-09-17] MEDS ORDERED: IOPAMIDOL-300 100 ML VIAL ONE (10:53)
[2020-09-17] MEDS ORDERED: IOPAMIDOL-300 50 ML VIAL ONE (10:53)
[2020-09-17 11:34] LABS: CREATININE 0.7 mg/dL (0.6-1.2)
[2020-09-17] MEDS ORDERED: IOPAMIDOL-300 50 ML VIAL PO ONE (12:16)
[2020-09-17] MEDS ORDERED: IOPAMIDOL-300 100 ML VIAL IVP ONE (12:17)
--- NOTE | 2020-09-17 14:28 | CT Report ---
PROCEDURE: SOFT TISSUE NECK W INDICATIONS: DIFFUSE LARGE B CELL LYMPHOMA CONTRAST: IV CONTRAST: Isovue 300 ml: 100 PO CONTRAST: Isovue 300 ml50 TECHNIQUE: After the administration of intravenous contrast, 3.0 mm axial sections acquired from the sella to th e aortic arch. Additional oblique axial 3.0 mm sections acquired through the pharynx. 3 mm thick co garry reformats were generated. For radiation dose reduction, the following was used: automated exp osure control, adjustment of mA and/or kV according to patient size. COMPARISON: CT neck 09/19/2019, 10/10/2015 FINDINGS: Image quality: Excellent. Lymph nodes: No enlarged lymph nodes seen throughout the neck. Vessels: Visualized vasculature appears patent. Neck spaces: The oropharynx, nasopharynx, and pharynx demonstrate no mucosal lesions. The vocal cor ds, false vocal cords, pyriform sinuses, epiglottis, vallecula, and tongue base all appear normal. E xtramucosal spaces appear unremarkable. Glands: The parotid and submandibular glands appear normal. The thyroid is normal in size. Miscellaneous: Visualized brain and orbits appear normal. Lung apices appear clear. Superficial so ft tissues appear normal. Bones: No suspicious bony lesions. Visualized sinuses and mastoids appear unremarkable. IMPRESSION: 1. No adenopathy or mass lesions identified within the neck. Reviewed by: Chiara Ayala MD on 09/17/2020 2:27 PM PDT Approved by: Chiara Ayala MD on 09/17/2020 2:27 PM PDT Station ID: [id number]
--- NOTE | 2020-09-17 17:10 | CT Report ---
PROCEDURE: CHEST W INDICATIONS: DIFFUSE LARGE B CELL LYMPHOMA CONTRAST: IV CONTRAST: Isovue 300 ml: 100 PO CONTRAST: Isovue 300 ml50 TECHNIQUE: After the administration of intravenous contrast, 5 mm thick sections acquired from the pulmonary api juana to the posterior costophrenic angles. 7 mm thick coronal MIP reformats were acquired. For radia tion dose reduction, the following was used: automated exposure control, adjustment of mA and/or kV according to patient size. COMPARISON: 2 view chest 07/25/2020, prior chest CT 09/19/2019.. FINDINGS: Image quality: Excellent. Lungs and pleura: No acute air space opacities. No pleural effusions or pneumothorax. Central and peripheral airways are patent and normal in caliber. Mediastinum: Heart size is normal. No pericardial effusion. No mediastinal or hilar adenopathy by size criteria. Thoracic aorta and central pulmonary arteries are normal in size. Esophagus is ta l in caliber. No hiatal hernia. Bones and chest wall: No suspicious bony lesions. No vertebral body compression fractures. No axil matthew or supraclavicular adenopathy by size criteria. Thyroid gland appears normal where well seen.. Abdomen: Visualized upper abdominal solid organs appear normal. Upper abdominal bowel loops are nor mal in caliber. IMPRESSION: No evidence of recurrent lymphoma. No evidence of visceral infiltration by lymphoma. Marrow space [place] ears normal. Reviewed by: José Nix MD on 09/17/2020 5:08 PM PDT Approved by: José Nix MD on 09/17/2020 5:08 PM PDT Station ID: [id number]
--- NOTE | 2020-09-18 09:20 | CT Report ---
PROCEDURE: Abdomen/Pelvis W INDICATIONS: DIFFUSE LARGE B CELL LYMPHOMA CONTRAST: IV CONTRAST: Isovue 300 ml: 100 PO CONTRAST: Isovue 300 ml50 TECHNIQUE: After the administration of nonionic contrast, 5 mm thick sections acquired from the diaphragms to th e symphysis. 5 mm thick coronal and sagittal reformats were acquired. For radiation dose reduction, the following was used: automated exposure control, adjustment of mA and/or kV according to patient size. COMPARISON: Comparison prior abdominal/pelvic CT 09/19/2019 and 11/22/2018 reviewed.. FINDINGS: Image quality: Excellent. ABDOMEN: Lung bases: Lung bases are clear. Heart size is normal. Solid organs: Liver and spleen are normal in size and enhancement. Gallbladder appear to have been previously resected. Biliary system is non dilated. Pancreas enhances normally. No adrenal nodules . Kidneys demonstrate normal size and enhancement, without hydronephrosis. Peritoneum and bowel: Bowel loops demonstrate normal wall thickness and caliber. No free fluid or a ir. Nodes and vessels: No retroperitoneal or mesenteric adenopathy by size criteria. Aorta and inferior vena cava are normal in size. Miscellaneous: No ventral hernias. PELVIS: Genitourinary: Bladder wall thickness is normal. Miscellaneous: No inguinal hernias or adenopathy. Bones: No suspicious bony lesions. No vertebral body compression fractures. IMPRESSION: No adenopathy is seen, no evidence of visceral involvement by lymphoma. Prior cholecyste ctomy. No acute disease. Reviewed by: José Nix MD on 09/18/2020 9:19 AM PDT Approved by: José Nix MD on 09/18/2020 9:19 AM PDT Station ID: [id number]
== END 2020-09-17 10:32 | disposition home or self-care (01) ==
LOC: DI 10:31
PROVIDERS: ATTEND Internal Medicine Hematology & Oncology
DX: C83.38 Diffuse large B-cell lymphoma, lymph nodes of multiple sites (principal)
CPT/HCPCS: 36415; 70491; 71260; 74177; 82565; Q9967

== ENCOUNTER 2020-12-20 10:03 | Emergency (ER) | payer MEDICARE, OTHER ==
--- NOTE | 2020-12-20 10:58 | XRAY Report ---
PROCEDURE: Chest 1 View X-Ray INDICATIONS: Chest Pain TECHNIQUE: One view of the chest was acquired. COMPARISON: 07/25/2020 FINDINGS: Surgical changes and devices: Right axillary clips. Lungs and pleura: No pleural effusions or pneumothorax. Lungs are clear. Mediastinum: Mediastinal contours appear normal. Heart size is normal. Bones and chest wall: No suspicious bony lesions. Overlying soft tissues appear unremarkable. IMPRESSION: No evidence acute pulmonary process. Reviewed by: Osvaldo Combs MD on 12/20/2020 10:57 AM PDT Approved by: Osvaldo Combs MD on 12/20/2020 10:57 AM PDT Station ID: [id number]
[2020-12-20 11:03] LABS: BASOPHILS % (AUTO) 0.5 %; EOSINOPHILS # (AUTO) 0.1 10^3/uL (0.0-0.7); HCT - HEMATOCRIT 41.6 % (42.0-52.0); HGB - HEMOGLOBIN 14.1 g/dL (14.0-18.0); LYMPHOCYTES # (AUTO) 1.6 10^3/uL (1.5-3.5); LYMPHOCYTES % (AUTO) 27.1 %; MEAN CORPUSCULAR HEMOGLOBIN 31.3 pg (27.0-31.0); MEAN CORPUSCULAR HGB CONC 33.9 g/dL (32.0-36.0); MEAN CORPUSCULAR VOLUME 92.4 fL (80.0-94.0); MEAN PLATELET VOLUME 8.2 fL (7.4-11.4); MONOCYTES # (AUTO) 0.6 10^3/uL (0.0-1.0); MONOCYTES % (AUTO) 10.7 %; NEUTROPHILS # (AUTO) 3.5 10^3/uL (1.5-6.6); NEUTROPHILS % (AUTO) 60.5 %; PLT - PLATELET COUNT 159 10^3/uL (130-450); WHITE BLOOD COUNT 5.7 x10^3/uL (4.8-10.8)
[2020-12-20 11:14] VITALS: BP 114/80
[2020-12-20 11:21] LABS: ALBUMIN 4.3 g/dL (3.2-5.5); ALBUMIN/GLOBULIN RATIO 1.8 (1.0-2.2); BILIRUBIN,TOTAL 0.9 mg/dL (0.2-1.0); CALCIUM 9.6 mg/dL (8.5-10.3); CREATININE 0.6 mg/dL (0.6-1.2); POTASSIUM 3.9 mmol/L (3.5-5.0); TOTAL PROTEIN 6.7 g/dL (6.7-8.2)
--- NOTE | 2020-12-20 11:30 | ED Physician Documentation ---
PD HPI CHEST PAIN - Stated complaint Stated Complaint: CHEST PX/WEAKNESS - Chief complaint Chief Complaint: Cardiac - History obtained from History obtained from: Patient - History of Present Illness Timing - details: Gradual onset Pain level max: 6 Pain level now: 1 Quality: Pressure Location: Substernal, Epigastric Radiation: No: Jaw, Neck, Back, Abdominal, Left upper extremity, Right upper extremity Improved by: Other (Drinking water) Worsened by: Other (nothing) Associated symptoms: No: Shortness of air, Diaphoresis, Nausea, Vomiting, Feeling faint / dizzy, General Weakness, Palpitations, Cough Similar symptoms before: Diagnosis (hiatal hernia) - Additional information Additional information: Patient is a 75-year-old male who states he has had chest pain for the past several days. He states that he has a history of hiatal hernia. He states that it feels like there is pressure in his chest and that the only way to relieve the pressure is to drink a large amounts of water. Happens randomly throughout the day. Currently feels better. Nonradiating. Review of Systems Ten Systems: 10 systems reviewed and negative Constitutional: denies: Fever, Chills Ears: denies: Ear pain Nose: denies: Rhinorrhea / runny nose, Congestion Respiratory: denies: Cough GI: denies: Vomiting, Diarrhea Skin: denies: Rash Musculoskeletal: denies: Neck pain, Back pain Neurologic: denies: Headache PD PAST MEDICAL HISTORY - Past Medical History Cardiovascular: Hypertension, High cholesterol, Angina, Arrhythmia Respiratory: None Neuro: None Endocrine/Autoimmune: Other GI: GERD, GI bleed, Hepatitis, Other : Other HEENT: None Psych: Anxiety Musculoskeletal: Gout, Other Derm: None - Past Surgical History Past Surgical History: Yes General: Cholecystectomy, Appendectomy, Colonoscopy, EGD Ortho: Arthroscopic surgery HEENT: Tonsil/Adenoidectomy - Present Medications Home Medications: Ambulatory Orders Medication Instructions Recorded Confirmed atenoloL [Atenolol] 25 mg PO DAILY 01/09/13 02/15/20 Aspirin 81 mg PO DAILY 06/06/18 02/15/20 Cyanocobalamin (Vitamin B-12) 1 drops PO DAILY 06/06/18 02/15/20 [B-12] LORazepam [Ativan] 1 mg PO DAILY PRN 06/06/18 02/15/20 Multivitamin [Multiple Vitamins] 1 tab PO DAILY 06/06/18 02/15/20 Nicotine Polacrilex [Nicotine Gum] 2 mg PO DAILY 06/06/18 02/15/20 Cholecalciferol (Vitamin D3) 1 cap PO DAILY 02/15/20 02/15/20 [Vitamin D3] Docusate Sodium 100 mg PO DAILY PRN 02/15/20 02/15/20 Lactobacillus Acidophilus 1 tab PO DAILY 02/15/20 02/15/20 [Probiotic Acidophilus] cephALEXin [Keflex] 500 mg PO Q6H #40 capsule 02/16/20 oxyCODONE [Roxicodone] 5 mg PO Q4HR PRN #20 tablet 02/16/20 Ondansetron Odt [Zofran] 4 mg TL Q6H PRN #10 tablet 04/02/20 Esomeprazole Magnesium [Nexium] 40 mg PO DAILY #30 cap 12/20/20 Famotidine [Pepcid] 20 mg PO BID #60 tablet 12/20/20 Sucralfate [Carafate] 1 gm PO ACHS #60 tablet 12/20/20 - Allergies Allergies/Adverse Reactions: Allergies Allergy/AdvReac Type Severity Reaction Status Date / Time azithromycin [From Zithromax] AdvReac Rash Verified 04/02/20 12:05 hydrocodone AdvReac Nausea Verified 04/02/20 12:05 - Social History Does the pt smoke?: No Smoking Status: Never smoker Does the pt drink ETOH?: Yes Does the pt have substance abuse?: No - Immunizations Immunizations are current?: Yes - POLST Patient has POLST: No POLST Status: DNR (He states that he has advanced directives that he is brought into this hospital 2 or 3 times. We will have to pull the old hardcopy charts to see if they are there. Either his ex- or daughter are DURABLE POWER OF RN VASCULAR he cannot remember which.) PD ED PE NORMAL - Vitals Vital signs reviewed: Yes - General General: Alert and oriented X 3, No acute distress, Well developed/nourished - HEENT HEENT: PERRL, Moist mucous membranes - Neck Neck: Supple, no meningeal sign - Cardiac Cardiac: RRR, No murmur, Strong equal pulses - Respiratory Respiratory: No respiratory distress, Clear bilaterally - Abdomen Abdomen: Soft, Non tender, Non distended - Back Back: No CVA TTP, No spinal TTP - Derm Derm: Warm and dry - Extremities Extremities: No edema - Neuro Neuro: Alert and oriented X 3 - Psych Psych: Normal mood, Normal affect Results - Vitals Vitals: Vital Signs - 24 hr 12/20/20 12/20/20 10:09 11:14 Temperature 37.1 C Heart Rate 63 57 L Respiratory 18 17 Rate Blood Pressure 126/90 H 114/80 O2 Saturation 95 97 Oxygen O2 Source Room air - EKG (time done) 1014 Rate: Rate (enter#) (62) Rhythm: NSR [place]: Normal Intervals: Normal [place] QRS: Normal Ischemia: Normal ST segments - Labs Labs: Laboratory Tests 12/20/20 12/20/20 12/20/20 10:52 10:52 10:52 WBC 5.7 RBC 4.50 L Hgb 14.1 Hct 41.6 L MCV 92.4 MCH 31.3 H MCHC 33.9 RDW 13.0 Plt Count 159 MPV 8.2 Neut # (Auto) 3.5 Lymph # (Auto) 1.6 [place] # (Auto) 0.6 Eos # (Auto) 0.1 Baso # (Auto) 0.0 Absolute Nucleated RBC 0.00 Nucleated RBC % 0.0 Sodium 137 Potassium 3.9 Chloride 103 Carbon Dioxide 26 Anion Gap 8.0 BUN 12 Creatinine 0.6 Estimated GFR (MDRD) 132 Glucose 137 H Calcium 9.6 Total Bilirubin 0.9 AST 19 ALT 18 Alkaline Phosphatase 49 Troponin I High Sens 3.1 Total Protein 6.7 Albumin 4.3 Globulin 2.4 Albumin/Globulin Ratio 1.8 Lipase 33 - Rads (name of study) cxr Radiology: Final report received, EMP read contemporaneously, See rad report (No evidence acute pulmonary process. ) PD MEDICAL DECISION MAKING - ED course Complexity details: reviewed results, re-evaluated patient, considered differential (No ST elevation [place], no aortic dissection, no PE, no tension pneumothorax, no aortic aneurysm), d/w patient ED course: Unclear etiology of the patient's symptoms. No acute findings on x-ray, EKG or laboratory testing. Does have a history of a hiatal hernia, possible that food is becoming stuck as it passes through the diaphragm, resolving when there is increased pressure from the water he is drinking. Recommend that he follow-up closely for an endoscopy. No signs of obstruction currently. He had been on a PPI in the past. Will restart this. Did improve slightly with a GI cocktail, but is having minimal symptoms currently. Patient counseled regarding signs and symptoms for which I believe and urgent re-evaluation would be necessary. Patient with good understanding of and agreement to plan and is comfortable going home at this time This document was made in part using voice recognition software. While efforts are made to proofread this document, sound alike and grammatical errors may occur. Departure - Departure Disposition: 01 Home, Self Care Clinical Impression: Atypical chest pain Condition: Good Instructions: ED Chest Pain Atypical Unkn Cause Follow-Up: Sweetie Ruth ARNP [Primary Care Provider] - Vinayak Braxton MD [Provider Admit Priv/Credential] - Alicia Mcconnell MD [Provider Admit Priv/Credential] - Prescriptions: Sucralfate [Carafate] 1 gm PO ACHS #60 tablet Esomeprazole Magnesium [Nexium] 40 mg PO DAILY #30 cap Famotidine [Pepcid] 20 mg PO BID #60 tablet Comments: Please follow-up with your doctor for further care. Will place you back on a PPI and H2 julia for your GERD. You can follow up with one of the surgeons above for an endoscopy. Discharge Date/Time: 12/20/20 12:30
[2020-12-20] MEDS ORDERED: FAMOTIDINE 20 MG TABLET PO STA (11:40)
[2020-12-20] MEDS ORDERED: MAG HYDROX/AL HYDROX/SIMETH 30 ML UDC PO STA (11:40)
[2020-12-20] MEDS ORDERED: SUCRALFATE 1 GM/10 ML UDC PO STA (11:40)
== END 2020-12-20 12:30 | disposition home or self-care (01) ==
LOC: ED 10:03
DX: R07.89 Other chest pain (principal); I10 Essential (primary) hypertension; Z79.82 Long term (current) use of aspirin
CPT/HCPCS: 36415; 71045; 80053; 83690; 84484; 85025; 93005; 99284; A9270

== ENCOUNTER 2021-01-26 08:00 | Outpatient (CLI) | payer MEDICARE, OTHER ==
--- NOTE | 2021-01-26 16:57 | XRAY Report ---
PROCEDURE: Knee 2 View RT INDICATIONS: PAIN IN RIGHT KNEE TECHNIQUE: 2 views of the right knee(s) were acquired. COMPARISON: 01/15/2020. FINDINGS: Bones: No fractures or dislocations. Wire within the patella appears unchanged. Moderate degenerativ e change. No suspicious bony lesions. Soft tissues: No joint effusion. No suspicious soft tissue calcifications. 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 Patellar wire. Reviewed by: Carlos Mansfield MD on 01/26/2021 3:55 PM LORENA Approved by: Carlos Mansfield MD on 01/26/2021 3:55 PM LORENA Station ID: [id number]
== END 2021-01-26 23:59 | disposition home or self-care (01) ==
LOC: DI.S 08:00
PROVIDERS: ATTEND Nurse Practitioner
DX: M17.11 Unilateral primary osteoarthritis, right knee (principal)

== ENCOUNTER 2021-01-29 07:40 | Day surgery (SDC) | payer MEDICARE, OTHER ==
[2021-01-29] MEDS ORDERED: LACTATED RINGERS 1,000 ML IV ONE (08:20)
--- NOTE | 2021-01-29 08:41 | ANESTHESIA ---
Pre-Anesthesia VS, & Labs - Diagnosis hiatal hernia - Procedure EGD Vital Signs: Temp Pulse Resp BP Pulse Ox 36.4 C L 83 21 123/97 H 98 01/29/21 08:15 01/29/21 08:15 01/29/21 08:15 01/29/21 08:15 01/29/21 08:15 Height: 5 ft 9 in Weight (kg): 82.4 kg Body Mass Index: 26.8 BMI Classification: Overweight - NPO >8 hours Home Medications and Allergies atenoloL [Atenolol] 25 mg PO DAILY 01/09/13 Aspirin 81 mg PO DAILY 06/06/18 Cyanocobalamin (Vitamin B-12) [B-12] 1 drops PO DAILY 06/06/18 LORazepam [Ativan] 1 mg PO DAILY PRN 06/06/18 Multivitamin [Multiple Vitamins] 1 tab PO DAILY 06/06/18 Nicotine Polacrilex [Nicotine Gum] 2 mg PO DAILY 06/06/18 Cholecalciferol (Vitamin D3) [Vitamin D3] 1 cap PO DAILY 02/15/20 Docusate Sodium 100 mg PO DAILY PRN 02/15/20 Lactobacillus Acidophilus [Probiotic Acidophilus] 1 tab PO DAILY 02/15/20 Allergies/Adverse Reactions: Allergies Allergy/AdvReac Type Severity Reaction Status Date / Time azithromycin [From Zithromax] AdvReac Rash Verified 04/02/20 12:05 hydrocodone AdvReac Nausea Verified 04/02/20 12:05 Anes History & Medical History - Anesthetic History Anesthesia Complications: reports: No previous complications Family history of Anesthesia Complications: Denies Family history of Malignant Hyperthermia: Denies - Medical History Cardiovascular: reports: Hypertension, High cholesterol, Angina, Arrhythmia Pulmonary: reports: None Gastrointestinal: reports: GERD, GI bleed, Hepatitis, Other Urinary: reports: Other Neuro: reports: None Musculoskeletal: reports: Gout, Other Endocrine/Autoimmune: reports: Other Blood Disorders: reports: None Skin: reports: None Smoking Status: Never smoker - Surgical History General: reports: Cholecystectomy, Appendectomy, Colonoscopy, EGD Eyes Ears Nose Throat (EENT): reports: Tonsil/Adenoidectomy Orthopedic: reports: Arthroscopic surgery Exam General: Alert, Oriented x3, Cooperative Dental: WNL Mouth Openin Fingerbreadth Neck Mobility: Normal Mallampati classification: I, II Thyromental Distance: 4-6 cm Respiratory: Lungs clear Plan Anesthesia Type: Total IV Consent for Procedure(s) Verified and Reviewed: Yes Code Status: Attempt Resuscitation ASA classification: 3-Severe systemic disease Is this case an emergency?: No
[2021-01-29] MEDS ORDERED: PROPOFOL 200 MG/20 ML VIAL IVP ONE (11:00)
[2021-01-29 11:33] VITALS: BP 125/95
--- NOTE | 2021-01-29 12:25 | ANESTHESIA POST OP EVALUATION ---
Anesthesia Post Eval - Post Anesthesia Eval Vitals: Last Vital Signs Temp 36.4 C L 01/29/21 11:31 Pulse 67 01/29/21 11:31 Resp 15 01/29/21 11:31 BP 125/95 H 01/29/21 11:31 Pulse Ox 99 01/29/21 11:31 CV Function Including HR & BP: Stable Pain Control: Satisfactory Nausea & Vomiting: Negative Mental Status: Baseline Respiratory Status: Airway Patent Hydration Status: Satisfactory Anesthesia Complications: None
== END 2021-01-29 07:41 | disposition home or self-care (01) ==
LOC: SDS 07:40
PROVIDERS: ATTEND Surgery
DX: R13.10 Dysphagia, unspecified (principal); R10.13 Epigastric pain; R07.9 Chest pain, unspecified; K21.9 Gastro-esophageal reflux disease without esophagitis; K44.9 Diaphragmatic hernia without obstruction or gangrene; Z87.891 Personal history of nicotine dependence; I20.9 Angina pectoris, unspecified; I10 Essential (primary) hypertension
CPT/HCPCS: 43235; J7120

== ENCOUNTER 2021-02-06 07:04 | Outpatient (CLI) | payer MEDICARE, OTHER ==
[2021-02-06 15:16] LABS: CHOL/HDL RATIO 3.8 (<5.0); CHOLESTEROL 133 mg/dL; HDL CHOLESTEROL 35 mg/dL; LDL CHOLESTEROL,CALCULATED 69 mg/dL; TRIGLYCERIDES 144 mg/dL; VLDL CHOLESTEROL 29 mg/dL
== END 2021-02-06 07:05 | disposition home or self-care (01) ==
LOC: LAB.S 07:04
PROVIDERS: ATTEND Registered Nurse
DX: E78.5 Hyperlipidemia, unspecified (principal)
CPT/HCPCS: 36415; 80061; 83721

== ENCOUNTER 2021-04-25 14:15 | Outpatient (CLI) | payer MEDICARE, OTHER ==
--- NOTE | 2021-04-25 15:34 | Ultrasound Report ---
PROCEDURE: Duplex Ext Veins Left INDICATIONS: PAIN IN LEFT THIGH TECHNIQUE: Real-time imaging, as well as color and pulse Doppler interrogation, were performed of the lower extr emity deep veins from the inguinal ligament to the popliteal fossa. COMPARISON: None. FINDINGS: The deep veins are normally compressible, and free of intraluminal thrombus. Color and pu lse Doppler demonstrate normal phasic intraluminal flow. There is normal augmentation response to di stal compression maneuver. IMPRESSION: No evidence of DVT, left lower extremity. Reviewed by: Osvaldo Combs MD on 04/25/2021 3:32 PM PST Approved by: Osvaldo Combs MD on 04/25/2021 3:32 PM PST Station ID: [id number]
== END 2021-04-25 14:16 | disposition home or self-care (01) ==
LOC: DI 14:15
PROVIDERS: ATTEND Physician Assistant Medical
DX: M79.652 Pain in left thigh (principal)

== ENCOUNTER 2021-06-03 07:03 | Outpatient (CLI) | payer MEDICARE, OTHER ==
[2021-06-03 15:27] LABS: BASOPHILS % (AUTO) 0.6 %; EOSINOPHILS # (AUTO) 0.2 10^3/uL (0.0-0.7); EOSINOPHILS % (AUTO) 2.4 %; HCT - HEMATOCRIT 44.7 % (42.0-52.0); HGB - HEMOGLOBIN 15.1 g/dL (14.0-18.0); LYMPHOCYTES # (AUTO) 2.5 10^3/uL (1.5-3.5); LYMPHOCYTES % (AUTO) 38.3 %; MEAN CORPUSCULAR HEMOGLOBIN 31.7 pg (27.0-31.0); MEAN CORPUSCULAR HGB CONC 33.8 g/dL (32.0-36.0); MEAN CORPUSCULAR VOLUME 93.7 fL (80.0-94.0); MEAN PLATELET VOLUME 8.9 fL (7.4-11.4); MONOCYTES # (AUTO) 0.7 10^3/uL (0.0-1.0); MONOCYTES % (AUTO) 9.9 %; NEUTROPHILS # (AUTO) 3.2 10^3/uL (1.5-6.6); NEUTROPHILS % (AUTO) 48.5 %; PLT - PLATELET COUNT 197 10^3/uL (130-450); RED BLOOD COUNT 4.77 10^6/uL (4.70-6.10); RED CELL DISTRIBUTION WIDTH 13.2 % (12.0-15.0); WHITE BLOOD COUNT 6.6 x10^3/uL (4.8-10.8)
[2021-06-03 15:58] LABS: THYROID STIMULATING HORMONE 2.8 uIU/mL (0.34-5.60)
[2021-06-03 15:59] LABS: ALBUMIN 4.3 g/dL (3.2-5.5); ALBUMIN/GLOBULIN RATIO 1.7 (1.0-2.2); ALKALINE PHOSPHATASE 50 IU/L (42-121); ALT ALANINE AMINOTRANSFERASE 25 IU/L (10-60); AST ASPARTATE AMINOTRANSFERASE 23 IU/L (10-42); BILIRUBIN,TOTAL 0.8 mg/dL (0.2-1.0); BUN - BLOOD UREA NITROGEN 12 mg/dL (6-20); CALCIUM 9.6 mg/dL (8.5-10.3); CARBON DIOXIDE - CO2 30 mmol/L (21-32); CHLORIDE 101 mmol/L (101-111); CHOL/HDL RATIO 4.1 (<5.0); CHOLESTEROL 139 mg/dL; CREATININE 0.7 mg/dL (0.6-1.2); GFR - MDRD 110 (>89); GLUCOSE 120 mg/dL (70-100); HDL CHOLESTEROL 34 mg/dL; LDL CHOLESTEROL,CALCULATED 77 mg/dL; LDL/HDL RATIO 2.3 (<3.6); POTASSIUM 3.9 mmol/L (3.5-5.0); SODIUM 139 mmol/L (135-145); TOTAL PROTEIN 6.9 g/dL (6.7-8.2); TRIGLYCERIDES 138 mg/dL; VLDL CHOLESTEROL 28 mg/dL
== END 2021-06-03 07:04 | disposition home or self-care (01) ==
LOC: LAB.S 07:03
PROVIDERS: ATTEND Registered Nurse
DX: I10 Essential (primary) hypertension (principal); R07.89 Other chest pain; K21.9 Gastro-esophageal reflux disease without esophagitis
CPT/HCPCS: 36415; 80053; 80061; 83721; 84443; 85025

== ENCOUNTER 2021-09-02 09:53 | Outpatient (CLI) | payer MEDICARE, OTHER ==
[2021-09-02] MEDS ORDERED: IOVERSOL 320 50 ML VIAL ONE (10:14)
[2021-09-02] MEDS ORDERED: IOVERSOL 320 100 ML VIAL IVP ONE (10:14)
[2021-09-02 10:16] LABS: BASOPHILS % (AUTO) 0.6 %; EOSINOPHILS # (AUTO) 0.3 10^3/uL (0.0-0.7); EOSINOPHILS % (AUTO) 3.4 %; HGB - HEMOGLOBIN 14.9 g/dL (14.0-18.0); LYMPHOCYTES # (AUTO) 2.1 10^3/uL (1.5-3.5); LYMPHOCYTES % (AUTO) 28.9 %; MEAN CORPUSCULAR HEMOGLOBIN 31.6 pg (27.0-31.0); MEAN CORPUSCULAR HGB CONC 34.7 g/dL (32.0-36.0); MEAN CORPUSCULAR VOLUME 91.3 fL (80.0-94.0); MEAN PLATELET VOLUME 8.2 fL (7.4-11.4); MONOCYTES # (AUTO) 0.8 10^3/uL (0.0-1.0); MONOCYTES % (AUTO) 10.7 %; NEUTROPHILS # (AUTO) 4.1 10^3/uL (1.5-6.6); NEUTROPHILS % (AUTO) 56.1 %; PLT - PLATELET COUNT 169 10^3/uL (130-450); RED BLOOD COUNT 4.71 10^6/uL (4.70-6.10); RED CELL DISTRIBUTION WIDTH 12.7 % (12.0-15.0); WHITE BLOOD COUNT 7.3 x10^3/uL (4.8-10.8)
[2021-09-02 10:34] LABS: ALBUMIN 4.4 g/dL (3.2-5.5); ALBUMIN/GLOBULIN RATIO 1.6 (1.0-2.2); BILIRUBIN,TOTAL 0.6 mg/dL (0.2-1.0); CALCIUM 9.6 mg/dL (8.5-10.3); CREATININE 0.8 mg/dL (0.6-1.2); TOTAL PROTEIN 7.2 g/dL (6.7-8.2)
--- NOTE | 2021-09-02 14:45 | CT Report ---
PROCEDURE: CHEST W INDICATIONS: LARGE B CELL LYMPHOMA CONTRAST: IV CONTRAST: Optiray 320 ml: 100 PO CONTRAST: Optiray 320 ml50 TECHNIQUE: After the administration of intravenous contrast, 1 mm axial images were acquired from the pulmonary apices through the posterior costophrenic angles. Axial 5 mm soft tissue kernel reconstructions were performed as well as 8 mm axial MIP and coronal and sagittal 5 mm reformations. For radiation dose reduction, the following was used: automated exposure control, adjustment of mA and/or kV according to patient size. COMPARISON: Prior chest CT examinations, 09/17/2020, 09/19/2019, 06/06/2018. Correlation is also made wit h the accompanying neck CT and abdomen pelvis CT, 09/02/2021. FINDINGS: Image quality: Excellent. Lungs and pleura: No acute air space opacities. No pleural effusions or pneumothorax. Central and peripheral airways are patent and normal in caliber. Mediastinum: Heart size is normal. No pericardial effusion. No mediastinal or hilar adenopathy by size criteria. Thoracic aorta and central pulmonary arteries are normal in size. Esophagus is ta l in caliber. No hiatal hernia. Bones and chest wall: No suspicious bony lesions. No vertebral body compression fractures. Mild lev oconvex scoliotic curvature is seen. Age-appropriate degenerative changes are seen. No axillary or supraclavicular adenopathy by size criteria. Right axillary clips are seen. The thyroid is normal i n size and there are no incidental findings. Abdomen: Cholecystectomy clips are seen. Visualized upper abdominal solid organs appear normal. U pper abdominal bowel loops are normal in caliber. IMPRESSION: No enlarged lymph nodes are seen. Incidental note is made of: Right axillary clips Reviewed by: Kulwinder Poon MD on 09/02/2021 1:44 PM AKDT Approved by: Kulwinder Poon MD on 09/02/2021 1:44 PM AKDT Station ID: [id number]
--- NOTE | 2021-09-02 14:48 | CT Report ---
PROCEDURE: Abdomen/Pelvis W INDICATIONS: LARGE B CELL LYMPHOMA CONTRAST: IV CONTRAST: Optiray 320 ml: 100 PO CONTRAST: Optiray 320 ml50 TECHNIQUE: After the administration of IV and oral contrast, 5 mm thick sections acquired from the diaphragms to the symphysis. 5 mm thick coronal and sagittal reformats were acquired. For radiation dose reducti on, the following was used: automated exposure control, adjustment of mA and/or kV according to sophy ent size. COMPARISON: Prior abdomen and pelvis CT examinations, 09/17/2020, 09/19/2019, 11/22/2018. Correlation is a lso made with the accompanying neck CT examination and the chest CT examination, 09/02/2021. FINDINGS: Image quality: Excellent. ABDOMEN: Lung bases: Lung bases are clear. Heart size is normal. Solid organs: Diffuse fatty liver infiltration can be seen. The liver demonstrates normal size. No liver lesions are detected. The spleen demonstrates normal size and demonstrates no suspicious lesi ons. Gallbladder has been removed. Biliary system is non dilated. Pancreas enhances normally. No adrenal nodules. Kidneys demonstrate normal size and enhancement, without hydronephrosis. Peritoneum and bowel: Bowel loops demonstrate normal wall thickness and caliber. No free fluid or a ir. Nodes and vessels: No retroperitoneal or mesenteric adenopathy by size criteria. Aorta and inferior vena cava are normal in size. Miscellaneous: No ventral hernias. PELVIS: Genitourinary: Bladder wall thickness is normal. Miscellaneous: No inguinal adenopathy. Bilateral fat-containing inguinal hernias are seen, right wo rse than left. Bones: No suspicious bony lesions. No vertebral body compression fractures. Moderate dextroconvex scoliosis is seen. Degenerative changes are seen throughout, which are worst involving the lumbar spi ne. IMPRESSION: No enlarged lymph nodes are seen on this study. Incidental note is made of: Cholecystectomy Bilateral fat-containing inguinal hernias Moderate dextroconvex scoliosis Lumbar spine degenerative change Reviewed by: Kulwinder Poon MD on 09/02/2021 1:47 PM AKZEINAB Approved by: Kulwinder Poon MD on 09/02/2021 1:47 PM AKZEINAB Station ID: [id number]
--- NOTE | 2021-09-02 16:18 | CT Report ---
PROCEDURE: SOFT TISSUE NECK W INDICATIONS: LARGE B CELL LYMPHOMA CONTRAST: IV CONTRAST: Optiray 320 ml: 100 PO CONTRAST: Optiray 320 ml50 TECHNIQUE: After the administration of intravenous contrast, 3.0 mm axial sections acquired from the sella to th e aortic arch. Additional oblique axial 3.0 mm sections acquired through the pharynx. 3 mm thick co garry reformats were generated. For radiation dose reduction, the following was used: automated exp osure control, adjustment of mA and/or kV according to patient size. COMPARISON: 09/17/2020 and 09/19/2019. FINDINGS: Image quality: Excellent. Lymph nodes: No enlarged lymph nodes seen throughout the neck. Vessels: Visualized vasculature appears patent. Neck spaces: The oropharynx, nasopharynx, and pharynx demonstrate no mucosal lesions. The vocal cor ds, false vocal cords, pyriform sinuses, epiglottis, vallecula, and tongue base all appear normal. E xtramucosal spaces appear unremarkable. Glands: Left submandibular gland atrophy and surgical clips are stable compared to prior exams. Right submandibular gland is normal in appearance. The parotid glands appear normal. The thyroid is ta l in size and there are no incidental findings. Miscellaneous: Visualized brain and orbits appear normal. Lung apices appear clear. Superficial so ft tissues appear normal. Bones: No suspicious bony lesions. Spine degenerative disc disease and facet arthropathy are noted. Visualized sinuses and mastoids appear unremarkable. IMPRESSION: Stable examination with no evidence of recurrent lymphoma. Reviewed by: Maribel Hannon MD, PhD on 09/02/2021 4:17 PM PDT Approved by: Maribel Hannon MD, PhD on 09/02/2021 4:17 PM PDT Station ID: [id number]
[2021-09-03] MEDS ORDERED: IOVERSOL 320 100 ML VIAL IVP ONE (15:45)
[2021-09-03] MEDS ORDERED: IOVERSOL 320 50 ML VIAL PO ONE (15:50)
== END 2021-09-02 09:54 | disposition home or self-care (01) ==
LOC: DI 09:53
PROVIDERS: ATTEND Internal Medicine Hematology & Oncology
DX: C83.38 Diffuse large B-cell lymphoma, lymph nodes of multiple sites (principal)
CPT/HCPCS: 36415; 70491; 71260; 74177; 80053; 83615; 85025; Q9967

== ENCOUNTER 2021-09-17 08:00 | Outpatient (CLI) | payer MEDICARE, OTHER ==
[2021-09-17 14:33] LABS: BASOPHILS # (AUTO) 0.1 10^3/uL (0.0-0.1); BASOPHILS % (AUTO) 0.8 %; EOSINOPHILS # (AUTO) 0.1 10^3/uL (0.0-0.7); EOSINOPHILS % (AUTO) 1.8 %; HCT - HEMATOCRIT 45.3 % (42.0-52.0); HGB - HEMOGLOBIN 15.2 g/dL (14.0-18.0); LYMPHOCYTES # (AUTO) 1.9 10^3/uL (1.5-3.5); LYMPHOCYTES % (AUTO) 28.2 %; MEAN CORPUSCULAR HEMOGLOBIN 30.6 pg (27.0-31.0); MEAN CORPUSCULAR HGB CONC 33.6 g/dL (32.0-36.0); MEAN CORPUSCULAR VOLUME 91.3 fL (80.0-94.0); MEAN PLATELET VOLUME 9.2 fL (7.4-11.4); MONOCYTES # (AUTO) 0.6 10^3/uL (0.0-1.0); MONOCYTES % (AUTO) 9.4 %; NEUTROPHILS # (AUTO) 3.9 10^3/uL (1.5-6.6); NEUTROPHILS % (AUTO) 59.5 %; PLT - PLATELET COUNT 191 10^3/uL (130-450); RED BLOOD COUNT 4.96 10^6/uL (4.70-6.10); RED CELL DISTRIBUTION WIDTH 13.2 % (12.0-15.0); WHITE BLOOD COUNT 6.6 x10^3/uL (4.8-10.8)
[2021-09-17 15:11] LABS: ALBUMIN 4.4 g/dL (3.2-5.5); ALBUMIN/GLOBULIN RATIO 1.7 (1.0-2.2); ALKALINE PHOSPHATASE 55 IU/L (42-121); ALT ALANINE AMINOTRANSFERASE 23 IU/L (10-60); AST ASPARTATE AMINOTRANSFERASE 22 IU/L (10-42); BILIRUBIN,TOTAL 0.9 mg/dL (0.2-1.0); BUN - BLOOD UREA NITROGEN 11 mg/dL (6-20); CALCIUM 10.1 mg/dL (8.5-10.3); CARBON DIOXIDE - CO2 29 mmol/L (21-32); CHLORIDE 101 mmol/L (101-111); CREATININE 0.7 mg/dL (0.6-1.2); GFR - MDRD 110 (>89); GLUCOSE 121 mg/dL (70-100); POTASSIUM 4.2 mmol/L (3.5-5.0); SODIUM 138 mmol/L (135-145)
[2021-09-17 15:15] LABS: CRP - C-REACTIVE PROTEIN < 1.0 mg/dL (0-1.0)
== END 2021-09-17 23:59 | disposition home or self-care (01) ==
LOC: LAB.S 08:00
PROVIDERS: ATTEND Emergency Medicine
DX: L03.113 Cellulitis of right upper limb (principal)
CPT/HCPCS: 36415; 80053; 85025; 85651; 86140; 87040

== ENCOUNTER 2022-02-25 18:52 | Outpatient (CLI) | payer MEDICARE, OTHER ==
--- NOTE | 2022-02-26 14:04 | XRAY Report ---
PROCEDURE: Knee 3 View RT INDICATIONS: EFFUSION OF RIGHT KNEE TECHNIQUE: 3 views of the right knee(s) were acquired. COMPARISON: 01/26/2021 FINDINGS: Bones: Patellar cerclage wire noted to. Moderate space narrowing present. There is a moderate joint effusion present as well. No evidence of acute fracture. Soft tissues: No suspicious calcification IMPRESSION: Moderate osteoarthritis and joint effusion Stable patellar cerclage wire Reviewed by: Jay García MD on 02/26/2022 1:03 PM LORENA Approved by: Jay García MD on 02/26/2022 1:03 PM LORENA Station ID: [id number]
== END 2022-02-25 18:53 | disposition home or self-care (01) ==
LOC: DI.S 18:52
PROVIDERS: ATTEND Emergency Medicine
DX: M25.461 Effusion, right knee (principal); M17.11 Unilateral primary osteoarthritis, right knee

== ENCOUNTER 2022-08-13 13:38 | Emergency (ER) | payer MEDICARE, OTHER ==
[2022-08-13 14:14] LABS: BASOPHILS % (AUTO) 0.3 %; EOSINOPHILS # (AUTO) 0.1 10^3/uL (0.0-0.7); HCT - HEMATOCRIT 41.7 % (42.0-52.0); HGB - HEMOGLOBIN 13.8 g/dL (14.0-18.0); LYMPHOCYTES # (AUTO) 1.5 10^3/uL (1.5-3.5); LYMPHOCYTES % (AUTO) 24.9 %; MEAN CORPUSCULAR HEMOGLOBIN 30.3 pg (27.0-31.0); MEAN CORPUSCULAR HGB CONC 33.1 g/dL (32.0-36.0); MEAN CORPUSCULAR VOLUME 91.6 fL (80.0-94.0); MEAN PLATELET VOLUME 8.3 fL (7.4-11.4); MONOCYTES # (AUTO) 0.5 10^3/uL (0.0-1.0); MONOCYTES % (AUTO) 8.5 %; NEUTROPHILS % (AUTO) 65.1 %; PLT - PLATELET COUNT 206 10^3/uL (130-450); RED BLOOD COUNT 4.55 10^6/uL (4.70-6.10); WHITE BLOOD COUNT 6.1 x10^3/uL (4.8-10.8)
[2022-08-13 14:29] LABS: ALBUMIN 4.5 g/dL (3.2-5.5); ALBUMIN/GLOBULIN RATIO 1.7 (1.0-2.2); BILIRUBIN,TOTAL 0.6 mg/dL (0.2-1.0); CALCIUM 9.3 mg/dL (8.5-10.3); CREATININE 0.7 mg/dL (0.6-1.2); TOTAL PROTEIN 7.1 g/dL (6.7-8.2)
--- NOTE | 2022-08-13 14:36 | ED Physician Documentation ---
PD HPI DYSPNEA - Stated complaint Stated Complaint: CP,SOA,FATIGUE - Chief complaint Chief Complaint: Cardiac - History obtained from History obtained from: Patient - Additional information Additional information: This is a 77-year-old male with a past medical history of multiple myeloma in remission, status post bone marrow transplant, who presents from the clinic for left-sided chest pain for the last 3 Days. The pain started after the patient accidentally hit his head on a electric fence which gave him a shock. He was bending over at the time so he did fall to the ground but it was a short distance, he is not sure if he landed onto his left side but since then he has had very focal and reproducible left sided chest pain. Pain is localized To the soft tissue between the left nipple and anterior axillary line. He has not noted any redness, swelling, or injury there. He has not attempted any medication for the pain because he states "it does not hurt unless I push on it." He has no radiation of chest pain, it is not exertional, he has no associated symptoms such as shortness of breath, diaphoresis, palpitations, nausea or vomiting. He has noticed that he has been fatigued for the last several days as well, no fever or chills, no cough or URI symptoms, no change in appetite. He has not had any weight changes. He does state that he was scratched by a cat in his left forearm a few days ago and was concerned about possible infection from that but he area of cat scratched did not get red or inflamed and has not had any drainage. Patient also notably did have a left knee replacement in May but states he recovered very well from that and has been active since then, frequently walking and working on his property. He has not noted any leg redness or swelling.He was seen in the clinic today and given his left-sided chest pain, they did recommend that he come to the ER. Review of Systems Constitutional: reports: Fatigue. denies: Fever, Chills, Myalgias, Weight Loss, Sweats Cardiac: reports: Chest pain / pressure. denies: Palpitations, Pedal edema, Calf pain Respiratory: reports: Reviewed and negative GI: reports: Reviewed and negative : reports: Reviewed and negative Skin: reports: Reviewed and negative Musculoskeletal: reports: Reviewed and negative Neurologic: reports: Reviewed and negative Psychiatric: reports: Reviewed and negative Endocrine: reports: Reviewed and negative Immunocompromised: reports: Transplant (Prior bone marrow transplant) PD PAST MEDICAL HISTORY - Past Medical History Cardiovascular: Hypertension, High cholesterol, Angina, Arrhythmia Respiratory: None Neuro: None Endocrine/Autoimmune: Other GI: GERD, GI bleed, Hepatitis, Other : Other HEENT: None Psych: Anxiety Musculoskeletal: Gout, Other Derm: None - Past Surgical History Past Surgical History: Yes General: Cholecystectomy, Appendectomy, Colonoscopy, EGD Ortho: Arthroscopic surgery HEENT: Tonsil/Adenoidectomy - Present Medications Home Medications: Ambulatory Orders Medication Instructions Recorded Confirmed atenoloL [Atenolol] 25 mg PO DAILY 01/09/13 02/15/20 Aspirin 81 mg PO DAILY 06/06/18 02/15/20 Cyanocobalamin (Vitamin B-12) 1 drops PO DAILY 06/06/18 02/15/20 [B-12] LORazepam [Ativan] 1 mg PO DAILY PRN 06/06/18 02/15/20 Multivitamin [Multiple Vitamins] 1 tab PO DAILY 06/06/18 02/15/20 Nicotine Polacrilex [Nicotine Gum] 2 mg PO DAILY 06/06/18 02/15/20 Cholecalciferol (Vitamin D3) 1 cap PO DAILY 02/15/20 02/15/20 [Vitamin D3] Docusate Sodium 100 mg PO DAILY PRN 02/15/20 02/15/20 Lactobacillus Acidophilus 1 tab PO DAILY 02/15/20 02/15/20 [Probiotic Acidophilus] cephALEXin [Keflex] 500 mg PO Q6H #40 capsule 02/16/20 oxyCODONE [Roxicodone] 5 mg PO Q4HR PRN #20 tablet 02/16/20 Ondansetron Odt [Zofran] 4 mg TL Q6H PRN #10 tablet 04/02/20 Esomeprazole Magnesium [Nexium] 40 mg PO DAILY #30 cap 12/20/20 Famotidine [Pepcid] 20 mg PO BID #60 tablet 12/20/20 Sucralfate [Carafate] 1 gm PO ACHS #60 tablet 12/20/20 - Allergies Allergies/Adverse Reactions: Allergies Allergy/AdvReac Type Severity Reaction Status Date / Time azithromycin [From Zithromax] AdvReac Rash Verified 08/13/22 13:43 hydrocodone AdvReac Nausea Verified 08/13/22 13:43 - Social History Does the pt smoke?: No Smoking Status: Never smoker Does the pt drink ETOH?: Yes Does the pt have substance abuse?: No - Immunizations Immunizations are current?: Yes - POLST Patient has POLST: No POLST Status: DNR (He states that he has advanced directives that he is brought into this hospital 2 or 3 times. We will have to pull the old hardcopy charts to see if they are there. Either his ex- or daughter are [employer] he cannot remember which.) PD ED PE NORMAL - Vitals Vital signs reviewed: Yes - General General: Alert and oriented X 3, No acute distress, Well developed/nourished - HEENT HEENT: Atraumatic, Pharynx benign - Neck Neck: Supple, no meningeal sign, No JVD - Cardiac Cardiac: RRR, No murmur, No gallop, No rub - Respiratory Respiratory: No respiratory distress, Clear bilaterally, Other (Focal left-sided chest wall pain midway between the left nipple in the anterior axillary line.No palpable mass, erythema, or infection.) - Abdomen Abdomen: Normal bowel sounds, Soft, Non tender, Non distended - Back Back: No CVA TTP, No spinal TTP - Derm Derm: Normal color, Warm and dry, No rash, Other (There is a small bruise on the left forearm from a prior cat scratch, no erythema tenderness or purulent drainage.) - Extremities Extremities: No deformity, No tenderness to palpate, Normal ROM s pain, No edema, No calf tenderness / cord - Neuro Neuro: Alert and oriented X 3 Eye Opening: Spontaneous Motor: Obeys Commands Verbal: Oriented GCS Score: 15 - Psych Psych: Normal mood, Normal affect Results - Vitals Vitals: Vital Signs - 24 hr 08/13/22 08/13/22 13:44 15:29 Temperature 36.5 C 36.6 C Heart Rate 90 66 Respiratory 16 21 Rate Blood Pressure 135/86 H 127/75 O2 Saturation 99 100 Oxygen O2 Source Room air - EKG (time done) No standard instances EKG releavant findings:: EKG personally interpreted by author of this note. Relevant findings are: Rate: Rate (enter#) (76) Rhythm: NSR Eccles: LAD Intervals: Normal IN QRS: Normal Ischemia: Normal ST segments Compare to prior EKG: Unchanged from prior EKG Computer interpretation: Agree with computer - Labs Labs: Laboratory Tests 08/13/22 08/13/22 08/13/22 14:07 14:07 14:07 WBC 6.1 RBC 4.55 L Hgb 13.8 L Hct 41.7 L MCV 91.6 MCH 30.3 MCHC 33.1 RDW 13.0 Plt Count 206 MPV 8.3 Neut # (Auto) 4.0 Lymph # (Auto) 1.5 [place] # (Auto) 0.5 Eos # (Auto) 0.1 Baso # (Auto) 0.0 Absolute Nucleated RBC 0.00 Nucleated RBC % 0.0 Sodium 137 Potassium 4.0 Chloride 102 Carbon Dioxide 29 Anion Gap 6.0 BUN 11 Creatinine 0.7 Estimated GFR (MDRD) 110 Glucose 131 H Calcium 9.3 Total Bilirubin 0.6 AST 19 ALT 17 Alkaline Phosphatase 66 Troponin I High Sens 4.5 Total Protein 7.1 Albumin 4.5 Globulin 2.6 Albumin/Globulin Ratio 1.7 Lipase 39 PD Medical Decision Making - ED course Complexity details: reviewed results, re-evaluated patient, considered differential, d/w patient ED course: 77-year-old male with past medical history as described above presented with left sided chest pain for last 3 to 4 days. This occurred after he was shocked by a electric sense and fell to the ground. Is very focal and reproducible left I have low suspicion for ACS or pulmonary embolus. We did obtain a chest x-ray which was negative for any acute findings including pneumothorax, and there is no sign of pneumonia. Labs likewise reassuring stable CBC and CMP, troponin is negative. Wells score is negative and low suspicion for PE. I suspect this is chest wall strain or rib contusion from his fall, recommended ibuprofen or Tylenol for pain the patient did not feel he needed it as it is painful when he touches the area. Right now there are no signs of infection but patient was advised that if there were any skin redness, swelling or other new findings to follow-up with PCP or return to the ER. Patient was concerned about possible infection after getting scratched by his cat. I did review the scratch site and there is a small bruise but no erythema or signs of infection at this time higinio gutierrez has no signs clinically of any toxicity and he has no leukocytosis therefore I think this is unlikely but advised him to continue to monitor. Departure - Departure Disposition: 01 Home, Self Care Clinical Impression: Chest wall pain Condition: Good Instructions: ED Chest Pain Costochondritis, ED Strain Chest Wall Comments: You presented with left chest wall pain. The pain is reproducible with palpation and is most likely rib irritation or injury or muscle strain.We did check an EKG, chest x-ray and cardiac labs which were all stable. I do not see anything suggestive of infection or cardiac etiology. I have low suspicion for a pulmonary embolus or blood clot in the lung given your stable vital signs, and reproducible pain. If you are having ongoing symptoms after 1 to 2 weeks or develop increasing shortness of breath and chest pain, return to the ER . You may consider trying a heating pad to the area, Tylenol or ibuprofen for pain. Discharge Date/Time: 08/13/22 15:47
--- NOTE | 2022-08-13 14:57 | XRAY Report ---
PROCEDURE: Chest 1 View X-Ray INDICATIONS: Chest pain TECHNIQUE: One view of the chest was acquired. COMPARISON: CT chest 09/02/2021 FINDINGS: Surgical changes and devices: None. Lungs and pleura: No pleural effusions or pneumothorax. Lungs are clear. Mediastinum: Mediastinal contours appear normal. Heart size is mildly enlarged. Bones and chest wall: No suspicious bony lesions. Overlying soft tissues appear unremarkable. IMPRESSION: No acute pulmonary process. Reviewed by: Chiara Ayala MD on 08/13/2022 2:56 PM PDT Approved by: Chiara Ayala MD on 08/13/2022 2:56 PM PDT Station ID: [id number]
[2022-08-13 15:29] VITALS: BP 127/75
== END 2022-08-13 15:47 | disposition home or self-care (01) ==
LOC: ED 13:38
DX: R07.89 Other chest pain (principal); I10 Essential (primary) hypertension; Z66 Do not resuscitate
CPT/HCPCS: 36415; 80053; 83690; 84484; 85025; 93005; 99283; 99284

== ENCOUNTER 2022-09-17 11:49 | Outpatient (CLI) | payer MEDICARE, OTHER ==
[2022-09-17] MEDS ORDERED: DIATR MEGLU/DIATRIZOATE SODIUM 120 ML BOTTLE ONE (12:05)
[2022-09-17] MEDS ORDERED: iohexoL-300 100 ML VIAL ONE (12:05)
[2022-09-17 12:58] LABS: ALBUMIN 4.3 g/dL (3.2-5.5); ALBUMIN/GLOBULIN RATIO 1.7 (1.0-2.2); BILIRUBIN,TOTAL 0.6 mg/dL (0.2-1.0); CALCIUM 9.4 mg/dL (8.5-10.3); CREATININE 0.6 mg/dL (0.6-1.2); POTASSIUM 4.1 mmol/L (3.5-5.0); TOTAL PROTEIN 6.8 g/dL (6.7-8.2)
--- NOTE | 2022-09-17 15:04 | CT Report ---
PROCEDURE: ABDOMEN/PELVIS W INDICATIONS: B-CELL LYMPHOMA CONTRAST: 100ml Omnipaque 300 TECHNIQUE: After the administration of oral and intravenous contrast, 5 mm thick sections acquired from the diap hragms to the symphysis. 5 mm thick coronal and sagittal reformats were acquired. For radiation dos e reduction, the following was used: automated exposure control, adjustment of mA and/or kV accordin g to patient size. COMPARISON: FINDINGS: Image quality: Excellent. Lung bases and heart: Unremarkable. Liver: No solid mass. Gallbladder and biliary tree: Surgically absent. No biliary dilation, accounting for post-cholecystec nelly state. Spleen: No splenomegaly. Pancreas: No pancreatic ductal dilation. Adrenals: No adrenal nodule. Kidneys and ureters: No hydronephrosis. No renal cystic lesion which requires follow up. No solid mas s. Bowel and peritoneum: No bowel distension. No pathologic free fluid. Lymph nodes: No central or retroperitoneal adenopathy. Vessels: No infrarenal aortic aneurysm. PELVIS Reproductive organs: Unremarkable. Bladder: No wall thickness, accounting for underdistension. Pelvic lymph nodes: No pelvic adenopathy by size criteria. Bones: No aggressive osseous abnormality. Other: Moderate, right-sided fat-containing inguinal hernia. IMPRESSION: No lymphadenopathy. Reviewed by: Tyler Mehta on 09/17/2022 3:02 PM PDT Approved by: Tyler Mehta on 09/17/2022 3:02 PM PDT Station ID: [id number]
--- NOTE | 2022-09-17 15:06 | CT Report ---
PROCEDURE: CHEST W INDICATIONS: B-CELL LYMPHOMA CONTRAST: 100ml Omnipaque 300 TECHNIQUE: After the administration of intravenous contrast, 1 mm axial images were acquired from the pulmonary apices through the posterior costophrenic angles. Axial 5 mm soft tissue kernel reconstructions were performed as well as 8 mm axial MIP and coronal and sagittal 5 mm reformations. For radiation dose reduction, the following was used: automated exposure control, adjustment of mA and/or kV according to patient size. COMPARISON: CT 01/03/2020 FINDINGS: Image quality: Excellent. Lungs and pleura: No consolidation. No pleural effusions. No pneumothorax. No suspicious pulmonary n odules which require follow up. Mediastinum: Heart size is normal. No pericardial effusions. No mediastinal adenopathy by size criter ia. No large vessel abnormality. Chest wall and lower neck: Thyroid is unremarkable. No axillary or supraclavicular adenopathy by size . Bones: No aggressive osseous abnormality. Upper Abdomen: Unremarkable. IMPRESSION: No lymphadenopathy. Reviewed by: Tyler Mehta on 09/17/2022 3:04 PM PDT Approved by: Tyler Mehta on 09/17/2022 3:04 PM PDT Station ID: [id number]
[2022-09-17] MEDS ORDERED: DIATRIZOATE MEGLU/DIATRIZO SOD 30 ML BOTTLE PO ONE (15:12)
[2022-09-17] MEDS ORDERED: iohexoL-300 100 ML VIAL IVP ONE (15:12)
--- NOTE | 2022-09-17 18:40 | CT Report ---
PROCEDURE: SOFT TISSUE NECK W INDICATIONS: B-CELL LYMPHOMA CONTRAST: 100ml Omnipaque 300 TECHNIQUE: After the administration of intravenous contrast, 3.0 mm axial sections acquired from the sella to th e aortic arch. Additional oblique axial 3.0 mm sections acquired through the pharynx. 3 mm thick co garry reformats were generated. For radiation dose reduction, the following was used: automated exp osure control, adjustment of mA and/or kV according to patient size. COMPARISON: 09/02/2021, 08/18/2020, 09/19/2019. Correlation is made with the accompanying CT examinations . FINDINGS: Image quality: Excellent. Lymph nodes: No enlarged lymph nodes seen throughout the neck. Vessels: Visualized vasculature appears patent. Incidental note is made of a direct origin of the l eft vertebral artery from the aortic arch, which is regarded to be a normal variant of typically no c linical consequence. Neck spaces: The oropharynx, nasopharynx, and pharynx demonstrate no mucosal lesions. The vocal cor ds, false vocal cords, pyriform sinuses, epiglottis, vallecula, and tongue base all appear normal. E xtramucosal spaces appear unremarkable. Glands: The parotid and submandibular glands appear normal. The thyroid is normal in size and there are no incidental findings. Miscellaneous: Visualized brain and orbits appear normal. Lung apices appear clear. Superficial so ft tissues appear normal. Bones: No suspicious bony lesions. Visualized sinuses and mastoids appear unremarkable. At least m oderate cervical spine degenerative change can be seen. IMPRESSION: No enlarged lymph nodes are seen within the neck. Additional findings: At least moderate cervical spine degenerative change Direct origin of the left vertebral artery from the aortic arch Reviewed by: Kulwinder Poon MD on 09/17/2022 5:39 PM LORENA Approved by: Kulwinder Poon MD on 09/17/2022 5:39 PM AKDT Station ID: [id number]
== END 2022-09-17 11:50 | disposition home or self-care (01) ==
LOC: LAB 11:49
PROVIDERS: ATTEND Internal Medicine Hematology & Oncology
DX: C83.38 Diffuse large B-cell lymphoma, lymph nodes of multiple sites (principal); M47.812 Spondylosis without myelopathy or radiculopathy, cervical region
CPT/HCPCS: 36415; 70491; 71260; 74177; 80053; Q9963; Q9967

== ENCOUNTER 2022-12-12 08:00 | Outpatient (CLI) | payer MEDICARE, OTHER | END 2022-12-12 23:59 | disposition home or self-care (01) | LOC: LAB.S 08:00 | PROVIDERS: ATTEND Physician Assistant Medical | DX: R19.7 Diarrhea, unspecified (principal) | CPT/HCPCS: 87045; 87046; 87329; 87427; 87493 ==

== ENCOUNTER 2023-01-19 07:05 | Outpatient (CLI) | payer MEDICARE, OTHER ==
[2023-01-19 14:36] LABS: BASOPHILS % (AUTO) 0.7 %; EOSINOPHILS # (AUTO) 0.2 10^3/uL (0.0-0.7); EOSINOPHILS % (AUTO) 3.1 %; HGB - HEMOGLOBIN 14.7 g/dL (14.0-18.0); LYMPHOCYTES # (AUTO) 1.7 10^3/uL (1.5-3.5); LYMPHOCYTES % (AUTO) 31.3 %; MEAN CORPUSCULAR HEMOGLOBIN 30.6 pg (27.0-31.0); MEAN CORPUSCULAR HGB CONC 32.7 g/dL (32.0-36.0); MEAN CORPUSCULAR VOLUME 93.8 fL (80.0-94.0); MEAN PLATELET VOLUME 9.1 fL (7.4-11.4); MONOCYTES # (AUTO) 0.6 10^3/uL (0.0-1.0); MONOCYTES % (AUTO) 10.3 %; NEUTROPHILS % (AUTO) 54.4 %; PLT - PLATELET COUNT 190 10^3/uL (130-450); RED CELL DISTRIBUTION WIDTH 13.4 % (12.0-15.0); WHITE BLOOD COUNT 5.5 x10^3/uL (4.8-10.8)
[2023-01-19 14:50] LABS: ALBUMIN 4.4 g/dL (3.2-5.5); ALBUMIN/GLOBULIN RATIO 2.2 (1.0-2.2); ALKALINE PHOSPHATASE 64 IU/L (42-121); ALT ALANINE AMINOTRANSFERASE 14 IU/L (10-60); AST ASPARTATE AMINOTRANSFERASE 15 IU/L (10-42); BILIRUBIN,TOTAL 0.6 mg/dL (0.2-1.0); BUN - BLOOD UREA NITROGEN 13 mg/dL (6-20); CALCIUM 9.8 mg/dL (8.5-10.3); CARBON DIOXIDE - CO2 32 mmol/L (21-32); CHLORIDE 103 mmol/L (101-111); CHOL/HDL RATIO 3.6 (<5.0); CHOLESTEROL 127 mg/dL; CREATININE 0.7 mg/dL (0.6-1.3); GFR - MDRD 110 (>89); GLUCOSE 130 mg/dL (74-104); HDL CHOLESTEROL 35 mg/dL; LDL CHOLESTEROL,CALCULATED 58 mg/dL; LDL/HDL RATIO 1.7 (<3.6); SODIUM 139 mmol/L (135-145); TOTAL PROTEIN 6.4 g/dL (6.4-8.9); TRIGLYCERIDES 171 mg/dL (48-352); VLDL CHOLESTEROL 34 mg/dL
[2023-01-19 15:02] LABS: THYROID STIMULATING HORMONE 2.94 uIU/mL (0.34-5.60)
== END 2023-01-19 07:06 | disposition home or self-care (01) ==
LOC: LAB.S 07:05
PROVIDERS: ATTEND Registered Nurse
DX: Z79.899 Other long term (current) drug therapy (principal); Z13.220 Encounter for screening for lipoid disorders; I10 Essential (primary) hypertension
CPT/HCPCS: 36415; 80053; 80061; 83721; 84443; 85025

== ENCOUNTER 2023-01-26 12:24 | Outpatient (CLI) | payer MEDICARE, OTHER ==
--- NOTE | 2023-01-26 16:53 | XRAY Report ---
PROCEDURE: Cervical Spine Comp w/Flex/Ext INDICATIONS: WEAKNESS OF RT ARM TECHNIQUE: 7 views of the cervical spine were acquired. COMPARISON: None. FINDINGS: Bones: Multilevel disc space narrowing and endplate osteophyte formation, as well as facet hypertroph y. 4 mm of retrolisthesis of C3 on C4 with extension and neutral positioning is present, which partia lly reduces with flexion positioning. No fracture nor osseous lesion. Soft tissues: Prevertebral soft tissues are normal in thickness. IMPRESSION: 1. Multilevel degenerative disc and facet disease. 2. Mild instability at C3-C4. 3. No acute fracture. No osseous lesion. If symptoms and/or clinical suspicion for pathology continue , further assessment with repeat plain films, or advanced imaging (e.g., CT, MRI, or bone scan) is re commended for further assessment. Reviewed by: Shanon Lorenzo MD on 01/26/2023 4:51 PM PDT Approved by: Shanon Lorenzo MD on 01/26/2023 4:51 PM PDT Station ID: [id number]
--- NOTE | 2023-01-26 16:54 | XRAY Report ---
PROCEDURE: Lumbar Spine 2 View INDICATIONS: PARESTHESIA OF LOWER EXTREMITY TECHNIQUE: 3 views of the lumbar spine were acquired. COMPARISON: None. FINDINGS: Bones: 5 [id number] vertebrae are present. There is moderate rightward curvature of the upper lumbar spine. Multilevel disc space narrowing and endplate osteophyte formation, as well as facet hyp ertrophy. No vertebral body compression fractures. No suspicious bony lesions. Soft tissues: Overlying bowel gas pattern is normal. No suspicious soft tissue calcifications. IMPRESSION: 1. Multilevel degenerative disc and facet disease. 2. No acute fracture. No osseous lesion. If symptoms and/or clinical suspicion for pathology continue , further assessment with repeat plain films, or advanced imaging (e.g., CT, MRI, or bone scan) is re commended for further assessment. Reviewed by: Shanon Lorenzo MD on 01/26/2023 4:53 PM PDT Approved by: Shanon Lorenzo MD on 01/26/2023 4:53 PM PDT Station ID: [id number]
[2023-01-26 20:34] LABS: ESTIMATED AVERAGE GLUCOSE 126 mg/dL (70-100)
== END 2023-01-26 12:25 | disposition home or self-care (01) ==
LOC: DI.S 12:24
PROVIDERS: ATTEND Registered Nurse
DX: R29.898 Other symptoms and signs involving the musculoskeletal system (principal); R20.2 Paresthesia of skin; M47.816 Spondylosis without myelopathy or radiculopathy, lumbar region; M51.36 Other intervertebral disc degeneration, lumbar region; R73.9 Hyperglycemia, unspecified
CPT/HCPCS: 36415; 83036

== ENCOUNTER 2023-05-06 08:52 | Emergency (ER) | payer MEDICARE, OTHER ==
--- NOTE | 2023-05-06 09:36 | ED Physician Documentation ---
PD HPI ABD PAIN - Stated complaint Stated Complaint: ABD PX,GEN WEAKNESS - Chief complaint Chief Complaint: Abd Pain - History obtained from History obtained from: Patient - Additional information Additional information: Patient is a 77-year-old male with a history of prior appendectomy and cholecystectomy presenting for evaluation of right lower quadrant pain that has been present for 4 days. He reports decreased appetite but no nausea or vomiting. No diarrhea and his last bowel movement was this morning and normal with no blood. No fever, chest pain or shortness of air. No radiation of pain to the back. Nothing makes it better or worse. Review of Systems Constitutional: denies: Fever Cardiac: denies: Chest pain / pressure Respiratory: denies: Dyspnea GI: reports: Abdominal Pain. denies: Vomiting, Diarrhea : denies: Dysuria Neurologic: denies: Headache PD PAST MEDICAL HISTORY - Past Medical History Cardiovascular: Hypertension, High cholesterol, Angina, Arrhythmia Respiratory: None Neuro: None Endocrine/Autoimmune: Other GI: GERD, GI bleed, Hepatitis, Other : Other HEENT: None Psych: Anxiety Musculoskeletal: Gout, Other Derm: None - Past Surgical History Past Surgical History: Yes General: Cholecystectomy, Appendectomy, Colonoscopy, EGD Ortho: Arthroscopic surgery HEENT: Tonsil/Adenoidectomy - Present Medications Home Medications: Ambulatory Orders Medication Instructions Recorded Confirmed atenoloL [Atenolol] 25 mg PO DAILY 01/09/13 02/15/20 Aspirin 81 mg PO DAILY 06/06/18 02/15/20 Cyanocobalamin (Vitamin B-12) 1 drops PO DAILY 06/06/18 02/15/20 [B-12] LORazepam [Ativan] 1 mg PO DAILY PRN 06/06/18 02/15/20 Multivitamin [Multiple Vitamins] 1 tab PO DAILY 06/06/18 02/15/20 Nicotine Polacrilex [Nicotine Gum] 2 mg PO DAILY 06/06/18 02/15/20 Cholecalciferol (Vitamin D3) 1 cap PO DAILY 02/15/20 02/15/20 [Vitamin D3] Docusate Sodium 100 mg PO DAILY PRN 02/15/20 02/15/20 Lactobacillus Acidophilus 1 tab PO DAILY 02/15/20 02/15/20 [Probiotic Acidophilus] cephALEXin [Keflex] 500 mg PO Q6H #40 capsule 02/16/20 oxyCODONE [Roxicodone] 5 mg PO Q4HR PRN #20 tablet 02/16/20 Ondansetron Odt [Zofran] 4 mg TL Q6H PRN #10 tablet 04/02/20 Esomeprazole Magnesium [Nexium] 40 mg PO DAILY #30 cap 12/20/20 Famotidine [Pepcid] 20 mg PO BID #60 tablet 12/20/20 Sucralfate [Carafate] 1 gm PO ACHS #60 tablet 12/20/20 oxyCODONE [Roxicodone] 5 mg PO Q6HR PRN #12 tablet 05/06/23 - Allergies Allergies/Adverse Reactions: Allergies Allergy/AdvReac Type Severity Reaction Status Date / Time azithromycin [From Zithromax] AdvReac Rash Verified 08/13/22 13:43 hydrocodone AdvReac Nausea Verified 08/13/22 13:43 - Social History Does the pt smoke?: No Smoking Status: Never smoker Does the pt drink ETOH?: Yes Does the pt have substance abuse?: No - Immunizations Immunizations are current?: Yes - POLST Patient has POLST: No POLST Status: DNR (He states that he has advanced directives that he is brought into this hospital 2 or 3 times. We will have to pull the old hardcopy charts to see if they are there. Either his ex- or daughter are DURABLE [employer] OF [employer]DER he cannot remember which.) PD ED PE NORMAL - General General: Alert and oriented X 3, No acute distress, Well developed/nourished - HEENT HEENT: Atraumatic, Moist mucous membranes, Pharynx benign - Neck Neck: Supple, no meningeal sign - Cardiac Cardiac: RRR - Respiratory Respiratory: No respiratory distress, Clear bilaterally - Abdomen Abdomen: Normal bowel sounds, Soft, Non distended, Other (Right lower quadrant tenderness on deep palpation, no mass or hernia) - Derm Derm: Warm and dry - Neuro Neuro: Normal speech Results - Vitals Vitals: Vital Signs - 24 hr 05/06/23 05/06/23 09:03 13:55 Temperature 36.1 C L Heart Rate 64 61 Respiratory 12 15 Rate Blood Pressure 143/107 H 133/75 H O2 Saturation 97 98 Oxygen O2 Source Room air - Labs Labs: Laboratory Tests 05/06/23 05/06/23 05/06/23 09:55 09:55 10:33 WBC 5.6 RBC 4.56 L Hgb 14.2 Hct 41.1 L MCV 90.1 MCH 31.1 H MCHC 34.5 RDW 12.9 Plt Count 172 MPV 8.5 Neut # (Auto) 3.4 Lymph # (Auto) 1.3 L Hinds # (Auto) 0.6 Eos # (Auto) 0.1 Baso # (Auto) 0.0 Absolute Nucleated RBC 0.00 Nucleated RBC % 0.0 Sodium 138 Potassium 4.0 Chloride 103 Carbon Dioxide 29 Anion Gap 6.0 BUN 12 Creatinine 0.7 Estimated GFR (MDRD) 110 Glucose 124 H Calcium 9.6 Total Bilirubin 0.7 AST 14 ALT 14 Alkaline Phosphatase 59 Total Protein 6.3 L Albumin 4.2 Globulin 2.1 Albumin/Globulin Ratio 2.0 Lipase 23 Urine Color YELLOW Urine Clarity CLEAR Urine pH 6.0 Ur Specific [place] <=1.005 Urine Protein NEGATIVE Urine Glucose (UA) NEGATIVE Urine Ketones NEGATIVE Urine Occult Blood NEGATIVE Urine Nitrite NEGATIVE Urine Bilirubin NEGATIVE Urine Urobilinogen 0.2 (NORMAL) Ur Leukocyte Esterase NEGATIVE Ur Microscopic Review NOT INDICATED Urine Culture Comments NOT INDICATED PD Medical Decision Making - ED course Complexity details: reviewed results, re-evaluated patient, d/w patient ED course: Patient is a 77-year-old male presenting for evaluation of right lower quadrant pain intermittently for the past 4 days. He already has a prior appendectomy. Vital signs are stable. CBC, chemistries were obtained and reviewed without significant findings. Patient is feeling better with a dose of IV morphine here. CT scan of the abdomen and pelvis was obtained which demonstrates mild inflammation in the terminal ileum which correlates with his area of tenderness. Patient has been resting well here for several hours. No diarrhea.Feel infectious etiology is less likely and discussed a trial of supportive care as well as need for close follow-up with primary care provider as he may need referral back to GI. Patient is counseled on concerning symptoms to return for. Departure - Departure Disposition: 01 Home, Self Care Clinical Impression: Ileitis, terminal Condition: Stable Instructions: ED Gastroenteritis Non Infec Prescriptions: oxyCODONE [Roxicodone] 5 mg PO Q6HR PRN #12 tablet PRN Reason: Pain Comments: I have sent a small amount of narcotic pain medication to [facility] in [place]. Please utilize this as well as the Zofran you already have at home as needed. While you are having pain I would recommend a bland diet and trial of anti- inflammatory such as acetaminophen or ibuprofen. Avoid citrusy, tomato based, spicy, greasy food for the time being. Please have close follow-up with your primary care doctor. Return to the ER with any worsening symptoms. I am prescribing a short course of narcotic pain medication for you. These are potentially dangerous and addictive medications that should be used carefully. These medications may constipate you. Take an wjqa-zga-vmryrxl stool softener (docusate) twice daily with plenty of water while taking these medications. If you go 24 hours without a bowel movement, take tcob-vsb-ehpiynj miralax, per package instructions. Do not drink or drive while taking these medications. If you received narcotic or sedating medications while in the emergency department, do not drive for 24 hours. Store this medication in a safe, secure place and out of reach of children. It is a violation of federal law to give or sell this medication to another person or to use in a manner other than prescribed. The ED will not refill narcotic prescriptions, including prescriptions lost or stolen. To dispose of unwanted medications: 1. [facility] [address] [facility] in [place] has a medication drop box. They accept prescription medications (in pill form) Wednesday through Wednesday 9:00 a.m. to 5:00 p.m. 2. The [facility] [employer] accepts prescription medications (in pill form only) for disposal year round. Call for more information. 3. Contact the [facility] for the next [facility] sponsored prescription drug collection event. , [phone], or [phone]; Note that many narcotic pain relievers also contain Tylenol/acetaminophen. Please ensure that your total dose of acetaminophen from all sources does not exceed 3 g (3000 mg) per day. IMPRESSION: 1. Mild wall thickening and inflammatory changes of the terminal ileum with multiple loops of fluid- filled small bowel proximally. Findings are nonspecific but may represent an infectious or inflammatory enteritis. No evidence for bowel obstruction. Of note, the appendix was not definitively visualized on this examination. 2. Hepatic steatosis. 3. Status post cholecystectomy. 4. Colonic diverticulosis without acute diverticulitis. Forms: PCP List Discharge Date/Time: 05/06/23 13:56
[2023-05-06] MEDS: ONDANSETRON 4 MG/2 ML VIAL IVP STA (09:38)
[2023-05-06] MEDS: SODIUM CHLORIDE 0.9% 1,000 ML IV STA (09:39)
[2023-05-06] MEDS: MORPHINE 2 MG/ML CARPUJECT IVP STA (09:39)
[2023-05-06 10:01] LABS: BASOPHILS % (AUTO) 0.7 %; EOSINOPHILS # (AUTO) 0.1 10^3/uL (0.0-0.7); EOSINOPHILS % (AUTO) 2.2 %; HCT - HEMATOCRIT 41.1 % (42.0-52.0); HGB - HEMOGLOBIN 14.2 g/dL (14.0-18.0); LYMPHOCYTES # (AUTO) 1.3 10^3/uL (1.5-3.5); LYMPHOCYTES % (AUTO) 23.4 %; MEAN CORPUSCULAR HEMOGLOBIN 31.1 pg (27.0-31.0); MEAN CORPUSCULAR HGB CONC 34.5 g/dL (32.0-36.0); MEAN CORPUSCULAR VOLUME 90.1 fL (80.0-94.0); MEAN PLATELET VOLUME 8.5 fL (7.4-11.4); MONOCYTES # (AUTO) 0.6 10^3/uL (0.0-1.0); MONOCYTES % (AUTO) 11.5 %; NEUTROPHILS # (AUTO) 3.4 10^3/uL (1.5-6.6); PLT - PLATELET COUNT 172 10^3/uL (130-450); RED BLOOD COUNT 4.56 10^6/uL (4.70-6.10); RED CELL DISTRIBUTION WIDTH 12.9 % (12.0-15.0); WHITE BLOOD COUNT 5.6 x10^3/uL (4.8-10.8)
[2023-05-06 10:15] LABS: ALBUMIN 4.2 g/dL (3.2-5.5); BILIRUBIN,TOTAL 0.7 mg/dL (0.2-1.0); CALCIUM 9.6 mg/dL (8.5-10.3); CREATININE 0.7 mg/dL (0.6-1.3); TOTAL PROTEIN 6.3 g/dL (6.4-8.9)
[2023-05-06 10:38] LABS: BILIRUBIN,URINE NEGATIVE (NEGATIVE); GLUCOSE, URINE (UA) NEGATIVE (NEGATIVE); KETONES,URINE (UA) NEGATIVE (NEGATIVE); LEUKOCYTE ESTERASE, URINE NEGATIVE (NEGATIVE); NITRITE,URINE NEGATIVE (NEGATIVE); OCCULT BLOOD,URINE NEGATIVE (NEGATIVE); PROTEIN,URINE NEGATIVE (NEGATIVE); UROBILINOGEN,URINE 0.2 (NORMAL) E.U./dL (NORMAL)
[2023-05-06 10:40] LABS: CLARITY,URINE CLEAR (CLEAR)
--- NOTE | 2023-05-06 12:40 | CT Report ---
PROCEDURE: ABDOMEN/PELVIS W INDICATIONS: RLQ pain CONTRAST: 100ml omni 300 TECHNIQUE: After the administration of intravenous contrast, 5 mm thick sections acquired from the diaphragms to the symphysis. 5 mm thick coronal and sagittal reformats were acquired. For radiation dose reducti on, the following was used: automated exposure control, adjustment of mA and/or kV according to sophy ent size. COMPARISON: 09/17/2022 FINDINGS: Image quality: Diagnostic. Lung bases and heart: Unremarkable. Liver: Hepatic steatosis. Gallbladder and biliary tree: Surgically absent. No biliary dilation, accounting for post-cholecystec nelly state. Spleen: No splenomegaly. Pancreas: No pancreatic ductal dilation. Adrenals: No adrenal nodule. Kidneys and ureters: No hydronephrosis. No renal cystic lesion which requires follow up. No solid mas s. Bowel and peritoneum: There are mild inflammatory changes involving the terminal ileum. Minimal wall thickening of the terminal ileum. Multiple loops of fluid-filled small bowel. The appendix is not def initively visualized. No bowel distension. No pathologic free fluid. No free air. Scattered colonic d iverticulosis without evidence for acute diverticulitis. Lymph nodes: No central or retroperitoneal adenopathy. Vessels: No infrarenal aortic aneurysm. PELVIS Reproductive organs: Unremarkable. Bladder: No abnormal wall thickening, accounting for underdistension. Pelvic lymph nodes: No pelvic adenopathy by size criteria. Bones: No aggressive osseous abnormality. Multilevel spondylosis of the imaged spine. No acute compre ssion fracture. Other: Small fat-containing umbilical and right inguinal hernia without acute inflammation. IMPRESSION: 1. Mild wall thickening and inflammatory changes of the terminal ileum with multiple loops of fluid-f illed small bowel proximally. Findings are nonspecific but may represent an infectious or inflammator y enteritis. No evidence for bowel obstruction. Of note, the appendix was not definitively visualized on this examination. 2. Hepatic steatosis. 3. Status post cholecystectomy. 4. Colonic diverticulosis without acute diverticulitis. Reviewed by: Pete Ramesh MD on 05/06/2023 12:38 PM PST Approved by: Pete Ramesh MD on 05/06/2023 12:38 PM PST Station ID: [id number]
[2023-05-06 14:03] VITALS: BP 133/75; O2SAT 98
[2023-05-06] MEDS: iohexoL-300 100 ML VIAL IVP ONE (14:33)
== END 2023-05-06 13:56 | disposition home or self-care (01) ==
LOC: ED 08:52
DX: K50.00 Crohn's disease of small intestine without complications (principal); I10 Essential (primary) hypertension; E78.00 Pure hypercholesterolemia, unspecified; Z79.82 Long term (current) use of aspirin; Z79.899 Other long term (current) drug therapy
CPT/HCPCS: 36415; 74177; 80053; 81003; 83690; 85025; 96374; 99284; Q9967; 81001; 87086

== ENCOUNTER 2023-10-15 09:41 | Outpatient (CLI) | payer MEDICARE, OTHER ==
[2023-10-15] MEDS ORDERED: DIATRIZOATE MEGLU/DIATRIZO SOD 30 ML BOTTLE PO ONE (09:46)
[2023-10-15] MEDS ORDERED: iohexoL-300 100 ML VIAL ONE (09:46)
[2023-10-15 09:56] LABS: BASOPHILS # (AUTO) 0.1 10^3/uL (0.0-0.1); BASOPHILS % (AUTO) 0.8 %; EOSINOPHILS # (AUTO) 0.2 10^3/uL (0.0-0.7); EOSINOPHILS % (AUTO) 2.3 %; HCT - HEMATOCRIT 45.6 % (42.0-52.0); LYMPHOCYTES # (AUTO) 1.8 10^3/uL (1.5-3.5); LYMPHOCYTES % (AUTO) 27.5 %; MEAN CORPUSCULAR HEMOGLOBIN 30.2 pg (27.0-31.0); MEAN CORPUSCULAR HGB CONC 32.9 g/dL (32.0-36.0); MEAN CORPUSCULAR VOLUME 91.8 fL (80.0-94.0); MEAN PLATELET VOLUME 8.2 fL (7.4-11.4); MONOCYTES # (AUTO) 0.7 10^3/uL (0.0-1.0); MONOCYTES % (AUTO) 11.1 %; NEUTROPHILS # (AUTO) 3.8 10^3/uL (1.5-6.6); PLT - PLATELET COUNT 188 10^3/uL (130-450); RED BLOOD COUNT 4.97 10^6/uL (4.70-6.10); RED CELL DISTRIBUTION WIDTH 12.9 % (12.0-15.0); WHITE BLOOD COUNT 6.5 x10^3/uL (4.8-10.8)
[2023-10-15 10:13] LABS: ALBUMIN 4.7 g/dL (3.2-5.5); BILIRUBIN,TOTAL 0.6 mg/dL (0.2-1.0); CALCIUM 10.3 mg/dL (8.5-10.3); CREATININE 0.7 mg/dL (0.6-1.3); POTASSIUM 4.4 mmol/L (3.5-4.5); TOTAL PROTEIN 7.1 g/dL (6.4-8.9)
[2023-10-15] MEDS: DIATRIZOATE MEGLU/DIATRIZO SOD 30 ML BOTTLE PO ONE (10:56)
[2023-10-15] MEDS: iohexoL-300 100 ML VIAL IVP ONE (10:56)
--- NOTE | 2023-10-15 12:02 | CT Report ---
PROCEDURE: Abdomen/Pelvis W INDICATIONS: B CELL LYMPHOMA CONTRAST: 100ml omni 300 TECHNIQUE: After the administration of intravenous contrast, a CT scan of the abdomen and pelvis was performed. Images were recorded and evaluated at appropriate window settings. Reformats: coronal and sagittal. F or radiation dose reduction, the following was used: automated exposure control, adjustment of mA and /or kV according to patient size. COMPARISON: CT 05/06/2023, 09/17/2022 FINDINGS: Image quality: Diagnostic. Lower chest: Unremarkable. Liver: No solid mass. Gallbladder: Surgically absent. Biliary tree: No intrahepatic or extrahepatic dilation, accounting for age. Spleen: No splenomegaly. Pancreas: No pancreatic ductal dilation. Adrenals: No adrenal nodule. Kidneys and ureters: No hydronephrosis. No renal cystic lesion which requires follow up. No solid mas s. Stomach, bowel and peritoneum: No gastric or small bowel dilation. No abnormal wall thickening. No pa thologic free fluid. Diverticulosis without evidence of diverticulitis. Lymph nodes: No central or retroperitoneal adenopathy. Vessels: No infrarenal aortic aneurysm. Patent portal vein. PELVIS Reproductive organs: Unremarkable. Bladder: No abnormal wall thickening, accounting for underdistention. Pelvic lymph nodes: No pelvic adenopathy by size criteria. Bones: No aggressive osseous abnormality. Degenerative changes of the spine. Other: Right inguinal hernia containing a small amount of fat. IMPRESSION: No lymphadenopathy. Colonic diverticulosis without evidence of diverticulitis. Reviewed by: Tyler Mehta MD on 10/15/2023 12:00 PM PDT Approved by: Tyler Mehta MD on 10/15/2023 12:00 PM PDT Station ID: [id number]
--- NOTE | 2023-10-15 12:08 | CT Report ---
PROCEDURE: Chest W INDICATIONS: B CELL LYMPHOMA CONTRAST: 100ml omni 300 TECHNIQUE: After the administration of intravenous contrast, a CT scan of the chest was performed. Images were recorded and evaluated at appropriate window settings. Reformats: axial MIP of the chest, coronal and sagittal. For radiation dose reduction, the following was used: automated exposure control, adjustme nt of mA and/or kV according to patient size. COMPARISON: 09/17/2022, 09/02/2021 FINDINGS: Image quality: Diagnostic. Chest wall and lower neck: No thyroid nodule which requires sonographic follow up. No breast mass. No axillary or supraclavicular adenopathy by size. Lungs and pleura: No consolidation. No pleural effusions. No pneumothorax. No suspicious pulmonary n odules which require follow up. Mediastinum: Heart size is enlarged. No pericardial effusion. No large vessel abnormality. No mediast inal adenopathy by size criteria. Bones: No aggressive osseous abnormality. Upper Abdomen: Separately dictated. IMPRESSION: No lymphadenopathy. Reviewed by: Tyler Mehta MD on 10/15/2023 12:07 PM PDT Approved by: Tyler Mehta MD on 10/15/2023 12:07 PM PDT Station ID: [id number]
--- NOTE | 2023-10-15 12:21 | CT Report ---
PROCEDURE: Soft Tissue Neck W INDICATIONS: B CELL LYMPHOMA CONTRAST: 100ml omni 300 TECHNIQUE: After the administration of intravenous contrast, 3.0 mm axial sections acquired from the sella to th e aortic arch. Additional oblique axial 3.0 mm sections acquired through the pharynx. 3 mm thick co garry reformats were generated. For radiation dose reduction, the following was used: automated exp osure control, adjustment of mA and/or kV according to patient size. COMPARISON: CT neck 09/17/2022, 09/02/2021 FINDINGS: Image quality: Excellent. Lymph nodes: No enlarged lymph nodes seen throughout the neck. Vessels: Visualized vasculature appears patent. 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 Neck spaces: The oropharynx, nasopharynx, and pharynx demonstrate no mucosal lesions. The vocal cor ds, false vocal cords, pyriform sinuses, epiglottis, vallecula, and tongue base all appear normal. E xtramucosal spaces appear unremarkable. Glands: The parotid and submandibular glands appear normal. The thyroid is normal in size and there are no incidental findings. Miscellaneous: Visualized brain and orbits appear normal. Lung apices appear clear. Superficial so ft tissues appear normal. Bones: No suspicious bony lesions. Visualized sinuses and mastoids appear unremarkable. Moderate d egenerative changes are present within the visualized cervical spine. IMPRESSION: Stable interval exam compared to 09/17/2022 demonstrating no adenopathy. CLINICAL RECOMMENDATION STATEMENTS: In patients <35 years with an ITN detected on CT, MRI, or extrathyroidal ultrasound, the Committee re commends further evaluation with dedicated thyroid ultrasound if the nodule is "e1 cm and has no susp icious imaging features, and if the patient has normal life expectancy. In patients "e35 years with an ITN detected on CT, MRI, or extrathyroidal ultrasound, the Committee r ecommends further evaluation with dedicated thyroid ultrasound if the nodule is "e1.5 cm and has no s uspicious imaging features, and if the patient has normal life expectancy. (ACR, 2014) Reviewed by: Chiara Ayala MD on 10/15/2023 12:20 PM PDT Approved by: Chiara Ayala MD on 10/15/2023 12:20 PM PDT Station ID: [id number]
== END 2023-10-15 09:42 | disposition home or self-care (01) ==
LOC: LAB 09:41
PROVIDERS: ATTEND Nurse Practitioner
DX: C83.30 Diffuse large B-cell lymphoma, unspecified site (principal); K57.30 Diverticulosis of large intestine without perforation or abscess without bleeding
CPT/HCPCS: 36415; 70491; 71260; 74177; 80053; 83615; 85025; Q9963; Q9967; 82565

== ENCOUNTER 2023-12-14 08:00 | Outpatient (CLI) | payer MEDICARE, OTHER ==
--- NOTE | 2023-12-14 15:12 | XRAY Report ---
PROCEDURE: Foot 3+V LT INDICATIONS: PAIN IN LEFT FOOT TECHNIQUE: 3 views of the foot were acquired. COMPARISON: Left foot radiograph on July 07, 2018. FINDINGS: Bones: No fractures or dislocations. No suspicious bony lesions. Mild first MTP and diffuse IP join t space narrowing and juxta-articular osteophytosis. Additional degenerative changes in the midfoot, notably at the base of the second and third metatarsals, similar to prior. Soft tissues: No tibiotalar joint effusion. Achilles tendon appears normal. Moderate plantar calca cm enthesophyte. IMPRESSION: 1.No acute bony abnormality. If clinical symptoms persist, consider repeat radiograph in 10-14 days v ersus cross-sectional imaging. 2.Degenerative changes in the midfoot and forefoot, similar to prior dated July 07, 2018 Reviewed by: Yaquelin Sim MD on 12/14/2023 3:10 PM PDT Approved by: Yaquelin Sim MD on 12/14/2023 3:10 PM PDT Station ID: [id number]
== END 2023-12-14 23:59 | disposition home or self-care (01) ==
LOC: DI.S 08:00
PROVIDERS: ATTEND Registered Nurse
DX: M19.072 Primary osteoarthritis, left ankle and foot (principal)

== ENCOUNTER 2024-01-05 07:06 | Outpatient (CLI) | payer MEDICARE, OTHER ==
[2024-01-05 14:06] LABS: CHOL/HDL RATIO 3.6 (<5.0); CHOLESTEROL 130 mg/dL; HDL CHOLESTEROL 36 mg/dL; LDL CHOLESTEROL,CALCULATED 63 mg/dL; LDL/HDL RATIO 1.8 (<3.6); TRIGLYCERIDES 154 mg/dL; VLDL CHOLESTEROL 31 mg/dL
[2024-01-05 14:16] LABS: THYROID STIMULATING HORMONE 2.65 uIU/mL (0.34-5.60)
== END 2024-01-05 07:07 | disposition home or self-care (01) ==
LOC: LAB.S 07:06
PROVIDERS: ATTEND Registered Nurse
DX: Z13.220 Encounter for screening for lipoid disorders (principal); Z12.5 Encounter for screening for malignant neoplasm of prostate; Z13.29 Encounter for screening for other suspected endocrine disorder
CPT/HCPCS: 36415; 80061; 84443; G0103; 83721; 84153

== ENCOUNTER 2024-02-04 07:14 | Outpatient (CLI) | payer MEDICARE, OTHER ==
--- NOTE | 2024-02-04 20:08 | Ultrasound Report ---
PROCEDURE: Aorta Screening INDICATIONS: HIST OF SMOKING TECHNIQUE: Real time scanning was performed of the aorta and iliac arteries, with image documentatio n. COMPARISON: None. FINDINGS: Aorta: Proximal aortic diameter measures 2.4 cm. Mid-aorta measures 2.1 cm. Distal aortic diameter is 2.0 cm. Iliac arteries: Right common iliac artery measures 1.6 cm. Left common iliac artery measures 1.4 cm . IMPRESSION: Unremarkable ultrasound of the abdominal aorta without aneurysm Recommended intervals for follow-up imaging of ectatic aortas and abdominal aortic aneurysms, per ACR consensus guidelines: 2.5-2.9 cm: 5 years 3.0-3.4 cm: 3 years 3.5-3.9 cm: 2 years 4.0-4.4 cm: 1 year 4.5-4.9 cm: 6 months + endovascular referral 5.0-5.5 cm: 3-6 months + endovascular referral Reviewed by: Jay García MD on 02/04/2024 7:06 PM AKDT Approved by: Jay García MD on 02/04/2024 7:06 PM AKDT Station ID: [id number]
== END 2024-02-04 07:15 | disposition home or self-care (01) ==
LOC: DI 07:14
PROVIDERS: ATTEND Registered Nurse
DX: Z13.6 Encounter for screening for cardiovascular disorders (principal)